=== PATIENT | female | born 1950 | race American Indian/Alaskan Native ===

== ENCOUNTER 2021-07-28 09:34 | Inpatient (IN) | payer MEDICARE, MEDICAID ==
[2021-07-28] MEDS ORDERED: ONDANSETRON 4 MG/2 ML INJ ONE (09:37)
[2021-07-28] MEDS ORDERED: NALOXONE 0.4 MG/1 ML INJ ONE (09:38)
[2021-07-28] MEDS ORDERED: SODIUM CHLORIDE 0.9% 1000 ML 1,000 ML IV ONE ×2 (09:58→11:18)
--- NOTE | 2021-07-28 10:02 | Emergency Department Report ---
ED General Adult HPI - General Chief complaint: Altered Mental Status Stated complaint: SEPTIC Time Seen by Provider: 07/28/21 09:57 Source: patient Mode of arrival: Stretcher Limitations: Altered Mental Status - History of Present Illness Initial comments: Patient is 71 years old female, halfway patient. Patient with history of dementia, congestive heart failure, COPD, asthma, diabetes and hypertension. Patient brought to the emergency room via EMS for evaluation of altered mental status. EMS stated that patient started having some shortness of breath this morning. Patient found to be hypotensive by EMS however they are unable to get an IV access. Upon arrival to the ER patient is obtunded, pupils pinpoint however medication list showed no evidence of narcotics. Patient is taking Seroquel. Right femoral central line obtained and patient started on IV fluids. - Related Data Home Medications Medication Instructions Recorded Confirmed Last Taken Acetaminophen 650 mg PO Q4H PRN 01/28/20 07/28/21 Unknown Aspirin [Aspirin BABY CHEW TAB] 81 mg PO QDAY 01/28/20 07/28/21 Unknown Atorvastatin Calcium [Lipitor] 40 mg PO QHS 01/28/20 07/28/21 Unknown Benazepril HCl [Lotensin] 20 mg PO DAILY 01/28/20 07/28/21 Unknown Donepezil HCl [Donepezil HCl Odt] 10 mg PO QHS 01/28/20 07/28/21 Unknown Furosemide [Lasix TAB] 20 mg PO QDAY 01/28/20 07/28/21 Unknown Insulin Glargine,Hum.rec.anlog 25 unit SQ BID 01/28/20 07/28/21 Unknown [Lantus Solostar] Linagliptin [Tradjenta] 5 mg PO QDAY 01/28/20 07/28/21 Unknown [place]-3/Dha/Epa/Fish Oil [Fish Oil 500 mg PO DAILY 01/28/20 07/28/21 Unknown 500 mg Softgel] Quetiapine Fumarate [SEROquel] 50 mg PO HS 01/28/20 07/28/21 Unknown allopurinoL [Zyloprim] 100 mg PO QHS 01/28/20 07/28/21 Unknown hydrALAZINE [Apresoline TAB] 50 mg PO BID 01/28/20 07/28/21 Unknown Fenofibrate 40 mg PO DAILY 07/28/21 07/28/21 Unknown amLODIPine [Norvasc] 10 mg PO DAILY 07/28/21 07/28/21 Unknown Previous Rx's Medication Instructions Recorded Last Taken Type ALBUTEROL NEB's [Proventil 0.083% 2.5 mg IH Q4HRT PRN nebu 02/14/20 Unknown Rx NEBS] Simple Syrup 15 ml FEEDTUBE PRN PRN oral.liqd 02/14/20 Unknown Rx Simple Syrup 30 ml FEEDTUBE PRN PRN oral.liqd 02/14/20 Unknown Rx Sodium Bicarbonate 325 mg FEEDTUBE PRN PRN tablet 02/14/20 Unknown Rx Allergies Allergy/AdvReac Type Severity Reaction Status Date / Time metformin Allergy Unknown Verified 07/29/21 09:42 lactose AdvReac Diarrhea Verified 07/29/21 09:42 ED Review of Systems ROS: Stated complaint: SEPTIC Other details as noted in HPI Comment: Unobtainable due to pts medical conditions ED Past Medical Hx - Past Medical History Previous Medical History?: Yes Hx Hypertension: Yes Hx Congestive Heart Failure: Yes Hx Diabetes: Yes Hx Deep Vein Thrombosis: (unknown) Hx Asthma: Yes Hx COPD: Yes Hx Dementia: Yes - Surgical History Hx Pacemaker: No - Social History Smoking Status: Unknown if ever smoked - Medications Home Medications: Home Medications Medication Instructions Recorded Confirmed Last Taken Type Acetaminophen 650 mg PO Q4H PRN 01/28/20 07/28/21 Unknown History Aspirin [Aspirin BABY CHEW TAB] 81 mg PO QDAY 01/28/20 07/28/21 Unknown History Atorvastatin Calcium [Lipitor] 40 mg PO QHS 01/28/20 07/28/21 Unknown History Benazepril HCl [Lotensin] 20 mg PO DAILY 01/28/20 07/28/21 Unknown History Donepezil HCl [Donepezil HCl Odt] 10 mg PO QHS 01/28/20 07/28/21 Unknown History Furosemide [Lasix TAB] 20 mg PO QDAY 01/28/20 07/28/21 Unknown History Insulin Glargine,Hum.rec.anlog 25 unit SQ BID 01/28/20 07/28/21 Unknown History [Lantus Solostar] Linagliptin [Tradjenta] 5 mg PO QDAY 01/28/20 07/28/21 Unknown History [place]-3/Dha/Epa/Fish Oil [Fish Oil 500 mg PO DAILY 01/28/20 07/28/21 Unknown History 500 mg Softgel] Quetiapine Fumarate [SEROquel] 50 mg PO HS 01/28/20 07/28/21 Unknown History allopurinoL [Zyloprim] 100 mg PO QHS 01/28/20 07/28/21 Unknown History hydrALAZINE [Apresoline TAB] 50 mg PO BID 01/28/20 07/28/21 Unknown History ALBUTEROL NEB's [Proventil 0.083% 2.5 mg IH Q4HRT PRN nebu 02/14/20 07/28/21 Unknown Rx NEBS] Simple Syrup 15 ml FEEDTUBE PRN PRN oral.liqd 02/14/20 07/28/21 Unknown Rx Simple Syrup 30 ml FEEDTUBE PRN PRN oral.liqd 02/14/20 07/28/21 Unknown Rx Sodium Bicarbonate 325 mg FEEDTUBE PRN PRN tablet 02/14/20 07/28/21 Unknown Rx Fenofibrate 40 mg PO DAILY 07/28/21 07/28/21 Unknown History amLODIPine [Norvasc] 10 mg PO DAILY 07/28/21 07/28/21 Unknown History ED Physical Exam - General Limitations: Altered Mental Status General appearance: obtunded - Head Head exam: Present: atraumatic, normocephalic, normal inspection - Eye Eye exam: Present: normal appearance, PERRL - ENT ENT exam: Present: mucous membranes dry - Neck Neck exam: Present: normal inspection, full ROM. Absent: tenderness, me ningismus - Respiratory Respiratory exam: Present: normal lung sounds bilaterally - Cardiovascular Cardiovascular Exam: Present: regular rate, normal rhythm, normal heart sounds - GI/Abdominal GI/Abdominal exam: Present: soft, normal bowel sounds. Absent: distended, tenderness, guarding, rebound, rigid, mass, bruit, pulsatile mass, hernia - Extremities Exam Extremities exam: Present: normal inspection, full ROM, normal capillary refill. Absent: tenderness - Back Exam Back exam: Present: normal inspection, full ROM. Absent: CVA tenderness (R), CVA tenderness (L) - Neurological Exam Neurological exam: Present: altered - Skin Skin exam: Present: warm, dry, normal color ED Course Vital Signs 07/28/21 07/28/2107/28/21 11:00 11:19 11:37 Temperature Pulse Rate 137 H 125 H Respiratory 20 Rate Blood Pressure Blood Pressure 86/37 [Left] O2 Sat by Pulse 96 95 95 Oximetry 07/28/21 07/28/21 07/28/21 12:03 13:14 13:54 Temperature 92.4 F L Pulse Rate 145 H Respiratory Rate Blood Pressure Blood Pressure 106/45 [Left] O2 Sat by Pulse 100 100 Oximetry 07/28/21 14:00 Temperature Pulse Rate Respiratory Rate Blood Pressure 91/37 Blood Pressure [Left] O2 Sat by Pulse 100 Oximetry - Reevaluation(s) Reevaluation #1: 07/28/21 11:20 Patient became unresponsive and no pulse. ACLS protocol immediately initiated. Patient received 1 round of CPR and 1 epi patient able to regain her pulse back. Patient intubated by me. - Central Line Placement Right Femoral Consent Obtained: emergent situation Time Out Performed: Yes Patient Placed on Monitor/Pulse Ox: Yes MD Prep: mask, gown, gloves Central Line Prep: Povidone-Iodine 1%, Chlorhexidine scrub, sterile drapes appl ied Local Anesthesia Used: Lidocaine 1% Central Line Lumen Inserted: triple Reason for Insertion: Volume Resuscitation Bloods Obtained for Lab: Yes Central Line Position: good blood return, all ports aspirated, flus, sutured in place with 2-0 Dressing Applied: Tegaderm, sterile gauze/tape Patient Tolerated Procedure: well, no complications - Intubation Time Out Performed: Yes Sedative: Etomidate Paralytic: Rocuronium Laryngoscope: Olivia Size: 4 ET Tube Size: 7.5 Tube Secured Location: teeth Tube Placement Confirmation: visualized tube passing t, equal breath sounds bilat, no breath sounds over epi, confirmation by capnometr Patient Tolerated Procedure: well, no complications Intubation Complications: none ED Medical Decision Making - Lab Data Result diagrams: 08/02/21 04:40 08/02/21 04:40 - EKG Data -: EKG Interpreted by Me EKG shows normal: sinus rhythm Rate: tachycardia - EKG Data Interpretation: no acute changes - Radiology Data Radiology results: report reviewed - Medical Decision Making Patient is 71 years old female, halfway patient. Patient with history of dementia, congestive heart failure, COPD, asthma, diabetes and hypertension. Patient brought to the emergency room via EMS for evaluation of altered mental status. EMS stated that patient started having some shortness of breath this morning. Patient found to be hypotensive by EMS however they are unable to get an IV access. Upon arrival to the ER patient is obtunded, pupils pinpoint however medication list showed no evidence of narcotics. Patient is taking Seroquel. Right femoral central line obtained and patient started on IV fluids. Chest x-ray showed bilateral basilar infiltrate consistent with pneumonia. Patient is actively coughing in the emergency room. While resuscitating her patient went into cardiac arrest. Patient received 1 round of CPR and 1 epinephrine and able to regain her pulse back. Patient intubated by me. Labs reviewed and showed a leukocytosis of 13,000. BUN is 78 and creatinine is 9.1. Patient BUN and creatinine from her last visit last year was in the normal range. Patient is in acute renal failure most likely secondary to sepsis. I discussed the patient with Dr. Oneill, he agreed to admit the patient to medical service for further management. Critical Care Time: Yes Critical care time in (mins) excluding proc time.: 45 Critical care attestation.: If time is entered above; I have spent that time in minutes in the direct care of this critically ill patient, excluding procedure time. ED Disposition Clinical Impression: Acute respiratory failure with hypoxia, Cardiopulmonary arrest, Bilateral pneumonia, Severe sepsis, Acute renal failure Disposition: 09 ADMITTED INPATIENT Is pt being admited?: Yes Condition: Stable
--- NOTE | 2021-07-28 10:37 | XRay Report ---
CHEST 1 VIEW INDICATION / CLINICAL INFORMATION: Altered Mental Status STUDY TIME: 102 COMPARISON: 02/03/2020 FINDINGS: SUPPORT DEVICES: None HEART / MEDIASTINUM: Stable. LUNGS / PLEURA: Liver is slightly congested appearance is now seen. Bibasilar areas of density may re present atelectasis though basilar pneumonitis is not excluded. There may be a small left pleural eff usion. No pneumothorax. ADDITIONAL FINDINGS: No significant additional findings. Signer Name: Alex Roth MD Signed: 07/28/2021 10:32 AM Workstation Name: [id number]
--- NOTE | 2021-07-28 10:44 | Cat Scan Report ---
. CT head/brain wo con INDICATION: Altered Mental Status. TECHNIQUE: All CT scans at this location are performed using CT dose reduction for ALARA by means of automated e xposure control. COMPARISON: None available. FINDINGS: Mildly limited exam due to motion artifact. There is no evidence of hemorrhage, hydrocephalus, brain edema, or mass effect/mass lesion. There is a chronic infarct in the left parieto-occipital convexity and in the left frontoparietal white matter , likely involving the left MCA [employer] watershed zone. There is also a chronic lacunar infarct in the le ft internal capsule region. IMPRESSION: 1. Limited exam due to motion artifact without appreciable acute abnormality. 2. 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 Signer Name: Jonah Sherwood MD Signed: 07/28/2021 10:40 AM Workstation Name: [id number]
[2021-07-28] MEDS ORDERED: NORepinephrine/NS 4 MG-250 ML 4 MG/250 ML BAG IV ONE (11:08)
[2021-07-28] MEDS ORDERED: dexAMETHasone 4 MG/ML VIAL IV ONE (11:18)
[2021-07-28] MEDS ORDERED: PIPERACILLIN/TAZOBACTAM 3.375 3.375 GM/50 ML BAG IV ONE (11:18)
[2021-07-28] MEDS ORDERED: MINERAL OIL/PETROLATUM, WHITE OPHTH OINT 3.5 GM OU PRN (11:19)
[2021-07-28] MEDS ORDERED: LIP THERAPY VASELINE TP PRN (11:19)
[2021-07-28 11:22] LABS: Basophils % (Auto) 0.3 % (0.0-1.8); Eosinophils # (Auto) 0.1 K/mm3 (0.0-0.4); Eosinophils % (Auto) 0.4 % (0.0-4.3); Hematocrit 36.8 % (30.3-42.9); Hemoglobin 11.4 gm/dl (10.1-14.3); Lymphocytes # (Auto) 1.6 K/mm3 (1.2-5.4); Mean Corpuscular HGB Conc 31 % (30-34); Mean Corpuscular Volume 85 fl (79-97); Monocytes # (Auto) 0.9 K/mm3 (0.0-0.8); Monocytes % (Auto) 6.9 % (0.0-7.3); Platelet Count 232 K/mm3 (140-440); Red Blood Count 4.33 M/mm3 (3.65-5.03); Red Cell Distribution Width 17.6 % (13.2-15.2)
[2021-07-28 11:38] LABS: INR 1.21 (0.87-1.13)
[2021-07-28 11:42] LABS: Calcium 7.7 mg/dL (8.4-10.2)
[2021-07-28 11:44] LABS: Alanine Aminotransferase 18 units/L (7-56); Albumin 3.9 g/dL (3.9-5)
[2021-07-28 11:51] LABS: Bilirubin,Direct < 0.2 mg/dL (0-0.2)
--- NOTE | 2021-07-28 12:04 | History and Physical Report ---
History of Present Illness Chief complaint: Unable to breathe History of present illness: 71 YO Female Care Home Facility Resident at [place] [place] [place] [facility] with COPD, HTN, CHF presents to ED for evaluation. The patient is intubated anovulatory supportive time my evaluation and is unable to provide history. Patient history taken from EMS staff, ED staff, as well as the patient's family who was made available by telephone for interview. [facility] facility staff report that the patient experienced increased confusion and shortness of breath today and was also found to have a systolic blood pressure in the 70s. EMS was notified and upon arrival the patient was found to be in distress and subsequently transported to [facility] for further evaluation and care. Patient seen and evaluated in the emergency department. Lab and imaging studies reviewed. Patient was found to be stuporous and not able to protect her airway. Patient intubated and placed on ventilatory support. Patient subsequently experienced cardiac arrest and was treated in accordance with ACLS protocol with return of perfusing cardiac rhythm. Patient also found to have acute kidney injury. Patient admitted to ICU due to increased risk of worsening symptoms or development of multiple organ system failure. Critical care team consulted in ED. Nephrology team consulted. No further history is obtainable. No reports of fever, chills, chest pain, palpitation, productive cough, skin rash, trauma, or known ill contacts. Advanced care planning conducted in ED. Past History Past Medical History: COPD, heart failure, hypertension Past Surgical History: No surgical history, Other (Reviewed) Social history: single. denies: smoking, alcohol abuse, prescription drug abuse Family history: no significant family history, other (Reviewed) Medications and Allergies Allergies Allergy/AdvReac Type Severity Reaction Status Date / Time metformin Allergy Unknown Verified 01/28/20 18:17 lactose AdvReac Diarrhea Verified 01/28/20 18:17 Home Medications Medication Instructions Recorded Confirmed Last Taken Type Acetaminophen 650 mg PO Q4H PRN 01/28/20 01/28/20 Unknown History Albuterol Sulfate 1.25 mg IH Q8H PRN 01/28/20 01/28/20 Unknown History Aspirin [Aspirin BABY CHEW TAB] 81 mg PO QDAY 01/28/20 01/28/20 Unknown History Atorvastatin Calcium [Lipitor] 80 mg PO QHS 01/28/20 01/28/20 Unknown History Benazepril HCl [Lotensin] 20 mg PO DAILY 01/28/20 01/28/20 Unknown History Cholecalciferol Vit D3 [Vitamin D3 2,000 unit PO QDAY 01/28/20 01/28/20 Unknown History 1,000 UNIT TAB] Donepezil HCl [Donepezil HCl Odt] 10 mg PO QHS 01/28/20 01/28/20 Unknown History Furosemide [Lasix TAB] 20 mg PO QDAY 01/28/20 01/28/20 Unknown History Insulin Glargine,Hum.rec.anlog 25 unit SQ BID 01/28/20 01/28/20 Unknown History [Lantus Solostar] Linagliptin [Tradjenta] 5 mg PO QDAY 01/28/20 01/28/20 Unknown History Loperamide HCl [Imodium A-D] 2 mg PO QDAY PRN 01/28/20 01/28/20 Unknown History Memantine HCl [Namenda Xr] 28 mg PO DAILY 01/28/20 01/28/20 Unknown History [place]-3/Dha/Epa/Fish Oil [Fish Oil 2 each PO DAILY 01/28/20 01/28/20 Unknown History 500 mg Softgel] Quetiapine Fumarate [SEROquel] 50 mg PO BID 01/28/20 01/28/20 Unknown History allopurinoL [Zyloprim] 300 mg PO QHS 01/28/20 01/28/20 Unknown History amLODIPine 2.5 mg PO DAILY 01/28/20 01/28/20 Unknown History glipiZIDE [Glucotrol] 5 mg PO QDAY 01/28/20 01/28/20 Unknown History hydrALAZINE [Apresoline TAB] 50 mg PO BID 01/28/20 01/28/20 Unknown History ALBUTEROL NEB's [Proventil 0.083% 2.5 mg IH Q4HRT PRN nebu 02/14/20 Unknown Rx NEBS] Ascorbic Acid [Vitamin C] 500 mg PO QDAY tablet 02/14/20 Unknown Rx Enoxaparin 50 mg SUB-Q Q12HR syringe 02/14/20 Unknown Rx Insulin Glargine [Lantus VIAL] 28 units SUB-Q BID units 02/14/20 Unknown Rx Ipratropium/Albuterol Sulfate 1 ampul IH TIDRT ampul.neb 02/14/20 Unknown Rx [DUONEB *Not for PRN Use*] Lipase/Protease/Amylase [Pancreaze 1 each FEEDTUBE PRN PRN capsule 02/14/20 Unknown Rx 10,500 Unit] Prednisone [predniSONE 10 mg 10 mg PO .TAPER #1 tab.ds.pk 02/14/20 Unknown Rx (6-Day Pack, 21 Tabs)] Simple Syrup 15 ml FEEDTUBE PRN PRN oral.liqd 02/14/20 Unknown Rx Simple Syrup 30 ml FEEDTUBE PRN PRN oral.liqd 02/14/20 Unknown Rx Sodium Bicarbonate 325 mg FEEDTUBE PRN PRN tablet 02/14/20 Unknown Rx Zinc Sulfate 220 mg PO QDAY capsule 02/14/20 Unknown Rx amLODIPine 5 mg PO QDAY tablet 02/14/20 Unknown Rx Active Meds: Active Medications Famotidine (Famotidine 20 Mg/2 Ml Inj) 20 mg IV BID WIL Hydrophilic Ointment (Lip Therapy Vaseline) 1 applic TP Q2HR PRN PRN Reason: Dry Lips Sodium Chloride (Nacl 0.9% 1000 Ml) 1,000 mls @ 999 mls/hr IV BOLUS ONE Stop: 07/28/21 12:18 Last Admin: 07/28/21 11:46 Dose: 999 mls/hr Documented by: Propofol (Diprivan 10 Mg/Ml) 1,000 mg in 100 mls @ 0 mls/hr IV TITR WIL; Protocol NORepinephrine/NS 8 MG-250 ML (Norepinephrine/Ns 8 Mg-250 Ml (Double Conc)) 8 mg in 250 mls @ 3.75 mls/hr IV TITRATE WIL; Protocol Multi-Ingred Cream/Lotion/Oil/Oint (Mineral Oil/Petrolatum, White Ophth Oint 3.5 Gm) 1 applic OU Q4HR PRN PRN Reason: Dry Eye(s) Senna/Docusate Sodium (Sennosides/Docusate Sodium 8.6/50 Mg Tab) 1 tab FEEDTUBE BID WIL Review of Systems ROS unobtainable: due to endotracheal tube, due to mental status Exam - Constitutional General appearance: Present: severe distress - EENT Eyes: Present: miosis ENT: hearing decreased - Neck Neck: Present: supple, normal ROM - Respiratory Respiratory effort: labored, accessory muscle use Respiratory: bilateral: diminished, rhonchi - Cardiovascular Rhythm: other (Tachycardia) Heart Sounds: Present: S1 & S2. Absent: rub, click - Extremities Extremities: pulses symmetrical, No edema Peripheral Pulses: abnormal (Capillary refill greater than 3.5 seconds) - Abdominal General gastrointestinal: Present: soft, non-tender, non-distended, normal bowel sounds Female genitourinary: Present: normal - Integumentary Integumentary: Present: clear, warm, dry - Musculoskeletal Musculoskeletal: generalized weakness - Psychiatric Psychiatric: no appropriate mood/affect, no intact judgment & insight, no memory intact - Neurologic Neurologic: CNII-XII intact, moves all extremities, no gait normal HEART Score - HEART Score Troponin: Troponin T 0.063 ng/mL (0.00-0.029) H 07/28/21 11:09 Results - Labs CBC & Chem 7: 07/28/21 11:09 07/28/21 11:09 Labs: Abnormal lab results 07/28/21 07/28/21 07/28/21 Range/Units 11: 11:09 11:09 WBC 13.5 H (4.5-11.0) K/mm3 MCH 26 L (28-32) pg RDW 17.6 H (13.2-15.2) % Lymph % (Auto) 12.0 L (13.4-35.0) % [place] # (Auto) 0.9 H (0.0-0.8) K/mm3 Seg Neutrophils % 80.4 H (40.0-70.0) % Seg Neutrophils # 10.8 H (1.8-7.7) K/mm3 PT 16.6 H (12.2-14.9) Sec. INR 1.21 H (0.87-1.13) Carbon Dioxide 16 L (22-30) mmol/L BUN 78 H (7-17) mg/dL Creatinine 9.1 H (0.6-1.2) mg/dL Glucose 224 H (65-100) mg/dL Lactic Acid (0.7-2.0) mmol/L Calcium 7.7 L (8.4-10.2) mg/dL Total Creatine Kinase (30-135) units/L Troponin T 0.063 H (0.00-0.029) ng/mL 07/28/21 07/28/21 Range/Units 11:09 11:09 WBC (4.5-11.0) K/mm3 MCH (28-32) pg RDW (13.2-15.2) % Lymph % (Auto) (13.4-35.0) % [place] # (Auto) (0.0-0.8) K/mm3 Seg Neutrophils % (40.0-70.0) % Seg Neutrophils # (1.8-7.7) K/mm3 PT (12.2-14.9) Sec. INR (0.87-1.13) Carbon Dioxide (22-30) mmol/L BUN (7-17) mg/dL Creatinine (0.6-1.2) mg/dL Glucose (65-100) mg/dL Lactic Acid 7.30 H* (0.7-2.0) mmol/L Calcium (8.4-10.2) mg/dL Total Creatine Kinase 840 H (30-135) units/L Troponin T (0.00-0.029) ng/mL Assessment and Plan - Patient Problems (1) Sepsis Current Visit: Yes Status: Acute Plan to address problem: Sepsis protocol: Chest x-ray, CBC, CMP, chest x-ray, urinalysis, IV antibiotic therapy, supplemental oxygen, pulse oximetry, maintain mean arterial pressure greater than or equal to 65, IV pressor support as clinically indicated, serial lactic acid level. The high probability of a clinically significant, sudden or life threatening deterioration of the [neuro, pulmonary, renal,] system(s) required my full and direct attention, intervention and personal management. The aggregate critical care time was [65] minutes. This time is in addition to time spent performing reported procedures but includes the following: [x] Data Review and interpretation [x] Patient assessment and monitoring of vital signs [x] Documentation [x] Medication orders and management (2) Cardiac arrest Current Visit: Yes Status: Acute Plan to address problem: Patient treated" with ACLS protocol with return of perfusing cardiac rhythm. (3) Acute kidney injury (VIJAY) with acute tubular necrosis (ATN) Current Visit: Yes Status: Acute Plan to address problem: IV fluid resuscitation therapy, BMP, repeat BMP in a.m. to monitor serum creatinine, nephrology team consulted. (4) Acute respiratory failure with hypoxia Current Visit: Yes Status: Acute Plan to address problem: Patient intubated and ambulatory support. Wean vent as tolerated, daily as spontaneous breathing trials, daily ABG, sedation holiday, supportive care. (5) DVT prophylaxis Current Visit: Yes Status: Acute Plan to address problem: SCD to bilateral lower extremities while in bed (6) Advance care planning Current Visit: Yes Status: Acute Plan to address problem: Disease education conducted, care plan discussed, prognosis discussed, patient has poor prognosis. Patient is full code for now, patient family acknowledge understanding and agreement with care plan. +30 minutes.
[2021-07-28] MEDS ORDERED: VANCOMYCIN 1,000 MG in SODIUM CHLORIDE 0.9% 500 ML 500 ML IV ONE (12:05)
[2021-07-28] MEDS ORDERED: DOPamine/D5W 800 MG/250 ML 800 MG/250 ML BAG IV ONE ×3 (12:25→17:11)
--- NOTE | 2021-07-28 12:28 | XRay Report ---
ABDOMEN 1 VIEW INDICATION / CLINICAL INFORMATION: Esophagogastric tube placement. COMPARISON: None available. FINDINGS: TUBES / LINES: An esophagogastric tube terminates laterally along the gastric body. BOWEL GAS PATTERN: No significant abnormality. FREE AIR / EXTRALUMINAL GAS: None seen. ADDITIONAL FINDINGS: No significant additional findings. IMPRESSION: Expected positioning of the esophagogastric tube. No acute findings. Signer Name: Horacio Berger MD Signed: 07/28/2021 12:23 PM Workstation Name: [id number]
--- NOTE | 2021-07-28 12:28 | XRay Report ---
CHEST 1 VIEW 07/28/2021 11:53 AM INDICATION / CLINICAL INFORMATION: ETT placement. COMPARISON: One view of the chest from earlier today. FINDINGS: SUPPORT DEVICES: An ET tube has been placed with the tip located 1.8 cm above the haris. An esophago gastric tube has been placed with the most distal visualized portion projecting over the gastric fund us. HEART / MEDIASTINUM: Stable. LUNGS / PLEURA: Right basilar pleural-parenchymal opacities have increased. There are similar left ba silar pleural-parenchymal opacities. The upper lungs are clear. No pneumothorax. ADDITIONAL FINDINGS: No significant additional findings. IMPRESSION: 1. Satisfactory positioning of ET and esophagogastric tubes. 2. Increased right basilar pleural-parenchymal opacities. 3. No other significant interval changes. Signer Name: Horacio Berger MD Signed: 07/28/2021 12:22 PM Workstation Name: [id number]
[2021-07-28 12:33] LABS: ABG Base Excess -16.5 mmol/L (-2.0-3.0); ABG HCO3 13.4 mmol/L (20.0-26.0); ABG Methemoglobin 0.7 % (0.0-1.5); ABG Oxygen Saturation 97.7 % (95.0-99.0); ABG PCO2 49.9 mm Hg; ABG PO2 135.4 mm Hg (80.0-90.0)
[2021-07-28] MEDS: NORepinephrine/NS 8 MG-250 ML 8 MG/250 ML INFUS..BTL IV SCH ×3 (12:41→20:23)
[2021-07-28 12:44] LABS: ABG PH 7.049 pH Units (7.350-7.450)
[2021-07-28] MEDS: FAMOTIDINE 20 MG/2 ML INJ IV SCH ×2 (12:47→21:01)
[2021-07-28] MEDS: SENNOSIDES/DOCUSATE SODIUM 8.6/50 MG TAB FEEDTUBE SCH (12:48)
[2021-07-28] MEDS ORDERED: LIPASE 10,500/PROTEASE 25,000/AMYLASE 43,750 (UNITS) DR CAP FEEDTUBE PRN ×2 (13:00→16:23)
[2021-07-28] MEDS ORDERED: CEFEPIME/NS 2 GM/100 ML 2 GM/100 ML BAG IV SCH (13:00)
[2021-07-28] MEDS ORDERED: VANCOMYCIN 2,000 MG in SODIUM CHLORIDE 0.9% 500 ML 500 ML IV ONE (13:00)
[2021-07-28] MEDS ORDERED: ACETAMINOPHEN 325 MG TAB PO PRN ×2 (13:00)
[2021-07-28] MEDS ORDERED: MORPHINE 2 MG/1 ML INJ IV PRN (13:00)
[2021-07-28] MEDS ORDERED: SIMPLE SYRUP 15 ML FEEDTUBE PRN ×3 (13:00→16:23)
[2021-07-28] MEDS ORDERED: SODIUM BICARBONATE 325 MG TAB FEEDTUBE PRN ×2 (13:00→16:23)
[2021-07-28] MEDS ORDERED: HYDROmorphone 1 MG/1 ML INJ IV PRN ×2 (13:00)
[2021-07-28] MEDS ORDERED: VANCOMYCIN PHARMACY TO DOSE IV SCH (13:00)
[2021-07-28 13:42] LABS: Chol/HDL Ratio 3.72 %
--- NOTE | 2021-07-28 13:51 | Consultation ---
History of Present Illness Consult date: 07/28/21 Requesting physician: MARLA TEE Reason for consult: other (Acute Hypoxemic Respioratory Failure; Severe Sepsis) History of present illness: PULMONARY/CCM CONSULT NOTE (Full dictation # [id number]) Please see dictated notes for full details Medications and Allergies Allergies Allergy/AdvReac Type Severity Reaction Status Date / Time metformin Allergy Unknown Verified 01/28/20 18:17 lactose AdvReac Diarrhea Verified 01/28/20 18:17 Home Medications Medication Instructions Recorded Confirmed Last Taken Type Acetaminophen 650 mg PO Q4H PRN 01/28/20 01/28/20 Unknown History Albuterol Sulfate 1.25 mg IH Q8H PRN 01/28/20 01/28/20 Unknown History Aspirin [Aspirin BABY CHEW TAB] 81 mg PO QDAY 01/28/20 01/28/20 Unknown History Atorvastatin Calcium [Lipitor] 80 mg PO QHS 01/28/20 01/28/20 Unknown History Benazepril HCl [Lotensin] 20 mg PO DAILY 01/28/20 01/28/20 Unknown History Cholecalciferol Vit D3 [Vitamin D3 2,000 unit PO QDAY 01/28/20 01/28/20 Unknown History 1,000 UNIT TAB] Donepezil HCl [Donepezil HCl Odt] 10 mg PO QHS 01/28/20 01/28/20 Unknown History Furosemide [Lasix TAB] 20 mg PO QDAY 01/28/20 01/28/20 Unknown History Insulin Glargine,Hum.rec.anlog 25 unit SQ BID 01/28/20 01/28/20 Unknown History [Lantus Solostar] Linagliptin [Tradjenta] 5 mg PO QDAY 01/28/20 01/28/20 Unknown History Loperamide HCl [Imodium A-D] 2 mg PO QDAY PRN 01/28/20 01/28/20 Unknown History Memantine HCl [Namenda Xr] 28 mg PO DAILY 01/28/20 01/28/20 Unknown History Ceres-3/Dha/Epa/Fish Oil [Fish Oil 2 each PO DAILY 01/28/20 01/28/20 Unknown History 500 mg Softgel] Quetiapine Fumarate [SEROquel] 50 mg PO BID 01/28/20 01/28/20 Unknown History allopurinoL [Zyloprim] 300 mg PO QHS 01/28/20 01/28/20 Unknown History amLODIPine 2.5 mg PO DAILY 01/28/20 01/28/20 Unknown History glipiZIDE [Glucotrol] 5 mg PO QDAY 01/28/20 01/28/20 Unknown History hydrALAZINE [Apresoline TAB] 50 mg PO BID 01/28/20 01/28/20 Unknown History ALBUTEROL NEB's [Proventil 0.083% 2.5 mg IH Q4HRT PRN nebu 02/14/20 Unknown Rx NEBS] Ascorbic Acid [Vitamin C] 500 mg PO QDAY tablet 02/14/20 Unknown Rx Enoxaparin 50 mg SUB-Q Q12HR syringe 02/14/20 Unknown Rx Insulin Glargine [Lantus VIAL] 28 units SUB-Q BID units 02/14/20 Unknown Rx Ipratropium/Albuterol Sulfate 1 ampul IH TIDRT ampul.neb 02/14/20 Unknown Rx [DUONEB *Not for PRN Use*] Lipase/Protease/Amylase [Pancreaze 1 each FEEDTUBE PRN PRN capsule 02/14/[address] 10,500 Unit] Prednisone [predniSONE 10 mg 10 mg PO .TAPER #1 tab.ds.pk 02/14/20 Unknown Rx (6-Day Pack, 21 Tabs)] Simple Syrup 15 ml FEEDTUBE PRN PRN oral.liqd 02/14/20 Unknown Rx Simple Syrup 30 ml FEEDTUBE PRN PRN oral.liqd 02/14/20 Unknown Rx Sodium Bicarbonate 325 mg FEEDTUBE PRN PRN tablet 02/14/20 Unknown Rx Zinc Sulfate 220 mg PO QDAY capsule 02/14/20 Unknown Rx amLODIPine 5 mg PO QDAY tablet 02/14/20 Unknown Rx Active Meds: Active Medications Acetaminophen (Acetaminophen 325 Mg Tab) 650 mg PO Q6H PRN PRN Reason: Pain MILD(1-3)/Fever >100.5/GARCIA Albuterol (Albuterol 2.5 Mg/3 Ml Nebu) 2.5 mg IH Q3HRT PRN PRN Reason: Shortness Of Breath Allopurinol (Allopurinol 300 Mg Tab) 300 mg PO QHS WIL Lipase/Protease/Amylase (Lipase 10,500/Protease 25,000/Amylase 43,750 (Units) Dr Carmona) 1 each FEEDTUBE PRN PRN PRN Reason: For Clogged Feeding Tube Ascorbic Acid (Ascorbic Acid 500 Mg Tab) 500 mg PO QDAY WIL Aspirin (Aspirin 81 Mg Tab Chew) 81 mg PO QDAY WIL Atorvastatin Calcium (Atorvastatin 40 Mg Tab) 80 mg PO QHS WIL Cholecalciferol (Cholecalciferol (Vit D3) 1000 Unit (25 Mcg) Tab) 2,000 unit PO QDAY WIL Donepezil HCl (Donepezil 10 Mg Tab) 10 mg PO QHS WIL Famotidine (Famotidine 20 Mg/2 Ml Inj) 20 mg IV BID [facility] Last Admin: 07/28/21 12:47 Dose: 20 mg Documented by: Furosemide (Furosemide 20 Mg Tab) 20 mg PO QDAY WIL Hydromorphone HCl (Hydromorphone 1 Mg/1 Ml Inj) 0.25 mg IV Q4H PRN PRN Reason: Pain, Moderate (4-6) Hydromorphone HCl (Hydromorphone 1 Mg/1 Ml Inj) 0.5 mg IV Q23H PRN PRN Reason: Pain , Severe (7-10) Hydrophilic Ointment (Lip Therapy Vaseline) 1 applic TP Q2HR PRN PRN Reason: Dry Lips Propofol (Diprivan 10 Mg/Ml) 1,000 mg in 100 mls @ 4.082 mls/hr IV TITR WIL; Protocol NORepinephrine/NS 8 MG-250 ML (Norepinephrine/Ns 8 Mg-250 Ml (Double Conc)) 8 mg in 250 mls @ 3.75 mls/hr IV TITRATE WIL; Protocol Last Titration: 07/28/21 13:32 Dose: 30 mcg/min, 56.25 mls/hr Documented by: Dopamine HCl/Dextrose (Intropin Drip 800 Mg/D5w 250 Ml) 800 mg in 250 mls @ 5.103 mls/hr IV TITR ONE; Protocol Stop: 07/30/21 13:26 Last Titration: 07/28/21 13:00 Dose: 20 mcg/kg/min, 51.029 mls/hr Documented by: Vancomycin HCl 2,000 mg/ (Sodium Chloride) 540 mls @ 250 mls/hr IV ONCE ONE Stop: 07/28/21 15:09 Cefepime HCl (Cefepime/Ns 2 Gm/100 Ml) 2 gm in 100 mls @ 200 mls/hr IV ONCE ONE Stop: 07/28/21 14:29 Memantine (Memantine 10 Mg Tab) 10 mg PO Q12HR WIL Morphine Sulfate (Morphine 2 Mg/1 Ml Inj) 2 mg IV Q8H PRN PRN Reason: Pain, Moderate (4-6) Multi-Ingred Cream/Lotion/Oil/Oint (Mineral Oil/Petrolatum, White Ophth Oint 3.5 Gm) 1 applic OU Q4HR PRN PRN Reason: Dry Eye(s) Quetiapine Fumarate (Quetiapine 25 Mg Tab) 50 mg PO BID WIL Senna/Docusate Sodium (Sennosides/Docusate Sodium 8.6/50 Mg Tab) 1 tab FEEDTUBE BID [facility] Last Admin: 07/28/21 12:48 Dose: 1 tab Documented by: Simple Syrup (Simple Syrup 15 Ml) 15 ml FEEDTUBE PRN PRN PRN Reason: Hypoglycemia Sodium Bicarbonate (Sodium Bicarbonate 325 Mg Tab) 325 mg FEEDTUBE PRN PRN PRN Reason: For Clogged Feeding Tube Sodium Chloride (Sodium Chloride 0.9% 10 Ml Flush Syringe) 10 ml IV BID WIL Sodium Chloride (Sodium Chloride 0.9% 10 Ml Flush Syringe) 10 ml IV PRN PRN PRN Reason: LINE FLUSH Zinc Sulfate (Zinc Sulfate 220 Mg Cap) 220 mg PO QDAY [facility] Physical Examination Vital signs: Vital Signs Pulse Ox 96 07/28/21 11:00 Results - Laboratory Findings CBC and BMP: 07/28/21 11:09 07/28/21 11:09 ABG ABG pH 7.049 pH Units (7.350-7.450) L* 07/28/21 12:24 ABG pCO2 49.9 mm Hg 07/28/21 12:24 ABG pO2 135.4 mm Hg (80.0-90.0) H 07/28/21 12:24 ABG O2 Saturation 97.7 % (95.0-99.0) 07/28/21 12:24 PT/INR, D-dimer PT 16.6 Sec. (12.2-14.9) H 07/28/21 11:09 INR 1.21 (0.87-1.13) H 07/28/21 11:09 Abnormal lab findings: Abnormal Labs 07/28/21 07/28/21 07/28/21 11:09 11:09 11:09 WBC 13.5 H MCH 26 L RDW 17.6 H Lymph % (Auto) 12.0 L Hamilton # (Auto) 0.9 H Seg Neutrophils % 80.4 H Seg Neutrophils # 10.8 H PT 16.6 H INR 1.21 H ABG pH ABG pO2 ABG HCO3 ABG Base Excess ABG Hemoglobin Carbon Dioxide 16 L BUN 78 H Creatinine 9.1 H Glucose 224 H Lactic Acid Calcium 7.7 L Total Creatine Kinase Troponin T 0.063 H Triglycerides 226 H 07/28/21 07/28/21 07/28/21 11:09 11:09 12:24 WBC MCH RDW Lymph % (Auto) Hamilton # (Auto) Seg Neutrophils % Seg Neutrophils # PT INR ABG pH 7.049 L* ABG pO2 135.4 H ABG HCO3 13.4 L ABG Base Excess -16.5 L ABG Hemoglobin 10.8 L Carbon Dioxide BUN Creatinine Glucose Lactic Acid 7.30 H* Calcium Total Creatine Kinase 840 H Troponin T Triglycerides
[2021-07-28] MEDS ORDERED: CEFEPIME/NS 2 GM/100 ML 2 GM/100 ML BAG IV ONE (14:00)
[2021-07-28] MEDS ORDERED: ALBUTEROL 2.5 MG/3 ML NEBU IH PRN (14:00)
[2021-07-28] MEDS ORDERED: fentaNYL 100 MCG/2 ML INJ IV PRN (15:13)
[2021-07-28 16:10] LABS: Creatinine,Urine 173.3 mg/dL (0.1-20.0)
[2021-07-28 16:15] LABS: Bacteria,Urine 1+ /HPF (Negative); Bilirubin,Urine NEG (Negative); Blood,Urine MOD (Negative); Color,Urine Amber (Yellow); Hyaline Casts,Urine 1 /LPF; Mucus,Urine 1+ /HPF; Urobilinogen,Urine < 2.0 mg/dL (<2.0)
[2021-07-28] MEDS: VASOPRESSIN 20 UNIT in SODIUM CHLORIDE 0.9% 100 ML IV SCH (17:21)
[2021-07-28] MEDS ORDERED: EPINEPHrine 1 MG/10 ML SYRINGE ONE ×2 (18:00→20:00)
[2021-07-28] MEDS ORDERED: DOPamine/D5W 800 MG/250 ML 800 MG/250 ML BAG IV SCH (18:00)
[2021-07-28] MEDS ORDERED: DEXTROSE 50% IN WATER (25GM) 50 ML SYRINGE IV PRN (18:05)
[2021-07-28] MEDS: fentaNYL DRIP Premix 2,000 MCG/100 ML BAG IV SCH (18:13)
[2021-07-28] MEDS: INSULIN LISPRO 100 UNIT/ML SUB-Q SCH (18:25)
[2021-07-28] MEDS: DONEPEZIL 10 MG TAB PO SCH (21:00)
[2021-07-28] MEDS ORDERED: NON-FORMULARY EACH (Atorvastatin Calcium [Lipitor] 80 MG Tablet) PO SCH (22:00)
[2021-07-28] MEDS ORDERED: NON-FORMULARY EACH (Quetiapine Fumarate [Seroquel] 50 MG Tablet) PO SCH (22:00)
[2021-07-28] MEDS ORDERED: NON-FORMULARY EACH (Donepezil Hcl [Donepezil Hcl Odt] 10 MG Tab.Rapdis) PO SCH (22:00)
[2021-07-28] MEDS ORDERED: allopurinoL 300 MG TAB PO SCH (22:00)
[2021-07-28] MEDS: QUEtiapine 25 MG TAB PO SCH (22:41)
[2021-07-29] MEDS: SENNOSIDES/DOCUSATE SODIUM 8.6/50 MG TAB FEEDTUBE SCH ×3 (00:01→21:51)
[2021-07-29] MEDS: INSULIN LISPRO 100 UNIT/ML SUB-Q SCH ×4 (00:08→23:11)
[2021-07-29] MEDS: NORepinephrine/NS 8 MG-250 ML 8 MG/250 ML INFUS..BTL IV SCH ×2 (01:02→23:49)
--- NOTE | 2021-07-29 03:23 | Consultation ---
DATE OF CONSULTATION: 07/28/2021 PULMONARY CRITICAL CARE CONSULT NOTE CONSULTING PHYSICIAN: Dr. Hernandez, Emergency Room physician gave me a history. Consult written by Dr. Oneill. REASON FOR CONSULTATION: Acute hypoxemic respiratory failure, sepsis with shock. CHIEF COMPLAINT AND HISTORY OF PRESENT ILLNESS: The patient is a 71-year-old obese female known to me actually from her prior admission, last year, during which she was positive for COVID-19 infection. She is a long-term resident. History of dementia, CHF and COPD in particular. Brought in by EMS to the Emergency Room for altered mental status. They mentioned she had been having shortness of breath on the morning of presentation. EMS found her hypotensive. They were unable to get IV access in the Emergency Room, she was obtunded and required rapid sequence intubation. A central line was placed and she was volume resuscitated. She is wheeled up to the Intensive Care Unit at which point in time, just getting a history. When I stopped by to see her, she was resting in bed. She was beginning to try to open her eyes, not following prompts. She was on the mechanical ventilator, assist control mode of ventilation, tidal volumes were set at 400, rate of 20 and a PEEP of 6 and initially 100% FiO2. I do not have any history of vomiting or overt aspiration. The patient is not a current tobacco abuser, remote history is unknown. The above is as much of the history of presentation as I have. PAST MEDICAL HISTORY: Congestive heart failure, COPD, history of hypertension, diabetes, history of dementia. She is obese and then she had the COVID-19 pneumonia last year. PAST SURGICAL HISTORY: Unknown. MEDICATIONS: She was on at the time I stopped by to see her according to the medication administration record included the following: Tylenol 650 mg p.o. q.6 hours p.r.n. mild pain or fevers, albuterol 2.5 mg nebulized q.3 hours p.r.n. shortness of breath, allopurinol 300 mg p.o. at bedtime, vitamin C 500 mg p.o. daily, baby aspirin 81 mg p.o. daily, Lipitor 80 mg p.o. at bedtime, vitamin D3 2000 units p.o. daily, Aricept 10 mg p.o. at bedtime. She was on Levophed drip, I believe at 30 mcg per minute, Pepcid 20 mg IV b.i.d., Lasix 20 mg p.o. daily, Dilaudid 0.25 mg IV q.4 hours p.r.n. moderate pain, memantine 10 mg p.o. q.12 hours, morphine sulfate 2 mg IV q.8 hours p.r.n. moderate pain, propofol 5 mcg per kilogram per minute, Seroquel 50 mg p.o. b.i.d., senna/docusate 1 tablet p.o. b.i.d. and vancomycin 2 grams IV once as well as zinc sulfate 220 mg p.o. daily. ALLERGIES: METFORMIN AND LACTOSE, NATURE OF THIS ALLERGY IS UNKNOWN. DIET: Obese lady. She seems to have lost some weight since I had last seen her. FAMILY AND SOCIAL HISTORY: Lives in the long-term. No current alcohol, tobacco or illicit drug use or abuse. Family history is otherwise unknown. Remote history is otherwise unknown. REVIEW OF SYSTEMS: Unobtainable secondary to patient's medical and mental condition since she has been here. No gross hematochezia or melena. No gross hematuria, no hematemesis, no bloody tracheal secretions. No witnessed seizures. Review of systems otherwise unobtainable or as in the body of history above. PHYSICAL EXAMINATION: VITAL SIGNS: On presentation, she was hypothermic, temperature 92.4 degrees Fahrenheit, pulse of 137, respiratory rate of 20, blood pressure 86/37, O2 sats were 96%, inspired oxygen concentration at that time was not recorded. GENERAL: She is an elderly looking obese female. HEENT: Normocephalic, atraumatic. On the mechanical ventilator without significant patient-ventilator dyssynchrony. Anicteric. No conjunctival erythema. Oropharynx was moist. ET tube was taped at the lips, around 23-24 cm. NECK: No gross jugular venous distention, no thyromegaly. She does have a large neck circumference. Grossly, there were no palpable lymph nodes in the supraclavicular or submandibular lymph node chains. LUNGS: Auscultation of both lung kramer revealed basilar rales. No active wheezing. Slightly diminished breath sounds. HEART: Sounds 1 and 2 are heard at the time of my evaluation, regular rate and rhythm without overt rubs or murmurs. ABDOMEN: Soft, full, protuberant. Bowel sounds are positive, nontender, no palpable hepatosplenomegaly. EXTREMITIES: Without overt digital clubbing or cyanosis, no pedal edema. Pedal pulses are 2+ bilaterally. NEUROLOGIC: Pupils are equal, round, about 4 mm, reactive to light. She was having some twitches to the right side of her face. No overt seizure type activity. She was beginning to open her eyes, but was not following commands. She did have some spontaneous movements to her extremities. SKIN: Poor turgor; however, without overt cellulitis or rash in the areas I examined. Please see the wound care nurses' notes for full description of her skin. PSYCHIATRIC: Mood and affect could not be assessed, she was on the mechanical ventilator and sedated. LABORATORY DATA: From my review are as follows: White count 13,500, hemoglobin 11.4, hematocrit 36.8, platelet count 232. INR 1.21. Venous blood gas in the ER showed a pH of 7.05, pCO2 of 50, pO2 of 135, that was on room air. Serum sodium was 143, potassium 4.6, chloride 100, bicarbonate 16, BUN 78, creatinine 9.1, glucose was 224. Lactic acid level was 7.3. Liver function tests otherwise essentially within normal limits. Troponin was up at 0.063. LDL within normal limits. Her most recent BUN, creatinine, prior to today's labs was on the of February last year at which time the creatinine was within normal limits. Two sets of blood cultures are no growth to date. Chest x-ray shows an endotracheal tube with the tip at the level of the aortic knob. Bibasilar opacifications possibly an element of pulmonary edema, soft tissue shadows. I cannot rule out small pleural effusions, no gross pneumothorax, no gross bony fracture. Really not much changed from the last x-ray in 01/2020. A KUB was done, which shows a feeding tube below the diaphragm. ASSESSMENT: 1. Acute possibly on chronic toxic metabolic encephalopathy. 2. Acute hypoxemic respiratory failure. 3. Bilateral pneumonia. 4. Person under investigation for COVID-19 infection. 5. Congestive heart failure with possible acute exacerbation. 6. Obesity. 7. Severe sepsis with shock. 8. Acute kidney injury. 9. Oropharyngeal dysphagia. 10. History of chronic obstructive pulmonary disease. 11. History of congestive heart failure. 12. Leukocytosis. 13. Metabolic acidosis. PLAN: We will keep her on full mechanical ventilator support. In the short time, I have increased the rate to 30 earlier on empirically until I get new arterial blood gases in case of hypertension has been driven by acidosis. Oxygen will be weaned to keep sats greater than or equal to about 92%. Ventilator-associated pneumonia bundle has been introduced. She will be kept empirically and contact and airborne isolation. COVID-19 test will be sent and addressed as necessary. Infectious disease consultation will be of benefit. I will be going ahead to consult the production operations inspector if he has not already been consulted. I will send urine electrolytes. This may be prerenal issue here. I doubt she needs acute dialysis, but she may be headed in that direction. Enteral nutrition will be the feeding modality of choice. She is appropriately on GI prophylaxis as well as DVT prophylaxis. I will be putting her on DVT prophylaxis with heparin. Acute coronary syndrome workup will be deferred to Cardiology. She has been placed on a Ahmet Hugger to get her temperatures up. Flu and pneumonia vaccination will be addressed per protocol. Vasopressors will be weaned to keep mean arterial pressures greater than or equal to about 65 mmHg and I will be doing aggressive isotonic volume resuscitation in the short term. Thank you very much for the consult. We will follow along and make further recommendations as picture progresses/becomes clearer. She is critically ill on life-sustaining interventions including mechanical ventilatory support and vasopressors, at very high risk of from cardiopulmonary system decompensation. At this time, I spent about 40 minutes of critical care time without overlap excluding any procedural time that may be necessary. TID: [id number] RECEIPT: [id number] DEZ/ERICA
[2021-07-29 05:16] LABS: Basophils % (Auto) 0.1 % (0.0-1.8); Eosinophils % (Auto) 0.1 % (0.0-4.3); Hematocrit 35.7 % (30.3-42.9); Hemoglobin 11.4 gm/dl (10.1-14.3); Lymphocytes # (Auto) 1.4 K/mm3 (1.2-5.4); Lymphocytes % (Auto) 10.1 % (13.4-35.0); Mean Corpuscular HGB Conc 32 % (30-34); Mean Corpuscular Volume 82 fl (79-97); Monocytes # (Auto) 1.1 K/mm3 (0.0-0.8); Monocytes % (Auto) 8.1 % (0.0-7.3); Platelet Count 243 K/mm3 (140-440); Red Blood Count 4.34 M/mm3 (3.65-5.03); Red Cell Distribution Width 17.1 % (13.2-15.2)
--- NOTE | 2021-07-29 05:21 | XRay Report ---
CHEST 1 VIEW 07/29/2021 3:42 AM INDICATION / CLINICAL INFORMATION: follow up respiratory failure. COMPARISON: 07/28/2021 FINDINGS: SUPPORT DEVICES: ET tube, NG tube and distal esophageal pH probe in expected position HEART / MEDIASTINUM: Stable cardiomegaly LUNGS / PLEURA: Bilateral lower lobe pleural-parenchymal disease has improved. No pneumothorax. ADDITIONAL FINDINGS: No significant additional findings. IMPRESSION: 1. Resolving bilateral lower lobe pleural-parenchymal disease Signer Name: August Abdi MD Signed: 07/29/2021 5:16 AM Workstation Name: [id number]
[2021-07-29 05:32] LABS: Calcium 7.6 mg/dL (8.4-10.2)
[2021-07-29] MEDS: fentaNYL DRIP Premix 2,000 MCG/100 ML BAG IV SCH ×2 (05:43→18:17)
[2021-07-29] MEDS: ZINC SULFATE 220 MG CAP PO SCH (09:23)
[2021-07-29] MEDS: FAMOTIDINE 20 MG/2 ML INJ IV SCH ×2 (09:23→21:51)
[2021-07-29] MEDS: ASCORBIC ACID 500 MG TAB PO SCH (09:23)
[2021-07-29] MEDS: QUEtiapine 25 MG TAB PO SCH ×2 (09:23→21:51)
[2021-07-29] MEDS: CHOLECALCIFEROL (VIT D3) 1000 UNIT (25 mcg) TAB PO SCH (09:23)
[2021-07-29] MEDS: ASPIRIN 81 MG TAB CHEW PO SCH (09:24)
[2021-07-29] MEDS: CEFEPIME/NS 2 GM/100 ML 2 GM/100 ML BAG IV SCH (09:24)
[2021-07-29] MEDS ORDERED: MEMANTINE HCL 28 MG PO SCH (10:00)
[2021-07-29] MEDS ORDERED: FUROSEMIDE 20 MG TAB PO SCH (10:00)
[2021-07-29] MEDS: MEMANTINE 5 MG TAB PO SCH ×2 (10:34→21:52)
[2021-07-29] MEDS: VASOPRESSIN 20 UNIT in SODIUM CHLORIDE 0.9% 100 ML IV SCH ×2 (12:22→23:47)
--- NOTE | 2021-07-29 13:14 | Progress Note ---
Assessment and Plan Acute hypoxemic respiratory failure. Acute encephalopathy, possibly toxic metabolic. Possible bilateral pulmonary edema. Possible acute congestive heart failure exacerbation. Possible COVID-19 infection with bilateral pneumonia. Hypertensive urgency. Acute kidney injury. Bilateral pneumonia. Leukocytosis. Elevated inflammatory markers including (d-dimer, ferritin, CRP, and then elevated serum transaminase) - continue airborne and contact precautions - follow COVID results - continue to wean supplemental oxygen for target O2 sat's > 90% acutely - continue bronchodilators with pulmonary hygiene per RT - continue accuchecks with glycemic control per SSI (While critically ill target blood glucose of 140-180 mg/dL; avoid hypoglycemia) - avoid benzodiazepine's, reduce the possibility of delirium - continue empiric AB's per ID rec's - prn analgesia per pain score - aspiration precautions - Maintenance of sleep-wake cycle, avoid delirium - G.I. & VTE prophylaxis - PT/OT/ROM exercises (once COVID negative) - continue mobility protocols for pressure ulcer prophylaxis - Monitor hemodynamics closely - avoid nephrotoxins, renally dose all medications - Flu & pneumovax per protocol - continue other care per attending / other consultants .... Re-evaluate in am & prn CONDITION: CRITICAL PROGNOSIS: GUARDED CODE STATUS: FULL CODE The high probability of a clinically significant, sudden or life-threatening deterioration of the [respiratory, cardiovascular, GI & neurologic] system(s) required my full and direct attention, intervention and personal management. The aggregate critical care time was [32] minutes without overlap. Time includes spent on; [x] Data Review and interpretation [x] Patient assessment and monitoring of vital signs [x] Documentation [x] Medication orders and management Subjective Date of service: 07/29/21 Principal diagnosis: Ac. hypoxemic resp failure; Pneumonia vs Pulmonary edema; PUI-COVID; VIJAY Interval history: Patient is seen today for: Acute hypoxemic respiratory failure; Acute encephalopathy; Pneumonia vs Pulmonary edema; CHF; Possible acute congestive heart failure exacerbation; PUI-COVID; VIJAY Seen and examined at bedside; 24hour events reviewed; nursing and respiratory care staff consulted; no adverse overnight events reported to me; resting peacefully in bed; Objective Vital Signs - 12hr 07/29/21 07/29/21 07/29/21 01:15 01:21 01:25 Temperature Pulse Rate 79 80 80 Pulse Rate [ From Monitor] Respiratory 30 H 30 H 30 H Rate Blood Pressure 140/82 140/82 140/82 O2 Sat by Pulse 99 100 100 Oximetry 07/29/21 07/29/21 07/29/21 01:30 01:35 01:41 Temperature Pulse Rate 79 81 80 Pulse Rate [ From Monitor] Respiratory 30 H 30 H 30 H Rate Blood Pressure 147/73 147/73 147/73 O2 Sat by Pulse 99 100 100 Oximetry 07/29/21 07/29/21 07/29/21 01:45 01:51 01:55 Temperature Pulse Rate 77 77 81 Pulse Rate [ From Monitor] Respiratory 30 H 30 H 30 H Rate Blood Pressure 145/73 145/73 145/73 O2 Sat by Pulse 98 100 100 Oximetry 07/29/21 07/29/21 07/29/21 02:00 02:05 02:11 Temperature Pulse Rate 79 78 79 Pulse Rate [ From Monitor] Respiratory 30 H 30 H 30 H Rate Blood Pressure 146/64 146/64 146/64 O2 Sat by Pulse 99 100 100 Oximetry 07/29/21 07/29/21 07/29/21 02:15 02:21 02:25 Temperature Pulse Rate 80 78 80 Pulse Rate [ From Monitor] Respiratory 30 H 30 H 30 H Rate Blood Pressure 144/74 144/74 144/74 O2 Sat by Pulse 98 100 100 Oximetry 07/29/21 07/29/21 07/29/21 02:30 02:35 02:41 Temperature Pulse Rate 80 79 76 Pulse Rate [ From Monitor] Respiratory 30 H 30 H 30 H Rate Blood Pressure 146/70 146/70 144/74 O2 Sat by Pulse 99 100 100 Oximetry 07/29/21 07/29/21 07/29/21 02:45 02:51 02:55 Temperature Pulse Rate 78 76 79 Pulse Rate [ From Monitor] Respiratory 30 H 30 H 30 H Rate Blood Pressure 137/80 137/80 137/80 O2 Sat by Pulse 98 100 100 Oximetry 07/29/21 07/29/21 07/29/21 03:00 03:05 03:11 Temperature Pulse Rate 77 76 71 Pulse Rate [ From Monitor] Respiratory 30 H 30 H 30 H Rate Blood Pressure 133/73 133/73 133/73 O2 Sat by Pulse 97 100 100 Oximetry 07/29/21 07/29/21 07/29/21 03:15 03:21 03:25 Temperature Pulse Rate 72 74 74 Pulse Rate [ From Monitor] Respiratory 30 H 30 H 30 H Rate Blood Pressure 123/71 123/71 123/71 O2 Sat by Pulse 97 100 100 Oximetry 07/29/21 07/29/21 07/29/21 03:30 03:35 03:41 Temperature Pulse Rate 75 72 75 Pulse Rate [ From Monitor] Respiratory 30 H 30 H 30 H Rate Blood Pressure 125/76 125/76 125/76 O2 Sat by Pulse 99 100 100 Oximetry 07/29/21 07/29/21 07/29/21 03:45 03:51 03:55 Temperature Pulse Rate 73 73 73 Pulse Rate [ From Monitor] Respiratory 30 H 30 H 30 H Rate Blood Pressure 131/71 131/71 131/71 O2 Sat by Pulse 98 100 100 Oximetry 07/29/21 07/29/21 07/29/21 04:00 04:05 04:11 Temperature 99.8 F H Pulse Rate 73 74 72 Pulse Rate [ 126 H From Monitor] Respiratory 30 H 30 H 30 H Rate Blood Pressure 131/72 131/72 131/71 O2 Sat by Pulse 98 100 100 Oximetry 07/29/21 07/29/21 07/29/21 04:15 04:20 04:21 Temperature Pulse Rate 76 74 73 Pulse Rate [ From Monitor] Respiratory 30 H 30 H Rate Blood Pressure 133/70 131/72 133/70 O2 Sat by Pulse 98 100 100 Oximetry 07/29/21 07/29/21 07/29/21 04:25 04:30 04:35 Temperature Pulse Rate 74 73 73 Pulse Rate [ From Monitor] Respiratory 30 H 30 H 30 H Rate Blood Pressure 133/70 140/72 140/72 O2 Sat by Pulse 100 99 100 Oximetry 07/29/21 07/29/21 07/29/21 04:41 04:45 04:51 Temperature Pulse Rate 73 73 75 Pulse Rate [ From Monitor] Respiratory 30 H 30 H 30 H Rate Blood Pressure 140/72 138/71 138/71 O2 Sat by Pulse 100 97 100 Oximetry 07/29/21 07/29/21 07/29/21 04:55 05:00 05:05 Temperature Pulse Rate 72 74 72 Pulse Rate [ From Monitor] Respiratory 30 H 30 H 30 H Rate Blood Pressure 138/71 136/69 136/69 O2 Sat by Pulse 100 99 100 Oximetry 07/29/21 07/29/21 07/29/21 05:11 05:15 05:21 Temperature Pulse Rate 94 H 76 76 Pulse Rate [ From Monitor] Respiratory 23 30 H Rate Blood Pressure 136/69 136/69 104/48 O2 Sat by Pulse 99 100 100 Oximetry 07/29/21 07/29/21 07/29/21 05:25 05:30 05:35 Temperature Pulse Rate 73 69 70 Pulse Rate [ From Monitor] Respiratory 30 H 30 H 30 H Rate Blood Pressure 104/48 127/59 127/59 O2 Sat by Pulse 100 97 100 Oximetry 07/29/21 07/29/21 07/29/21 05:41 05:45 05:51 Temperature Pulse Rate 72 70 72 Pulse Rate [ From Monitor] Respiratory 27 H 30 H 30 H Rate Blood Pressure 127/59 133/69 133/69 O2 Sat by Pulse 100 96 100 Oximetry 07/29/21 07/29/21 07/29/21 05:55 06:00 06:05 Temperature Pulse Rate 73 69 73 Pulse Rate [ From Monitor] Respiratory 30 H 30 H 30 H Rate Blood Pressure 133/69 139/64 139/64 O2 Sat by Pulse 100 97 100 Oximetry 07/29/21 07/29/21 07/29/21 06:11 06:15 06:21 Temperature Pulse Rate 67 65 68 Pulse Rate [ From Monitor] Respiratory 30 H 30 H 30 H Rate Blood Pressure 139/64 142/60 142/60 O2 Sat by Pulse 100 96 100 Oximetry 07/29/21 07/29/21 07/29/21 06:25 06:30 06:35 Temperature Pulse Rate 71 69 68 Pulse Rate [ From Monitor] Respiratory 30 H 30 H 30 H Rate Blood Pressure 142/60 143/70 143/70 O2 Sat by Pulse 100 93 100 Oximetry 07/29/21 07/29/21 07/29/21 06:41 06:45 06:51 Temperature Pulse Rate 69 60 68 Pulse Rate [ From Monitor] Respiratory 30 H 30 H 30 H Rate Blood Pressure 143/70 145/70 145/70 O2 Sat by Pulse 100 98 100 Oximetry 07/29/21 07/29/21 07/29/21 06:55 07:00 07:05 Temperature Pulse Rate 68 65 71 Pulse Rate [ From Monitor] Respiratory 30 H 30 H 30 H Rate Blood Pressure 145/70 154/69 154/69 O2 Sat by Pulse 100 95 100 Oximetry 1007/29/21 07/29/21 07:11 07:15 07:21 Temperature Pulse Rate 63 66 69 Pulse Rate [ From Monitor] Respiratory 30 H 30 H 30 H Rate Blood Pressure 154/69 151/79 145/70 O2 Sat by Pulse 100 94 100 Oximetry 07/29/21 07/29/21 07/29/21 07:25 07:30 07:35 Temperature Pulse Rate 69 67 70 Pulse Rate [ From Monitor] Respiratory 30 H 26 H 30 H Rate Blood Pressure 145/70 174/105 174/105 O2 Sat by Pulse 100 98 100 Oximetry 07/29/21 07/29/21 07/29/21 07:41 07:45 07:51 Temperature Pulse Rate 66 66 71 Pulse Rate [ From Monitor] Respiratory 30 H 30 H 30 H Rate Blood Pressure 140/57 148/52 148/52 O2 Sat by Pulse 100 93 100 Oximetry 07/29/21 07/29/21 07/29/21 07:55 08:00 08:05 Temperature 98.9 F Pulse Rate 85 67 67 Pulse Rate [ 71 From Monitor] Respiratory 30 H 30 H 30 H Rate Blood Pressure 148/52 144/84 144/84 O2 Sat by Pulse 100 100 100 Oximetry 07/29/21 07/29/21 07/29/21 08:11 08:15 08:21 Temperature Pulse Rate 75 71 70 Pulse Rate [ From Monitor] Respiratory 27 H 30 H 30 H Rate Blood Pressure 145/86 128/78 128/78 O2 Sat by Pulse 98 98 100 Oximetry 07/29/21 07/29/21 07/29/21 08:25 08:26 08:31 Temperature Pulse Rate 66 67 67 Pulse Rate [ From Monitor] Respiratory 30 H 30 H Rate Blood Pressure 128/78 128/78 113/69 O2 Sat by Pulse 100 100 93 Oximetry 07/29/21 07/29/21 07/29/21 08:35 08:41 08:45 Temperature Pulse Rate 74 61 61 Pulse Rate [ From Monitor] Respiratory 28 H 30 H 30 H Rate Blood Pressure 113/69 113/69 115/74 O2 Sat by Pulse 100 100 96 Oximetry 07/29/21 07/29/21 07/29/21 08:51 08:55 09:00 Temperature Pulse Rate 62 60 57 L Pulse Rate [ From Monitor] Respiratory 30 H 30 H 30 H Rate Blood Pressure 113/69 113/69 113/82 O2 Sat by Pulse 100 100 Oximetry 07/29/21 07/29/21 07/29/21 09:05 09:11 09:15 Temperature Pulse Rate 64 60 59 L Pulse Rate [ From Monitor] Respiratory 30 H 30 H 30 H Rate Blood Pressure 113/82 113/82 107/71 O2 Sat by Pulse 100 100 95 Oximetry 07/29/21 07/29/21 07/29/21 09:20 09:21 09:25 Temperature Pulse Rate 61 59 L 60 Pulse Rate [ From Monitor] Respiratory 25 H 25 H Rate Blood Pressure 107/71 115/74 115/74 O2 Sat by Pulse 100 100 100 Oximetry 07/29/21 07/29/21 07/29/21 09:30 09:35 09:41 Temperature Pulse Rate 59 L 57 L 64 Pulse Rate [ From Monitor] Respiratory 25 H 25 H 25 H Rate Blood Pressure 101/65 101/65 101/65 O2 Sat by Pulse 99 100 100 Oximetry 07/29/21 07/29/21 07/29/21 09:45 09:51 09:55 Temperature Pulse Rate 68 67 64 Pulse Rate [ From Monitor] Respiratory 25 H 25 H 25 H Rate Blood Pressure 109/71 109/71 109/71 O2 Sat by Pulse 100 100 100 Oximetry 07/29/21 07/29/21 07/29/21 10:00 10:05 10:11 Temperature Pulse Rate 61 62 61 Pulse Rate [ From Monitor] Respiratory 25 H 25 H 25 H Rate Blood Pressure 86/62 86/62 86/62 O2 Sat by Pulse 100 100 Oximetry 07/29/21 07/29/21 07/29/21 10:15 10:21 10:25 Temperature Pulse Rate 60 61 58 L Pulse Rate [ From Monitor] Respiratory 25 H 25 H 25 H Rate Blood Pressure 80/55 79/55 79/55 O2 Sat by Pulse 97 100 100 Oximetry 07/29/21 07/29/21 07/29/21 10:30 10:35 10:41 Temperature Pulse Rate 57 L 59 L 63 Pulse Rate [ From Monitor] Respiratory 25 H 25 H 25 H Rate Blood Pressure 83/56 90/58 90/58 O2 Sat by Pulse 97 100 100 Oximetry 07/29/21 07/29/21 07/29/21 10:45 10:51 10:55 Temperature Pulse Rate 62 59 L 60 Pulse Rate [ From Monitor] Respiratory 25 H 25 H 25 H Rate Blood Pressure 78/44 79/55 79/55 O2 Sat by Pulse 100 100 100 Oximetry 07/29/21 07/29/21 07/29/21 11:00 11:05 11:11 Temperature Pulse Rate 49 L 52 L 59 L Pulse Rate [ From Monitor] Respiratory 25 H 25 H 25 H Rate Blood Pressure 102/67 102/67 102/67 O2 Sat by Pulse 98 100 100 Oximetry 07/29/21 07/29/21 07/29/21 11:15 11:21 11:25 Temperature Pulse Rate 55 L 67 62 Pulse Rate [ From Monitor] Respiratory 25 H 25 H 25 H Rate Blood Pressure 102/67 110/77 90/58 O2 Sat by Pulse 100 100 100 Oximetry 07/29/21 07/29/21 07/29/21 11:30 11:35 12:00 Temperature Pulse Rate 66 67 64 Pulse Rate [ From Monitor] Respiratory 25 H 25 H Rate Blood Pressure 134/77 134/77 103/62 O2 Sat by Pulse 97 100 99 Oximetry Constitutional: no acute distress Eyes: non-icteric ENT: oropharynx moist Neck: supple, no lymphadenopathy, no JVD Effort: mildly labored Ascultation: Bilateral: rhonchi Percussion: Bilateral: not dull Cardiovascular: regular rate and rhythm Gastrointestinal: normoactive bowel sounds, soft, non-tender, non-distended Extremities: no cyanosis, pulses normal, no ischemia or petechiae Neurologic: pupils equal and round, CN II-XII normal, motor strength normal and Psychiatric: other CBC and BMP: 08/02/21 04:40 08/02/21 04:40 ABG, PT/INR, D-dimer: ABG ABG pH 7.432 (7.320-7.450) 07/29/21 08:38 POC ABG pCO2 21.7 mmHg (32.0-48.0) L 07/29/21 08:38 ABG pCO2 49.9 mm Hg 07/28/21 12:24 POC ABG pO2 199.3 mmHg (83-108) H 07/29/21 08:38 ABG pO2 135.4 mm Hg (80.0-90.0) H 07/28/21 12:24 POC ABG HCO3 14.1 07/29/21 08:38 ABG O2 Saturation 99.4 (0-100) 07/29/21 08:38 PT/INR, D-dimer PT 16.6 Sec. (12.2-14.9) H 07/28/21 11:09 INR 1.21 (0.87-1.13) H 07/28/21 11:09 Abnormal lab findings: Abnormal Labs 07/28/21 07/28/21 07/28/21 11:09 11:09 11:09 WBC 13.5 H MCH 26 L RDW 17.6 H Lymph % (Auto) 12.0 L Andrew % (Auto) Andrew # (Auto) 0.9 H Seg Neutrophils % 80.4 H Seg Neutrophils # 10.8 H PT 16.6 H INR 1.21 H ABG pH POC ABG pCO2 POC ABG pO2 ABG pO2 ABG HCO3 ABG Base Excess ABG Hemoglobin ABG Oxyhemoglobin ABG Potassium ABG Chloride ABG Glucose Carboxyhemoglobin Carbon Dioxide 16 L BUN 78 H Creatinine 9.1 H Glucose 224 H POC Glucose Lactic Acid Calcium 7.7 L Total Creatine Kinase Troponin T 0.063 H Triglycerides 226 H Arterial Blood Glucose Arterial Blood Ionized Calcium Urine WBC (Auto) Urine Creatinine 07/28/21 07/28/21 07/28/21 11:09 11:09 12:24 WBC MCH RDW Lymph % (Auto) Andrew % (Auto) Andrew # (Auto) Seg Neutrophils % Seg Neutrophils # PT INR ABG pH 7.049 L* POC ABG pCO2 POC ABG pO2 ABG pO2 135.4 H ABG HCO3 13.4 L ABG Base Excess -16.5 L ABG Hemoglobin 10.8 L ABG Oxyhemoglobin ABG Potassium ABG Chloride ABG Glucose Carboxyhemoglobin Carbon Dioxide BUN Creatinine Glucose POC Glucose Lactic Acid 7.30 H* Calcium Total Creatine Kinase 840 H Troponin T Triglycerides Arterial Blood Glucose Arterial Blood Ionized Calcium Urine WBC (Auto) Urine Creatinine 07/28/21 07/28/21 07/28/21 17:25 18:18 23:20 WBC MCH RDW Lymph % (Auto) Andrew % (Auto) Andrew # (Auto) Seg Neutrophils % Seg Neutrophils # PT INR ABG pH 7.118 L POC ABG pCO2 POC ABG pO2 124.3 H ABG pO2 ABG HCO3 ABG Base Excess ABG Hemoglobin ABG Oxyhemoglobin ABG Potassium 5.1 H ABG Chloride ABG Glucose 406 H Carboxyhemoglobin Carbon Dioxide BUN Creatinine Glucose POC Glucose 328 H 270 H Lactic Acid Calcium Total Creatine Kinase Troponin T Triglycerides Arterial Blood Glucose 406 H Arterial Blood Ionized Calcium 3.8 L Urine WBC (Auto) Urine Creatinine 07/28/21 07/28/21 07/29/21 Unknown Unknown 04:27 WBC 14.0 H MCH 26 L RDW 17.1 H Lymph % (Auto) 10.1 L Andrew % (Auto) 8.1 H Andrew # (Auto) 1.1 H Seg Neutrophils % 81.6 H Seg Neutrophils # 11.4 H PT INR ABG pH POC ABG pCO2 POC ABG pO2 ABG pO2 ABG HCO3 ABG Base Excess ABG Hemoglobin ABG Oxyhemoglobin ABG Potassium ABG Chloride ABG Glucose Carboxyhemoglobin Carbon Dioxide BUN Creatinine Glucose POC Glucose Lactic Acid Calcium Total Creatine Kinase Troponin T Triglycerides Arterial Blood Glucose Arterial Blood Ionized Calcium Urine WBC (Auto) 23.0 H Urine Creatinine 173.3 H 07/29/21 07/29/21 07/29/21 04:27 05:34 08:38 WBC MCH RDW Lymph % (Auto) Andrew % (Auto) Andrew # (Auto) Seg Neutrophils % Seg Neutrophils # PT INR ABG pH POC ABG pCO2 21.7 L POC ABG pO2 199.3 H ABG pO2 ABG HCO3 ABG Base Excess ABG Hemoglobin 11.8 L ABG Oxyhemoglobin 98.9 H ABG Potassium ABG Chloride 113.0 H ABG Glucose 181 H Carboxyhemoglobin 0.2 L Carbon Dioxide 14 L BUN 77 H Creatinine 7.6 H Glucose 211 H POC Glucose 187 H Lactic Acid Calcium 7.6 L Total Creatine Kinase Troponin T Triglycerides Arterial Blood Glucose 181 H Arterial Blood Ionized Calcium Urine WBC (Auto) Urine Creatinine 07/29/21 11:31 WBC MCH RDW Lymph % (Auto) Andrew % (Auto) Andrew # (Auto) Seg Neutrophils % Seg Neutrophils # PT INR ABG pH POC ABG pCO2 POC ABG pO2 ABG pO2 ABG HCO3 ABG Base Excess ABG Hemoglobin ABG Oxyhemoglobin ABG Potassium ABG Chloride ABG Glucose Carboxyhemoglobin Carbon Dioxide BUN Creatinine Glucose POC Glucose 140 H Lactic Acid Calcium Total Creatine Kinase Troponin T Triglycerides Arterial Blood Glucose Arterial Blood Ionized Calcium Urine WBC (Auto) Urine Creatinine Chest x-ray: report reviewed Allied health notes reviewed: nursing
--- NOTE | 2021-07-29 14:14 | Consultation ---
History of Present Illness Consult date: 07/29/21 Requesting physician: JOAN METZ Consult reason: cardiac arrest History of present illness: Pt is a 71-year-old female, seen by our group during a previous hospitalization, who presented from [facility] for evaluation of altered mental status. Pt was noted to be increasingly confused per SNF staff and was found to be hypotensive with SBP in the 70s this AM, with complaints of SOB reported. Pt was notably obtunded upon arrival and unable to protect her airway. She was subsequently intubated and placed on mechanical ventilation. Shortly after, pt went into PEA arrest. Per documentation, ACLS protocol was initiated at 1100, 1 round of epi given, ROSC achieved at 1106. No tele strips available for review. ECG reveals atrial fibrillation. In SR 60s with short 3-4 beat runs of NSVT noted on tele upon assessment this afternoon. Currently requiring vasopressor support. No previous cardiac workup available for review. Past History Past Medical History: COPD, diabetes, heart failure, hypertension, hyperlipidemia, stroke. denies: atrial fib, arrhythmia Past Surgical History: denies: valve replacement, CABG, PTCA Social history: denies: smoking, alcohol abuse Family history: diabetes, hypertension Medications and Allergies Allergies Allergy/AdvReac Type Severity Reaction Status Date / Time metformin Allergy Unknown Verified 07/29/21 09:42 lactose AdvReac Diarrhea Verified 07/29/21 09:42 Home Medications Medication Instructions Recorded Confirmed Last Taken Type Acetaminophen 650 mg PO Q4H PRN 01/28/20 07/28/21 Unknown History Aspirin [Aspirin BABY CHEW TAB] 81 mg PO QDAY 01/28/20 07/28/21 Unknown History Atorvastatin Calcium [Lipitor] 40 mg PO QHS 01/28/20 07/28/21 Unknown History Benazepril HCl [Lotensin] 20 mg PO DAILY 01/28/20 07/28/21 Unknown History Donepezil HCl [Donepezil HCl Odt] 10 mg PO QHS 01/28/20 07/28/21 Unknown History Furosemide [Lasix TAB] 20 mg PO QDAY 01/28/20 07/28/21 Unknown History Insulin Glargine,Hum.rec.anlog 25 unit SQ BID 01/28/20 07/28/21 Unknown History [Lantus Solostar] Linagliptin [Tradjenta] 5 mg PO QDAY 01/28/20 07/28/21 Unknown History Tiro-3/Dha/Epa/Fish Oil [Fish Oil 500 mg PO DAILY 01/28/20 07/28/21 Unknown History 500 mg Softgel] Quetiapine Fumarate [SEROquel] 50 mg PO HS 01/28/20 07/28/21 Unknown History allopurinoL [Zyloprim] 100 mg PO QHS 01/28/20 07/28/21 Unknown History hydrALAZINE [Apresoline TAB] 50 mg PO BID 01/28/20 07/28/21 Unknown History ALBUTEROL NEB's [Proventil 0.083% 2.5 mg IH Q4HRT PRN nebu 02/14/20 07/28/21 Unknown Rx NEBS] Simple Syrup 15 ml FEEDTUBE PRN PRN oral.liqd 02/14/20 07/28/21 Unknown Rx Simple Syrup 30 ml FEEDTUBE PRN PRN oral.liqd 02/14/20 07/28/21 Unknown Rx Sodium Bicarbonate 325 mg FEEDTUBE PRN PRN tablet 02/14/20 07/28/21 Unknown Rx Fenofibrate 40 mg PO DAILY 07/28/21 07/28/21 Unknown History amLODIPine [Norvasc] 10 mg PO DAILY 07/28/21 07/28/21 Unknown History Active Meds: Active Medications Acetaminophen (Acetaminophen 325 Mg Tab) 650 mg PO Q6H PRN PRN Reason: Pain MILD(1-3)/Fever >100.5/GARCIA Albuterol (Albuterol 2.5 Mg/3 Ml Nebu) 2.5 mg IH Q3HRT PRN PRN Reason: Shortness Of Breath Allopurinol (Allopurinol 100 Mg Tab) 100 mg PO QHS [facility] Lipase/Protease/Amylase (Lipase 10,500/Protease 25,000/Amylase 43,750 (Units) Dr Carmona) 1 each FEEDTUBE PRN PRN PRN Reason: For Clogged Feeding Tube Ascorbic Acid (Ascorbic Acid 500 Mg Tab) 500 mg PO QDAY [facility] Last Admin: 07/29/21 09:23 Dose: 500 mg Documented by: Aspirin (Aspirin 81 Mg Tab Chew) 81 mg PO QDAY [facility] Last Admin: 07/29/21 09:24 Dose: 81 mg Documented by: Atorvastatin Calcium (Atorvastatin 40 Mg Tab) 80 mg PO QHS [facility] Last Admin: 07/28/21 21:00 Dose: 80 mg Documented by: Cholecalciferol (Cholecalciferol (Vit D3) 1000 Unit (25 Mcg) Tab) 2,000 unit PO QDAY [facility] Last Admin: 07/29/21 09:23 Dose: 2,000 unit Documented by: Dextrose (Dextrose 50% In Water (25gm) 50 Ml Syringe) 50 ml IV Q30MIN PRN; Protocol PRN Reason: Hypoglycemia Donepezil HCl (Donepezil 10 Mg Tab) 10 mg PO QHS [facility] Last Admin: 07/28/21 21:00 Dose: 10 mg Documented by: Famotidine (Famotidine 20 Mg/2 Ml Inj) 10 mg IV BID [facility] Last Admin: 07/29/21 09:23 Dose: 10 mg Documented by: Fentanyl (Fentanyl 100 Mcg/2 Ml Inj) 50 mcg IV Q10MIN PRN PRN Reason: ANALGESIA Furosemide (Furosemide 20 Mg Tab) 20 mg PO QDAY [facility] Last Admin: 07/29/21 09:23 Dose: 20 mg Documented by: Hydromorphone HCl (Hydromorphone 1 Mg/1 Ml Inj) 0.25 mg IV Q4H PRN PRN Reason: Pain, Moderate (4-6) Hydromorphone HCl (Hydromorphone 1 Mg/1 Ml Inj) 0.5 mg IV Q23H PRN PRN Reason: Pain , Severe (7-10) Hydrophilic Ointment (Lip Therapy Vaseline) 1 applic TP Q2HR PRN PRN Reason: Dry Lips Propofol (Diprivan 10 Mg/Ml) 1,000 mg in 100 mls @ 4.082 mls/hr IV TITR [facility]; Protocol Last Titration: 07/29/21 10:17 Dose: 10 mcg/kg/min, 8.165 mls/hr Documented by: NORepinephrine/NS 8 MG-250 ML (Norepinephrine/Ns 8 Mg-250 Ml (Double Conc)) 8 mg in 250 mls @ 3.75 mls/hr IV TITRATE [facility]; Protocol Last Titration: 07/29/21 13:04 Dose: 0 mcg/min, 0 mls/hr Documented by: Fentanyl Citrate (Fentanyl Drip Premix) 2,000 mcg in 100 mls @ 6.804 mls/hr IV TITR [facility]; Protocol Last Admin: 07/29/21 05:43 Dose: 1 mcg/kg/hr, 6.804 mls/hr Documented by: Vasopressin 20 unit/ Sodium (Chloride) 101 mls @ 9.09 mls/hr IV TITR [facility]; Protocol Last Admin: 07/29/21 12:22 Dose: 0.03 units/min, 9.09 mls/hr Documented by: Cefepime HCl (Cefepime/Ns 2 Gm/100 Ml) 2 gm in 100 mls @ 200 mls/hr IV Q24H [facility]; Protocol Last Admin: 07/29/21 09:24 Dose: 200 mls/hr Documented by: Insulin Glargine (Insulin Glargine 100 Units/Ml) 10 units SUB-Q QHS [facility] Insulin Human Lispro (Insulin Lispro 100 Unit/Ml) 0 unit SUB-Q Q6HR [facility]; Protocol Last Admin: 07/29/21 05:51 Dose: 2 unit Documented by: Memantine (Memantine 5 Mg Tab) 5 mg PO BID [facility] Last Admin: 07/29/21 10:34 Dose: 5 mg Documented by: Multi-Ingred Cream/Lotion/Oil/Oint (Mineral Oil/Petrolatum, White Ophth Oint 3.5 Gm) 1 applic OU Q4HR PRN PRN Reason: Dry Eye(s) Quetiapine Fumarate (Quetiapine 25 Mg Tab) 50 mg PO BID [facility] Last Admin: 07/29/21 09:23 Dose: 50 mg Documented by: Senna/Docusate Sodium (Sennosides/Docusate Sodium 8.6/50 Mg Tab) 1 tab FEEDTUBE BID [facility] Last Admin: 07/29/21 09:23 Dose: 1 tab Documented by: Simple Syrup (Simple Syrup 15 Ml) 15 ml FEEDTUBE PRN PRN PRN Reason: Hypoglycemia Sodium Bicarbonate (Sodium Bicarbonate 325 Mg Tab) 325 mg FEEDTUBE PRN PRN PRN Reason: For Clogged Feeding Tube Sodium Chloride (Sodium Chloride 0.9% 10 Ml Flush Syringe) 10 ml IV BID [facility] Last Admin: 07/29/21 09:24 Dose: 10 ml Documented by: Sodium Chloride (Sodium Chloride 0.9% 10 Ml Flush Syringe) 10 ml IV PRN PRN PRN Reason: LINE FLUSH Zinc Sulfate (Zinc Sulfate 220 Mg Cap) 220 mg PO QDAY [facility] Last Admin: 07/29/21 09:23 Dose: 220 mg Documented by: Review of Systems ROS unobtainable: due to endotracheal tube Physical Examination Vital Signs Pulse Ox 96 07/28/21 11:00 General appearance: other (intubated) HEENT: Positive: Normocephaly Neck: Positive: neck supple, trachea midline Cardiac: Positive: Reg Rate and Rhythm, S1/S2 Lungs: Positive: Ventilated Respirations Neuro: Positive: Other (intubated) Abdomen: Positive: Soft Skin: Negative: Rash Musculoskeletal: No Fluid Collection Extremities: Present: lower extr. pulses. Absent: edema Results 07/29/21 04:27 07/29/21 04:27 CBC 07/29/21 Range/Units 04:27 WBC 14.0 H (4.5-11.0) K/mm3 RBC 4.34 (3.65-5.03) M/mm3 Hgb 11.4 (10.1-14.3) gm/dl Hct 35.7 (30.3-42.9) % Plt Count 243 (140-440) K/mm3 Lymph # (Auto) 1.4 (1.2-5.4) K/mm3 [place] # (Auto) 1.1 H (0.0-0.8) K/mm3 Eos # (Auto) 0.0 (0.0-0.4) K/mm3 Baso # (Auto) 0.0 (0.0-0.1) K/mm3 Comprehensive Metabolic Panel 07/29/21 Range/Units 04:27 Sodium 141 (137-145) mmol/L Potassium 3.9 (3.6-5.0) mmol/L Chloride 103.4 (98-107) mmol/L Carbon Dioxide 14 L (22-30) mmol/L BUN 77 H (7-17) mg/dL Creatinine 7.6 H (0.6-1.2) mg/dL Glucose 211 H (65-100) mg/dL Calcium 7.6 L (8.4-10.2) mg/dL - Imaging and Cardiology Echo: pending EKG: report reviewed, image reviewed - EKG Interpretation EKG: no acute changes EKG interpretations - Telemetry EKG Rhythm: Sinus Rhythm - EKG Supraventricular dysrhythmia: atrial fibrillation Assessment and Plan Obtain echo. Initial ECG post-arrest reveals atrial fibrillation. Now in sinus rhythm 60s on tele. Will obtain repeat 12-lead ECG. Per RN at bedside, pt has a hx of cerebral aneurysm. As such, would recommend Neuro input regarding anticoagulation for AF / CVA prophylaxis (though it appears pt was previously anticoagulated as an inpatient when admitted with COVID-19 PNA earlier this year). [id number] Score: 7 points HAS-BLED Score: 4 points Pt seen in conjunction with Dr. Shepard, who agrees with the assessment and plan of care. - Patient Problems (1) Acute encephalopathy Current Visit: Yes Status: Acute (2) Acute respiratory failure with hypoxia Current Visit: Yes Status: Acute (3) Sepsis Current Visit: Yes Status: Acute Qualifiers: Severe sepsis shock status: with septic shock (4) Pneumonia Current Visit: Yes Status: Acute Qualifiers: Laterality: bilateral Lung location: lower lobe of lung (5) Cardiac arrest Current Visit: Yes Status: Acute (6) Elevated troponin Current Visit: Yes Status: Acute (7) Paroxysmal atrial fibrillation Current Visit: Yes Status: Acute (8) VIJAY (acute kidney injury) Current Visit: Yes Status: Acute (9) Congestive heart failure Current Visit: Yes Status: Chronic Qualifiers: Heart failure type: unspecified Heart failure chronicity: chronic Qualified Code(s): I50.9 - Heart failure, unspecified (10) COPD (chronic obstructive pulmonary disease) Current Visit: Yes Status: Chronic (11) HTN (hypertension) Current Visit: No Status: Chronic Qualifiers: Hypertension type: primary hypertension Qualified Code(s): I10 - Essential (primary) hypertension (12) HLD (hyperlipidemia) Current Visit: Yes Status: Chronic Qualifiers: Hyperlipidemia type: mixed hyperlipidemia Qualified Code(s): E78.2 - Mixed hyperlipidemia (13) DM2 (diabetes mellitus, type 2) Current Visit: Yes Status: Chronic (14) History of COVID-19 Current Visit: Yes Status: Chronic (15) History of CVA (cerebrovascular accident) Current Visit: Yes Status: Chronic (16) Hx of aneurysm Current Visit: Yes Status: Suspected
--- NOTE | 2021-07-29 14:28 | Progress Note ---
Assessment and Plan Assessment and plan: This a 71 years-old female with PmHx of dementia, COPD, HTN, HLD, CHF, brain aneurysm, CVA, CKD, and DM2 who was brought in via EMS from a nursing due to confusion, SOB, and hypotension. Upon her arrival in the ED patient was found stuporous/obtunded and required intubation for airway protection. Subsequently after patient went into cardiac arrest, ROSC was achieved after 1 round of ACLS. Patient was then transferred to the ICU for further management. Hospital Course to Date: 07/29/21- Patient remains intubated and sedated on versed and fentynal, on pressors. Consult place for cardio s/p cardiac arrest, ID was consulted for sepsis, and Neuro consult for AC rec due to Afib/CVA. Basal insulin was added for blood glucose control. Will continue to monitor renal function and electrolytes, am labs ordered. Assessment and Plan #Acute Metabolic Encephalopathy #H/o CVA, dementia - Patient is intubated and sedated on versed and fentanyl RASS -1 to -2 - 07/28 CT head w/o showed chronic appearing left MCA [employer] watershed zone infarct - Titrate sedation for a RASS goal of 0 to -2 - Consult Neurology for input on anticoagulation for AFib/CVA prophylaxis - Restart home meds- Aricept and memantine - Daily SAT and SBT per CCM - PRN analgesia for CPOT greater than 3 - Reduce the possibility of delirium, continue seroquel - Maintenance of sleep-wake cycle #S/p Cardiac arrest #Atrial Fibrillation #Hypotension #H/o CHF - Post ROSC EKG showed Afib RVR, HR 120s - Currently NSR, HR in the 60-70s - Currently on Levo and Vaso - Maintain adequate perfusion - Titrated vasopressors as tolerated for a MAP goal above 65 - Cardiology consulted for further recommendation - SCDs for VTE proph #Acute Hypoxemic Respiratory Failure #Bilateral pneumonia #H/o COPD - ETT on 07/28 - 07/28 CXR- Bibasilar areas of density may represent atelectasis though basilar pneumonitis is not excluded - 07/28 CXR- Increased right basilar pleural parenchymal opacities - 07/29 CXR- Resolving bilateral lower lobe pleural- parenchymal disease - Vent setting: CMV- 75%, 8,30,450 - ABGs noted, vent changes made, check RT flowsheet for changes - COVID swab neg - Per daughter Pt. received COVID vaccine, PFizerX2 in early december - Continue SPO2 monitoring for SPO2 goal above 92% - SAT and SBT as tolerated per CCM - VAP bundle per protocol - Aspiration precaution, HOB above 30% - CCM on consult #GI: NAP - OGT in place - Enteral nutrition initiated - Nutrition on consult - Continue current BR- senokot - Continue PPI- Pepcid #Acute Kidney Injury (VIJAY) possible 2/2 sepsis shock #H/o CKD - Baseline cr. is 1, cr. on admit as high as 9.1 - Nephrology on consult, appreciated recommendation - Continue strict intake and output - Avoid nephrotoxic medications; Renally dose medications - Diaz in place, only 320cc UOP in last 24hrs - Plan for gentle hydration by Nephro - Hold on HD for now - Close monitor of renal function and electrolytes, am labs ordered #Sepsis Shock #Bilateral pneumonia #Lactic Acidosis- resolved - 07/28 CXR- Bibasilar areas of density may represent atelectasis though basilar pneumonitis is not excluded - 07/28 CXR- Increased right basilar pleural parenchymal opacities - 07/29 CXR- Resolving bilateral lower lobe pleural- parenchymal disease - Lactic down from 7.3---> 1.4 - Leukocytosis- WBCs 14 today - TMAx 100.1 - 1 out 2 B.cult positive for Gram + cocci in clusters - COVID swab neg - Continue empiric ABx- Cefepine and vancomycin - Follow-up blood culture finalization - Daily CBC monitor - ID consulted #Endo: Hyperglycemia #H/o DM2 - Continue SSI Q6hrs - Lantus added qHS - While critically ill target blood glucose of 140-180 - Avoid hypoglycemia The high probability of a clinically significant, sudden or life threatening deterioration of the [Neuro, CV, ID, ] system(s) required my full and direct attention, intervention and personal management. The aggregate critical care time was [60] minutes. This time is in addition to time spent performing reported procedures but includes the following: [x] Data Review and interpretation [x] Patient assessment and monitoring of vital signs [x] Documentation [x] Medication orders and management Disposition Plan: ICU Total Time Spent with Patient (Minutes): 60 History Interval history: Patient seen and examined at the bedside. Intubated and sedated on versed and fentanyl. Per RN patient follow simple commands intermittently. No sig. events overnight Hospitalist Physical - Constitutional Vitals: Temp Pulse Resp BP Pulse Ox 98.9 F 68 19 100/44 98 07/29/21 08:00 07/29/21 13:15 07/29/21 13:15 07/29/21 13:15 07/29/21 13:15 General appearance: Present: no acute distress, other (Intubated and sedated) - EENT Eyes: Present: PERRL - Respiratory Respiratory effort: normal Respiratory: bilateral: diminished - Cardiovascular Rhythm: regular Heart Sounds: Present: S1 & S2 - Extremities Extremities: no ischemia, pulses intact, pulses symmetrical Extremity abnormal: edema - Peripheral Assessment Generalized Edema Type: Non-pitting Edema Degree: 1+ Capillary Refill: < 3 seconds Skin Temperature: Warm Peripheral Pulses: within normal limits - Abdominal General gastrointestinal: soft, non-tender, normal bowel sounds - Integumentary Integumentary: Present: clear, warm, dry - Psychiatric Psychiatric: other (Sedated) - Neurologic Neurologic: other (Sedated) - Allied Health Allied health notes reviewed: nursing HEART Score - HEART Score Troponin: Troponin T 0.063 ng/mL (0.00-0.029) H 07/28/21 11:09 Results - Labs CBC & Chem 7: 07/29/21 04:27 07/29/21 04:27 Labs: Laboratory Last Values WBC 14.0 K/mm3 (4.5-11.0) H 07/29/21 04:27 RBC 4.34 M/mm3 (3.65-5.03) 07/29/21 04:27 Hgb 11.4 gm/dl (10.1-14.3) 07/29/21 04:27 Hct 35.7 % (30.3-42.9) 07/29/21 04:27 MCV 82 fl (79-97) 07/29/21 04:27 MCH 26 pg (28-32) L 07/29/21 04:27 MCHC 32 % (30-34) 07/29/21 04:27 RDW 17.1 % (13.2-15.2) H 07/29/21 04:27 Plt Count 243 K/mm3 (140-440) 07/29/21 04:27 Lymph % (Auto) 10.1 % (13.4-35.0) L 07/29/21 04:27 [place] % (Auto) 8.1 % (0.0-7.3) H 07/29/21 04:27 Eos % (Auto) 0.1 % (0.0-4.3) 07/29/21 04:27 Baso % (Auto) 0.1 % (0.0-1.8) 07/29/21 04:27 Lymph # (Auto) 1.4 K/mm3 (1.2-5.4) 07/29/21 04:27 [place] # (Auto) 1.1 K/mm3 (0.0-0.8) H 07/29/21 04:27 Eos # (Auto) 0.0 K/mm3 (0.0-0.4) 07/29/21 04:27 Baso # (Auto) 0.0 K/mm3 (0.0-0.1) 07/29/21 04:27 Seg Neutrophils % 81.6 % (40.0-70.0) H 07/29/21 04:27 Seg Neutrophils # 11.4 K/mm3 (1.8-7.7) H 07/29/21 04:27 PT 16.6 Sec. (12.2-14.9) H 07/28/21 11:09 INR 1.21 (0.87-1.13) H 07/28/21 11:09 APTT 25.0 Sec. (24.2-36.6) 07/28/21 11:09 ABG pH 7.432 (7.320-7.450) 07/29/21 08:38 POC ABG pCO2 21.7 mmHg (32.0-48.0) L 07/29/21 08:38 ABG pCO2 49.9 mm Hg 07/28/21 12:24 POC ABG pO2 199.3 mmHg (83-108) H 07/29/21 08:38 ABG pO2 135.4 mm Hg (80.0-90.0) H 07/28/21 12:24 POC ABG HCO3 14.1 07/29/21 08:38 ABG HCO3 13.4 mmol/L (20.0-26.0) L 07/28/21 12:24 ABG O2 Saturation 99.4 (0-100) 07/29/21 08:38 ABG O2 Content 14.8 (0.0-44) 07/28/21 12:24 POC ABG Base Excess -8.2 07/29/21 08:38 ABG Base Excess -16.5 mmol/L (-2.0-3.0) L 07/28/21 12:24 ABG Hemoglobin 11.8 (12.0-17.5) L 07/29/21 08:38 ABG Oxyhemoglobin 98.9 (94-98) H 07/29/21 08:38 ABG Carboxyhemoglobin 1.2 % (0.0-5.0) 07/28/21 12:24 ABG Methemoglobin 0.3 (0.0-1.5) 07/29/21 08:38 ABG Sodium 140.0 mmol/L (136.0-145.0) 07/29/21 08:38 ABG Potassium 3.7 mmol/L (3.40-4.50) 07/29/21 08:38 ABG Chloride 113.0 mmol/L (98-107) H 07/29/21 08:38 ABG Glucose 181 mg/dL (65-95) H 07/29/21 08:38 Oxyhemoglobin 95.8 % (95.0-99.0) 07/28/21 12:24 Carboxyhemoglobin 0.2 (0.5-1.5) L 07/29/21 08:38 FiO2 21 % 07/28/21 12:24 FiO2 % 80 07/29/21 08:38 Sodium 141 mmol/L (137-145) 07/29/21 04:27 Potassium 3.9 mmol/L (3.6-5.0) 07/29/21 04:27 Chloride 103.4 mmol/L (98-107) 07/29/21 04:27 Carbon Dioxide 14 mmol/L (22-30) L 07/29/21 04:27 Anion Gap 28 mmol/L 07/29/21 04:27 BUN 77 mg/dL (7-17) H 07/29/21 04:27 Creatinine 7.6 mg/dL (0.6-1.2) H 07/29/21 04:27 Estimated GFR 6 ml/min 07/29/21 04:27 BUN/Creatinine Ratio 10 % 07/29/21 04:27 Glucose 211 mg/dL (65-100) H 07/29/21 04:27 POC Glucose 140 mg/dL (70-105) H 07/29/21 11:31 Lactic Acid 1.40 mmol/L (0.7-2.0) 07/29/21 04:27 Calcium 7.6 mg/dL (8.4-10.2) L 07/29/21 04:27 Total Bilirubin 0.20 mg/dL (0.1-1.2) 07/28/21 11:09 Direct Bilirubin < 0.2 mg/dL (0-0.2) 07/28/21 11:09 Indirect Bilirubin 0.0 mg/dL 07/28/21 11:09 AST 18 units/L (5-40) 07/28/21 11:09 ALT 18 units/L (7-56) 07/28/21 11:09 Alkaline Phosphatase 81 units/L (35-129) 07/28/21 11:09 Ammonia 49.0 umol/L (25-60) 07/28/21 11:09 Total Creatine Kinase 840 units/L (30-135) H 07/28/21 11:09 Troponin T 0.063 ng/mL (0.00-0.029) H 07/28/21 11:09 NT-Pro-B Natriuret Pep 312.4 pg/mL (0-900) 07/28/21 11:09 Total Protein 7.7 g/dL (6.3-8.2) 07/28/21 11:09 Albumin 3.9 g/dL (3.9-5) 07/28/21 11:09 Albumin/Globulin Ratio 1.0 % 07/28/21 11:09 Triglycerides 226 mg/dL (2-149) H 07/28/21 11:09 Cholesterol 175 mg/dL (50-199) 07/28/21 11:09 LDL Cholesterol Direct 84 mg/dL (50-130) 07/28/21 11:09 HDL Cholesterol 47 mg/dL (40-59) 07/28/21 11:09 Cholesterol/HDL Ratio 3.72 % 07/28/21 11:09 Procalcitonin 28.96 ng/mL (<0.15) 07/28/21 15:40 Arterial Blood Glucose 181 mg/dL (65-95) H 07/29/21 08:38 Arterial Blood Ionized Calcium 3.8 mg/dL (4.6-5.3) L 07/28/21 18:18 Urine Color [place] (Yellow) 07/28/21 Unknown Urine Turbidity Cloudy (Clear) 07/28/21 Unknown Urine pH 5.0 (5.0-7.0) 07/28/21 Unknown Ur Specific [place] 1.017 (1.003-1.030) 07/28/21 Unknown Urine Protein 100 mg/dl mg/dL (Negative) 07/28/21 Unknown Urine Glucose (UA) 50 mg/dL (Negative) 07/28/21 Unknown Urine Ketones Neg mg/dL (Negative) 07/28/21 Unknown Urine Blood Mod (Negative) 07/28/21 Unknown Urine Nitrite Neg (Negative) 07/28/21 Unknown Urine Bilirubin Neg (Negative) 07/28/21 Unknown Urine Urobilinogen < 2.0 mg/dL (<2.0) 07/28/21 Unknown Ur Leukocyte Esterase Tr (Negative) 07/28/21 Unknown Urine WBC (Auto) 23.0 /HPF (0.0-6.0) H 07/28/21 Unknown Urine RBC (Auto) 15.0 /HPF (0.0-6.0) 07/28/21 Unknown U Epithel Cells (Auto) 2.0 /HPF (0-13.0) 07/28/21 Unknown Urine Bacteria (Auto) 1+ /HPF (Negative) 07/28/21 Unknown Hyaline Casts 1 /LPF 07/28/21 Unknown Urine Mucus 1+ /HPF 07/28/21 Unknown Urine Creatinine 173.3 mg/dL (0.1-20.0) H 07/28/21 Unknown Urine Sodium 57 mmol/L 07/28/21 Unknown Microbiology: Microbiology 07/28/21 11:13 Peripheral/Venous Blood Culture - Preliminary 07/28/21 11:13 Peripheral/Venous Blood Culture - Preliminary NO GROWTH AFTER 24 HOURS 07/28/21 Unknown Urine,Clean Catch Urine Culture - Preliminary NO GROWTH AFTER 24 HOURS Diaz/IV: Voiding Method Indwelling Catheter Active Medications - Current Medications Current Medications: Generic Name Dose Route Start Last Admin Trade Name Freq PRN Reason Stop Dose Admin Acetaminophen 650 mg 07/28/21 13:00 Acetaminophen 325 Mg Tab PO Q6H PRN Pain MILD(1-3)/Fever >100.5/GARCIA Albuterol 2.5 mg 07/28/21 14:00 Albuterol 2.5 Mg/3 Ml Nebu IH Q3HRT PRN Shortness Of Breath Allopurinol 100 mg 07/29/21 22:00 Allopurinol 100 Mg Tab PO QHS WIL Lipase/Protease/Amylase 1 each 07/28/21 16:23 Lipase 10,500/Protease 25,000/Amylase 43,750 (Units) Dr Carmona FEEDTUBE PRN PRN For Clogged Feeding Tube Ascorbic Acid 500 mg 07/29/21 10:00 07/29/21 09:23 Ascorbic Acid 500 Mg Tab PO 500 mg QDAY WIL Administration Aspirin 81 mg 07/29/21 10:00 07/29/21 09:24 Aspirin 81 Mg Tab Chew PO 81 mg QDAY WIL Administration Atorvastatin Calcium 80 mg 07/28/21 22:00 07/28/21 21:00 Atorvastatin 40 Mg Tab PO 80 mg QHS WIL Administration Cholecalciferol 2,000 unit 07/29/21 10:00 07/29/21 09:23 Cholecalciferol (Vit D3) 1000 Unit (25 Mcg) Tab PO 2,000 unit QDAY WIL Administration Dextrose 50 ml 07/28/21 18:05 Dextrose 50% In Water (25gm) 50 Ml Syringe IV Q30MIN PRN Hypoglycemia Protocol Donepezil HCl 10 mg 07/28/21 22:00 07/28/21 21:00 Donepezil 10 Mg Tab PO 10 mg QHS WIL Administration Famotidine 10 mg 07/29/21 10:00 07/29/21 09:23 Famotidine 20 Mg/2 Ml Inj IV 10 mg BID WIL Administration Fentanyl 50 mcg 07/28/21 15:13 Fentanyl 100 Mcg/2 Ml Inj IV Q10MIN PRN ANALGESIA Furosemide 20 mg 07/29/21 10:00 07/29/21 09:23 Furosemide 20 Mg Tab PO 20 mg QDAY WIL Administration Hydromorphone HCl 0.25 mg 07/28/21 13:00 Hydromorphone 1 Mg/1 Ml Inj IV Q4H PRN Pain, Moderate (4-6) Hydromorphone HCl 0.5 mg 07/28/21 13:00 Hydromorphone 1 Mg/1 Ml Inj IV Q23H PRN Pain , Severe (7-10) Hydrophilic Ointment 1 applic 07/28/21 11:19 Lip Therapy Vaseline TP Q2HR PRN Dry Lips Propofol 1,000 mg in 100 mls @ 4.082 mls/hr 07/28/21 12:00 07/29/21 10:17 Diprivan 10 Mg/Ml IV 10 mcg/kg/min TITR WIL 8.165 mls/hr Titration Protocol 5 MCG/KG/MIN NORepinephrine/NS 8 MG-250 ML 8 mg in 250 mls @ 3.75 mls/hr 07/28/21 12:00 07/29/21 13:04 Norepinephrine/Ns 8 Mg-250 Ml (Double Conc) IV 0 mcg/min TITRATE WIL 0 mls/hr Titration Protocol 2 MCG/MIN Fentanyl Citrate 2,000 mcg in 100 mls @ 6.804 mls/hr 07/28/21 16:00 07/29/21 05:43 Fentanyl Drip Premix IV 1 mcg/kg/hr TITR WIL 6.804 mls/hr Administration Protocol 1 MCG/KG/HR Vasopressin 20 unit/ Sodium 101 mls @ 9.09 mls/hr 07/28/21 17:00 07/29/21 12:22 Chloride IV 0.03 units/min TITR WIL 9.09 mls/hr Administration Protocol 0.03 UNITS/MIN Cefepime HCl 2 gm in 100 mls @ 200 mls/hr 07/29/21 10:00 07/29/21 09:24 Cefepime/Ns 2 Gm/100 Ml IV 200 mls/hr Q24H [facility] Administration Protocol Insulin Glargine 10 units 07/29/21 22:00 Insulin Glargine 100 Units/Ml SUB-Q QHS [facility] Insulin Human Lispro 0 unit 07/28/21 18:07 07/29/21 05:51 Insulin Lispro 100 Unit/Ml SUB-Q 2 unit Q6HR [facility] Administration Protocol Memantine 5 mg 07/29/21 10:00 07/29/21 10:34 Memantine 5 Mg Tab PO 5 mg BID [facility] Administration Multi-Ingred Cream/Lotion/Oil/Oint 1 applic 07/28/21 11:19 Mineral Oil/Petrolatum, White Ophth Oint 3.5 Gm OU Q4HR PRN Dry Eye(s) Quetiapine Fumarate 50 mg 07/28/21 22:00 07/29/21 09:23 Quetiapine 25 Mg Tab PO 50 mg BID WIL Administration Senna/Docusate Sodium 1 tab 07/28/21 12:00 07/29/21 09:23 Sennosides/Docusate Sodium 8.6/50 Mg Tab FEEDTUBE 1 tab BID WIL Administration Simple Syrup 15 ml 07/28/21 16:23 Simple Syrup 15 Ml FEEDTUBE PRN PRN Hypoglycemia Sodium Bicarbonate 325 mg 07/28/21 13:00 Sodium Bicarbonate 325 Mg Tab FEEDTUBE PRN PRN For Clogged Feeding Tube Sodium Chloride 10 ml 07/28/21 22:00 07/29/21 09:24 Sodium Chloride 0.9% 10 Ml Flush Syringe IV 10 ml BID WIL Administration Sodium Chloride 10 ml 07/28/21 13:00 Sodium Chloride 0.9% 10 Ml Flush Syringe IV PRN PRN LINE FLUSH Zinc Sulfate 220 mg 07/29/21 10:00 07/29/21 09:23 Zinc Sulfate 220 Mg Cap PO 220 mg QDAY WIL Administration Nutrition/Malnutrition Assess - Dietary Evaluation Nutrition/Malnutrition Findings: Nutrition Notes Start: 07/28/21 15:5 7 Freq: Status: Active Protocol: Document 07/28/21 15:57 GB (Rec: 07/28/21 16:23 GB [id number]) Nutrition Notes Need for Assessment generated from: MD Order Initial or Follow up Assessment Current Diagnosis COPD,Diabetes,Hypertension, Heart Failure Other Pertinent Diagnosis Dementia Current Diet NPO Labs/Tests 07/28: glucose 224, BUN 78, creatinine 9.1, Ca 7.7 Pertinent Medications Vit C, Vit D3, dopamine/D5 40. 823ml/hr (166kcal), fentanyl citrate, furosemide, norepinheprin/Ns8 Mg250, propofol 4.082ml/hr (107kcal), Zn Sulfate Height 5 ft 4 in Weight 136.078 kg [place] Body Weight (kg) 54.54 BMI 51.5 Weight change and time frame 07/28: admit weight Weight Status Morbidly Obese Subjective/Other Information 07/28: intubated today at 1130a Percent of energy/protein needs met: TF at goal rate will meet 75% or greater of estimated energy needs Burn Absent Trauma Absent GI Symptoms None Difficulty In Swallowing Food Allergy No Skin Integrity/Comment No skin breadown at this time Current % PO Other Minimum of two criteria No #1 Nutrition Diagnosis Swallowing difficulty Comments: Intubated Etiology SOB, COPD As Evidenced by Signs and Symptoms intubated today Is patient on ventilator? Yes Is Patient Ambulatory and/or Out of Bed No REE-([facility]-confined to bed) 2226.312 Kcal/Kg value to use for calculation 13 Approximate Energy Requirements Using 1769 kcal/Kg Calculation Used for Recommendations Kcal/kg Additional Notes Protein: up to 0.6-8g/kg @ 136k-109g Fluids: 1 ml/kcal or per MD Nutrition Intervention Change Diet Order: continue NPO Nutrition Support: Vital AF 1.2 @ 60ml/hr Flush 100ml/4hr Total fluids: Flush + TF at goal H20 = 1768ml Kcal 1,728 Protein (gm) 108 Fat (gm) 78 Fluid (mL) 1,168 Add Supplement/Snack (indicate name/kcal n/a /protein ) Goal #1 Tolerate TF Vital 1.2 @ goal 60ml/hr by f/u Goal #2 Extubation and diet advancement when medically feasible Follow-Up By: 07/30/21 Additional Comments TF tolerance, vent status
--- NOTE | 2021-07-29 14:58 | Consultation ---
History of Present Illness - Reason for Consult acute renal failure - History of Present Illness 71 y/o female, resident of [facility], presented for worsening altered mental status. Noted to be obtunded in the ED, had PEA arrest, s/p initiation of CPR, round of epinephrine prior to ROSC. She was intubated and initially placed on three pressors. She has now been weaned down to one pressor with low dose vasopressin. Nephrology consulted secondary to VIJAY. She has h/o CHF, last EF 35%. Pending ECHO this afternoon at bedside. Renal function showing slow improvement this am on labs. Remains oliguric, per nursing staff ~20-30 cc UOP/hr. Past History Past Medical History: COPD, diabetes, heart failure, hypertension, hyperlipidemia, stroke. denies: atrial fib, arrhythmia Past Surgical History: denies: valve replacement, CABG, PTCA Social history: denies: smoking, alcohol abuse Family history: diabetes, hypertension Medications and Allergies Allergies Allergy/AdvReac Type Severity Reaction Status Date / Time metformin Allergy Unknown Verified 07/29/21 09:42 lactose AdvReac Diarrhea Verified 07/29/21 09:42 Home Medications Medication Instructions Recorded Confirmed Last Taken Type Acetaminophen 650 mg PO Q4H PRN 01/28/20 07/28/21 Unknown History Aspirin [Aspirin BABY CHEW TAB] 81 mg PO QDAY 01/28/20 07/28/21 Unknown History Atorvastatin Calcium [Lipitor] 40 mg PO QHS 01/28/20 07/28/21 Unknown History Benazepril HCl [Lotensin] 20 mg PO DAILY 01/28/20 07/28/21 Unknown History Donepezil HCl [Donepezil HCl Odt] 10 mg PO QHS 01/28/20 07/28/21 Unknown History Furosemide [Lasix TAB] 20 mg PO QDAY 01/28/20 07/28/21 Unknown History Insulin Glargine,Hum.rec.anlog 25 unit SQ BID 01/28/20 07/28/21 Unknown History [Lantus Solostar] Linagliptin [Tradjenta] 5 mg PO QDAY 01/28/20 07/28/21 Unknown History [place]-3/Dha/Epa/Fish Oil [Fish Oil 500 mg PO DAILY 01/28/20 07/28/21 Unknown History 500 mg Softgel] Quetiapine Fumarate [SEROquel] 50 mg PO HS 01/28/20 07/28/21 Unknown History allopurinoL [Zyloprim] 100 mg PO QHS 01/28/20 07/28/21 Unknown History hydrALAZINE [Apresoline TAB] 50 mg PO BID 01/28/20 07/28/21 Unknown History ALBUTEROL NEB's [Proventil 0.083% 2.5 mg IH Q4HRT PRN nebu 02/14/20 07/28/21 Unknown Rx NEBS] Simple Syrup 15 ml FEEDTUBE PRN PRN oral.liqd 02/14/20 07/28/21 Unknown Rx Simple Syrup 30 ml FEEDTUBE PRN PRN oral.liqd 02/14/20 07/28/21 Unknown Rx Sodium Bicarbonate 325 mg FEEDTUBE PRN PRN tablet 02/14/20 07/28/21 Unknown Rx Fenofibrate 40 mg PO DAILY 07/28/21 07/28/21 Unknown History amLODIPine [Norvasc] 10 mg PO DAILY 07/28/21 07/28/21 Unknown History Active Meds: Active Medications Acetaminophen (Acetaminophen 325 Mg Tab) 650 mg PO Q6H PRN PRN Reason: Pain MILD(1-3)/Fever >100.5/GARCIA Albuterol (Albuterol 2.5 Mg/3 Ml Nebu) 2.5 mg IH Q3HRT PRN PRN Reason: Shortness Of Breath Allopurinol (Allopurinol 100 Mg Tab) 100 mg PO QHS [facility] Lipase/Protease/Amylase (Lipase 10,500/Protease 25,000/Amylase 43,750 (Units) Dr Carmona) 1 each FEEDTUBE PRN PRN PRN Reason: For Clogged Feeding Tube Ascorbic Acid (Ascorbic Acid 500 Mg Tab) 500 mg PO QDAY [facility] Last Admin: 07/29/21 09:23 Dose: 500 mg Documented by: Aspirin (Aspirin 81 Mg Tab Chew) 81 mg PO QDAY [facility] Last Admin: 07/29/21 09:24 Dose: 81 mg Documented by: Atorvastatin Calcium (Atorvastatin 40 Mg Tab) 80 mg PO QHS [facility] Last Admin: 07/28/21 21:00 Dose: 80 mg Documented by: Cholecalciferol (Cholecalciferol (Vit D3) 1000 Unit (25 Mcg) Tab) 2,000 unit PO QDAY [facility] Last Admin: 07/29/21 09:23 Dose: 2,000 unit Documented by: Dextrose (Dextrose 50% In Water (25gm) 50 Ml Syringe) 50 ml IV Q30MIN PRN; Protocol PRN Reason: Hypoglycemia Donepezil HCl (Donepezil 10 Mg Tab) 10 mg PO QHS [facility] Last Admin: 07/28/21 21:00 Dose: 10 mg Documented by: Famotidine (Famotidine 20 Mg/2 Ml Inj) 10 mg IV BID [facility] Last Admin: 07/29/21 09:23 Dose: 10 mg Documented by: Fentanyl (Fentanyl 100 Mcg/2 Ml Inj) 50 mcg IV Q10MIN PRN PRN Reason: ANALGESIA Furosemide (Furosemide 20 Mg Tab) 20 mg PO QDAY [facility] Last Admin: 07/29/21 09:23 Dose: 20 mg Documented by: Hydromorphone HCl (Hydromorphone 1 Mg/1 Ml Inj) 0.25 mg IV Q4H PRN PRN Reason: Pain, Moderate (4-6) Hydromorphone HCl (Hydromorphone 1 Mg/1 Ml Inj) 0.5 mg IV Q23H PRN PRN Reason: Pain , Severe (7-10) Hydrophilic Ointment (Lip Therapy Vaseline) 1 applic TP Q2HR PRN PRN Reason: Dry Lips Propofol (Diprivan 10 Mg/Ml) 1,000 mg in 100 mls @ 4.082 mls/hr IV TITR [facility]; Protocol Last Titration: 07/29/21 10:17 Dose: 10 mcg/kg/min, 8.165 mls/hr Documented by: NORepinephrine/NS 8 MG-250 ML (Norepinephrine/Ns 8 Mg-250 Ml (Double Conc)) 8 mg in 250 mls @ 3.75 mls/hr IV TITRATE [facility]; Protocol Last Titration: 07/29/21 13:04 Dose: 0 mcg/min, 0 mls/hr Documented by: Fentanyl Citrate (Fentanyl Drip Premix) 2,000 mcg in 100 mls @ 6.804 mls/hr IV TITR [facility]; Protocol Last Admin: 07/29/21 05:43 Dose: 1 mcg/kg/hr, 6.804 mls/hr Documented by: Vasopressin 20 unit/ Sodium (Chloride) 101 mls @ 9.09 mls/hr IV TITR [facility]; Protocol Last Admin: 07/29/21 12:22 Dose: 0.03 units/min, 9.09 mls/hr Documented by: Cefepime HCl (Cefepime/Ns 2 Gm/100 Ml) 2 gm in 100 mls @ 200 mls/hr IV Q24H [facility]; Protocol Last Admin: 07/29/21 09:24 Dose: 200 mls/hr Documented by: Insulin Glargine (Insulin Glargine 100 Units/Ml) 10 units SUB-Q QHS [facility] Insulin Human Lispro (Insulin Lispro 100 Unit/Ml) 0 unit SUB-Q Q6HR [facility]; Protocol Last Admin: 07/29/21 05:51 Dose: 2 unit Documented by: Memantine (Memantine 5 Mg Tab) 5 mg PO BID [facility] Last Admin: 07/29/21 10:34 Dose: 5 mg Documented by: Multi-Ingred Cream/Lotion/Oil/Oint (Mineral Oil/Petrolatum, White Ophth Oint 3.5 Gm) 1 applic OU Q4HR PRN PRN Reason: Dry Eye(s) Quetiapine Fumarate (Quetiapine 25 Mg Tab) 50 mg PO BID [facility] Last Admin: 07/29/21 09:23 Dose: 50 mg Documented by: Senna/Docusate Sodium (Sennosides/Docusate Sodium 8.6/50 Mg Tab) 1 tab FEEDTUBE BID [facility] Last Admin: 07/29/21 09:23 Dose: 1 tab Documented by: Simple Syrup (Simple Syrup 15 Ml) 15 ml FEEDTUBE PRN PRN PRN Reason: Hypoglycemia Sodium Bicarbonate (Sodium Bicarbonate 325 Mg Tab) 325 mg FEEDTUBE PRN PRN PRN Reason: For Clogged Feeding Tube Sodium Chloride (Sodium Chloride 0.9% 10 Ml Flush Syringe) 10 ml IV BID [facility] Last Admin: 07/29/21 09:24 Dose: 10 ml Documented by: Sodium Chloride (Sodium Chloride 0.9% 10 Ml Flush Syringe) 10 ml IV PRN PRN PRN Reason: LINE FLUSH Zinc Sulfate (Zinc Sulfate 220 Mg Cap) 220 mg PO QDAY [facility] Last Admin: 07/29/21 09:23 Dose: 220 mg Documented by: Review of Systems ROS unobtainable: due to endotracheal tube Exam - Vital Signs Vital signs: Vital Signs Pulse Ox 96 07/28/21 11:00 - Physical Exam Narrative exam: Patient not directly examined in order to preserve PPE. Under investigation for COVID-19 pneumonia. Results - Lab Results 07/29/21 04:27 07/29/21 04:27 Most recent lab results ABG pH 7.432 (7.320-7.450) 07/29/21 08:38 ABG pCO2 49.9 mm Hg 07/28/21 12:24 ABG pO2 135.4 mm Hg (80.0-90.0) H 07/28/21 12:24 ABG HCO3 13.4 mmol/L (20.0-26.0) L 07/28/21 12:24 ABG O2 Saturation 99.4 (0-100) 07/29/21 08:38 Calcium 7.6 mg/dL (8.4-10.2) L 07/29/21 04:27 Urine Creatinine 173.3 mg/dL (0.1-20.0) H 07/28/21 Unknown Urine Sodium 57 mmol/L 07/28/21 Unknown Assessment and Plan - Patient Problems (1) VIJAY (acute kidney injury) Current Visit: Yes Status: Acute Plan to address problem: Likely pre-renal vs ATN in the setting of cardiac arrest and sepsis, with initial blood cultures now showing gram (+) cocci in clusters. Chest Xray also concerning for possible pneumonia. Avoid nephrotoxins, maintain MAP >65mmHg. Await results of ECHO. Chest xray is showing improvement, and if ECHO does not show evidence of decompensated heart failure, would then start on gentle IVF hydration with careful monitoring of volume/respiratory status. Recommend renal US, urine electrolytes for further evaluation. Being that urine output has been minimal with current lasix 20 mg oral dose, would recommend switching to lasix 40 mg x1 dose and assess response. Monitor renal function daily. (2) Acute respiratory failure with hypoxia Current Visit: Yes Status: Acute (3) Cardiac arrest Current Visit: Yes Status: Acute Plan to address problem: With ROSC at this time, on low dose of vasopressin support. Pending ECHO this afternoon. Will follow up on results. Further recommendations per cardiology. (4) Bacteremia Current Visit: Yes Status: Acute Plan to address problem: Initial blood cultures are showing gram (+) cocci in clusters. Per staff patient has a femoral line in place, being used for pressor support. If bacteremia persists this line will likely have to be removed, which in that case she may require PICC line placement. From nephrology standpoint, if it is needed, then patient can obtain PICC line placement. Given her multiple chronic commorbidities, I don't believe she would be an ideal candidate for roasterman dialysis with permanent AV fistula/graft anyways. Please ensure that antibiotics are dosed appropriately for her decreased renal function. (5) Bilateral pneumonia Current Visit: Yes Status: Acute Plan to address problem: Chest xray is showing improvement since admission. Please ensure that antibiotics are dosed appropriately for decreased renal function. Pending COVID -19 testing. (6) Diabetes Current Visit: Yes Status: Acute Plan to address problem: DM management per primary attending.
--- NOTE | 2021-07-29 16:03 | Consultation ---
History of Present Illness - Reason for Consult Consult date: 07/29/21 - History of Present Illness 71 female past medical history COPD, hypertension, CHF who is a [facility] of a [facility] presented to the hospital due to confusion and shortness of breath. Hypotensive. She has been intubated since admission. Afebrile since admission with a white count. Severely decreased renal function. Covid negative. Blood cultures gram-positive cocci in one of 4 bottles so far. Mild pyuria on urinalysis. Currently on cefepime. Imaging personally reviewed: Chest x-ray: Right basilar opacities Past History Past Medical History: COPD, diabetes, heart failure, hypertension, hyperlipidemia, stroke. denies: atrial fib, arrhythmia Past Surgical History: denies: valve replacement, CABG, PTCA Social history: denies: smoking, alcohol abuse Family history: diabetes, hypertension Medications and Allergies Allergies Allergy/AdvReac Type Severity Reaction Status Date / Time metformin Allergy Unknown Verified 07/29/21 09:42 lactose AdvReac Diarrhea Verified 07/29/21 09:42 Home Medications Medication Instructions Recorded Confirmed Last Taken Type Acetaminophen 650 mg PO Q4H PRN 01/28/20 07/28/21 Unknown History Aspirin [Aspirin BABY CHEW TAB] 81 mg PO QDAY 01/28/20 07/28/21 Unknown History Atorvastatin Calcium [Lipitor] 40 mg PO QHS 01/28/20 07/28/21 Unknown History Benazepril HCl [Lotensin] 20 mg PO DAILY 01/28/20 07/28/21 Unknown History Donepezil HCl [Donepezil HCl Odt] 10 mg PO QHS 01/28/20 07/28/21 Unknown History Furosemide [Lasix TAB] 20 mg PO QDAY 01/28/20 07/28/21 Unknown History Insulin Glargine,Hum.rec.anlog 25 unit SQ BID 01/28/20 07/28/21 Unknown History [Lantus Solostar] Linagliptin [Tradjenta] 5 mg PO QDAY 01/28/20 07/28/21 Unknown History [place]-3/Dha/Epa/Fish Oil [Fish Oil 500 mg PO DAILY 01/28/20 07/28/21 Unknown History 500 mg Softgel] Quetiapine Fumarate [SEROquel] 50 mg PO HS 01/28/20 07/28/21 Unknown History allopurinoL [Zyloprim] 100 mg PO QHS 01/28/20 07/28/21 Unknown History hydrALAZINE [Apresoline TAB] 50 mg PO BID 01/28/20 07/28/21 Unknown History ALBUTEROL NEB's [Proventil 0.083% 2.5 mg IH Q4HRT PRN nebu 02/14/20 07/28/21 Unknown Rx NEBS] Simple Syrup 15 ml FEEDTUBE PRN PRN oral.liqd 02/14/20 07/28/21 Unknown Rx Simple Syrup 30 ml FEEDTUBE PRN PRN oral.liqd 02/14/20 07/28/21 Unknown Rx Sodium Bicarbonate 325 mg FEEDTUBE PRN PRN tablet 02/14/20 07/28/21 Unknown Rx Fenofibrate 40 mg PO DAILY 07/28/21 07/28/21 Unknown History amLODIPine [Norvasc] 10 mg PO DAILY 07/28/21 07/28/21 Unknown History Active Meds: Active Medications Acetaminophen (Acetaminophen 325 Mg Tab) 650 mg PO Q6H PRN PRN Reason: Pain MILD(1-3)/Fever >100.5/GARCIA Albuterol (Albuterol 2.5 Mg/3 Ml Nebu) 2.5 mg IH Q3HRT PRN PRN Reason: Shortness Of Breath Allopurinol (Allopurinol 100 Mg Tab) 100 mg PO QHS [facility] Lipase/Protease/Amylase (Lipase 10,500/Protease 25,000/Amylase 43,750 (Units) Dr Carmona) 1 each FEEDTUBE PRN PRN PRN Reason: For Clogged Feeding Tube Ascorbic Acid (Ascorbic Acid 500 Mg Tab) 500 mg PO QDAY [facility] Last Admin: 07/29/21 09:23 Dose: 500 mg Documented by: Aspirin (Aspirin 81 Mg Tab Chew) 81 mg PO QDAY [facility] Last Admin: 07/29/21 09:24 Dose: 81 mg Documented by: Atorvastatin Calcium (Atorvastatin 40 Mg Tab) 80 mg PO QHS [facility] Last Admin: 07/28/21 21:00 Dose: 80 mg Documented by: Cholecalciferol (Cholecalciferol (Vit D3) 1000 Unit (25 Mcg) Tab) 2,000 unit PO QDAY [facility] Last Admin: 07/29/21 09:23 Dose: 2,000 unit Documented by: Dextrose (Dextrose 50% In Water (25gm) 50 Ml Syringe) 50 ml IV Q30MIN PRN; Protocol PRN Reason: Hypoglycemia Donepezil HCl (Donepezil 10 Mg Tab) 10 mg PO QHS [facility] Last Admin: 07/28/21 21:00 Dose: 10 mg Documented by: Famotidine (Famotidine 20 Mg/2 Ml Inj) 10 mg IV BID [facility] Last Admin: 07/29/21 09:23 Dose: 10 mg Documented by: Fentanyl (Fentanyl 100 Mcg/2 Ml Inj) 50 mcg IV Q10MIN PRN PRN Reason: ANALGESIA Furosemide (Furosemide 40 Mg/4 Ml Inj) 40 mg IV ONCE ONE Stop: 07/29/21 16:11 Last Admin: 07/29/21 15:34 Dose: 40 mg Documented by: Hydromorphone HCl (Hydromorphone 1 Mg/1 Ml Inj) 0.25 mg IV Q4H PRN PRN Reason: Pain, Moderate (4-6) Hydromorphone HCl (Hydromorphone 1 Mg/1 Ml Inj) 0.5 mg IV Q23H PRN PRN Reason: Pain , Severe (7-10) Hydrophilic Ointment (Lip Therapy Vaseline) 1 applic TP Q2HR PRN PRN Reason: Dry Lips Propofol (Diprivan 10 Mg/Ml) 1,000 mg in 100 mls @ 4.082 mls/hr IV TITR [facility]; Protocol Last Titration: 07/29/21 10:17 Dose: 10 mcg/kg/min, 8.165 mls/hr Documented by: NORepinephrine/NS 8 MG-250 ML (Norepinephrine/Ns 8 Mg-250 Ml (Double Conc)) 8 mg in 250 mls @ 3.75 mls/hr IV TITRATE [facility]; Protocol Last Titration: 07/29/21 13:04 Dose: 0 mcg/min, 0 mls/hr Documented by: Fentanyl Citrate (Fentanyl Drip Premix) 2,000 mcg in 100 mls @ 6.804 mls/hr IV TITR [facility]; Protocol Last Admin: 07/29/21 05:43 Dose: 1 mcg/kg/hr, 6.804 mls/hr Documented by: Vasopressin 20 unit/ Sodium (Chloride) 101 mls @ 9.09 mls/hr IV TITR [facility]; Protocol Last Admin: 07/29/21 12:22 Dose: 0.03 units/min, 9.09 mls/hr Documented by: Cefepime HCl (Cefepime/Ns 2 Gm/100 Ml) 2 gm in 100 mls @ 200 mls/hr IV Q24H [facility]; Protocol Last Admin: 07/29/21 09:24 Dose: 200 mls/hr Documented by: Insulin Glargine (Insulin Glargine 100 Units/Ml) 10 units SUB-Q QHS [facility] Insulin Human Lispro (Insulin Lispro 100 Unit/Ml) 0 unit SUB-Q Q6HR [facility]; Protocol Last Admin: 07/29/21 14:56 Dose: Not Given Documented by: Memantine (Memantine 5 Mg Tab) 5 mg PO BID [facility] Last Admin: 07/29/21 10:34 Dose: 5 mg Documented by: Multi-Ingred Cream/Lotion/Oil/Oint (Mineral Oil/Petrolatum, White Ophth Oint 3.5 Gm) 1 applic OU Q4HR PRN PRN Reason: Dry Eye(s) Quetiapine Fumarate (Quetiapine 25 Mg Tab) 50 mg PO BID [facility] Last Admin: 07/29/21 09:23 Dose: 50 mg Documented by: Senna/Docusate Sodium (Sennosides/Docusate Sodium 8.6/50 Mg Tab) 1 tab FEEDTUBE BID [facility] Last Admin: 07/29/21 09:23 Dose: 1 tab Documented by: Simple Syrup (Simple Syrup 15 Ml) 15 ml FEEDTUBE PRN PRN PRN Reason: Hypoglycemia Sodium Bicarbonate (Sodium Bicarbonate 325 Mg Tab) 325 mg FEEDTUBE PRN PRN PRN Reason: For Clogged Feeding Tube Sodium Chloride (Sodium Chloride 0.9% 10 Ml Flush Syringe) 10 ml IV BID [facility] Last Admin: 07/29/21 09:24 Dose: 10 ml Documented by: Sodium Chloride (Sodium Chloride 0.9% 10 Ml Flush Syringe) 10 ml IV PRN PRN PRN Reason: LINE FLUSH Zinc Sulfate (Zinc Sulfate 220 Mg Cap) 220 mg PO QDAY [facility] Last Admin: 07/29/21 09:23 Dose: 220 mg Documented by: Physical Examination - Physical Exam Narrative exam: Physical Exam: Constitutional: Intubated, sedated Head, Ears, Nose: Normocephalic, atraumatic. External ears, nose normal Eyes: Conjunctivae/corneas clear. No icterus. No ptosis. Neck: ETT Oral: ETT Cardiovascular: S1, S2 normal. Respiratory: Good air entry, clear to auscultation bilaterally GI: Soft, non-tender; bowel sounds normal. No peritoneal signs. Musculoskeletal: No pedal edema, no cyanosis. Skin: No rash or abscess Hem/Lymphatic: No palpable cervical or supraclavicular nodes. No lymphangitis Psych: No agitation Neurological: No agitation - Constitutional Vitals: Vital Signs Temp Pulse Resp BP Pulse Ox 98.9 F 62 25 H 99/58 99 07/29/21 08:00 07/29/21 15:27 07/29/21 15:27 07/29/21 15:25 07/29/21 15:27 Temperature -Last 24 Hours Temperature 98.9 F Temperature 99.8 F Temperature 100.1 F Temperature 99.5 F Temperature 98.3 F Results - Labs CBC & Chem 7: 07/29/21 04:27 07/29/21 04:27 Labs: Abnormal lab results 07/28/21 07/28/21 07/28/21 Range/Units 17:25 18:18 23:20 WBC (4.5-11.0) K/mm3 MCH (28-32) pg RDW (13.2-15.2) % Lymph % (Auto) (13.4-35.0) % [place] % (Auto) (0.0-7.3) % [place] # (Auto) (0.0-0.8) K/mm3 Seg Neutrophils % (40.0-70.0) % Seg Neutrophils # (1.8-7.7) K/mm3 ABG pH 7.118 L (7.320-7.450) POC ABG pCO2 (32.0-48.0) mmHg POC ABG pO2 124.3 H (83-108) mmHg ABG Hemoglobin (12.0-17.5) ABG Oxyhemoglobin (94-98) ABG Potassium 5.1 H (3.40-4.50) mmol/L ABG Chloride (98-107) mmol/L ABG Glucose 406 H (65-95) mg/dL Carboxyhemoglobin (0.5-1.5) Carbon Dioxide (22-30) mmol/L BUN (7-17) mg/dL Creatinine (0.6-1.2) mg/dL Glucose (65-100) mg/dL POC Glucose 328 H 270 H (70-105) mg/dL Calcium (8.4-10.2) mg/dL Arterial Blood Glucose 406 H (65-95) mg/dL Arterial Blood Ionized Calcium 3.8 L (4.6-5.3) mg/dL Urine WBC (Auto) (0.0-6.0) /HPF Urine Creatinine (0.1-20.0) mg/dL 07/28/21 07/28/21 07/29/21 Range/Units Unknown Unknown 04:27 WBC 14.0 H (4.5-11.0) K/mm3 MCH 26 L (28-32) pg RDW 17.1 H (13.2-15.2) % Lymph % (Auto) 10.1 L (13.4-35.0) % [place] % (Auto) 8.1 H (0.0-7.3) % [place] # (Auto) 1.1 H (0.0-0.8) K/mm3 Seg Neutrophils % 81.6 H (40.0-70.0) % Seg Neutrophils # 11.4 H (1.8-7.7) K/mm3 ABG pH (7.320-7.450) POC ABG pCO2 (32.0-48.0) mmHg POC ABG pO2 (83-108) mmHg ABG Hemoglobin (12.0-17.5) ABG Oxyhemoglobin (94-98) ABG Potassium (3.40-4.50) mmol/L ABG Chloride (98-107) mmol/L ABG Glucose (65-95) mg/dL Carboxyhemoglobin (0.5-1.5) Carbon Dioxide (22-30) mmol/L BUN (7-17) mg/dL Creatinine (0.6-1.2) mg/dL Glucose (65-100) mg/dL POC Glucose (70-105) mg/dL Calcium (8.4-10.2) mg/dL Arterial Blood Glucose (65-95) mg/dL Arterial Blood Ionized Calcium (4.6-5.3) mg/dL Urine WBC (Auto) 23.0 H (0.0-6.0) /HPF Urine Creatinine 173.3 H (0.1-20.0) mg/dL 07/29/21 07/29/21 07/29/21 Range/Units 04:27 05:34 08:38 WBC (4.5-11.0) K/mm3 MCH (28-32) pg RDW (13.2-15.2) % Lymph % (Auto) (13.4-35.0) % [place] % (Auto) (0.0-7.3) % [place] # (Auto) (0.0-0.8) K/mm3 Seg Neutrophils % (40.0-70.0) % Seg Neutrophils # (1.8-7.7) K/mm3 ABG pH (7.320-7.450) POC ABG pCO2 21.7 L (32.0-48.0) mmHg POC ABG pO2 199.3 H (83-108) mmHg ABG Hemoglobin 11.8 L (12.0-17.5) ABG Oxyhemoglobin 98.9 H (94-98) ABG Potassium (3.40-4.50) mmol/L ABG Chloride 113.0 H (98-107) mmol/L ABG Glucose 181 H (65-95) mg/dL Carboxyhemoglobin 0.2 L (0.5-1.5) Carbon Dioxide 14 L (22-30) mmol/L BUN 77 H (7-17) mg/dL Creatinine 7.6 H (0.6-1.2) mg/dL Glucose 211 H (65-100) mg/dL POC Glucose 187 H (70-105) mg/dL Calcium 7.6 L (8.4-10.2) mg/dL Arterial Blood Glucose 181 H (65-95) mg/dL Arterial Blood Ionized Calcium (4.6-5.3) mg/dL Urine WBC (Auto) (0.0-6.0) /HPF Urine Creatinine (0.1-20.0) mg/dL 07/29/21 Range/Units 11:31 WBC (4.5-11.0) K/mm3 MCH (28-32) pg RDW (13.2-15.2) % Lymph % (Auto) (13.4-35.0) % [place] % (Auto) (0.0-7.3) % [place] # (Auto) (0.0-0.8) K/mm3 Seg Neutrophils % (40.0-70.0) % Seg Neutrophils # (1.8-7.7) K/mm3 ABG pH (7.320-7.450) POC ABG pCO2 (32.0-48.0) mmHg POC ABG pO2 (83-108) mmHg ABG Hemoglobin (12.0-17.5) ABG Oxyhemoglobin (94-98) ABG Potassium (3.40-4.50) mmol/L ABG Chloride (98-107) mmol/L ABG Glucose (65-95) mg/dL Carboxyhemoglobin (0.5-1.5) Carbon Dioxide (22-30) mmol/L BUN (7-17) mg/dL Creatinine (0.6-1.2) mg/dL Glucose (65-100) mg/dL POC Glucose 140 H (70-105) mg/dL Calcium (8.4-10.2) mg/dL Arterial Blood Glucose (65-95) mg/dL Arterial Blood Ionized Calcium (4.6-5.3) mg/dL Urine WBC (Auto) (0.0-6.0) /HPF Urine Creatinine (0.1-20.0) mg/dL Assessment and Plan Cultures: Blood culture gram-positive cocci one of 4 bottles Urine culture no growth so far A/P: 71-year-old female past medical history COPD, hypertension, morbid obesity presented to the hospital with confusion and shortness of breath. #Acute hypoxic respiratory failure: Currently on the vent. Secondary to pneumonia #VIJAY: Renally dose medications #Pneumonia bilateral: Covid PCR negative #GPC bacteremia: 1 out of 4 bottles so far, possible contaminant Recs: -Agree with empiric cefepime for pneumonia given she is a [facility] resident -Continue vancomycin empirically due to positive blood cultures -Follow-up blood culture finalization -Echo ordered previously Thank you for the consult, we will continue to follow. MD Roxy Zarago[facility] ([facility] O: [phone] F: [phone]
[2021-07-29] MEDS ORDERED: FUROSEMIDE 40 MG/4 ML INJ IV ONE (16:10)
[2021-07-29] MEDS: DONEPEZIL 10 MG TAB PO SCH (21:52)
[2021-07-29] MEDS: allopurinoL 100 MG TAB PO SCH (21:52)
[2021-07-29] MEDS: INSULIN GLARGINE 100 UNITS/ML SUB-Q SCH (21:52)
[2021-07-30] MEDS: INSULIN LISPRO 100 UNIT/ML SUB-Q SCH ×2 (00:05→06:07)
[2021-07-30 05:59] LABS: Hematocrit 31.6 % (30.3-42.9); Hemoglobin 10.3 gm/dl (10.1-14.3); Mean Corpuscular HGB Conc 33 % (30-34); Mean Corpuscular Volume 81 fl (79-97); Platelet Count 196 K/mm3 (140-440); Red Blood Count 3.92 M/mm3 (3.65-5.03); Red Cell Distribution Width 16.8 % (13.2-15.2)
[2021-07-30 06:22] LABS: Albumin 3.2 g/dL (3.9-5)
[2021-07-30] MEDS: fentaNYL DRIP Premix 2,000 MCG/100 ML BAG IV SCH ×2 (09:50→23:23)
[2021-07-30] MEDS: CEFEPIME/NS 2 GM/100 ML 2 GM/100 ML BAG IV SCH (09:51)
[2021-07-30] MEDS: CHOLECALCIFEROL (VIT D3) 1000 UNIT (25 mcg) TAB PO SCH (09:51)
[2021-07-30] MEDS: SENNOSIDES/DOCUSATE SODIUM 8.6/50 MG TAB FEEDTUBE SCH ×2 (09:51→22:29)
[2021-07-30] MEDS: FAMOTIDINE 20 MG/2 ML INJ IV SCH ×2 (09:52→22:29)
[2021-07-30] MEDS: ASCORBIC ACID 500 MG TAB PO SCH (09:52)
[2021-07-30] MEDS: MEMANTINE 5 MG TAB PO SCH ×2 (09:54→22:30)
[2021-07-30] MEDS: VASOPRESSIN 20 UNIT in SODIUM CHLORIDE 0.9% 100 ML IV SCH ×3 (09:54→22:28)
[2021-07-30] MEDS: ZINC SULFATE 220 MG CAP PO SCH (10:13)
[2021-07-30] MEDS: ASPIRIN 81 MG TAB CHEW PO SCH (10:13)
--- NOTE | 2021-07-30 12:18 | Progress Note ---
Assessment and Plan Acute hypoxemic respiratory failure on MVS Acute possibly on chronic toxic metabolic encephalopathy. Bilateral pneumonia. Congestive heart failure with possible acute exacerbation. Obesity. Severe sepsis with shock.B.cult positive for Gram + cocci in clusters 1/2 Acute kidney injury. Oropharyngeal dysphagia. History of chronic obstructive pulmonary disease. History of congestive heart failure. Leukocytosis. Metabolic acidosis -Wean vasopressors for MAP>65 -Daily SAT and SBT- hold off until MRI is done today. -VAP bundle addressed, aspiration precatuions HOB >40 -CXR, ABG as clinically indicated -VTE prophylaxis- await MRI and final Neurology recommendations re pharmacologic anticoagulation -Titrate sedation to RASS of 0 to -1 -Continue SCDs -Discontinue urinary catheter -Discontinue femoral CVL and place PICC line -reanl dosing of all medications and antibiotics -Stress ulcer prophylaxis- Famotidine - titrate supplemental oxygen to keep SpO2 89-92% - continue bronchodilators with pulmonary hygiene per RT - continue accuchecks with glycemic control per SSI (While critically ill target blood glucose of 140-180 mg/dL; avoid hypoglycemia) -Suboptimal glycemic control, basal insulin therapy dosing adjusted -Continue enteric nutritonal support with bowel regimen - avoid benzodiazepines, reduce the possibility of delirium -Lactic down from 7.3---> 1.4, Leukocytosis- improving -Continue empiric ABx- Cefepine and vancomycin. De-escalate based on culture data. repeat blood cultures -Titrate sedation for a RASS goal of 0 to -2 -Consult Neurology for input on anticoagulation for AFib/CVA prophylaxis -MRI brain pending -Continue home meds- Aricept and memantine - prn analgesia per pain score - Maintenance of sleep-wake cycle, avoid delirium - continue mobility protocol, off loading and frequent turning per facility protocols for pressure ulcer prevention - Monitor hemodynamics closely -Influenza and pneumonia vaccination per facility protocol -Supportive transfusions as clinically indicated to keep HgB >7g/dL - continue other care per attending / other consultants .... Re-evaluate in am & prn CONDITION: CRITICAL PROGNOSIS: GUARDED CODE STATUS: FULL CODE The high probability of a clinically significant, sudden or life-threatening deterioration of the [respiratory, cardiovascular, GI and neurologic] system(s) required my full and direct attention, intervention and personal management. The aggregate critical care time was [35] minutes without overlap. Time includes spent on; [x] Data Review and interpretation [x] Patient assessment and monitoring of vital signs [x] Documentation [x] Medication orders and management Subjective Date of service: 07/30/21 Principal diagnosis: Ac. hypoxemic resp failure; Pneumonia vs Pulmonary edema; PUI-COVID; VIJAY Interval history: Follow up for:Acute hypoxemic respiratory failure on MVS; Septic shock with PEA arresr, with ROSC; Acute encephalopathy, possibly toxic metabolic; Possible bilateral pulmonary edema;Hypertensive urgency;Acute kidney injury Additional history Pt. received COVID vaccine, [employer] in early december, per daughter Seen and examined. Vitals,labs, medications, chart and imaging reviewed. Remains orally intubated on MVS. Sedated, pending MRI of the brain today. No adverse overnight events reported. Currently on Vasopressin and low dose Norepinephrine, but norepinephrine is being titrated down. On Propofol and Fentanyl MVS PEEP +8/FIO2 50% Discussed with nursing staff, respiratory staff and clinical pharmacist in MDR Objective - Exam Narrative Exam: General appearance: Present: no acute distress, other (Intubated and sedated) - EENT Eyes: Present: PERRL - Respiratory Respiratory effort: normal Respiratory: bilateral: diminished - Cardiovascular Rhythm: regular Heart Sounds: Present: S1 & S2 - Extremities Extremities: no ischemia, pulses intact, pulses symmetrical Extremity abnormal: edema - Peripheral Assessment Generalized Edema Type: Non-pitting Edema Degree: 1+ Capillary Refill: < 3 seconds Skin Temperature: Warm Peripheral Pulses: within normal limits - Abdominal General gastrointestinal: soft, non-tender, normal bowel sounds - Integumentary Integumentary: Present: clear, warm, dry - Psychiatric Psychiatric: other (Sedated) - Neurologic Neurologic: other (Sedated) Vital Signs - 12hr 07/30/21 07/30/21 07/30/21 00:30 00:45 01:00 Temperature Pulse Rate 66 66 51 L Pulse Rate [ From Monitor] Respiratory 25 H 25 H 25 H Rate Blood Pressure 112/65 112/65 118/60 O2 Sat by Pulse 95 100 95 Oximetry 07/30/21 07/30/21 07/30/21 01:15 01:30 01:45 Temperature Pulse Rate 54 L 52 L 52 L Pulse Rate [ From Monitor] Respiratory 25 H 25 H 25 H Rate Blood Pressure 118/60 117/59 117/59 O2 Sat by Pulse 99 97 99 Oximetry 07/30/21 07/30/21 07/30/21 02:00 02:15 02:30 Temperature Pulse Rate 50 L 51 L 49 L Pulse Rate [ From Monitor] Respiratory 25 H 25 H 25 H Rate Blood Pressure 115/59 115/59 125/65 O2 Sat by Pulse 95 99 94 Oximetry 07/30/21 07/30/21 07/30/21 02:45 03:00 03:15 Temperature Pulse Rate 54 L 49 L 52 L Pulse Rate [ From Monitor] Respiratory 25 H 25 H 25 H Rate Blood Pressure 116/63 128/69 128/69 O2 Sat by Pulse 99 94 99 Oximetry 07/30/21 07/30/21 07/30/21 03:25 03:30 03:34 Temperature 99.3 F Pulse Rate 51 L 49 L Pulse Rate [ From Monitor] Respiratory 25 H Rate Blood Pressure 124/68 128/70 O2 Sat by Pulse 99 94 Oximetry 07/30/21 07/30/21 07/30/21 03:45 04:00 04:01 Temperature Pulse Rate 66 50 L 52 L Pulse Rate [ 52 L From Monitor] Respiratory 25 H 25 H 25 H Rate Blood Pressure 128/70 130/63 O2 Sat by Pulse 99 100 96 Oximetry 07/30/21 07/30/21 07/30/21 04:15 04:31 04:45 Temperature Pulse Rate 64 54 L 63 Pulse Rate [ From Monitor] Respiratory 25 H 25 H 25 H Rate Blood Pressure 130/63 130/66 130/66 O2 Sat by Pulse 99 94 100 Oximetry 07/30/21 07/30/21 07/30/21 05:01 05:15 05:30 Temperature Pulse Rate 49 L 49 L 48 L Pulse Rate [ From Monitor] Respiratory 25 H 25 H 25 H Rate Blood Pressure 124/59 124/59 132/66 O2 Sat by Pulse 95 99 94 Oximetry 07/30/21 07/30/21 07/30/21 05:45 06:01 06:15 Temperature Pulse Rate 67 47 L 66 Pulse Rate [ From Monitor] Respiratory 25 H 25 H 24 Rate Blood Pressure 132/66 121/64 141/59 O2 Sat by Pulse 100 100 100 Oximetry 07/30/21 07/30/21 07/30/21 06:31 06:45 07:01 Temperature Pulse Rate 46 L 47 L 47 L Pulse Rate [ From Monitor] Respiratory 25 H 25 H 25 H Rate Blood Pressure 144/66 144/66 136/62 O2 Sat by Pulse 97 100 94 Oximetry 07/30/21 07/30/21 07/30/21 07:15 07:26 07:31 Temperature 98.0 F Pulse Rate 50 L 46 L Pulse Rate [ From Monitor] Respiratory 25 H 25 H Rate Blood Pressure 130/60 141/62 O2 Sat by Pulse 99 95 Oximetry 07/30/21 07/30/21 07/30/21 07:45 08:00 08:01 Temperature Pulse Rate 48 L 48 L 70 Pulse Rate [ 48 L From Monitor] Respiratory 25 H 25 H 25 H Rate Blood Pressure 140/63 106/76 142/64 O2 Sat by Pulse 100 100 98 Oximetry 07/30/21 07/30/21 07/30/21 08:15 08:30 08:45 Temperature Pulse Rate 50 L 51 L 49 L Pulse Rate [ From Monitor] Respiratory 25 H 25 H 25 H Rate Blood Pressure 108/62 102/61 102/61 O2 Sat by Pulse 100 100 100 Oximetry 07/30/21 07/30/21 07/30/21 09:01 09:15 09:30 Temperature Pulse Rate 62 49 L 49 L Pulse Rate [ From Monitor] Respiratory 25 H 25 H 25 H Rate Blood Pressure 106/76 105/60 112/64 O2 Sat by Pulse 100 100 100 Oximetry 07/30/21 07/30/21 07/30/21 09:45 10:01 10:15 Temperature Pulse Rate 49 L 48 L 49 L Pulse Rate [ From Monitor] Respiratory 25 H 25 H 25 H Rate Blood Pressure 119/55 126/72 121/64 O2 Sat by Pulse 100 100 100 Oximetry CBC and BMP: 08/02/21 04:40 08/02/21 04:40 ABG, PT/INR, D-dimer: ABG ABG pH 7.432 (7.320-7.450) 07/29/21 08:38 POC ABG pCO2 21.7 mmHg (32.0-48.0) L 07/29/21 08:38 ABG pCO2 49.9 mm Hg 07/28/21 12:24 POC ABG pO2 199.3 mmHg (83-108) H 07/29/21 08:38 ABG pO2 135.4 mm Hg (80.0-90.0) H 07/28/21 12:24 POC ABG HCO3 14.1 07/29/21 08:38 ABG O2 Saturation 99.4 (0-100) 07/29/21 08:38 PT/INR, D-dimer PT 16.6 Sec. (12.2-14.9) H 07/28/21 11:09 INR 1.21 (0.87-1.13) H 07/28/21 11:09 Abnormal lab findings: Abnormal Labs 07/28/21 07/28/21 07/28/21 11:09 11:09 11:09 WBC 13.5 H MCH 26 L RDW 17.6 H Lymph % (Auto) 12.0 L [place] % (Auto) [place] # (Auto) 0.9 H Seg Neutrophils % 80.4 H Seg Neutrophils # 10.8 H PT 16.6 H INR 1.21 H ABG pH POC ABG pCO2 POC ABG pO2 ABG pO2 ABG HCO3 ABG Base Excess ABG Hemoglobin ABG Oxyhemoglobin ABG Potassium ABG Chloride ABG Glucose Carboxyhemoglobin Chloride Carbon Dioxide 16 L BUN 78 H Creatinine 9.1 H Glucose 224 H POC Glucose Lactic Acid Calcium 7.7 L ALT Total Creatine Kinase Troponin T 0.063 H Albumin Triglycerides 226 H Arterial Blood Glucose Arterial Blood Ionized Calcium Urine WBC (Auto) Urine Creatinine 07/28/21 07/28/21 07/28/21 11:09 11:09 12:24 WBC MCH RDW Lymph % (Auto) [place] % (Auto) [place] # (Auto) Seg Neutrophils % Seg Neutrophils # PT INR ABG pH 7.049 L* POC ABG pCO2 POC ABG pO2 ABG pO2 135.4 H ABG HCO3 13.4 L ABG Base Excess -16.5 L ABG Hemoglobin 10.8 L ABG Oxyhemoglobin ABG Potassium ABG Chloride ABG Glucose Carboxyhemoglobin Chloride Carbon Dioxide BUN Creatinine Glucose POC Glucose Lactic Acid 7.30 H* Calcium ALT Total Creatine Kinase 840 H Troponin T Albumin Triglycerides Arterial Blood Glucose Arterial Blood Ionized Calcium Urine WBC (Auto) Urine Creatinine 07/28/21 07/28/21 07/28/21 17:25 18:18 23:20 WBC MCH RDW Lymph % (Auto) [place] % (Auto) [place] # (Auto) Seg Neutrophils % Seg Neutrophils # PT INR ABG pH 7.118 L POC ABG pCO2 POC ABG pO2 124.3 H ABG pO2 ABG HCO3 ABG Base Excess ABG Hemoglobin ABG Oxyhemoglobin ABG Potassium 5.1 H ABG Chloride ABG Glucose 406 H Carboxyhemoglobin Chloride Carbon Dioxide BUN Creatinine Glucose POC Glucose 328 H 270 H Lactic Acid Calcium ALT Total Creatine Kinase Troponin T Albumin Triglycerides Arterial Blood Glucose 406 H Arterial Blood Ionized Calcium 3.8 L Urine WBC (Auto) Urine Creatinine 07/28/21 07/28/21 07/29/21 Unknown Unknown 04:27 WBC 14.0 H MCH 26 L RDW 17.1 H Lymph % (Auto) 10.1 L [place] % (Auto) 8.1 H [place] # (Auto) 1.1 H Seg Neutrophils % 81.6 H Seg Neutrophils # 11.4 H PT INR ABG pH POC ABG pCO2 POC ABG pO2 ABG pO2 ABG HCO3 ABG Base Excess ABG Hemoglobin ABG Oxyhemoglobin ABG Potassium ABG Chloride ABG Glucose Carboxyhemoglobin Chloride Carbon Dioxide BUN Creatinine Glucose POC Glucose Lactic Acid Calcium ALT Total Creatine Kinase Troponin T Albumin Triglycerides Arterial Blood Glucose Arterial Blood Ionized Calcium Urine WBC (Auto) 23.0 H Urine Creatinine 173.3 H 07/29/21 07/29/21 07/29/21 04:27 05:34 08:38 WBC MCH RDW Lymph % (Auto) [place] % (Auto) [place] # (Auto) Seg Neutrophils % Seg Neutrophils # PT INR ABG pH POC ABG pCO2 21.7 L POC ABG pO2 199.3 H ABG pO2 ABG HCO3 ABG Base Excess ABG Hemoglobin 11.8 L ABG Oxyhemoglobin 98.9 H ABG Potassium ABG Chloride 113.0 H ABG Glucose 181 H Carboxyhemoglobin 0.2 L Chloride Carbon Dioxide 14 L BUN 77 H Creatinine 7.6 H Glucose 211 H POC Glucose 187 H Lactic Acid Calcium 7.6 L ALT Total Creatine Kinase Troponin T Albumin Triglycerides Arterial Blood Glucose 181 H Arterial Blood Ionized Calcium Urine WBC (Auto) Urine Creatinine 07/29/21 07/29/21 07/29/21 11:31 17:51 22:35 WBC MCH RDW Lymph % (Auto) [place] % (Auto) [place] # (Auto) Seg Neutrophils % Seg Neutrophils # PT INR ABG pH POC ABG pCO2 POC ABG pO2 ABG pO2 ABG HCO3 ABG Base Excess ABG Hemoglobin ABG Oxyhemoglobin ABG Potassium ABG Chloride ABG Glucose Carboxyhemoglobin Chloride Carbon Dioxide BUN Creatinine Glucose POC Glucose 140 H 141 H 194 H Lactic Acid Calcium ALT Total Creatine Kinase Troponin T Albumin Triglycerides Arterial Blood Glucose Arterial Blood Ionized Calcium Urine WBC (Auto) Urine Creatinine 07/30/21 07/30/21 07/30/21 04:00 04:00 05:12 WBC 15.6 H MCH 26 L RDW 16.8 H Lymph % (Auto) [place] % (Auto) [place] # (Auto) Seg Neutrophils % Seg Neutrophils # PT INR ABG pH POC ABG pCO2 POC ABG pO2 ABG pO2 ABG HCO3 ABG Base Excess ABG Hemoglobin ABG Oxyhemoglobin ABG Potassium ABG Chloride ABG Glucose Carboxyhemoglobin Chloride 110.5 H Carbon Dioxide 16 L BUN 86 H Creatinine 5.9 H Glucose 183 H POC Glucose 162 H Lactic Acid Calcium 8.0 L ALT 57 H Total Creatine Kinase Troponin T Albumin 3.2 L Triglycerides Arterial Blood Glucose Arterial Blood Ionized Calcium Urine WBC (Auto) Urine Creatinine 07/30/21 12:04 WBC MCH RDW Lymph % (Auto) [place] % (Auto) [place] # (Auto) Seg Neutrophils % Seg Neutrophils # PT INR ABG pH POC ABG pCO2 POC ABG pO2 ABG pO2 ABG HCO3 ABG Base Excess ABG Hemoglobin ABG Oxyhemoglobin ABG Potassium ABG Chloride ABG Glucose Carboxyhemoglobin Chloride Carbon Dioxide BUN Creatinine Glucose POC Glucose 145 H Lactic Acid Calcium ALT Total Creatine Kinase Troponin T Albumin Triglycerides Arterial Blood Glucose Arterial Blood Ionized Calcium Urine WBC (Auto) Urine Creatinine Chest x-ray: image reviewed Additional Studies: 07/28 CXR- Bibasilar areas of density may represent atelectasis though basilar pneumonitis is not excluded 07/28 CXR- Increased right basilar pleural parenchymal opacities 07/29 CXR- Resolving bilateral lower lobe pleural- parenchymal disease 07/28 CT head w/o showed 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
--- NOTE | 2021-07-30 13:39 | Progress Note ---
Assessment and Plan Echo 07/29/2021 EF 50 to 55%, left ventricular systolic function is normal, right ventricular systolic function is normal, right ventricle is mildly dilated, trace mitral regurgitation, RSVP is 33 mmHg, mild to moderate tricuspid regurgitation Initial ECG post-arrest reveals atrial fibrillation. Now in sinus rhythm 60s on tele. Waiting Neuro recs regarding anticoagulation for AF / CVA prophylaxis due to hx of acerebral anuerysm (pt was previously anticoagulated as an inpatient when admitted with COVID-19 PNA earlier this year) [id number] Score: 7 points HAS-BLED Score: 4 points Pt seen in conjunction with Dr. Shepard, who agrees with the assessment and plan of care. - Patient Problems (1) VIJAY (acute kidney injury) Current Visit: Yes Status: Acute (2) Acute respiratory failure with hypoxia Current Visit: Yes Status: Acute (3) Bilateral pneumonia Current Visit: Yes Status: Acute (4) Elevated troponin Current Visit: Yes Status: Acute (5) Paroxysmal atrial fibrillation Current Visit: Yes Status: Acute (6) Severe sepsis Current Visit: Yes Status: Acute Subjective Date of service: 07/30/21 Principal diagnosis: Ac. hypoxemic resp failure; Pneumonia vs Pulmonary edema; PUI-COVID; VIJAY Interval history: sinus 60 but trneding sinus bradycardia on monitor 40s- 50s Objective Vital Signs Temp Pulse Pulse Resp BP Pulse Ox 07/30/21 10:15 49 L 25 H 121/64 100 07/30/21 10:01 48 L 25 H 126/72 100 07/30/21 09:45 49 L 25 H 119/55 100 07/30/21 09:30 49 L 25 H 112/64 100 07/30/21 09:15 49 L 25 H 105/60 100 07/30/21 09:01 62 25 H 106/76 100 07/30/21 08:45 49 L 25 H 102/61 100 07/30/21 08:30 51 L 25 H 102/61 100 07/30/21 08:15 50 L 25 H 108/62 100 07/30/21 08:01 70 25 H 142/64 98 07/30/21 08:00 48 L 48 L 25 H 106/76 100 07/30/21 07:45 48 L 25 H 140/63 100 07/30/21 07:31 46 L 25 H 141/62 95 07/30/21 07:26 98.0 F 07/30/21 07:15 50 L 25 H 130/60 99 07/30/21 07:01 47 L 25 H 136/62 94 07/30/21 06:45 47 L 25 H 144/66 100 07/30/21 06:31 46 L 25 H 144/66 97 07/30/21 06:15 66 24 141/59 100 07/30/21 06:01 47 L 25 H 121/64 100 07/30/21 05:45 67 25 H 132/66 100 07/30/21 05:30 48 L 25 H 132/66 94 07/30/21 05:15 49 L 25 H 124/59 99 07/30/21 05:01 49 L 25 H 124/59 95 07/30/21 04:45 63 25 H 130/66 100 07/30/21 04:31 54 L 25 H 130/66 94 07/30/21 04:15 64 25 H 130/63 99 07/30/21 04:01 52 L 25 H 130/63 96 07/30/21 04:00 50 L 52 L 25 H 100 07/30/21 03:45 66 25 H 128/70 99 07/30/21 03:34 99.3 F 07/30/21 03:30 49 L 25 H 128/70 94 07/30/21 03:25 51 L 124/68 99 07/30/21 03:15 52 L 25 H 128/69 99 07/30/21 03:00 49 L 25 H 128/69 94 07/30/21 02:45 54 L 25 H 116/63 99 07/30/21 02:30 49 L 25 H 125/65 94 07/30/21 02:15 51 L 25 H 115/59 99 07/30/21 02:00 50 L 25 H 115/59 95 07/30/21 01:45 52 L 25 H 117/59 99 07/30/21 01:30 52 L 25 H 117/59 97 07/30/21 01:15 54 L 25 H 118/60 99 07/30/21 01:00 51 L 25 H 118/60 95 07/30/21 00:45 66 25 H 112/65 100 07/30/21 00:30 66 25 H 112/65 95 07/30/21 00:15 60 25 H 110/55 100 07/30/21 00:00 52 L 50 L 25 H 110/55 97 07/29/21 23:45 62 25 H 110/60 100 07/29/21 23:33 64 25 H 110/60 100 07/29/21 23:30 54 L 25 H 110/60 95 07/29/21 23:15 55 L 25 H 108/48 100 07/29/21 23:00 70 25 H 108/48 93 07/29/21 22:56 98.9 F 07/29/21 22:45 70 25 H 129/70 100 07/29/21 22:30 68 25 H 129/70 94 07/29/21 22:15 71 25 H 147/84 99 07/29/21 22:01 47 L 25 H 117/62 98 07/29/21 21:45 69 25 H 123/60 100 07/29/21 21:30 60 25 H 123/60 99 07/29/21 21:15 65 25 H 128/86 100 07/29/21 21:00 58 L 25 H 128/86 99 07/29/21 20:45 77 26 H 131/71 100 07/29/21 20:30 67 25 H 131/71 94 07/29/21 20:15 58 L 25 H 129/78 07/29/21 20:00 66 58 L 25 H 123/60 100 07/29/21 19:45 67 25 H 115/69 100 07/29/21 19:36 98.8 F 07/29/21 19:30 53 L 25 H 115/69 96 07/29/21 19:15 62 25 H 105/63 100 07/29/21 19:00 66 25 H 89/54 97 07/29/21 18:45 65 25 H 122/68 99 07/29/21 18:41 69 25 H 122/68 99 07/29/21 18:35 71 25 H 122/68 99 07/29/21 18:30 70 25 H 122/68 96 07/29/21 18:25 69 25 H 114/73 100 07/29/21 18:21 67 25 H 127/70 100 07/29/21 18:15 70 24 118/72 100 07/29/21 18:11 69 25 H 118/72 100 07/29/21 18:05 69 25 H 118/72 100 07/29/21 18:00 62 25 H 118/72 96 07/29/21 17:55 66 25 H 106/66 100 07/29/21 17:51 59 L 25 H 106/66 100 07/29/21 17:45 68 25 H 106/66 100 07/29/21 17:41 67 25 H 106/66 100 07/29/21 17:35 67 25 H 106/66 100 07/29/21 17:31 64 25 H 106/66 98 07/29/21 17:25 67 26 H 90/56 100 07/29/21 17:20 65 25 H 90/56 100 07/29/21 17:15 62 25 H 90/56 100 07/29/21 17:10 65 25 H 83/54 100 07/29/21 17:05 64 25 H 100 07/29/21 17:00 63 25 H 88/54 100 07/29/21 16:56 62 25 H 88/54 100 07/29/21 16:54 64 25 H 88/54 100 07/29/21 16:45 64 25 H 88/54 98 07/29/21 16:41 68 25 H 85/53 100 07/29/21 16:35 61 25 H 85/53 100 07/29/21 16:30 63 25 H 85/53 99 07/29/21 16:25 63 25 H 87/53 100 07/29/21 16:21 62 25 H 87/53 100 07/29/21 16:15 61 25 H 87/53 99 07/29/21 16:12 66 91/55 100 07/29/21 16:11 63 25 H 91/55 100 07/29/21 16:05 66 25 H 91/55 99 07/29/21 16:00 65 25 H 91/55 99 07/29/21 15:59 65 07/29/21 15:55 62 25 H 95/65 99 07/29/21 15:51 67 25 H 95/65 100 07/29/21 15:45 72 24 98/61 100 07/29/21 15:41 65 25 H 98/61 100 07/29/21 15:35 64 25 H 98/61 99 07/29/21 15:30 64 25 H 98/61 95 07/29/21 15:27 62 25 H 99 07/29/21 15:25 66 25 H 99/58 99 07/29/21 15:21 63 25 H 99/58 100 07/29/21 15:15 65 25 H 99/58 95 07/29/21 15:11 65 25 H 94/64 100 07/29/21 15:05 64 22 94/64 99 07/29/21 15:00 67 15 94/64 07/29/21 14:55 66 25 H 96/60 99 07/29/21 14:51 66 25 H 96/60 99 07/29/21 14:45 66 25 H 96/60 97 07/29/21 14:41 65 25 H 96/52 99 07/29/21 14:35 64 25 H 96/52 99 07/29/21 14:30 65 25 H 96/52 96 07/29/21 14:25 66 25 H 94/51 98 07/29/21 14:21 65 25 H 94/51 98 07/29/21 14:15 65 25 H 94/51 95 07/29/21 14:11 67 25 H 95/51 98 07/29/21 14:05 58 L 25 H 95/51 99 07/29/21 14:01 71 16 58/35 98 07/29/21 13:55 68 25 H 81/42 97 07/29/21 13:51 67 25 H 81/42 97 07/29/21 13:45 68 25 H 92/47 97 07/29/21 13:41 67 25 H 92/47 98 - Physical Examination General: No Apparent Distress HEENT: Positive: Normocephaly Neck: Positive: neck supple, trachea midline Lungs: Positive: Ventilated Respirations Neuro: Positive: Other (intubated) Abdomen: Positive: Soft Skin: Negative: Rash Musculoskeletal: No Fluid Collection Extremities: Present: lower extr. pulses. Absent: edema - Labs and Meds Cardiac Enzymes 07/30/21 Range/Units 04:00 AST 19 (5-40) units/L CBC 07/30/21 Range/Units 04:00 WBC 15.6 H (4.5-11.0) K/mm3 RBC 3.92 (3.65-5.03) M/mm3 Hgb 10.3 (10.1-14.3) gm/dl Hct 31.6 (30.3-42.9) % Plt Count 196 (140-440) K/mm3 Comprehensive Metabolic Panel 07/30/21 Range/Units 04:00 Sodium 144 (137-145) mmol/L Potassium 4.0 (3.6-5.0) mmol/L Chloride 110.5 H (98-107) mmol/L Carbon Dioxide 16 L (22-30) mmol/L BUN 86 H (7-17) mg/dL Creatinine 5.9 H (0.6-1.2) mg/dL Glucose 183 H (65-100) mg/dL Calcium 8.0 L (8.4-10.2) mg/dL AST 19 (5-40) units/L ALT 57 H (7-56) units/L Alkaline Phosphatase 75 (35-129) units/L Total Protein 6.6 (6.3-8.2) g/dL Albumin 3.2 L (3.9-5) g/dL - Imaging and Cardiology EKG: report reviewed, image reviewed Echo: report reviewed - Telemetry EKG Rhythm: Sinus Bradycardia - EKG Sinus rhythms and dysrhythmias: sinus rhythm
[2021-07-30 13:45] LABS: ABG Base Excess -8.9 mmol/L (-2.0-3.0); ABG HCO3 15.4 mmol/L (20.0-26.0); ABG Methemoglobin 0.5 % (0.0-1.5); ABG Oxygen Saturation 98.1 % (95.0-99.0); ABG PCO2 28.3 mm Hg; ABG PH 7.354 pH Units (7.350-7.450); ABG PO2 116.9 mm Hg (80.0-90.0)
--- NOTE | 2021-07-30 14:44 | Magnetic Resonance Report ---
NONENHANCED MR SCAN OF THE BRAIN: INDICATION / CLINICAL INFORMATION: Hypoxic Anoxic Encephalopathy. TECHNIQUE: Multiplanar, multisequence MR images of the brain obtained. COMPARISON: CT scan of the head from 07/28/2021 FINDINGS: BRAIN / INTRACRANIAL CONTENTS: Chronic ischemic changes in the left internal and external parietal bernie rder zone extending towards left superior temporal gyrus; compensatory enlargement of atrium and occi pital horn and left lateral ventricle Subacute nonhemorrhagic infarction in the left temporal lobe lateral to the left temporal horn and le ft medial parietal lobe and limbic lobe; no hemorrhagic changes in the subacute ischemia; punctate ar ea of subacute ischemia in the left thalamus Chronic ischemic changes in the crystal and left basal ganglia chronic ischemic changes along the right caudate from an old hemorrhagic lesion Confluent periventricular and deep hemispheric white matter lesions spanning the subcortical white ma tter more on the left cerebral hemisphere due to chronic small vessel disease CRANIOCERVICAL JUNCTION: No significant abnormality. VASCULAR FLOW-VOIDS: Normal flow signal in the basilar artery and in the carotid arteries at the leve l of carotid siphon ORBITS: No significant abnormality of visualized orbits. SINUSES / MASTOIDS: No significant abnormality of visualized sinuses and mastoid air cells. ADDITIONAL FINDINGS: None. IMPRESSION: 1. In addition to encephalomalacia is seen in the left parietal border zone, subacute nonhemorrhagic infarction in the left temporal lobe lateral to left temporal horn and medial left parietal lobe Signer Name: Ramses Argueta MD Signed: 07/30/2021 2:39 PM Workstation Name: [id number]
--- NOTE | 2021-07-30 15:59 | Progress Note ---
Assessment and Plan Cultures: Blood culture gram-positive cocci one of 4 bottles Urine culture no growth so far A/P: 71-year-old female past medical history COPD, hypertension, morbid obesity presented to the hospital with confusion and shortness of breath. #Acute hypoxic respiratory failure: Currently on the vent. Secondary to pneumonia #VIJAY: Renally dose medications #Pneumonia bilateral: Covid PCR negative #GPC bacteremia: 1 out of 4 bottles so far, likely contaminant. Recs: -Agree with empiric cefepime for pneumonia given she is a group home resident -Stop vancomycin due to likely contamination of blood culture. -Follow-up blood culture finalization -Echo ordered previously Thank you for the consult, we will continue to follow. Macario Davis MD [facility] ([facility]) O: [phone] F: [phone] Subjective Date of service: 07/30/21 Principal diagnosis: Ac. hypoxemic resp failure; Pneumonia vs Pulmonary edema; PUI-COVID; VIJAY Interval history: Afebrile, white count 15.6. Cultures remain negative. Imaging personally reviewed: Brain MRI: Encephalomalacia, subacute nonhemorrhagic infarction Objective - Exam Narrative Exam: Physical Exam: Constitutional: Intubated, sedated Head, Ears, Nose: Normocephalic, atraumatic. External ears, nose normal Eyes: Conjunctivae/corneas clear. No icterus. No ptosis. Neck: ETT Oral: ETT Cardiovascular: S1, S2 normal. Respiratory: Good air entry, clear to auscultation bilaterally GI: Soft, non-tender; bowel sounds normal. No peritoneal signs. Musculoskeletal: No pedal edema, no cyanosis. Skin: No rash or abscess Hem/Lymphatic: No palpable cervical or supraclavicular nodes. No lymphangitis Psych: No agitation Neurological: No agitation - Constitutional Vitals: Vital Signs Temp Pulse Resp BP Pulse Ox 98.2 F 49 L 25 H 108/60 100 07/30/21 12:00 07/30/21 12:00 07/30/21 10:07/30/21 12:00 07/30/21 12:00 Temperature -Last 24 Hours Temperature 98.2 F Temperature 98.0 F Temperature 99.3 F Temperature 98.9 F Temperature 98.8 F - Labs CBC & Chem 7: 07/30/21 04:00 07/30/21 04:00 Labs: Abnormal lab results 07/29/21 07/29/21 07/30/21 Range/Units 17:51 22:35 04:00 WBC 15.6 H (4.5-11.0) K/mm3 MCH 26 L (28-32) pg RDW 16.8 H (13.2-15.2) % ABG pO2 (80.0-90.0) mm Hg ABG HCO3 (20.0-26.0) mmol/L ABG Base Excess (-2.0-3.0) mmol/L ABG Hemoglobin (12.0-16.0) gm/dl Chloride (98-107) mmol/L Carbon Dioxide (22-30) mmol/L BUN (7-17) mg/dL Creatinine (0.6-1.2) mg/dL Glucose (65-100) mg/dL POC Glucose 141 H 194 H (70-105) mg/dL Calcium (8.4-10.2) mg/dL ALT (7-56) units/L Albumin (3.9-5) g/dL 07/30/21 07/30/21 07/30/21 Range/Units 04:00 05:12 12:04 WBC (4.5-11.0) K/mm3 MCH (28-32) pg RDW (13.2-15.2) % ABG pO2 (80.0-90.0) mm Hg ABG HCO3 (20.0-26.0) mmol/L ABG Base Excess (-2.0-3.0) mmol/L ABG Hemoglobin (12.0-16.0) gm/dl Chloride 110.5 H (98-107) mmol/L Carbon Dioxide 16 L (22-30) mmol/L BUN 86 H (7-17) mg/dL Creatinine 5.9 H (0.6-1.2) mg/dL Glucose 183 H (65-100) mg/dL POC Glucose 162 H 145 H (70-105) mg/dL Calcium 8.0 L (8.4-10.2) mg/dL ALT 57 H (7-56) units/L Albumin 3.2 L (3.9-5) g/dL 07/30/21 Range/Units 13:00 WBC (4.5-11.0) K/mm3 MCH (28-32) pg RDW (13.2-15.2) % ABG pO2 116.9 H (80.0-90.0) mm Hg ABG HCO3 15.4 L (20.0-26.0) mmol/L ABG Base Excess -8.9 L (-2.0-3.0) mmol/L ABG Hemoglobin 10.2 L (12.0-16.0) gm/dl Chloride (98-107) mmol/L Carbon Dioxide (22-30) mmol/L BUN (7-17) mg/dL Creatinine (0.6-1.2) mg/dL Glucose (65-100) mg/dL POC Glucose (70-105) mg/dL Calcium (8.4-10.2) mg/dL ALT (7-56) units/L Albumin (3.9-5) g/dL
--- NOTE | 2021-07-30 16:47 | Progress Note ---
<JOAN METZ - Last Filed: 07/30/21 16:43> Assessment and Plan Assessment and plan: This a 71 years-old female with PmHx of dementia, COPD, HTN, HLD, CHF, brain aneurysm, CVA, CKD, and DM2 who was brought in via EMS from a nursing due to confusion, SOB, and hypotension. Upon her arrival in the ED patient was found stuporous/obtunded and required intubation for airway protection. Subsequently after patient went into cardiac arrest, ROSC was achieved after 1 round of ACLS. Patient was then transferred to the ICU for further management. Hospital Course to Date: 07/29/21- Patient remains intubated and sedated on versed and fentynal, on pressors. Consult place for cardio s/p cardiac arrest, ID was consulted for sepsis, and Neuro consult for AC rec due to Afib/CVA. Basal insulin was added for blood glucose control. Will continue to monitor renal function and electrolytes, am labs ordered. 07/30/21- Patient remains intubated and sedated, on propofol and fentanyl RASS 0 to -2. Remains on low dose pressors, SB noted this am. Pending MRI brain today. Assessment and Plan #Acute Metabolic Encephalopathy #H/o CVA, dementia - Patient is intubated and sedated on versed and fentanyl RASS -1 to -2 - 07/28 CT head w/o showed chronic appearing left MCA [employer] watershed zone infarct - Titrate sedation for a RASS goal of 0 to -2 - Consult Neurology for input on anticoagulation for AFib/CVA prophylaxis - MRI brain pending - Restart home meds- Aricept and memantine - Daily SAT and SBT per CCM - PRN analgesia for CPOT greater than 3 - Reduce the possibility of delirium, continue seroquel - Maintenance of sleep-wake cycle #S/p Cardiac arrest #Atrial Fibrillation #Hypotension #H/o CHF - Post ROSC EKG showed Afib RVR, HR 120s - 07/30 2D Echo- EF 50 to 55%, left ventricular systolic function is normal, right ventricular systolic function is normal, right ventricle is mildly dilated, trace mitral regurgitation, RSVP is 33 mmHg, mild to moderate tricuspid regurgitation - Patient is SB this am, HR dropped as low as 48 - Remain on Levo and Vaso - Maintain adequate perfusion - Titrated vasopressors as tolerated for a MAP goal above 65 - Cardiology on consult, appreciated recommendation - SCDs for VTE proph #Acute Hypoxemic Respiratory Failure #Bilateral pneumonia #H/o COPD - ETT on 07/28 - 07/28 CXR- Bibasilar areas of density may represent atelectasis though basilar pneumonitis is not excluded - 07/28 CXR- Increased right basilar pleural parenchymal opacities - 07/29 CXR- Resolving bilateral lower lobe pleural- parenchymal disease - Vent setting: CMV- 75%, 8,30,450 - ABGs noted, vent changes made, check RT flowsheet for changes - COVID swab neg - Per daughter Pt. received COVID vaccine, PFizerX2 in early december - Continue SPO2 monitoring for SPO2 goal above 92% - SAT and SBT as tolerated per CCM - VAP bundle per protocol - Aspiration precaution, HOB above 30% - CCM on consult #GI: NAP - OGT in place - Enteral nutrition initiated - Nutrition on consult - Continue current BR- senokot - Continue PPI- Pepcid #Acute Kidney Injury (VIJAY) possible 2/2 sepsis shock #H/o CKD - Baseline cr. is 1, cr. on admit as high as 9.1 - Cr. downtrending 5.9 this AM - Continue strict intake and output - Diuretic challenge yesterday, patient tolerated well - Diaz in place, net -385cc in last 24hr - Nephrology on consult, appreciated recommendation - Plan for gentle hydration by Nephro - No need for HD at this time - Avoid nephrotoxic medications; Renally dose medications - Close monitor of renal function and electrolytes, am labs ordered #Sepsis Shock #Bilateral pneumonia #Lactic Acidosis- resolved - 07/28 CXR- Bibasilar areas of density may represent atelectasis though basilar pneumonitis is not excluded - 07/28 CXR- Increased right basilar pleural parenchymal opacities - 07/29 CXR- Resolving bilateral lower lobe pleural- parenchymal disease - Lactic down from 7.3---> 1.4 - Leukocytosis- WBCs 14 today - TMAx 100.1 - 1 out 2 B.cult positive for Gram + cocci in clusters - COVID swab neg - Continue empiric ABx- Cefepine and vancomycin - Follow-up blood culture finalization - Daily CBC monitor - ID consulted #Endo: Hyperglycemia #H/o DM2 - Continue SSI Q6hrs - Lantus added qHS - While critically ill target blood glucose of 140-180 - Avoid hypoglycemia The high probability of a clinically significant, sudden or life threatening deterioration of the [Neuro, CV, ID, ] system(s) required my full and direct attention, intervention and personal management. The aggregate critical care time was [60] minutes. This time is in addition to time spent performing reported procedures but includes the following: [x] Data Review and interpretation [x] Patient assessment and monitoring of vital signs [x] Documentation [x] Medication orders and management Disposition Plan: ICU Total Time Spent with Patient (Minutes): 60 History Interval history: Patient seen and examined at the bedside. Intubated and sedated on versed and fentanyl. Patient open eyes spontaneously and moved RUE but does not follow any commands. No sig. events overnight Hospitalist Physical - Constitutional Vitals: Temp Pulse Resp BP Pulse Ox 98.2 F 49 L 25 H 108/60 100 07/30/21 12:00 07/30/21 12:00 07/30/21 10:15 07/30/21 12:00 07/30/21 12:00 General appearance: Present: no acute distress, other (Intubated and sedated) - EENT Eyes: Present: PERRL - Respiratory Respiratory effort: normal Respiratory: bilateral: diminished - Cardiovascular Rhythm: regular Heart Sounds: Present: S1 & S2 - Extremities Extremities: no ischemia, pulses intact, pulses symmetrical Extremity abnormal: edema - Peripheral Assessment Generalized Edema Type: Non-pitting Capillary Refill: < 3 seconds Skin Temperature: Warm Peripheral Pulses: within normal limits - Abdominal General gastrointestinal: soft, non-tender, normal bowel sounds - Integumentary Integumentary: Present: clear, warm, dry - Psychiatric Psychiatric: other (BYRON, intubated and sedated) - Neurologic Neurologic: other (BYRON, intubated and sedated) HEART Score - HEART Score Troponin: Troponin T 0.063 ng/mL (0.00-0.029) H 07/28/21 11:09 Results - Labs CBC & Chem 7: 07/30/21 04:00 07/30/21 04:00 Labs: Laboratory Last Values WBC 15.6 K/mm3 (4.5-11.0) H 07/30/21 04:00 RBC 3.92 M/mm3 (3.65-5.03) 07/30/21 04:00 Hgb 10.3 gm/dl (10.1-14.3) 07/30/21 04:00 Hct 31.6 % (30.3-42.9) 07/30/21 04:00 MCV 81 fl (79-97) 07/30/21 04:00 MCH 26 pg (28-32) L 07/30/21 04:00 MCHC 33 % (30-34) 07/30/21 04:00 RDW 16.8 % (13.2-15.2) H 07/30/21 04:00 Plt Count 196 K/mm3 (140-440) 07/30/21 04:00 Lymph % (Auto) 10.1 % (13.4-35.0) L 07/29/21 04:27 [place] % (Auto) 8.1 % (0.0-7.3) H 07/29/21 04:27 Eos % (Auto) 0.1 % (0.0-4.3) 07/29/21 04:27 Baso % (Auto) 0.1 % (0.0-1.8) 07/29/21 04:27 Lymph # (Auto) 1.4 K/mm3 (1.2-5.4) 07/29/21 04:27 [place] # (Auto) 1.1 K/mm3 (0.0-0.8) H 07/29/21 04:27 Eos # (Auto) 0.0 K/mm3 (0.0-0.4) 07/29/21 04:27 Baso # (Auto) 0.0 K/mm3 (0.0-0.1) 07/29/21 04:27 Seg Neutrophils % 81.6 % (40.0-70.0) H 07/29/21 04:27 Seg Neutrophils # 11.4 K/mm3 (1.8-7.7) H 07/29/21 04:27 PT 16.6 Sec. (12.2-14.9) H 07/28/21 11:09 INR 1.21 (0.87-1.13) H 07/28/21 11:09 APTT 25.0 Sec. (24.2-36.6) 07/28/21 11:09 ABG pH 7.354 pH Units (7.350-7.450) 07/30/21 13:00 POC ABG pCO2 21.7 mmHg (32.0-48.0) L 07/29/21 08:38 ABG pCO2 28.3 mm Hg 07/30/21 13:00 POC ABG pO2 199.3 mmHg (83-108) H 07/29/21 08:38 ABG pO2 116.9 mm Hg (80.0-90.0) H 07/30/21 13:00 POC ABG HCO3 14.1 07/29/21 08:38 ABG HCO3 15.4 mmol/L (20.0-26.0) L 07/30/21 13:00 ABG O2 Saturation 98.1 % (95.0-99.0) 07/30/21 13:00 ABG O2 Content 14.0 (0.0-44) 07/30/21 13:00 POC ABG Base Excess -8.2 07/29/21 08:38 ABG Base Excess -8.9 mmol/L (-2.0-3.0) L 07/30/21 13:00 ABG Hemoglobin 10.2 gm/dl (12.0-16.0) L 07/30/21 13:00 ABG Oxyhemoglobin 98.9 (94-98) H 07/29/21 08:38 ABG Carboxyhemoglobin 0.8 % (0.0-5.0) 07/30/21 13:00 ABG Methemoglobin 0.5 % (0.0-1.5) 07/30/21 13:00 ABG Sodium 140.0 mmol/L (136.0-145.0) 07/29/21 08:38 ABG Potassium 3.7 mmol/L (3.40-4.50) 07/29/21 08:38 ABG Chloride 113.0 mmol/L (98-107) H 07/29/21 08:38 ABG Glucose 181 mg/dL (65-95) H 07/29/21 08:38 Oxyhemoglobin 96.8 % (95.0-99.0) 07/30/21 13:00 Carboxyhemoglobin 0.2 (0.5-1.5) L 07/29/21 08:38 FiO2 50 % 07/30/21 13:00 FiO2 % 80 07/29/21 08:38 Sodium 144 mmol/L (137-145) 07/30/21 04:00 Potassium 4.0 mmol/L (3.6-5.0) 07/30/21 04:00 Chloride 110.5 mmol/L (98-107) H 07/30/21 04:00 Carbon Dioxide 16 mmol/L (22-30) L 07/30/21 04:00 Anion Gap 22 mmol/L 07/30/21 04:00 BUN 86 mg/dL (7-17) H 07/30/21 04:00 Creatinine 5.9 mg/dL (0.6-1.2) H 07/30/21 04:00 Estimated GFR 8 ml/min 07/30/21 04:00 BUN/Creatinine Ratio 15 % 07/30/21 04:00 Glucose 183 mg/dL (65-100) H 07/30/21 04:00 POC Glucose 145 mg/dL (70-105) H 07/30/21 12:04 Lactic Acid 1.40 mmol/L (0.7-2.0) 07/29/21 04:27 Calcium 8.0 mg/dL (8.4-10.2) L 07/30/21 04:00 Total Bilirubin 0.20 mg/dL (0.1-1.2) 07/30/21 04:00 Direct Bilirubin < 0.2 mg/dL (0-0.2) 07/28/21 11:09 Indirect Bilirubin 0.0 mg/dL 07/28/21 11:09 AST 19 units/L (5-40) 07/30/21 04:00 ALT 57 units/L (7-56) H 07/30/21 04:00 Alkaline Phosphatase 75 units/L (35-129) 07/30/21 04:00 Ammonia 49.0 umol/L (25-60) 07/28/21 11:09 Total Creatine Kinase 840 units/L (30-135) H 07/28/21 11:09 Troponin T 0.063 ng/mL (0.00-0.029) H 07/28/21 11:09 NT-Pro-B Natriuret Pep 312.4 pg/mL (0-900) 07/28/21 11:09 Total Protein 6.6 g/dL (6.3-8.2) 07/30/21 04:00 Albumin 3.2 g/dL (3.9-5) L 07/30/21 04:00 Albumin/Globulin Ratio 0.9 % 07/30/21 04:00 Triglycerides 226 mg/dL (2-149) H 07/28/21 11:09 Cholesterol 175 mg/dL (50-199) 07/28/21 11:09 LDL Cholesterol Direct 84 mg/dL (50-130) 07/28/21 11:09 HDL Cholesterol 47 mg/dL (40-59) 07/28/21 11:09 Cholesterol/HDL Ratio 3.72 % 07/28/21 11:09 Procalcitonin 28.96 ng/mL (<0.15) 07/28/21 15:40 Arterial Blood Glucose 181 mg/dL (65-95) H 07/29/21 08:38 Arterial Blood Ionized Calcium 3.8 mg/dL (4.6-5.3) L 07/28/21 18:18 Urine Color [place]ár[place] (Yellow) 07/28/21 Unknown Urine Turbidity Cloudy (Clear) 07/28/21 Unknown Urine pH 5.0 (5.0-7.0) 07/28/21 Unknown Ur Specific [place] 1.017 (1.003-1.030) 07/28/21 Unknown Urine Protein 100 mg/dl mg/dL (Negative) 07/28/21 Unknown Urine Glucose (UA) 50 mg/dL (Negative) 07/28/21 Unknown Urine Ketones Neg mg/dL (Negative) 07/28/21 Unknown Urine Blood Mod (Negative) 07/28/21 Unknown Urine Nitrite Neg (Negative) 07/28/21 Unknown Urine Bilirubin Neg (Negative) 07/28/21 Unknown Urine Urobilinogen < 2.0 mg/dL (<2.0) 07/28/21 Unknown Ur Leukocyte Esterase Tr (Negative) 07/28/21 Unknown Urine WBC (Auto) 23.0 /HPF (0.0-6.0) H 07/28/21 Unknown Urine RBC (Auto) 15.0 /HPF (0.0-6.0) 07/28/21 Unknown U Epithel Cells (Auto) 2.0 /HPF (0-13.0) 07/28/21 Unknown Urine Bacteria (Auto) 1+ /HPF (Negative) 07/28/21 Unknown Hyaline Casts 1 /LPF 07/28/21 Unknown Urine Mucus 1+ /HPF 07/28/21 Unknown Urine Creatinine 173.3 mg/dL (0.1-20.0) H 07/28/21 Unknown Urine Sodium 57 mmol/L 07/28/21 Unknown Random Vancomycin 15.4 ug/mL (0-40.0) 07/30/21 Unknown Coronavirus (PCR) Negative (Negative) 07/29/21 Unknown Microbiology: Microbiology 07/28/21 11:13 Peripheral/Venous Blood Culture - Preliminary Coag Negative Staphylococcus 07/28/21 11:13 Peripheral/Venous Blood Culture - Preliminary NO GROWTH AFTER 48 HOURS 07/28/21 Unknown Urine,Clean Catch Urine Culture - Final NO GROWTH AFTER 48 HOURS 07/28/21 17:30 Tracheal Aspirate Sputum Culture - Preliminary Diaz/IV: Voiding Method Indwelling Catheter Active Medications - Current Medications Current Medications: Generic Name Dose Route Start Last Admin Trade Name Freq PRN Reason Stop Dose Admin Acetaminophen 650 mg 07/28/21 13:00 Acetaminophen 325 Mg Tab PO Q6H PRN Pain MILD(1-3)/Fever >100.5/GARCIA Albuterol 2.5 mg 07/28/21 14:00 Albuterol 2.5 Mg/3 Ml Nebu IH Q3HRT PRN Shortness Of Breath Allopurinol 100 mg 07/29/21 22:00 07/29/21 21:52 Allopurinol 100 Mg Tab PO 100 mg QHS WIL Administration Lipase/Protease/Amylase 1 each 07/28/21 16:23 Lipase 10,500/Protease 25,000/Amylase 43,750 (Units) Dr Mathew BARAKAT PRN PRN For Clogged Feeding Tube Ascorbic Acid 500 mg 07/29/21 10:00 07/30/21 09:52 Ascorbic Acid 500 Mg Tab PO 500 mg QDAY WIL Administration Aspirin 81 mg 07/29/21 10:00 07/30/21 10:13 Aspirin 81 Mg Tab Chew PO 81 mg QDAY WIL Administration Atorvastatin Calcium 80 mg 07/28/21 22:00 07/29/21 21:52 Atorvastatin 40 Mg Tab PO 80 mg QHS WIL Administration Cholecalciferol 2,000 unit 07/29/21 10:00 07/30/21 09:51 Cholecalciferol (Vit D3) 1000 Unit (25 Mcg) Tab PO 2,000 unit QDAY WIL Administration Dextrose 50 ml 07/28/21 18:05 Dextrose 50% In Water (25gm) 50 Ml Syringe IV Q30MIN PRN Hypoglycemia Protocol Donepezil HCl 10 mg 07/28/21 22:00 07/29/21 21:52 Donepezil 10 Mg Tab PO 10 mg QHS WIL Administration Famotidine 10 mg 07/29/21 10:00 07/30/21 09:52 Famotidine 20 Mg/2 Ml Inj IV 10 mg BID WIL Administration Fentanyl 50 mcg 07/28/21 15:13 Fentanyl 100 Mcg/2 Ml Inj IV Q10MIN PRN ANALGESIA Hydromorphone HCl 0.25 mg 07/28/21 13:00 Hydromorphone 1 Mg/1 Ml Inj IV Q4H PRN Pain, Moderate (4-6) Hydromorphone HCl 0.5 mg 07/28/21 13:00 Hydromorphone 1 Mg/1 Ml Inj IV Q23H PRN Pain , Severe (7-10) Hydrophilic Ointment 1 applic 07/28/21 11:19 Lip Therapy Vaseline TP Q2HR PRN Dry Lips Propofol 1,000 mg in 100 mls @ 4.082 mls/hr 07/28/21 12:00 07/30/21 15:40 Diprivan 10 Mg/Ml IV 10 mcg/kg/min TITR WIL 8.165 mls/hr Titration Protocol 5 MCG/KG/MIN NORepinephrine/NS 8 MG-250 ML 8 mg in 250 mls @ 3.75 mls/hr 07/28/21 12:00 07/30/21 15:39 Norepinephrine/Ns 8 Mg-250 Ml (Double Conc) IV 0 mcg/min TITRATE WIL 0 mls/hr Titration Protocol 2 MCG/MIN Fentanyl Citrate 2,000 mcg in 100 mls @ 6.804 mls/hr 07/28/21 16:00 07/30/21 09:50 Fentanyl Drip Premix IV 1 mcg/kg/hr TITR WIL 6.804 mls/hr Administration Protocol 1 MCG/KG/HR Vasopressin 20 unit/ Sodium 101 mls @ 9.09 mls/hr 07/28/21 17:00 07/30/21 16 :03 Chloride IV 0 units/min TITR WIL 0 mls/hr Titration Protocol 0.03 UNITS/MIN Cefepime HCl 2 gm in 100 mls @ 200 mls/hr 07/29/21 10:00 07/30/21 09:51 Cefepime/Ns 2 Gm/100 Ml IV 200 mls/hr Q24H WIL Administration Protocol Insulin Glargine 10 units 07/29/21 22:00 07/29/21 21:52 Insulin Glargine 100 Units/Ml SUB-Q 10 units QHS WIL Administration Insulin Human Lispro 0 unit 07/28/21 18:07 07/30/21 06:07 Insulin Lispro 100 Unit/Ml SUB-Q 2 unit Q6HR WIL Administration Protocol Memantine 5 mg 07/29/21 10:00 07/30/21 09:54 Memantine 5 Mg Tab PO 5 mg BID WIL Administration Multi-Ingred Cream/Lotion/Oil/Oint 1 applic 07/28/21 11:19 Mineral Oil/Petrolatum, White Ophth Oint 3.5 Gm OU Q4HR PRN Dry Eye(s) Quetiapine Fumarate 50 mg 07/30/21 22:00 Quetiapine 25 Mg Tab PO QHS WIL Senna/Docusate Sodium 1 tab 07/28/21 12:00 07/30/21 09:51 Sennosides/Docusate Sodium 8.6/50 Mg Tab FEEDTUBE 1 tab BID WIL Administration Simple Syrup 15 ml 07/28/21 16:23 Simple Syrup 15 Ml FEEDTUBE PRN PRN Hypoglycemia Sodium Bicarbonate 325 mg 07/28/21 13:00 Sodium Bicarbonate 325 Mg Tab FEEDTUBE PRN PRN For Clogged Feeding Tube Sodium Chloride 10 ml 07/28/21 22:00 07/30/21 09:52 Sodium Chloride 0.9% 10 Ml Flush Syringe IV 10 ml BID WIL Administration Sodium Chloride 10 ml 07/28/21 13:00 Sodium Chloride 0.9% 10 Ml Flush Syringe IV PRN PRN LINE FLUSH Zinc Sulfate 220 mg 07/29/21 10:00 07/30/21 10:13 Zinc Sulfate 220 Mg Cap PO 220 mg QDAY WIL Administration Nutrition/Malnutrition Assess - Dietary Evaluation Nutrition/Malnutrition Findings: Nutrition Notes Start: 07/28/21 15:57 Freq: Status: Active Protocol: Document 07/30/21 11:42 GB (Rec: 07/30/21 11:48 GB [id number]) Nutrition Notes Initial or Follow up Assessment Current Diagnosis COPD,Diabetes,Hypertension, Heart Failure Other Pertinent Diagnosis Dementia Current Diet NPO/ TF Labs/Tests 07/29: glucose 211, BUN 77, creatinine 7.6, Ca 7.6 Pertinent Medications Vit C, Vit D3, fentanyl citrate, furosemide, norepinheprin/Ns8 Mg250, propofol 12.247ml/hr (323kcal) , vassopressin/NaCl, Zn Sulfate Height 5 ft 4 in Weight 136.078 kg [place] Body Weight (kg) 54.54 BMI 51.5 Weight change and time frame 07/28: admit weight Weight Status Morbidly Obese Subjective/Other Information 07/30: TF started. Per nurse at 50ml/hr at this time by 4pm will be at goal 60ml/hr. Pt did have residuals of 50cc's this AM, TF continues. MD note 07/29: bilateral lower lobe pleural-parenchymal disease has improved Percent of energy/protein needs met: TF at goal rate will meet 75% or greater of estimated energy needs Burn Absent Trauma Absent GI Symptoms None Difficulty In Swallowing Food Allergy No Skin Integrity/Comment No skin breadown at this time Current % PO Other Minimum of two criteria No #1 Nutrition Diagnosis Swallowing difficulty Comments: Intubated Etiology SOB, COPD As Evidenced by Signs and Symptoms intubated, sedated, TF started Diagnosis Progress(for reassessment Continues documentation) Is patient on ventilator? Yes Is Patient Ambulatory and/or Out of Bed No REE-([facility]-confined to bed) 2226.312 Kcal/Kg value to use for calculation 13 Approximate Energy Requirements Using 1769 kcal/Kg Calculation Used for Recommendations Kcal/kg Additional Notes Protein: up to 0.6-8g/kg @ 136k-109g Fluids: 1 ml/kcal or per Nutrition Intervention Change Diet Order: continue NPO Nutrition Support: Vital AF 1.2 @ 60ml/hr Flush 100ml/4hr Total fluids: Flush + TF at goal H20 = 1768ml Kcal 1,728 Protein (gm) 108 Fat (gm) 78 Fluid (mL) 1,168 Add Supplement/Snack (indicate name/kcal n/a /protein ) Goal #1 Tolerate TF Vital 1.2 @ goal 60ml/hr by f/u 07/30: TF at 50ml/hr tolerating, will advance to goal this afternoon per RN Goal #2 Extubation and diet advancement when medically feasible 07/30: intubated, sedated, TF: continues Follow-Up By: 08/03/21 Additional Comments TF tolerance, vent status <[email or web address] - Last Filed: 07/31/21 07:10> Assessment and Plan Assessment and plan: I saw and evaluated the patient. I agree with the findings and the plan of care as documented in the Nurse Practitioner's~note, with the following corrections and additions. Hospitalist Physical - Constitutional Vitals: Temp Pulse Resp BP Pulse Ox 97.7 F 47 L 20 81/50 98 07/31/21 03:40 07/31/21 06:00 07/31/21 06:00 07/31/21 06:00 07/31/21 06:00 HEART Score - HEART Score Troponin: Troponin T 0.063 ng/mL (0.00-0.029) H 07/28/21 11:09 Results - Labs CBC & Chem 7: 07/30/21 04:00 07/30/21 04:00 Labs: Laboratory Last Values WBC 15.6 K/mm3 (4.5-11.0) H 07/30/21 04:00 RBC 3.92 M/mm3 (3.65-5.03) 07/30/21 04:00 Hgb 10.3 gm/dl (10.1-14.3) 07/30/21 04:00 Hct 31.6 % (30.3-42.9) 07/30/21 04:00 MCV 81 fl (79-97) 07/30/21 04:00 MCH 26 pg (28-32) L 07/30/21 04:00 MCHC 33 % (30-34) 07/30/21 04:00 RDW 16.8 % (13.2-15.2) H 07/30/21 04:00 Plt Count 196 K/mm3 (140-440) 07/30/21 04:00 Lymph % (Auto) 10.1 % (13.4-35.0) L 07/29/21 04:27 [place] % (Auto) 8.1 % (0.0-7.3) H 07/29/21 04:27 Eos % (Auto) 0.1 % (0.0-4.3) 07/29/21 04:27 Baso % (Auto) 0.1 % (0.0-1.8) 07/29/21 04:27 Lymph # (Auto) 1.4 K/mm3 (1.2-5.4) 07/29/21 04:27 [place] # (Auto) 1.1 K/mm3 (0.0-0.8) H 07/29/21 04:27 Eos # (Auto) 0.0 K/mm3 (0.0-0.4) 07/29/21 04:27 Baso # (Auto) 0.0 K/mm3 (0.0-0.1) 07/29/21 04:27 Seg Neutrophils % 81.6 % (40.0-70.0) H 07/29/21 04:27 Seg Neutrophils # 11.4 K/mm3 (1.8-7.7) H 07/29/21 04:27 PT 16.6 Sec. (12.2-14.9) H 07/28/21 11:09 INR 1.21 (0.87-1.13) H 07/28/21 11:09 APTT 25.0 Sec. (24.2-36.6) 07/28/21 11:09 ABG pH 7.354 pH Units (7.350-7.450) 07/30/21 13:00 POC ABG pCO2 21.7 mmHg (32.0-48.0) L 07/29/21 08:38 ABG pCO2 28.3 mm Hg 07/30/21 13:00 POC ABG pO2 199.3 mmHg (83-108) H 07/29/21 08:38 ABG pO2 116.9 mm Hg (80.0-90.0) H 07/30/21 13:00 POC ABG HCO3 14.1 07/29/21 08:38 ABG HCO3 15.4 mmol/L (20.0-26.0) L 07/30/21 13:00 ABG O2 Saturation 98.1 % (95.0-99.0) 07/30/21 13:00 ABG O2 Content 14.0 (0.0-44) 07/30/21 13:00 POC ABG Base Excess -8.2 07/29/21 08:38 ABG Base Excess -8.9 mmol/L (-2.0-3.0) L 07/30/21 13:00 ABG Hemoglobin 10.2 gm/dl (12.0-16.0) L 07/30/21 13:00 ABG Oxyhemoglobin 98.9 (94-98) H 07/29/21 08:38 ABG Carboxyhemoglobin 0.8 % (0.0-5.0) 07/30/21 13:00 ABG Methemoglobin 0.5 % (0.0-1.5) 07/30/21 13:00 ABG Sodium 140.0 mmol/L (136.0-145.0) 07/29/21 08:38 ABG Potassium 3.7 mmol/L (3.40-4.50) 07/29/21 08:38 ABG Chloride 113.0 mmol/L (98-107) H 07/29/21 08:38 ABG Glucose 181 mg/dL (65-95) H 07/29/21 08:38 Oxyhemoglobin 96.8 % (95.0-99.0) 07/30/21 13:00 Carboxyhemoglobin 0.2 (0.5-1.5) L 07/29/21 08:38 FiO2 50 % 07/30/21 13:00 FiO2 % 80 07/29/21 08:38 Sodium 144 mmol/L (137-145) 07/30/21 04:00 Potassium 4.0 mmol/L (3.6-5.0) 07/30/21 04:00 Chloride 110.5 mmol/L (98-107) H 07/30/21 04:00 Carbon Dioxide 16 mmol/L (22-30) L 07/30/21 04:00 Anion Gap 22 mmol/L 07/30/21 04:00 BUN 86 mg/dL (7-17) H 07/30/21 04:00 Creatinine 5.9 mg/dL (0.6-1.2) H 07/30/21 04:00 Estimated GFR 8 ml/min 07/30/21 04:00 BUN/Creatinine Ratio 15 % 07/30/21 04:00 Glucose 183 mg/dL (65-100) H 07/30/21 04:00 POC Glucose 167 mg/dL (70-105) H 07/31/21 05:13 Lactic Acid 1.40 mmol/L (0.7-2.0) 07/29/21 04:27 Calcium 8.0 mg/dL (8.4-10.2) L 07/30/21 04:00 Total Bilirubin 0.20 mg/dL (0.1-1.2) 07/30/21 04:00 Direct Bilirubin < 0.2 mg/dL (0-0.2) 07/28/21 11:09 Indirect Bilirubin 0.0 mg/dL 07/28/21 11:09 AST 19 units/L (5-40) 07/30/21 04:00 ALT 57 units/L (7-56) H 07/30/21 04:00 Alkaline Phosphatase 75 units/L (35-129) 07/30/21 04:00 Ammonia 49.0 umol/L (25-60) 07/28/21 11:09 Total Creatine Kinase 840 units/L (30-135) H 07/28/21 11:09 Troponin T 0.063 ng/mL (0.00-0.029) H 07/28/21 11:09 NT-Pro-B Natriuret Pep 312.4 pg/mL (0-900) 07/28/21 11:09 Total Protein 6.6 g/dL (6.3-8.2) 07/30/21 04:00 Albumin 3.2 g/dL (3.9-5) L 07/30/21 04:00 Albumin/Globulin Ratio 0.9 % 07/30/21 04:00 Triglycerides 226 mg/dL (2-149) H 07/28/21 11:09 Cholesterol 175 mg/dL (50-199) 07/28/21 11:09 LDL Cholesterol Direct 84 mg/dL (50-130) 07/28/21 11:09 HDL Cholesterol 47 mg/dL (40-59) 07/28/21 11:09 Cholesterol/HDL Ratio 3.72 % 07/28/21 11:09 Procalcitonin 28.96 ng/mL (<0.15) 07/28/21 15:40 Arterial Blood Glucose 181 mg/dL (65-95) H 07/29/21 08:38 Arterial Blood Ionized Calcium 3.8 mg/dL (4.6-5.3) L 07/28/21 18:18 Urine Color [place] (Yellow) 07/28/21 Unknown Urine Turbidity Cloudy (Clear) 07/28/21 Unknown Urine pH 5.0 (5.0-7.0) 07/28/21 Unknown Ur Specific [place] 1.017 (1.003-1.030) 07/28/21 Unknown Urine Protein 100 mg/dl mg/dL (Negative) 07/28/21 Unknown Urine Glucose (UA) 50 mg/dL (Negative) 07/28/21 Unknown Urine Ketones Neg mg/dL (Negative) 07/28/21 Unknown Urine Blood Mod (Negative) 07/28/21 Unknown Urine Nitrite Neg (Negative) 07/28/21 Unknown Urine Bilirubin Neg (Negative) 07/28/21 Unknown Urine Urobilinogen < 2.0 mg/dL (<2.0) 07/28/21 Unknown Ur Leukocyte Esterase Tr (Negative) 07/28/21 Unknown Urine WBC (Auto) 23.0 /HPF (0.0-6.0) H 07/28/21 Unknown Urine RBC (Auto) 15.0 /HPF (0.0-6.0) 07/28/21 Unknown U Epithel Cells (Auto) 2.0 /HPF (0-13.0) 07/28/21 Unknown Urine Bacteria (Auto) 1+ /HPF (Negative) 07/28/21 Unknown Hyaline Casts 1 /LPF 07/28/21 Unknown Urine Mucus 1+ /HPF 07/28/21 Unknown Urine Creatinine 173.3 mg/dL (0.1-20.0) H 07/28/21 Unknown Urine Sodium 57 mmol/L 07/28/21 Unknown Random Vancomycin 15.4 ug/mL (0-40.0) 07/30/21 Unknown Coronavirus (PCR) Negative (Negative) 07/29/21 Unknown Microbiology: Microbiology 07/28/21 11:13 Peripheral/Venous Blood Culture - Preliminary Coag Negative Staphylococcus 07/28/21 11:13 Peripheral/Venous Blood Culture - Preliminary NO GROWTH AFTER 48 HOURS 07/28/21 Unknown Urine,Clean Catch Urine Culture - Final NO GROWTH AFTER 48 HOURS Diaz/IV: Voiding Method Indwelling Catheter Active Medications - Current Medications Current Medications: Generic Name Dose Route Start Last Admin Trade Name Freq PRN Reason Stop Dose Admin Acetaminophen 650 mg 07/28/21 13:00 Acetaminophen 325 Mg Tab PO Q6H PRN Pain MILD(1-3)/Fever >100.5/GARCIA Albuterol 2.5 mg 07/28/21 14:00 Albuterol 2.5 Mg/3 Ml Nebu IH Q3HRT PRN Shortness Of Breath Allopurinol 100 mg 07/29/21 22:00 07/30/21 22:31 Allopurinol 100 Mg Tab PO 100 mg QHS WIL Administration Lipase/Protease/Amylase 1 each 07/28/21 16:23 Lipase 10,500/Protease 25,000/Amylase 43,750 (Units) Dr Carmona FEEDTUBE PRN PRN For Clogged Feeding Tube Ascorbic Acid 500 mg 07/29/21 10:00 07/30/21 09:52 Ascorbic Acid 500 Mg Tab PO 500 mg QDAY IWL Administration Aspirin 81 mg 07/29/21 10:00 07/30/21 10:13 Aspirin 81 Mg Tab Chew PO 81 mg QDAY WIL Administration Atorvastatin Calcium 80 mg 07/28/21 22:00 07/30/21 22:30 Atorvastatin 40 Mg Tab PO 80 mg QHS WIL Administration Cholecalciferol 2,000 unit 07/29/21 10:00 07/30/21 09:51 Cholecalciferol (Vit D3) 1000 Unit (25 Mcg) Tab PO 2,000 unit QDAY WIL Administration Dextrose 50 ml 07/28/21 18:05 Dextrose 50% In Water (25gm) 50 Ml Syringe IV Q30MIN PRN Hypoglycemia Protocol Donepezil HCl 10 mg 07/28/21 22:00 07/30/21 22:30 Donepezil 10 Mg Tab PO 10 mg QHS WIL Administration Famotidine 10 mg 07/29/21 10:00 07/30/21 22:29 Famotidine 20 Mg/2 Ml Inj IV 10 mg BID WIL Administration Fentanyl 50 mcg 07/28/21 15:13 Fentanyl 100 Mcg/2 Ml Inj IV Q10MIN PRN ANALGESIA Hydromorphone HCl 0.25 mg 07/28/21 13:00 Hydromorphone 1 Mg/1 Ml Inj IV Q4H PRN Pain, Moderate (4-6) Hydromorphone HCl 0.5 mg 07/28/21 13:00 Hydromorphone 1 Mg/1 Ml Inj IV Q23H PRN Pain , Severe (7-10) Hydrophilic Ointment 1 applic 07/28/21 11:19 Lip Therapy Vaseline TP Q2HR PRN Dry Lips Propofol 1,000 mg in 100 mls @ 4.082 mls/hr 07/28/21 12:00 07/31/21 04:49 Diprivan 10 Mg/Ml IV 10 mcg/kg/min TITR WIL 8.165 mls/hr Administration Protocol 5 MCG/KG/MIN NORepinephrine/NS 8 MG-250 ML 8 mg in 250 mls @ 3.75 mls/hr 07/28/21 12:00 07/30/21 15:39 Norepinephrine/Ns 8 Mg-250 Ml (Double Conc) IV 0 mcg/min TITRATE WIL 0 mls/hr Titration Protocol 2 MCG/MIN Fentanyl Citrate 2,000 mcg in 100 mls @ 6.804 mls/hr 07/28/21 16:00 07/31/21 02:24 Fentanyl Drip Premix IV 1 mcg/kg/hr TITR WIL 6.804 mls/hr Administration Protocol 1 MCG/KG/HR Vasopressin 20 unit/ Sodium 101 mls @ 9.09 mls/hr 07/28/21 17:00 07/30/21 22:28 Chloride IV 0.03 units/min TITR WIL 9.09 mls/hr Administration Protocol 0.03 UNITS/MIN Cefepime HCl 2 gm in 100 mls @ 200 mls/hr 07/29/21 10:00 07/30/21 09:51 Cefepime/Ns 2 Gm/100 Ml IV 200 mls/hr Q24H [facility] Administration Protocol Insulin Glargine 10 units 07/29/21 22:00 07/31/21 02:26 Insulin Glargine 100 Units/Ml SUB-Q 10 units QHS [facility] Administration Insulin Human Lispro 0 unit 07/28/21 18:07 07/31/21 05:28 Insulin Lispro 100 Unit/Ml SUB-Q 2 unit Q6HR [facility] Administration Protocol Memantine 5 mg 07/29/21 10:00 07/30/21 22:30 Memantine 5 Mg Tab PO 5 mg BID [facility] Administration Multi-Ingred Cream/Lotion/Oil/Oint 1 applic 07/28/21 11:19 Mineral Oil/Petrolatum, White Ophth Oint 3.5 Gm OU Q4HR PRN Dry Eye(s) Quetiapine Fumarate 50 mg 07/30/21 22:00 07/30/21 22:30 Quetiapine 25 Mg Tab PO 50 mg QHS WIL Administration Senna/Docusate Sodium 1 tab 07/28/21 12:00 07/30/21 22:29 Sennosides/Docusate Sodium 8.6/50 Mg Tab FEEDTUBE 1 tab BID WIL Administration Simple Syrup 15 ml 07/28/21 16:23 Simple Syrup 15 Ml FEEDTUBE PRN PRN Hypoglycemia Sodium Bicarbonate 325 mg 07/28/21 13:00 Sodium Bicarbonate 325 Mg Tab FEEDTUBE PRN PRN For Clogged Feeding Tube Sodium Chloride 10 ml 07/28/21 22:00 07/30/21 22:29 Sodium Chloride 0.9% 10 Ml Flush Syringe IV 10 ml BID WIL Administration Sodium Chloride 10 ml 07/28/21 13:00 Sodium Chloride 0.9% 10 Ml Flush Syringe IV PRN PRN LINE FLUSH Zinc Sulfate 220 mg 07/29/21 10:00 07/30/21 10:13 Zinc Sulfate 220 Mg Cap PO 220 mg QDAY WIL Administration Nutrition/Malnutrition Assess - Dietary Evaluation Nutrition/Malnutrition Findings: Nutrition Notes Start: 07/28/21 15:57 Freq: Status: Active Protocol: Document 07/30/21 11:42 GB (Rec: 07/30/21 11:48 GB [id number]) Nutrition Notes Initial or Follow up Assessment Current Diagnosis COPD,Diabetes,Hypertension, Heart Failure Other Pertinent Diagnosis Dementia Current Diet NPO/ TF Labs/Tests 07/29: glucose 211, BUN 77, creatinine 7.6, Ca 7.6 Pertinent Medications Vit C, Vit D3, fentanyl citrate, furosemide, norepinheprin/Ns8 Mg250, propofol 12.247ml/hr (323kcal) , vassopressin/NaCl, Zn Sulfate Height 5 ft 4 in Weight 136.078 kg [place] Body Weight (kg) 54.54 BMI 51.5 Weight change and time frame 07/28: admit weight Weight Status Morbidly Obese Subjective/Other Information 07/30: TF started. Per nurse at 50ml/hr at this time by 4pm will be at goal 60ml/hr. Pt did have residuals of 50cc's this AM, TF continues. MD note 07/29: bilateral lower lobe pleural-parenchymal disease has improved Percent of energy/protein needs met: TF at goal rate will meet 75% or greater of estimated energy needs Burn Absent Trauma Absent GI Symptoms None Difficulty In Swallowing Food Allergy No Skin Integrity/Comment No skin breadown at this time Current % PO Other Minimum of two criteria No #1 Nutrition Diagnosis Swallowing difficulty Comments: Intubated Etiology SOB, COPD As Evidenced by Signs and Symptoms intubated, sedated, TF started Diagnosis Progress(for reassessment Continues documentation) Is patient on ventilator? Yes Is Patient Ambulatory and/or Out of Bed No REE-([facility]-confined to bed) 2226.312 Kcal/Kg value to use for calculation 13 Approximate Energy Requirements Using 1769 kcal/Kg Calculation Used for Recommendations Kcal/kg Additional Notes Protein: up to 0.6-8g/kg @ 136k-109g Fluids: 1 ml/kcal or per MD Nutrition Intervention Change Diet Order: continue NPO Nutrition Support: Vital AF 1.2 @ 60ml/hr Flush 100ml/4hr Total fluids: Flush + TF at goal H20 = 1768ml Kcal 1,728 Protein (gm) 108 Fat (gm) 78 Fluid (mL) 1,168 Add Supplement/Snack (indicate name/kcal n/a /protein ) Goal #1 Tolerate TF Vital 1.2 @ goal 60ml/hr by f/u 07/30: TF at 50ml/hr tolerating, will advance to goal this afternoon per RN Goal #2 Extubation and diet advancement when medically feasible 07/30: intubated, sedated, TF: continues Follow-Up By: 08/03/21 Additional Comments TF tolerance, vent status
--- NOTE | 2021-07-30 20:08 | XRay Report ---
CHEST 1 VIEW 07/30/2021 4:43 AM INDICATION / CLINICAL INFORMATION: follow up respiratory failure. COMPARISON: One view of the chest from 07/29/2021 FINDINGS: SUPPORT DEVICES: Unchanged. HEART / MEDIASTINUM: Stable. LUNGS / PLEURA: Similar small pleural effusions with increased right basilar opacities. Interstitial opacities noted elsewhere along the right lung are unchanged. No pneumothorax. ADDITIONAL FINDINGS: No significant additional findings. IMPRESSION: 1. Increased right basilar opacities, likely traversing atelectasis and/or increased pleural fluid. 2. No other significant interval changes. Signer Name: Horacio Berger MD Signed: 07/30/2021 8:04 PM Workstation Name: [id number]
--- NOTE | 2021-07-30 22:21 | Consultation ---
History of Present Illness Consult date: 07/30/21 Reason for Consult: Anticoagulation with Afib Chief complaint: Unresponsive History of present illness: 71 yo female with htn, dm, hld, chf, copd, who presented initially where she was found with respiratory distress and confusion in the setting of a SBP in the 70s when found by EMS and then emergently intubated in the ED upon arrival secondary to concern for airway protection. Post-intubation she underwent cardiac arrest with PEA and ROSC was achieved in less than 7 minutes. During the hospital course, she is noted with concern for bilatearl pneumonia with sepsis, acute kidney failure, and continued respiratory distress. Per Hospitalist note, she was also noted with atrial fibrillation during this hospital stay. Per RN at bedside, the patient is noted to move all her extremities but remains aphasic during sedation holiday. Past History Past Medical History: COPD, diabetes, heart failure, hypertension, hyperlipidemia, stroke. denies: atrial fib, arrhythmia Past Surgical History: denies: valve replacement, CABG, PTCA Social history: denies: smoking, alcohol abuse Family history: diabetes, hypertension Medications and Allergies Allergies Allergy/AdvReac Type Severity Reaction Status Date / Time metformin Allergy Unknown Verified 07/29/21 09:42 lactose AdvReac Diarrhea Verified 07/29/21 09:42 Home Medications Medication Instructions Recorded Confirmed Last Taken Type Acetaminophen 650 mg PO Q4H PRN 01/28/20 07/28/21 Unknown History Aspirin [Aspirin BABY CHEW TAB] 81 mg PO QDAY 01/28/20 07/28/21 Unknown History Atorvastatin Calcium [Lipitor] 40 mg PO QHS 01/28/20 07/28/21 Unknown History Benazepril HCl [Lotensin] 20 mg PO DAILY 01/28/20 07/28/21 Unknown History Donepezil HCl [Donepezil HCl Odt] 10 mg PO QHS 01/28/20 07/28/21 Unknown History Furosemide [Lasix TAB] 20 mg PO QDAY 01/28/20 07/28/21 Unknown History Insulin Glargine,Hum.rec.anlog 25 unit SQ BID 01/28/20 07/28/21 Unknown History [Lantus Solostar] Linagliptin [Tradjenta] 5 mg PO QDAY 01/28/20 07/28/21 Unknown History [place]-3/Dha/Epa/Fish Oil [Fish Oil 500 mg PO DAILY 01/28/20 07/28/21 Unknown Hi story 500 mg Softgel] Quetiapine Fumarate [SEROquel] 50 mg PO HS 01/28/20 07/28/21 Unknown History allopurinoL [Zyloprim] 100 mg PO QHS 01/28/20 07/28/21 Unknown History hydrALAZINE [Apresoline TAB] 50 mg PO BID 01/28/20 07/28/21 Unknown History ALBUTEROL NEB's [Proventil 0.083% 2.5 mg IH Q4HRT PRN nebu 02/14/20 07/28/21 Unknown Rx NEBS] Simple Syrup 15 ml FEEDTUBE PRN PRN oral.liqd 02/14/20 07/28/21 Unknown Rx Simple Syrup 30 ml FEEDTUBE PRN PRN oral.liqd 02/14/20 07/28/21 Unknown Rx Sodium Bicarbonate 325 mg FEEDTUBE PRN PRN tablet 02/14/20 07/28/21 Unknown Rx Fenofibrate 40 mg PO DAILY 07/28/21 07/28/21 Unknown History amLODIPine [Norvasc] 10 mg PO DAILY 07/28/21 07/28/21 Unknown History Active Meds: Active Medications Acetaminophen (Acetaminophen 325 Mg Tab) 650 mg PO Q6H PRN PRN Reason: Pain MILD(1-3)/Fever >100.5/GARCIA Albuterol (Albuterol 2.5 Mg/3 Ml Nebu) 2.5 mg IH Q3HRT PRN PRN Reason: Shortness Of Breath Allopurinol (Allopurinol 100 Mg Tab) 100 mg PO QHS [facility] Last Admin: 07/29/21 21:52 Dose: 100 mg Documented by: Lipase/Protease/Amylase (Lipase 10,500/Protease 25,000/Amylase 43,750 (Units) Dr Carmona) 1 each FEEDTUBE PRN PRN PRN Reason: For Clogged Feeding Tube Ascorbic Acid (Ascorbic Acid 500 Mg Tab) 500 mg PO QDAY [facility] Last Admin: 07/30/21 09:52 Dose: 500 mg Documented by: Aspirin (Aspirin 81 Mg Tab Chew) 81 mg PO QDAY [facility] Last Admin: 07/30/21 10:13 Dose: 81 mg Documented by: Atorvastatin Calcium (Atorvastatin 40 Mg Tab) 80 mg PO QHS [facility] Last Admin: 07/29/21 21:52 Dose: 80 mg Documented by: Cholecalciferol (Cholecalciferol (Vit D3) 1000 Unit (25 Mcg) Tab) 2,000 unit PO QDAY [facility] Last Admin: 07/30/21 09:51 Dose: 2,000 unit Documented by: Dextrose (Dextrose 50% In Water (25gm) 50 Ml Syringe) 50 ml IV Q30MIN PRN; Protocol PRN Reason: Hypoglycemia Donepezil HCl (Donepezil 10 Mg Tab) 10 mg PO QHS [facility] Last Admin: 07/29/21 21:52 Dose: 10 mg Documented by: Famotidine (Famotidine 20 Mg/2 Ml Inj) 10 mg IV BID [facility] Last Admin: 07/30/21 09:52 Dose: 10 mg Documented by: Fentanyl (Fentanyl 100 Mcg/2 Ml Inj) 50 mcg IV Q10MIN PRN PRN Reason: ANALGESIA Hydromorphone HCl (Hydromorphone 1 Mg/1 Ml Inj) 0.25 mg IV Q4H PRN PRN Reason: Pain, Moderate (4-6) Hydromorphone HCl (Hydromorphone 1 Mg/1 Ml Inj) 0.5 mg IV Q23H PRN PRN Reason: Pain , Severe (7-10) Hydrophilic Ointment (Lip Therapy Vaseline) 1 applic TP Q2HR PRN PRN Reason: Dry Lips Propofol (Diprivan 10 Mg/Ml) 1,000 mg in 100 mls @ 4.082 mls/hr IV TITR [facility]; Protocol Last Admin: 07/30/21 18:23 Dose: 10 mcg/kg/min, 8.165 mls/hr Documented by: NORepinephrine/NS 8 MG-250 ML (Norepinephrine/Ns 8 Mg-250 Ml (Double Conc)) 8 mg in 250 mls @ 3.75 mls/hr IV TITRATE WIL; Protocol Last Titration: 07/30/21 15:39 Dose: 0 mcg/min, 0 mls/hr Documented by: Fentanyl Citrate (Fentanyl Drip Premix) 2,000 mcg in 100 mls @ 6.804 mls/hr IV TITR WIL; Protocol Last Admin: 07/30/21 09:50 Dose: 1 mcg/kg/hr, 6.804 mls/hr Documented by: Vasopressin 20 unit/ Sodium (Chloride) 101 mls @ 9.09 mls/hr IV TITR [facility]; Protocol Last Admin: 07/30/21 17:53 Dose: 0.03 units/min, 9.09 mls/hr Documented by: Cefepime HCl (Cefepime/Ns 2 Gm/100 Ml) 2 gm in 100 mls @ 200 mls/hr IV Q24H [facility]; Protocol Last Admin: 07/30/21 09:51 Dose: 200 mls/hr Documented by: Insulin Glargine (Insulin Glargine 100 Units/Ml) 10 units SUB-Q QHS [facility] Last Admin: 07/29/21 21:52 Dose: 10 units Documented by: Insulin Human Lispro (Insulin Lispro 100 Unit/Ml) 0 unit SUB-Q Q6HR [facility]; Protocol Last Admin: 07/30/21 06:07 Dose: 2 unit Documented by: Memantine (Memantine 5 Mg Tab) 5 mg PO BID [facility] Last Admin: 07/30/21 09:54 Dose: 5 mg Documented by: Multi-Ingred Cream/Lotion/Oil/Oint (Mineral Oil/Petrolatum, White Ophth Oint 3.5 Gm) 1 applic OU Q4HR PRN PRN Reason: Dry Eye(s) Quetiapine Fumarate (Quetiapine 25 Mg Tab) 50 mg PO QHS [facility] Senna/Docusate Sodium (Sennosides/Docusate Sodium 8.6/50 Mg Tab) 1 tab FEEDTUBE BID [facility] Last Admin: 07/30/21 09:51 Dose: 1 tab Documented by: Simple Syrup (Simple Syrup 15 Ml) 15 ml FEEDTUBE PRN PRN PRN Reason: Hypoglycemia Sodium Bicarbonate (Sodium Bicarbonate 325 Mg Tab) 325 mg FEEDTUBE PRN PRN PRN Reason: For Clogged Feeding Tube Sodium Chloride (Sodium Chloride 0.9% 10 Ml Flush Syringe) 10 ml IV BID [facility] Last Admin: 07/30/21 09:52 Dose: 10 ml Documented by: Sodium Chloride (Sodium Chloride 0.9% 10 Ml Flush Syringe) 10 ml IV PRN PRN PRN Reason: LINE FLUSH Zinc Sulfate (Zinc Sulfate 220 Mg Cap) 220 mg PO QDAY [facility] Last Admin: 07/30/21 10:13 Dose: 220 mg Documented by: Review of Systems ROS unobtainable: due to mental status Physical Examination - Vital Signs Vital Signs: Vital Signs Pulse Ox 96 07/28/21 11:00 - Physical Exam Narrative exam: On propofol - Gen: nad, well-nourished, intubated; Head: normocephalic; Eyes: pt resists eye opening; ENT: +ETT; CVS: warm and well-perfused; Pulm: no respiratory distress; GI: appears non-distended; Ext: no cyanosis appreciated at distal extremities; Skin: no acute rash appreciated at distal extremities; Heme: no bruising appreciated at distal extremities; Neuro: stuporous, intubated, CN 2, 3, 4, 6 - pt resists eye opening, CN 5/7 - pt is able to resist eye opening, CN 9/10 - spontaneous swallow noted, CN 11/12 - pt cannot cooperate secondary to LOC; Motor/Sensory - at least 2-/5 at left exts and at least 1+/5 at right exts to tactile stimuli; Cerebellar/Gait - pt cannot cooperate secondary to LOC; NIHSS (on propofol) (1a.) Level of Consciousness:2 (1b.) LOC Questions:2 (1c.) LOC Commands:2 (2.) Best Gaze:x (3.) Visual:x (4.) Facial Palsy:0 (5a.) Motor Arm, Left:3 (5b.) Motor Arm, Right:3 (6a.) Motor Leg, Left:3 (6b.) Motor Leg, Right:3 (7.) Limb Ataxia:0 (8.) Sensory:0 (9.) Best Language:1 (10.) Dysarthria:2 (11.) Extinction and Inattention:2 NIHSS Total Score: 23 Results - Laboratory Findings CBC and BMP: 07/30/21 04:00 07/30/21 04:00 Abnormal Lab Findings: Abnormal Labs 07/28/21 07/28/21 07/28/21 11:09 11:09 11:09 WBC 13.5 H MCH 26 L RDW 17.6 H Lymph % (Auto) 12.0 L Franklin % (Auto) Franklin # (Auto) 0.9 H Seg Neutrophils % 80.4 H Seg Neutrophils # 10.8 H PT 16.6 H INR 1.21 H ABG pH POC ABG pCO2 POC ABG pO2 ABG pO2 ABG HCO3 ABG Base Excess ABG Hemoglobin ABG Oxyhemoglobin ABG Potassium ABG Chloride ABG Glucose Carboxyhemoglobin Chloride Carbon Dioxide 16 L BUN 78 H Creatinine 9.1 H Glucose 224 H POC Glucose Lactic Acid Calcium 7.7 L ALT Total Creatine Kinase Troponin T 0.063 H Albumin Triglycerides 226 H Arterial Blood Glucose Arterial Blood Ionized Calcium Urine WBC (Auto) Urine Creatinine 07/28/21 07/28/21 07/28/21 11:09 11:09 12:24 WBC MCH RDW Lymph % (Auto) Franklin % (Auto) [place] # (Auto) Seg Neutrophils % Seg Neutrophils # PT INR ABG pH 7.049 L* POC ABG pCO2 POC ABG pO2 ABG pO2 135.4 H ABG HCO3 13.4 L ABG Base Excess -16.5 L ABG Hemoglobin 10.8 L ABG Oxyhemoglobin ABG Potassium ABG Chloride ABG Glucose Carboxyhemoglobin Chloride Carbon Dioxide BUN Creatinine Glucose POC Glucose Lactic Acid 7.30 H* Calcium ALT Total Creatine Kinase 840 H Troponin T Albumin Triglycerides Arterial Blood Glucose Arterial Blood Ionized Calcium Urine WBC (Auto) Urine Creatinine 07/28/21 07/28/21 07/28/21 17:25 18:18 23:20 WBC MCH RDW Lymph % (Auto) [place] % (Auto) [place] # (Auto) Seg Neutrophils % Seg Neutrophils # PT INR ABG pH 7.118 L POC ABG pCO2 POC ABG pO2 124.3 H ABG pO2 ABG HCO3 ABG Base Excess ABG Hemoglobin ABG Oxyhemoglobin ABG Potassium 5.1 H ABG Chloride ABG Glucose 406 H Carboxyhemoglobin Chloride Carbon Dioxide BUN Creatinine Glucose POC Glucose 328 H 270 H Lactic Acid Calcium ALT Total Creatine Kinase Troponin T Albumin Triglycerides Arterial Blood Glucose 406 H Arterial Blood Ionized Calcium 3.8 L Urine WBC (Auto) Urine Creatinine 07/28/21 07/28/21 07/29/21 Unknown Unknown 04:27 WBC 14.0 H MCH 26 L RDW 17.1 H Lymph % (Auto) 10.1 L Franklin % (Auto) 8.1 H [place] # (Auto) 1.1 H Seg Neutrophils % 81.6 H Seg Neutrophils # 11.4 H PT INR ABG pH POC ABG pCO2 POC ABG pO2 ABG pO2 ABG HCO3 ABG Base Excess ABG Hemoglobin ABG Oxyhemoglobin ABG Potassium ABG Chloride ABG Glucose Carboxyhemoglobin Chloride Carbon Dioxide BUN Creatinine Glucose POC Glucose Lactic Acid Calcium ALT Total Creatine Kinase Troponin T Albumin Triglycerides Arterial Blood Glucose Arterial Blood Ionized Calcium Urine WBC (Auto) 23.0 H Urine Creatinine 173.3 H 07/29/21 07/29/21 07/29/21 04:27 05:34 08:38 WBC MCH RDW Lymph % (Auto) Franklin % (Auto) [place] # (Auto) Seg Neutrophils % Seg Neutrophils # PT INR ABG pH POC ABG pCO2 21.7 L POC ABG pO2 199.3 H ABG pO2 ABG HCO3 ABG Base Excess ABG Hemoglobin 11.8 L ABG Oxyhemoglobin 98.9 H ABG Potassium ABG Chloride 113.0 H ABG Glucose 181 H Carboxyhemoglobin 0.2 L Chloride Carbon Dioxide 14 L BUN 77 H Creatinine 7.6 H Glucose 211 H POC Glucose 187 H Lactic Acid Calcium 7.6 L ALT Total Creatine Kinase Troponin T Albumin Triglycerides Arterial Blood Glucose 181 H Arterial Blood Ionized Calcium Urine WBC (Auto) Urine Creatinine 07/29/21 07/29/21 07/29/21 11:31 17:51 22:35 WBC MCH RDW Lymph % (Auto) [place] % (Auto) [place] # (Auto) Seg Neutrophils % Seg Neutrophils # PT INR ABG pH POC ABG pCO2 POC ABG pO2 ABG pO2 ABG HCO3 ABG Base Excess ABG Hemoglobin ABG Oxyhemoglobin ABG Potassium ABG Chloride ABG Glucose Carboxyhemoglobin Chloride Carbon Dioxide BUN Creatinine Glucose POC Glucose 140 H 141 H 194 H Lactic Acid Calcium ALT Total Creatine Kinase Troponin T Albumin Triglycerides Arterial Blood Glucose Arterial Blood Ionized Calcium Urine WBC (Auto) Urine Creatinine 07/30/21 07/30/21 07/30/21 04:00 04:00 05:12 WBC 15.6 H MCH 26 L RDW 16.8 H Lymph % (Auto) [place] % (Auto) [place] # (Auto) Seg Neutrophils % Seg Neutrophils # PT INR ABG pH POC ABG pCO2 POC ABG pO2 ABG pO2 ABG HCO3 ABG Base Excess ABG Hemoglobin ABG Oxyhemoglobin ABG Potassium ABG Chloride ABG Glucose Carboxyhemoglobin Chloride 110.5 H Carbon Dioxide 16 L BUN 86 H Creatinine 5.9 H Glucose 183 H POC Glucose 162 H Lactic Acid Calcium 8.0 L ALT 57 H Total Creatine Kinase Troponin T Albumin 3.2 L Triglycerides Arterial Blood Glucose Arterial Blood Ionized Calcium Urine WBC (Auto) Urine Creatinine 10/07/30/21 07/30/21 12:04 13:00 17:20 WBC MCH RDW Lymph % (Auto) [place] % (Auto) [place] # (Auto) Seg Neutrophils % Seg Neutrophils # PT INR ABG pH POC ABG pCO2 POC ABG pO2 ABG pO2 116.9 H ABG HCO3 15.4 L ABG Base Excess -8.9 L ABG Hemoglobin 10.2 L ABG Oxyhemoglobin ABG Potassium ABG Chloride ABG Glucose Carboxyhemoglobin Chloride Carbon Dioxide BUN Creatinine Glucose POC Glucose 145 H 126 H Lactic Acid Calcium ALT Total Creatine Kinase Troponin T Albumin Triglycerides Arterial Blood Glucose Arterial Blood Ionized Calcium Urine WBC (Auto) Urine Creatinine Assessment and Plan 71 yo female with htn, dm, hld, chf, copd, who presented initially where she was found with respiratory distress and confusion in the setting of a SBP in the 70s when found by EMS and then emergently intubated in the ED upon arrival secondary to concern for airway protection. Post-intubation she underwent cardiac arrest with PEA and ROSC was achieved in less than 7 minutes. During the hospital course, she is noted with concern for bilatearl pneumonia with sepsis, acute kidney failure, and continued respiratory distress. Per Hospitalist note, she was also noted with atrial fibrillation during this hospital stay. MRI reveals a large left temporo-parietal infarction. 1. Acute Ischemic Stroke: ASA 325 mg PO qday, TTEcho (in the setting of sepsis, will need to r/o underlying subacute endocarditis, so KAITLYN is recommended); CUS, confirm LDL/HgbA1C/TSH/, NIHSS q1 hours; SBP goal 160-200 mmHg and DBP 80-100 mmHg for at least 48 more hours. Statin therapy for a goal LDL of 70, when patient passes swallow evaluation. PT/OT/ST/Swallow evaluation. Long-term risk-factor modification, including a strict diet/exercise regimen for secondary stroke prophylaxis. 2. Hypertension - goal SBP 160-200 mmHg and DBP 80-100 mmHg for at least 48 more hours and then slowly normalize to SBP <140 mmHg and DBP <80 mmHg. 3. Diabetes Mellitus - maintain euglycemia. 4. Hyperlipidemia - goal LDL of 70 w/ statin therapy if no contraindications. 5. Aphasia / Dysarthria / Dysphagia - st / swallow evaluation/monitoring. 6. Right > Left-sided weakness - pt/ot evaluation/monitoring. 7. Paroxysmal Afib - long-term anticoagulation; which agent will be determinted by valvular vs. non-valvular afib (Cardiology can help determine this subtype); if no endocarditis, anticoagulation may be initiated 8 days from now; if confirmed endocarditis, no anticoagulation until endocarditis is fully treated. Manuelito Graham MD Neurology [id number]
[2021-07-30] MEDS: DONEPEZIL 10 MG TAB PO SCH (22:30)
[2021-07-30] MEDS: QUEtiapine 25 MG TAB PO SCH (22:30)
[2021-07-30] MEDS: allopurinoL 100 MG TAB PO SCH (22:31)
[2021-07-31] MEDS: fentaNYL DRIP Premix 2,000 MCG/100 ML BAG IV SCH ×2 (02:24→16:15)
[2021-07-31] MEDS: INSULIN LISPRO 100 UNIT/ML SUB-Q SCH ×4 (02:25→18:41)
[2021-07-31] MEDS: INSULIN GLARGINE 100 UNITS/ML SUB-Q SCH (02:26)
--- NOTE | 2021-07-31 08:34 | Progress Note ---
Assessment and Plan - Patient Problems (1) VIJAY (acute kidney injury) Current Visit: Yes Status: Acute Plan to address problem: Likely pre-renal vs ATN in the setting of cardiac arrest and sepsis, with initial blood cultures now showing gram (+) cocci in clusters. Chest Xray also concerning for possible pneumonia. Avoid nephrotoxins, maintain MAP >65mmHg. ECHO does not indicate evidence of CHF/volume overload. Now non-oliguric for the past 48 hours, Pending labs this am. (2) Acute respiratory failure with hypoxia Current Visit: Yes Status: Acute Plan to address problem: Vent management per ICU/pulmonary team (3) Cardiac arrest Current Visit: Yes Status: Acute Plan to address problem: With ROSC at this time, on pressor support with vasopressin and levophed. ECHO results reviewed. Further recommendations per cardiology. (4) Bacteremia Current Visit: Yes Status: Acute Plan to address problem: Initial blood cultures are showing gram (+) cocci in clusters. It has speciated to coagulase negative staph, likely contaminant. ID recommendations reviewed. (5) Bilateral pneumonia Current Visit: Yes Status: Acute Plan to address problem: Chest xray is showing improvement since admission. Please ensure that antibiotics are dosed appropriately for decreased renal function. Pending COVID -19 testing. (6) Diabetes Current Visit: Yes Status: Acute Plan to address problem: DM management per primary attending. Subjective Date of service: 07/31/21 Principal diagnosis: Ac. hypoxemic resp failure; Pneumonia vs Pulmonary edema; PUI-COVID; VIJAY Interval history: Pending labs this am. She is now non-oliguric with excellent urine output noted after receiving one dose of lasix 40 mg IV on 07/29. Renal function had shown improvement over the last 48 hours. Her pressor requirements are however starting to increase, as she is now requiring levophed and vasopressin. Vent settings noted, with improvement as FiO2 decreased to 40. Chest xray reviewed this am. Objective - Vital Signs Vital signs: Vital Signs - 12hr 07/30/21 07/30/21 07/30/21 20:45 21:00 21:15 Temperature Pulse Rate 46 L 46 L 45 L Pulse Rate [ From Monitor] Respiratory 25 H 25 H 25 H Rate Blood Pressure 108/66 101/58 108/66 O2 Sat by Pulse 100 100 100 Oximetry 07/30/21 07/30/21 07/30/21 21:30 21:45 22:01 Temperature Pulse Rate 47 L 60 52 L Pulse Rate [ From Monitor] Respiratory 25 H 25 H 25 H Rate Blood Pressure 111/65 111/65 85/48 O2 Sat by Pulse 100 100 100 Oximetry 07/30/21 07/30/21 07/30/21 22:15 22:17 22:31 Temperature Pulse Rate 48 L 41 L 51 L Pulse Rate [ From Monitor] Respiratory 25 H 25 H 25 H Rate Blood Pressure 85/48 118/66 86/48 O2 Sat by Pulse 100 100 100 Oximetry 07/30/21 07/30/21 07/30/21 22:45 23:01 23:15 Temperature Pulse Rate 47 L 43 L 57 L Pulse Rate [ From Monitor] Respiratory 25 H 25 H 25 H Rate Blood Pressure 86/48 121/67 83/49 O2 Sat by Pulse 100 100 100 Oximetry 07/30/21 07/30/21 07/30/21 23:30 23:32 23:45 Temperature Pulse Rate 48 L 50 L 50 L Pulse Rate [ From Monitor] Respiratory 25 H 25 H Rate Blood Pressure 88/58 121/67 83/46 O2 Sat by Pulse 100 100 100 Oximetry 07/30/21 07/31/21 07/31/21 23:53 00:00 00:15 Temperature 98.4 F Pulse Rate 49 L 51 L Pulse Rate [ 49 L From Monitor] Respiratory 25 H 25 H Rate Blood Pressure 80/48 83/48 O2 Sat by Pulse 100 100 Oximetry 07/31/21 07/31/21 07/31/21 00:30 00:45 01:00 Temperature Pulse Rate 46 L 45 L 46 L Pulse Rate [ From Monitor] Respiratory 25 H 25 H 25 H Rate Blood Pressure 86/50 88/51 90/53 O2 Sat by Pulse 100 100 100 Oximetry 07/31/21 07/31/21 07/31/21 01:15 01:30 01:45 Temperature Pulse Rate 46 L 48 L 50 L Pulse Rate [ From Monitor] Respiratory 25 H 25 H 25 H Rate Blood Pressure 86/51 87/53 95/54 O2 Sat by Pulse 100 100 100 Oximetry 07/31/21 07/31/21 07/31/21 02:00 02:15 02:30 Temperature Pulse Rate 47 L 47 L 47 L Pulse Rate [ From Monitor] Respiratory 25 H 25 H 25 H Rate Blood Pressure 91/54 96/52 94/54 O2 Sat by Pulse 100 100 100 Oximetry 07/31/21 07/31/21 07/31/21 02:45 03:00 03:15 Temperature Pulse Rate 47 L 46 L 46 L Pulse Rate [ From Monitor] Respiratory 25 H 25 H 25 H Rate Blood Pressure 89/51 86/51 88/51 O2 Sat by Pulse 100 100 100 Oximetry 07/31/21 07/31/21 07/31/21 03:30 03:40 03:45 Temperature 97.7 F Pulse Rate 46 L 79 Pulse Rate [ From Monitor] Respiratory 25 H 19 Rate Blood Pressure 91/54 93/62 O2 Sat by Pulse 100 100 Oximetry 07/31/21 07/31/21 07/31/21 04:00 04:15 04:30 Temperature Pulse Rate 53 L 56 L 48 L Pulse Rate [ 49 L From Monitor] Respiratory 20 20 20 Rate Blood Pressure 89/55 95/55 90/48 O2 Sat by Pulse 100 99 99 Oximetry 07/31/21 07/31/21 07/31/21 04:46 05:00 05:15 Temperature Pulse Rate 79 66 55 L Pulse Rate [ From Monitor] Respiratory 15 20 20 Rate Blood Pressure 120/76 113/65 101/60 O2 Sat by Pulse 99 99 99 Oximetry 07/31/21 07/31/21 07/31/21 05:30 05:45 06:00 Temperature Pulse Rate 47 L 49 L 47 L Pulse Rate [ From Monitor] Respiratory 20 20 20 Rate Blood Pressure 95/57 86/51 81/50 O2 Sat by Pulse 99 98 98 Oximetry 07/31/21 07:00 Temperature 97.5 F L Pulse Rate Pulse Rate [ From Monitor] Respiratory Rate Blood Pressure O2 Sat by Pulse Oximetry - General Appearance General appearance: sedated on ventilator, intubated EENT: ATNC Neck: no JVD Respiratory: Present: Decreased Breath Sounds Cardiology: regular Gastrointestinal: normal Integumentary: warm and dry Musculoskeletal: deferred - Lab 07/30/21 04:00 07/30/21 04:00 Most recent lab results ABG pH 7.354 pH Units (7.350-7.450) 07/30/21 13:00 ABG pCO2 28.3 mm Hg 07/30/21 13:00 ABG pO2 116.9 mm Hg (80.0-90.0) H 07/30/21 13:00 ABG HCO3 15.4 mmol/L (20.0-26.0) L 07/30/21 13:00 ABG O2 Saturation 98.1 % (95.0-99.0) 07/30/21 13:00 Calcium 8.0 mg/dL (8.4-10.2) L 07/30/21 04:00 Urine Creatinine 173.3 mg/dL (0.1-20.0) H 07/28/21 Unknown Urine Sodium 57 mmol/L 07/28/21 Unknown - Imaging Chest x-ray: image reviewed - Allied health notes Allied health notes reviewed: nursing Medications & Allergies - Medications Allergies/Adverse Reactions: Allergies metformin Allergy (Verified 07/29/21 09:42) Unknown lactose Adverse Reaction (Verified 07/29/21 09:42) Diarrhea Home Medications: Home Medications Medication Instructions Recorded Confirmed Last Taken Type Acetaminophen 650 mg PO Q4H PRN 01/28/20 07/28/21 Unknown History Aspirin [Aspirin BABY CHEW TAB] 81 mg PO QDAY 01/28/20 07/28/21 Unknown History Atorvastatin Calcium [Lipitor] 40 mg PO QHS 01/28/20 07/28/21 Unknown History Benazepril HCl [Lotensin] 20 mg PO DAILY 01/28/20 07/28/21 Unknown History Donepezil HCl [Donepezil HCl Odt] 10 mg PO QHS 01/28/20 07/28/21 Unknown History Furosemide [Lasix TAB] 20 mg PO QDAY 01/28/20 07/28/21 Unknown History Insulin Glargine,Hum.rec.anlog 25 unit SQ BID 01/28/20 07/28/21 Unknown History [Lantus Solostar] Linagliptin [Tradjenta] 5 mg PO QDAY 01/28/20 07/28/21 Unknown History Eagar-3/Dha/Epa/Fish Oil [Fish Oil 500 mg PO DAILY 01/28/20 07/28/21 Unknown History 500 mg Softgel] Quetiapine Fumarate [SEROquel] 50 mg PO HS 01/28/20 07/28/21 Unknown History allopurinoL [Zyloprim] 100 mg PO QHS 01/28/20 07/28/21 Unknown History hydrALAZINE [Apresoline TAB] 50 mg PO BID 01/28/20 07/28/21 Unknown History ALBUTEROL NEB's [Proventil 0.083% 2.5 mg IH Q4HRT PRN nebu 02/14/20 07/28/21 Unknown Rx NEBS] Simple Syrup 15 ml FEEDTUBE PRN PRN oral.liqd 02/14/20 07/28/21 Unknown Rx Simple Syrup 30 ml FEEDTUBE PRN PRN oral.liqd 02/14/20 07/28/21 Unknown Rx Sodium Bicarbonate 325 mg FEEDTUBE PRN PRN tablet 02/14/20 07/28/21 Unknown Rx Fenofibrate 40 mg PO DAILY 07/28/21 07/28/21 Unknown History amLODIPine [Norvasc] 10 mg PO DAILY 07/28/21 07/28/21 Unknown History Active Medications: Generic Name Dose Route Start Last Admin Trade Name Freq PRN Reason Stop Dose Admin Acetaminophen 650 mg 07/28/21 13:00 Acetaminophen 325 Mg Tab PO Q6H PRN Pain MILD(1-3)/Fever >100.5/GARCIA Albuterol 2.5 mg 07/28/21 14:00 Albuterol 2.5 Mg/3 Ml Nebu IH Q3HRT PRN Shortness Of Breath Allopurinol 100 mg 07/29/21 22:00 07/30/21 22:31 Allopurinol 100 Mg Tab PO 100 mg QHS WIL Administration Lipase/Protease/Amylase 1 each 07/28/21 16:23 Lipase 10,500/Protease 25,000/Amylase 43,750 (Units) Dr Carmona FEEDTUBE PRN PRN For Clogged Feeding Tube Ascorbic Acid 500 mg 07/29/21 10:00 07/30/21 09:52 Ascorbic Acid 500 Mg Tab PO 500 mg QDAY WIL Administration Aspirin 81 mg 07/29/21 10:00 07/30/21 10:13 Aspirin 81 Mg Tab Chew PO 81 mg QDAY WIL Administration Atorvastatin Calcium 80 mg 07/28/21 22:00 07/30/21 22:30 Atorvastatin 40 Mg Tab PO 80 mg QHS WIL Administration Cholecalciferol 2,000 unit 07/29/21 10:00 07/30/21 09:51 Cholecalciferol (Vit D3) 1000 Unit (25 Mcg) Tab PO 2,000 unit QDAY WIL Administration Dextrose 50 ml 07/28/21 18:05 Dextrose 50% In Water (25gm) 50 Ml Syringe IV Q30MIN PRN Hypoglycemia Protocol Donepezil HCl 10 mg 07/28/21 22:00 07/30/21 22:30 Donepezil 10 Mg Tab PO 10 mg QHS WIL Administration Famotidine 10 mg 07/29/21 10:00 07/30/21 22:29 Famotidine 20 Mg/2 Ml Inj IV 10 mg BID WIL Administration Fentanyl 50 mcg 07/28/21 15:13 Fentanyl 100 Mcg/2 Ml Inj IV Q10MIN PRN ANALGESIA Hydromorphone HCl 0.25 mg 07/28/21 13:00 Hydromorphone 1 Mg/1 Ml Inj IV Q4H PRN Pain, Moderate (4-6) Hydromorphone HCl 0.5 mg 07/28/21 13:00 Hydromorphone 1 Mg/1 Ml Inj IV Q23H PRN Pain , Severe (7-10) Hydrophilic Ointment 1 applic 07/28/21 11:19 Lip Therapy Vaseline TP Q2HR PRN Dry Lips Propofol 1,000 mg in 100 mls @ 4.082 mls/hr 07/28/21 12:00 07/31/21 04:49 Diprivan 10 Mg/Ml IV 10 mcg/kg/min TITR WIL 8.165 mls/hr Administration Protocol 5 MCG/KG/MIN NORepinephrine/NS 8 MG-250 ML 8 mg in 250 mls @ 3.75 mls/hr 07/28/21 12:00 07/30/21 15:39 Norepinephrine/Ns 8 Mg-250 Ml (Double Conc) IV 0 mcg/min TITRATE WIL 0 mls/hr Titration Protocol 2 MCG/MIN Fentanyl Citrate 2,000 mcg in 100 mls @ 6.804 mls/hr 07/28/21 16:00 07/31/21 02:24 Fentanyl Drip Premix IV 1 mcg/kg/hr TITR WIL 6.804 mls/hr Administration Protocol 1 MCG/KG/HR Vasopressin 20 unit/ Sodium 101 mls @ 9.09 mls/hr 07/28/21 17:00 07/30/21 22:28 Chloride IV 0.03 units/min TITR WIL 9.09 mls/hr Administration Protocol 0.03 UNITS/MIN Cefepime HCl 2 gm in 100 mls @ 200 mls/hr 07/29/21 10:00 07/30/21 09:51 Cefepime/Ns 2 Gm/100 Ml IV 200 mls/hr Q24H WIL Administration Protocol Insulin Glargine 10 units 07/29/21 22:00 07/31/21 02:26 Insulin Glargine 100 Units/Ml SUB-Q 10 units QHS WIL Administration Insulin Human Lispro 0 unit 07/28/21 18:07 07/31/21 05:28 Insulin Lispro 100 Unit/Ml SUB-Q 2 unit Q6HR WIL Administration Protocol Memantine 5 mg 07/29/21 10:00 07/30/21 22:30 Memantine 5 Mg Tab PO 5 mg BID WIL Administration Multi-Ingred Cream/Lotion/Oil/Oint 1 applic 07/28/21 11:19 Mineral Oil/Petrolatum, White Ophth Oint 3.5 Gm OU Q4HR PRN Dry Eye(s) Quetiapine Fumarate 50 mg 07/30/21 22:00 07/30/21 22:30 Quetiapine 25 Mg Tab PO 50 mg QHS WIL Administration Senna/Docusate Sodium 1 tab 07/28/21 12:00 07/30/21 22:29 Sennosides/Docusate Sodium 8.6/50 Mg Tab FEEDTUBE 1 tab BID WIL Administration Simple Syrup 15 ml 07/28/21 16:23 Simple Syrup 15 Ml FEEDTUBE PRN PRN Hypoglycemia Sodium Bicarbonate 325 mg 07/28/21 13:00 Sodium Bicarbonate 325 Mg Tab FEEDTUBE PRN PRN For Clogged Feeding Tube Sodium Chloride 10 ml 07/28/21 22:00 07/30/21 22:29 Sodium Chloride 0.9% 10 Ml Flush Syringe IV 10 ml BID WIL Administration Sodium Chloride 10 ml 07/28/21 13:00 Sodium Chloride 0.9% 10 Ml Flush Syringe IV PRN PRN LINE FLUSH Zinc Sulfate 220 mg 07/29/21 10:00 07/30/21 10:13 Zinc Sulfate 220 Mg Cap PO 220 mg QDAY WIL Administration
--- NOTE | 2021-07-31 08:43 | XRay Report ---
CHEST 1 VIEW 07/31/2021 7:30 AM INDICATION / CLINICAL INFORMATION: follow up respiratory failure. COMPARISON: 07/30/2021 FINDINGS: SUPPORT DEVICES: Interval placement of right upper extremity PICC in good position. Additional suppor ting lines and tubes are in stable position with endotracheal tube appearing to terminate near the ca eitan. HEART / MEDIASTINUM: Stable. LUNGS / PLEURA: Stable mild bibasilar opacities. No pneumothorax. ADDITIONAL FINDINGS: No significant additional findings. IMPRESSION: 1. Endotracheal tube appears to terminate at level of haris and should be retracted a few centimeter s for ideal positioning. Recommend retraction and follow-up radiograph. 2. Stable mild bibasilar opacities. Signer Name: Abhilash Menezes MD Signed: 07/31/2021 8:38 AM Workstation Name: [id number]
[2021-07-31 09:04] LABS: Hematocrit 31.9 % (30.3-42.9); Hemoglobin 10.3 gm/dl (10.1-14.3); Mean Corpuscular HGB Conc 32 % (30-34); Mean Corpuscular Volume 82 fl (79-97); Platelet Count 181 K/mm3 (140-440); Red Blood Count 3.91 M/mm3 (3.65-5.03)
[2021-07-31 09:24] LABS: Albumin 3.3 g/dL (3.9-5); Calcium 8.3 mg/dL (8.4-10.2)
[2021-07-31] MEDS: VASOPRESSIN 20 UNIT in SODIUM CHLORIDE 0.9% 100 ML IV SCH (09:46)
[2021-07-31] MEDS: CEFEPIME/NS 2 GM/100 ML 2 GM/100 ML BAG IV SCH (09:46)
[2021-07-31] MEDS: ZINC SULFATE 220 MG CAP PO SCH (09:47)
[2021-07-31] MEDS: CHOLECALCIFEROL (VIT D3) 1000 UNIT (25 mcg) TAB PO SCH (09:47)
[2021-07-31] MEDS: FAMOTIDINE 20 MG/2 ML INJ IV SCH ×2 (09:47→22:39)
[2021-07-31] MEDS: SENNOSIDES/DOCUSATE SODIUM 8.6/50 MG TAB FEEDTUBE SCH ×2 (09:48→22:40)
[2021-07-31] MEDS: ASPIRIN 81 MG TAB CHEW PO SCH (09:48)
[2021-07-31] MEDS: ASCORBIC ACID 500 MG TAB PO SCH (09:48)
[2021-07-31] MEDS: MEMANTINE 5 MG TAB PO SCH ×2 (09:48→22:39)
[2021-07-31] MEDS ORDERED: SODIUM CHLORIDE 0.9% 1000 ML 1,000 ML IV SCH (12:30)
--- NOTE | 2021-07-31 13:18 | Progress Note ---
<JOAN METZ - Last Filed: 07/31/21 17:46> Assessment and Plan Assessment and plan: This a 71 years-old female with PmHx of dementia, COPD, HTN, HLD, CHF, brain aneurysm, CVA, CKD, and DM2 who was brought in via EMS from a nursing due to confusion, SOB, and hypotension. Upon her arrival in the ED patient was found stuporous/obtunded and required intubation for airway protection. Subsequently after patient went into cardiac arrest, ROSC was achieved after 1 round of ACLS. Patient was then transferred to the ICU for further management. Hospital Course to Date: 07/29/21- Patient remains intubated and sedated on versed and fentynal, on pressors. Consult place for cardio s/p cardiac arrest, ID was consulted for sepsis, and Neuro consult for AC rec due to Afib/CVA. Basal insulin was added for blood glucose control. Will continue to monitor renal function and electrolytes, am labs ordered. 07/30/21- Patient remains intubated and sedated, on propofol and fentanyl RASS 0 to -2. Remains on low dose pressors, SB noted this am. Pending MRI brain today. 07/31/21- Patient remains intubated and sedated. RASS 0 to -2. On low vent settings, plan for SAT and SBT today. Patient remains on low dose pressors, kidney function is improvement, high chloremia noted thoday and hemodynamics are labile, will start gentle hydration NS at 75ml/hr X1L. Will continue to monitor renal function and electrolytes. Assessment and Plan #Acute Metabolic Encephalopathy #H/o CVA, dementia - Patient is intubated and sedated on versed and fentanyl RASS -1 to -2 - 07/28 CT head w/o showed chronic appearing left MCA [employer] watershed zone infarct - Titrate sedation for a RASS goal of 0 to -2 - Consult Neurology for input on anticoagulation for AFib/CVA prophylaxis - MRI brain pending - Restart home meds- Aricept and memantine - Daily SAT and SBT per [facility] - PRN analgesia for CPOT greater than 3 - Reduce the possibility of delirium, continue seroquel - Maintenance of sleep-wake cycle #S/p Cardiac arrest #Atrial Fibrillation #Hypotension #H/o CHF - Post ROSC EKG showed Afib RVR, HR 120s - 07/30 2D Echo- EF 50 to 55%, left ventricular systolic function is normal, right ventricular systolic function is normal, right ventricle is mildly dilated, trace mitral regurgitation, RSVP is 33 mmHg, mild to moderate tricuspid regurgitation - Patient is SB this am, HR dropped as low as 48 - Remain on Levo and Vaso - Maintain adequate perfusion - Titrated vasopressors as tolerated for a MAP goal above 65 - Cardiology on consult, appreciated recommendation - SCDs for VTE proph #Acute Hypoxemic Respiratory Failure #Bilateral pneumonia #H/o COPD - ETT on 07/28 - 07/28 CXR- Bibasilar areas of density may represent atelectasis though basilar pneumonitis is not excluded - 07/28 CXR- Increased right basilar pleural parenchymal opacities - 07/29 CXR- Resolving bilateral lower lobe pleural- parenchymal disease - Vent setting: CMV- 75%, 8,30,450 - ABGs noted, vent changes made, check RT flowsheet for changes - COVID swab neg - Per daughter Pt. received COVID vaccine, SongwhaleX2 in early december - Continue SPO2 monitoring for SPO2 goal above 92% - SAT and SBT as tolerated per CCM - VAP bundle per protocol - Aspiration precaution, HOB above 30% - CCM on consult #GI: NAP - OGT in place - Enteral nutrition initiated - Nutrition on consult - Continue current BR- senokot - Continue PPI- Pepcid #Acute Kidney Injury (VIJAY) possible 2/2 sepsis shock #H/o CKD - Baseline cr. is 1, cr. on admit as high as 9.1 - Cr. downtrending 5.9 this AM - Continue strict intake and output - Diuretic challenge yesterday, patient tolerated well - Diaz in place, net -385cc in last 24hr - Nephrology on consult, appreciated recommendation - Plan for gentle hydration by Nephro - No need for HD at this time - Avoid nephrotoxic medications; Renally dose medications - Close monitor of renal function and electrolytes, am labs ordered #Sepsis Shock #Bilateral pneumonia #Lactic Acidosis- resolved - 07/28 CXR- Bibasilar areas of density may represent atelectasis though basilar pneumonitis is not excluded - 07/28 CXR- Increased right basilar pleural parenchymal opacities - 07/29 CXR- Resolving bilateral lower lobe pleural- parenchymal disease - Lactic down from 7.3---> 1.4 - Leukocytosis- WBCs 14 today - TMAx 100.1 - 1 out 2 B.cult positive for Gram + cocci in clusters - COVID swab neg - Continue empiric ABx- Cefepine and vancomycin - Follow-up blood culture finalization - Daily CBC monitor - ID consulted #Endo: Hyperglycemia #H/o DM2 - Continue SSI Q6hrs - Lantus added qHS - While critically ill target blood glucose of 140-180 - Avoid hypoglycemia The high probability of a clinically significant, sudden or life threatening deterioration of the [Neuro, CV, ID, ] system(s) required my full and direct attention, intervention and personal management. The aggregate critical care time was [60] minutes. This time is in addition to time spent performing reported procedures but includes the following: [x] Data Review and interpretation [x] Patient assessment and monitoring of vital signs [x] Documentation [x] Medication orders and management Disposition Plan: ICU Total Time Spent with Patient (Minutes): 60 History Interval history: Patient seen and examined at the bedside. Intubated and sedated on versed and fentanyl. Patient open eyes spontaneously and moved RUE but does not follow any commands. No sig. events overnight Hospitalist Physical - Constitutional Vitals: Temp Pulse Resp BP Pulse Ox 97.4 F L 46 L 20 134/67 99 07/31/21 12:06 07/31/21 10:30 07/31/21 10:30 07/31/21 10:30 07/31/21 10:30 General appearance: Present: no acute distress, other (Intubated and sedated) - EENT Eyes: Present: PERRL ENT: hearing intact - Respiratory Respiratory effort: normal Respiratory: bilateral: diminished - Cardiovascular Rhythm: regular Heart Sounds: Present: S1 & S2 - Extremities Extremities: no ischemia, pulses intact, pulses symmetrical Extremity abnormal: edema - Peripheral Assessment Generalized Edema Type: Non-pitting Edema Degree: 1+ Capillary Refill: < 3 seconds Skin Temperature: Warm Peripheral Pulses: within normal limits - Abdominal General gastrointestinal: soft, non-tender, normal bowel sounds - Integumentary Integumentary: Present: clear, warm, dry - Psychiatric Psychiatric: cooperative - Neurologic Neurologic: other (BYRON) - Allied Health Allied health notes reviewed: nursing HEART Score - HEART Score Troponin: Troponin T 0.063 ng/mL (0.00-0.029) H 07/28/21 11:09 Results - Labs CBC & Chem 7: 07/31/21 08:10 07/31/21 08:10 Labs: Laboratory Last Values WBC 13.3 K/mm3 (4.5-11.0) H 07/31/21 08:10 RBC 3.91 M/mm3 (3.65-5.03) 07/31/21 08:10 Hgb 10.3 gm/dl (10.1-14.3) 07/31/21 08:10 Hct 31.9 % (30.3-42.9) 07/31/21 08:10 MCV 82 fl (79-97) 07/31/21 08:10 MCH 26 pg (28-32) L 07/31/21 08:10 MCHC 32 % (30-34) 07/31/21 08:10 RDW 17.0 % (13.2-15.2) H 07/31/21 08:10 Plt Count 181 K/mm3 (140-440) 07/31/21 08:10 Lymph % (Auto) 10.1 % (13.4-35.0) L 07/29/21 04:27 [place] % (Auto) 8.1 % (0.0-7.3) H 07/29/21 04:27 Eos % (Auto) 0.1 % (0.0-4.3) 07/29/21 04:27 Baso % (Auto) 0.1 % (0.0-1.8) 07/29/21 04:27 Lymph # (Auto) 1.4 K/mm3 (1.2-5.4) 07/29/21 04:27 [place] # (Auto) 1.1 K/mm3 (0.0-0.8) H 07/29/21 04:27 Eos # (Auto) 0.0 K/mm3 (0.0-0.4) 07/29/21 04:27 Baso # (Auto) 0.0 K/mm3 (0.0-0.1) 07/29/21 04:27 Seg Neutrophils % 81.6 % (40.0-70.0) H 07/29/21 04:27 Seg Neutrophils # 11.4 K/mm3 (1.8-7.7) H 07/29/21 04:27 PT 16.6 Sec. (12.2-14.9) H 07/28/21 11:09 INR 1.21 (0.87-1.13) H 07/28/21 11:09 APTT 25.0 Sec. (24.2-36.6) 07/28/21 11:09 ABG pH 7.354 pH Units (7.350-7.450) 07/30/21 13:00 POC ABG pCO2 21.7 mmHg (32.0-48.0) L 07/29/21 08:38 ABG pCO2 28.3 mm Hg 07/30/21 13:00 POC ABG pO2 199.3 mmHg (83-108) H 07/29/21 08:38 ABG pO2 116.9 mm Hg (80.0-90.0) H 07/30/21 13:00 POC ABG HCO3 14.1 07/29/21 08:38 ABG HCO3 15.4 mmol/L (20.0-26.0) L 07/30/21 13:00 ABG O2 Saturation 98.1 % (95.0-99.0) 07/30/21 13:00 ABG O2 Content 14.0 (0.0-44) 07/30/21 13:00 POC ABG Base Excess -8.2 07/29/21 08:38 ABG Base Excess -8.9 mmol/L (-2.0-3.0) L 07/30/21 13:00 ABG Hemoglobin 10.2 gm/dl (12.0-16.0) L 07/30/21 13:00 ABG Oxyhemoglobin 98.9 (94-98) H 07/29/21 08:38 ABG Carboxyhemoglobin 0.8 % (0.0-5.0) 07/30/21 13:00 ABG Methemoglobin 0.5 % (0.0-1.5) 07/30/21 13:00 ABG Sodium 140.0 mmol/L (136.0-145.0) 07/29/21 08:38 ABG Potassium 3.7 mmol/L (3.40-4.50) 07/29/21 08:38 ABG Chloride 113.0 mmol/L (98-107) H 07/29/21 08:38 ABG Glucose 181 mg/dL (65-95) H 07/29/21 08:38 Oxyhemoglobin 96.8 % (95.0-99.0) 07/30/21 13:00 Carboxyhemoglobin 0.2 (0.5-1.5) L 07/29/21 08:38 FiO2 50 % 07/30/21 13:00 FiO2 % 80 07/29/21 08:38 Sodium 145 mmol/L (137-145) 07/31/21 08:10 Potassium 3.9 mmol/L (3.6-5.0) 07/31/21 08:10 Chloride 111.8 mmol/L (98-107) H 07/31/21 08:10 Carbon Dioxide 17 mmol/L (22-30) L 07/31/21 08:10 Anion Gap 20 mmol/L 07/31/21 08:10 BUN 86 mg/dL (7-17) H 07/31/21 08:10 Creatinine 3.8 mg/dL (0.6-1.2) H 07/31/21 08:10 Estimated GFR 14 ml/min 07/31/21 08:10 BUN/Creatinine Ratio 23 % 07/31/21 08:10 Glucose 154 mg/dL (65-100) H 07/31/21 08:10 POC Glucose 159 mg/dL (70-105) H 07/31/21 11:42 Lactic Acid 1.40 mmol/L (0.7-2.0) 07/29/21 04:27 Calcium 8.3 mg/dL (8.4-10.2) L 07/31/21 08:10 Phosphorus 4.20 mg/dL (2.5-4.5) 07/31/21 08:10 Magnesium 2.30 mg/dL (1.7-2.3) 07/31/21 08:10 Total Bilirubin 0.20 mg/dL (0.1-1.2) 07/31/21 08:10 Direct Bilirubin < 0.2 mg/dL (0-0.2) 07/28/21 11:09 Indirect Bilirubin 0.0 mg/dL 07/28/21 11:09 AST 15 units/L (5-40) 07/31/21 08:10 ALT 46 units/L (7-56) 07/31/21 08:10 Alkaline Phosphatase 80 units/L (35-129) 07/31/21 08:10 Ammonia 49.0 umol/L (25-60) 07/28/21 11:09 Total Creatine Kinase 840 units/L (30-135) H 07/28/21 11:09 Troponin T 0.063 ng/mL (0.00-0.029) H 07/28/21 11:09 NT-Pro-B Natriuret Pep 312.4 pg/mL (0-900) 07/28/21 11:09 Total Protein 6.7 g/dL (6.3-8.2) 07/31/21 08:10 Albumin 3.3 g/dL (3.9-5) L 07/31/21 08:10 Albumin/Globulin Ratio 1.0 % 07/31/21 08:10 Triglycerides 226 mg/dL (2-149) H 07/28/21 11:09 Cholesterol 175 mg/dL (50-199) 07/28/21 11:09 LDL Cholesterol Direct 84 mg/dL (50-130) 07/28/21 11:09 HDL Cholesterol 47 mg/dL (40-59) 07/28/21 11:09 Cholesterol/HDL Ratio 3.72 % 07/28/21 11:09 Procalcitonin 41.20 ng/mL (<0.15) 07/29/21 07:44 Arterial Blood Glucose 181 mg/dL (65-95) H 07/29/21 08:38 Arterial Blood Ionized Calcium 3.8 mg/dL (4.6-5.3) L 07/28/21 18:18 Urine Color [place]ár[place] (Yellow) 07/28/21 Unknown Urine Turbidity Cloudy (Clear) 07/28/21 Unknown Urine pH 5.0 (5.0-7.0) 07/28/21 Unknown Ur Specific [place] 1.017 (1.003-1.030) 07/28/21 Unknown Urine Protein 100 mg/dl mg/dL (Negative) 07/28/21 Unknown Urine Glucose (UA) 50 mg/dL (Negative) 07/28/21 Unknown Urine Ketones Neg mg/dL (Negative) 07/28/21 Unknown Urine Blood Mod (Negative) 07/28/21 Unknown Urine Nitrite Neg (Negative) 07/28/21 Unknown Urine Bilirubin Neg (Negative) 07/28/21 Unknown Urine Urobilinogen < 2.0 mg/dL (<2.0) 07/28/21 Unknown Ur Leukocyte Esterase Tr (Negative) 07/28/21 Unknown Urine WBC (Auto) 23.0 /HPF (0.0-6.0) H 07/28/21 Unknown Urine RBC (Auto) 15.0 /HPF (0.0-6.0) 07/28/21 Unknown U Epithel Cells (Auto) 2.0 /HPF (0-13.0) 07/28/21 Unknown Urine Bacteria (Auto) 1+ /HPF (Negative) 07/28/21 Unknown Hyaline Casts 1 /LPF 07/28/21 Unknown Urine Mucus 1+ /HPF 07/28/21 Unknown Urine Creatinine 173.3 mg/dL (0.1-20.0) H 07/28/21 Unknown Urine Sodium 57 mmol/L 07/28/21 Unknown Random Vancomycin 15.4 ug/mL (0-40.0) 07/30/21 Unknown Coronavirus (PCR) Negative (Negative) 07/29/21 Unknown Microbiology: Microbiology 07/28/21 11:13 Peripheral/Venous Blood Culture - Preliminary NO GROWTH AFTER 72 HOURS 07/28/21 11:13 Peripheral/Venous Blood Culture - Preliminary Coag Negative Staphylococcus 07/28/21 Unknown Urine,Clean Catch Urine Culture - Final NO GROWTH AFTER 48 HOURS Diaz/IV: Voiding Method Indwelling Catheter Active Medications - Current Medications Current Medications: Generic Name Dose Route Start Last Admin Trade Name Freq PRN Reason Stop Dose Admin Acetaminophen 650 mg 07/28/21 13:00 Acetaminophen 325 Mg Tab PO Q6H PRN Pain MILD(1-3)/Fever >100.5/GARCIA Albuterol 2.5 mg 07/28/21 14:00 Albuterol 2.5 Mg/3 Ml Nebu IH Q3HRT PRN Shortness Of Breath Allopurinol 100 mg 07/29/21 22:00 07/30/21 22:31 Allopurinol 100 Mg Tab PO 100 mg QHS WIL Administration Lipase/Protease/Amylase 1 each 07/28/21 16:23 Lipase 10,500/Protease 25,000/Amylase 43,750 (Units) Dr Carmona FEEDTUBE PRN PRN For Clogged Feeding Tube Ascorbic Acid 500 mg 07/29/21 10:00 07/31/21 09:48 Ascorbic Acid 500 Mg Tab PO 500 mg QDAY WIL Administration Aspirin 81 mg 07/29/21 10:00 07/31/21 09:48 Aspirin 81 Mg Tab Chew PO 81 mg QDAY WIL Administration Atorvastatin Calcium 80 mg 07/28/21 22:00 07/30/21 22:30 Atorvastatin 40 Mg Tab PO 80 mg QHS WIL Administration Cholecalciferol 2,000 unit 07/29/21 10:00 07/31/21 09:47 Cholecalciferol (Vit D3) 1000 Unit (25 Mcg) Tab PO 2,000 unit QDAY WIL Administration Dextrose 50 ml 07/28/21 18:05 Dextrose 50% In Water (25gm) 50 Ml Syringe IV Q30MIN PRN Hypoglycemia Protocol Donepezil HCl 10 mg 07/28/21 22:00 07/30/21 22:30 Donepezil 10 Mg Tab PO 10 mg QHS WIL Administration Famotidine 10 mg 07/29/21 10:00 07/31/21 09:47 Famotidine 20 Mg/2 Ml Inj IV 10 mg BID WIL Administration Fentanyl 50 mcg 07/28/21 15:13 Fentanyl 100 Mcg/2 Ml Inj IV Q10MIN PRN ANALGESIA Hydromorphone HCl 0.25 mg 07/28/21 13:00 Hydromorphone 1 Mg/1 Ml Inj IV Q4H PRN Pain, Moderate (4-6) Hydromorphone HCl 0.5 mg 07/28/21 13:00 Hydromorphone 1 Mg/1 Ml Inj IV Q23H PRN Pain , Severe (7-10) Hydrophilic Ointment 1 applic 07/28/21 11:19 Lip Therapy Vaseline TP Q2HR PRN Dry Lips Propofol 1,000 mg in 100 mls @ 4.082 mls/hr 07/28/21 12:00 07/31/21 11:52 Diprivan 10 Mg/Ml IV 15 mcg/kg/min TITR WIL 12.247 mls/hr Administration Protocol 5 MCG/KG/MIN NORepinephrine/NS 8 MG-250 ML 8 mg in 250 mls @ 3.75 mls/hr 07/28/21 12:00 07/31/21 11:56 Norepinephrine/Ns 8 Mg-250 Ml (Double Conc) IV 0 mcg/min TITRATE WIL 0 mls/hr Titration Protocol 2 MCG/MIN Fentanyl Citrate 2,000 mcg in 100 mls @ 6.804 mls/hr 07/28/21 16:00 07/31/21 02:24 Fentanyl Drip Premix IV 1 mcg/kg/hr TITR WIL 6.804 mls/hr Administration Protocol 1 MCG/KG/HR Vasopressin 20 unit/ Sodium 101 mls @ 9.09 mls/hr 07/28/21 17:00 07/31/21 09:46 Chloride IV 0.03 units/min TITR WIL 9.09 mls/hr Administration Protocol 0.03 UNITS/MIN Cefepime HCl 2 gm in 100 mls @ 200 mls/hr 07/29/21 10:00 07/31/21 09:46 Cefepime/Ns 2 Gm/100 Ml IV 200 mls/hr Q24H WIL Administration Protocol Sodium Chloride 1,000 mls @ 75 mls/hr 07/31/21 12:30 Nacl 0.9% 1000 Ml IV 08/01/21 01:49 DIRECT WIL Insulin Glargine 10 units 07/29/21 22:00 07/31/21 02:26 Insulin Glargine 100 Units/Ml SUB-Q 10 units QHS WIL Administration Insulin Human Lispro 0 unit 07/28/21 18:07 07/31/21 11:56 Insulin Lispro 100 Unit/Ml SUB-Q 2 unit Q6HR WIL Administration Protocol Memantine 5 mg 07/29/21 10:00 07/31/21 09:48 Memantine 5 Mg Tab PO 5 mg BID WIL Administration Multi-Ingred Cream/Lotion/Oil/Oint 1 applic 07/28/21 11:19 Mineral Oil/Petrolatum, White Ophth Oint 3.5 Gm OU Q4HR PRN Dry Eye(s) Quetiapine Fumarate 50 mg 07/30/21 22:00 07/30/21 22:30 Quetiapine 25 Mg Tab PO 50 mg QHS WIL Administration Senna/Docusate Sodium 1 tab 07/28/21 12:00 07/31/21 09:48 Sennosides/Docusate Sodium 8.6/50 Mg Tab FEEDTUBE 1 tab BID WIL Administration Simple Syrup 15 ml 07/28/21 16:23 Simple Syrup 15 Ml FEEDTUBE PRN PRN Hypoglycemia Sodium Bicarbonate 325 mg 07/28/21 13:00 Sodium Bicarbonate 325 Mg Tab FEEDTUBE PRN PRN For Clogged Feeding Tube Sodium Chloride 10 ml 07/28/21 22:00 07/30/21 22:29 Sodium Chloride 0.9% 10 Ml Flush Syringe IV 10 ml BID WIL Administration Sodium Chloride 10 ml 07/28/21 13:00 Sodium Chloride 0.9% 10 Ml Flush Syringe IV PRN PRN LINE FLUSH Zinc Sulfate 220 mg 07/29/21 10:00 07/31/21 09:47 Zinc Sulfate 220 Mg Cap PO 220 mg QDAY WIL Administration Nutrition/Malnutrition Assess - Dietary Evaluation Nutrition/Malnutrition Findings: Nutrition Notes Start: 07/28/21 15:57 Freq: Status: Active Protocol: Document 07/30/21 11:42 GB (Rec: 07/30/21 11:48 GB [email or web address]) Nutrition Notes Initial or Follow up Assessment Current Diagnosis COPD,Diabetes,Hypertension, Heart Failure Other Pertinent Diagnosis Dementia Current Diet NPO/ TF Labs/Tests 07/29: glucose 211, BUN 77, creatinine 7.6, Ca 7.6 Pertinent Medications Vit C, Vit D3, fentanyl citrate, furosemide, norepinheprin/Ns8 Mg250, propofol 12.247ml/hr (323kcal) , vassopressin/NaCl, Zn Sulfate Height 5 ft 4 in Weight 136.078 kg [place] Body Weight (kg) 54.54 BMI 51.5 Weight change and time frame 07/28: admit weight Weight Status Morbidly Obese Subjective/Other Information 07/30: TF started. Per nurse at 50ml/hr at this time by 4pm will be at goal 60ml/hr. Pt did have residuals of 50cc's this AM, TF continues. note 07/29: bilateral lower lobe pleural-parenchymal disease has improved Percent of energy/protein needs met: TF at goal rate will meet 75% or greater of estimated energy needs Burn Absent Trauma Absent GI Symptoms None Difficulty In Swallowing Food Allergy No Skin Integrity/Comment No skin breadown at this time Current % PO Other Minimum of two criteria No #1 Nutrition Diagnosis Swallowing difficulty Comments: Intubated Etiology SOB, COPD As Evidenced by Signs and Symptoms intubated, sedated, TF started Diagnosis Progress(for reassessment Continues documentation) Is patient on ventilator? Yes Is Patient Ambulatory and/or Out of Bed No REE-([facility]-confined to bed) 2226.312 Kcal/Kg value to use for calculation 13 Approximate Energy Requirements Using 1769 kcal/Kg Calculation Used for Recommendations Kcal/kg Additional Notes Protein: up to 0.6-8g/kg @ 136k-109g Fluids: 1 ml/kcal or per MD Nutrition Intervention Change Diet Order: continue NPO Nutrition Support: Vital AF 1.2 @ 60ml/hr Flush 100ml/4hr Total fluids: Flush + TF at goal H20 = 1768ml Kcal 1,728 Protein (gm) 108 Fat (gm) 78 Fluid (mL) 1,168 Add Supplement/Snack (indicate name/kcal n/a /protein ) Goal #1 Tolerate TF Vital 1.2 @ goal 60ml/hr by f/u 07/30: TF at 50ml/hr tolerating, will advance to goal this afternoon per RN Goal #2 Extubation and diet advancement when medically feasible 07/30: intubated, sedated, TF: continues Follow-Up By: 08/03/21 Additional Comments TF tolerance, vent status <YANNI DASH - Last Filed: 08/01/21 07:26> Assessment and Plan Assessment and plan: I saw and evaluated the patient. I agree with the findings and the plan of care as documented in the Nurse Practitioner's~note, with the following corrections and additions. Hospitalist Physical - Constitutional Vitals: Temp Pulse Resp BP Pulse Ox 97.8 F 70 20 134/66 93 07/31/21 20:00 08/01/21 07:00 08/01/21 07:00 08/01/21 07:00 08/01/21 06:45 HEART Score - HEART Score Troponin: Troponin T 0.063 ng/mL (0.00-0.029) H 07/28/21 11:09 Results - Labs CBC & Chem 7: 07/31/21 08:10 07/31/21 08:10 Labs: Laboratory Last Values WBC 13.3 K/mm3 (4.5-11.0) H 07/31/21 08:10 RBC 3.91 M/mm3 (3.65-5.03) 07/31/21 08:10 Hgb 10.3 gm/dl (10.1-14.3) 07/31/21 08:10 Hct 31.9 % (30.3-42.9) 07/31/21 08:10 MCV 82 fl (79-97) 07/31/21 08:10 MCH 26 pg (28-32) L 07/31/21 08:10 MCHC 32 % (30-34) 07/31/21 08:10 RDW 17.0 % (13.2-15.2) H 07/31/21 08:10 Plt Count 181 K/mm3 (140-440) 07/31/21 08:10 Lymph % (Auto) 10.1 % (13.4-35.0) L 07/29/21 04:27 [place] % (Auto) 8.1 % (0.0-7.3) H 07/29/21 04:27 Eos % (Auto) 0.1 % (0.0-4.3) 07/29/21 04:27 Baso % (Auto) 0.1 % (0.0-1.8) 07/29/21 04:27 Lymph # (Auto) 1.4 K/mm3 (1.2-5.4) 07/29/21 04:27 [place] # (Auto) 1.1 K/mm3 (0.0-0.8) H 07/29/21 04:27 Eos # (Auto) 0.0 K/mm3 (0.0-0.4) 07/29/21 04:27 Baso # (Auto) 0.0 K/mm3 (0.0-0.1) 07/29/21 04:27 Seg Neutrophils % 81.6 % (40.0-70.0) H 07/29/21 04:27 Seg Neutrophils # 11.4 K/mm3 (1.8-7.7) H 07/29/21 04:27 PT 16.6 Sec. (12.2-14.9) H 07/28/21 11:09 INR 1.21 (0.87-1.13) H 07/28/21 11:09 APTT 25.0 Sec. (24.2-36.6) 07/28/21 11:09 ABG pH 7.337 (7.320-7.450) 08/01/21 04:04 POC ABG pCO2 36.2 mmHg (32.0-48.0) 08/01/21 04:04 ABG pCO2 28.3 mm Hg 07/30/21 13:00 POC ABG pO2 79.3 mmHg (83-108) L 08/01/21 04:04 ABG pO2 116.9 mm Hg (80.0-90.0) H 07/30/21 13:00 POC ABG HCO3 19.0 08/01/21 04:04 ABG HCO3 15.4 mmol/L (20.0-26.0) L 07/30/21 13:00 ABG O2 Saturation 95.1 (0-100) 08/01/21 04:04 ABG O2 Content 14.0 (0.0-44) 07/30/21 13:00 POC ABG Base Excess -6.2 08/01/21 04:04 ABG Base Excess -8.9 mmol/L (-2.0-3.0) L 07/30/21 13:00 ABG Hemoglobin 10.2 (12.0-17.5) L 08/01/21 04:04 ABG Oxyhemoglobin 94.5 (94-98) 08/01/21 04:04 ABG Carboxyhemoglobin 0.8 % (0.0-5.0) 07/30/21 13:00 ABG Methemoglobin 0.3 (0.0-1.5) 08/01/21 04:04 ABG Sodium 146.8 mmol/L (136.0-145.0) H 08/01/21 04:04 ABG Potassium 3.8 mmol/L (3.40-4.50) 08/01/21 04:04 ABG Chloride 117.0 mmol/L (98-107) H 08/01/21 04:04 ABG Glucose 138 mg/dL (65-95) H 08/01/21 04:04 Oxyhemoglobin 96.8 % (95.0-99.0) 07/30/21 13:00 Carboxyhemoglobin 0.3 (0.5-1.5) L 08/01/21 04:04 FiO2 50 % 07/30/21 13:00 FiO2 % 35.0 08/01/21 04:04 Sodium 145 mmol/L (137-145) 07/31/21 08:10 Potassium 3.9 mmol/L (3.6-5.0) 07/31/21 08:10 Chloride 111.8 mmol/L (98-107) H 07/31/21 08:10 Carbon Dioxide 17 mmol/L (22-30) L 07/31/21 08:10 Anion Gap 20 mmol/L 07/31/21 08:10 BUN 86 mg/dL (7-17) H 07/31/21 08:10 Creatinine 3.8 mg/dL (0.6-1.2) H 07/31/21 08:10 Estimated GFR 14 ml/min 07/31/21 08:10 BUN/Creatinine Ratio 23 % 07/31/21 08:10 Glucose 154 mg/dL (65-100) H 07/31/21 08:10 POC Glucose 118 mg/dL (70-105) H 08/01/21 06:00 Lactic Acid 1.40 mmol/L (0.7-2.0) 07/29/21 04:27 Calcium 8.3 mg/dL (8.4-10.2) L 07/31/21 08:10 Phosphorus 4.20 mg/dL (2.5-4.5) 07/31/21 08:10 Magnesium 2.30 mg/dL (1.7-2.3) 07/31/21 08:10 Total Bilirubin 0.20 mg/dL (0.1-1.2) 07/31/21 08:10 Direct Bilirubin < 0.2 mg/dL (0-0.2) 07/28/21 11:09 Indirect Bilirubin 0.0 mg/dL 07/28/21 11:09 AST 15 units/L (5-40) 07/31/21 08:10 ALT 46 units/L (7-56) 07/31/21 08:10 Alkaline Phosphatase 80 units/L (35-129) 07/31/21 08:10 Ammonia 49.0 umol/L (25-60) 07/28/21 11:09 Total Creatine Kinase 840 units/L (30-135) H 07/28/21 11:09 Troponin T 0.063 ng/mL (0.00-0.029) H 07/28/21 11:09 NT-Pro-B Natriuret Pep 312.4 pg/mL (0-900) 07/28/21 11:09 Total Protein 6.7 g/dL (6.3-8.2) 07/31/21 08:10 Albumin 3.3 g/dL (3.9-5) L 07/31/21 08:10 Albumin/Globulin Ratio 1.0 % 07/31/21 08:10 Triglycerides 226 mg/dL (2-149) H 07/28/21 11:09 Cholesterol 175 mg/dL (50-199) 07/28/21 11:09 LDL Cholesterol Direct 84 mg/dL (50-130) 07/28/21 11:09 HDL Cholesterol 47 mg/dL (40-59) 07/28/21 11:09 Cholesterol/HDL Ratio 3.72 % 07/28/21 11:09 Procalcitonin 41.20 ng/mL (<0.15) 07/29/21 07:44 Arterial Blood Glucose 138 mg/dL (65-95) H 08/01/21 04:04 Arterial Blood Ionized Calcium 3.8 mg/dL (4.6-5.3) L 07/28/21 18:18 Urine Color [place] (Yellow) 07/28/21 Unknown Urine Turbidity Cloudy (Clear) 07/28/21 Unknown Urine pH 5.0 (5.0-7.0) 07/28/21 Unknown Ur Specific [place] 1.017 (1.003-1.030) 07/28/21 Unknown Urine Protein 100 mg/dl mg/dL (Negative) 07/28/21 Unknown Urine Glucose (UA) 50 mg/dL (Negative) 07/28/21 Unknown Urine Ketones Neg mg/dL (Negative) 07/28/21 Unknown Urine Blood Mod (Negative) 07/28/21 Unknown Urine Nitrite Neg (Negative) 07/28/21 Unknown Urine Bilirubin Neg (Negative) 07/28/21 Unknown Urine Urobilinogen < 2.0 mg/dL (<2.0) 07/28/21 Unknown Ur Leukocyte Esterase Tr (Negative) 07/28/21 Unknown Urine WBC (Auto) 23.0 /HPF (0.0-6.0) H 07/28/21 Unknown Urine RBC (Auto) 15.0 /HPF (0.0-6.0) 07/28/21 Unknown U Epithel Cells (Auto) 2.0 /HPF (0-13.0) 07/28/21 Unknown Urine Bacteria (Auto) 1+ /HPF (Negative) 07/28/21 Unknown Hyaline Casts 1 /LPF 07/28/21 Unknown Urine Mucus 1+ /HPF 07/28/21 Unknown Urine Creatinine 173.3 mg/dL (0.1-20.0) H 07/28/21 Unknown Urine Sodium 57 mmol/L 07/28/21 Unknown Random Vancomycin 15.4 ug/mL (0-40.0) 07/30/21 Unknown Coronavirus (PCR) Negative (Negative) 07/29/21 Unknown Microbiology: Microbiology 07/28/21 17:30 Tracheal Aspirate Sputum Culture - Final 07/28/21 11:13 Peripheral/Venous Blood Culture - Preliminary NO GROWTH AFTER 72 HOURS Diaz/IV: Voiding Method Indwelling Catheter Active Medications - Current Medications Current Medications: Generic Name Dose Route Start Last Admin Trade Name Freq PRN Reason Stop Dose Admin Acetaminophen 650 mg 07/28/21 13:00 Acetaminophen 325 Mg Tab PO Q6H PRN Pain MILD(1-3)/Fever >100.5/GARCIA Albuterol 2.5 mg 07/28/21 14:00 Albuterol 2.5 Mg/3 Ml Nebu IH Q3HRT PRN Shortness Of Breath Allopurinol 100 mg 07/29/21 22:00 07/31/21 22:39 Allopurinol 100 Mg Tab PO 100 mg QHS WIL Administration Lipase/Protease/Amylase 1 each 07/28/21 16:23 Lipase 10,500/Protease 25,000/Amylase 43,750 (Units) Dr Carmona FEEDTUBE PRN PRN For Clogged Feeding Tube Ascorbic Acid 500 mg 07/29/21 10:00 07/31/21 09:48 Ascorbic Acid 500 Mg Tab PO 500 mg QDAY WIL Administration Aspirin 81 mg 07/29/21 10:00 07/31/21 09:48 Aspirin 81 Mg Tab Chew PO 81 mg QDAY WIL Administration Atorvastatin Calcium 80 mg 07/28/21 22:00 07/31/21 22:38 Atorvastatin 40 Mg Tab PO 80 mg QHS WIL Administration Cholecalciferol 2,000 unit 07/29/21 10:00 07/31/21 09:47 Cholecalciferol (Vit D3) 1000 Unit (25 Mcg) Tab PO 2,000 unit QDAY WIL Administration Dextrose 50 ml 07/28/21 18:05 Dextrose 50% In Water (25gm) 50 Ml Syringe IV Q30MIN PRN Hypoglycemia Protocol Donepezil HCl 10 mg 07/28/21 22:00 07/31/21 22:38 Donepezil 10 Mg Tab PO 10 mg QHS WIL Administration Famotidine 10 mg 07/29/21 10:00 07/31/21 22:39 Famotidine 20 Mg/2 Ml Inj IV 10 mg BID WIL Administration Fentanyl 50 mcg 07/28/21 15:13 Fentanyl 100 Mcg/2 Ml Inj IV Q10MIN PRN ANALGESIA Hydromorphone HCl 0.25 mg 07/28/21 13:00 Hydromorphone 1 Mg/1 Ml Inj IV Q4H PRN Pain, Moderate (4-6) Hydromorphone HCl 0.5 mg 07/28/21 13:00 Hydromorphone 1 Mg/1 Ml Inj IV Q23H PRN Pain , Severe (7-10) Hydrophilic Ointment 1 applic 07/28/21 11:19 Lip Therapy Vaseline TP Q2HR PRN Dry Lips Propofol 1,000 mg in 100 mls @ 4.082 mls/hr 07/28/21 12:00 08/01/21 01:15 Diprivan 10 Mg/Ml IV 10 mcg/kg/min TITR WIL 8.165 mls/hr Administration Protocol 5 MCG/KG/MIN NORepinephrine/NS 8 MG-250 ML 8 mg in 250 mls @ 3.75 mls/hr 07/28/21 12:00 07/31/21 11:56 Norepinephrine/Ns 8 Mg-250 Ml (Double Conc) IV 0 mcg/min TITRATE WIL 0 mls/hr Titration Protocol 2 MCG/MIN Fentanyl Citrate 2,000 mcg in 100 mls @ 6.804 mls/hr 07/28/21 16:00 08/01/21 05:03 Fentanyl Drip Premix IV 1 mcg/kg/hr TITR WIL 6.804 mls/hr Administration Protocol 1 MCG/KG/HR Vasopressin 20 unit/ Sodium 101 mls @ 9.09 mls/hr 07/28/21 17:00 07/31/21 20:30 Chloride IV 0 units/min TITR WIL 0 mls/hr Titration Protocol 0.03 UNITS/MIN Cefepime HCl 2 gm in 100 mls @ 200 mls/hr 07/29/21 10:00 07/31/21 09:46 Cefepime/Ns 2 Gm/100 Ml IV 200 mls/hr Q24H WIL Administration Protocol Insulin Glargine 10 units 07/29/21 22:00 08/01/21 00:00 Insulin Glargine 100 Units/Ml SUB-Q 10 units QHS WIL Administration Insulin Human Lispro 0 unit 07/28/21 18:07 08/01/21 03:31 Insulin Lispro 100 Unit/Ml SUB-Q Not Given Q6HR [facility] Protocol Memantine 5 mg 07/29/21 10:00 07/31/21 22:39 Memantine 5 Mg Tab PO 5 mg BID WIL Administration Multi-Ingred Cream/Lotion/Oil/Oint 1 applic 07/28/21 11:19 Mineral Oil/Petrolatum, White Ophth Oint 3.5 Gm OU Q4HR PRN Dry Eye(s) Quetiapine Fumarate 50 mg 07/30/21 22:00 07/31/21 22:38 Quetiapine 25 Mg Tab PO 50 mg QHS WIL Administration Senna/Docusate Sodium 1 tab 07/28/21 12:00 07/31/21 22:40 Sennosides/Docusate Sodium 8.6/50 Mg Tab FEEDTUBE 1 tab BID WIL Administration Simple Syrup 15 ml 07/28/21 16:23 Simple Syrup 15 Ml FEEDTUBE PRN PRN Hypoglycemia Sodium Bicarbonate 325 mg 07/28/21 13:00 Sodium Bicarbonate 325 Mg Tab FEEDTUBE PRN PRN For Clogged Feeding Tube Sodium Chloride 10 ml 07/28/21 22:00 07/31/21 22:40 Sodium Chloride 0.9% 10 Ml Flush Syringe IV 10 ml BID WIL Administration Sodium Chloride 10 ml 07/28/21 13:00 Sodium Chloride 0.9% 10 Ml Flush Syringe IV PRN PRN LINE FLUSH Zinc Sulfate 220 mg 07/29/21 10:00 07/31/21 09:47 Zinc Sulfate 220 Mg Cap PO 220 mg QDAY WIL Administration Nutrition/Malnutrition Assess - Dietary Evaluation Nutrition/Malnutrition Findings: Nutrition Notes Start: 07/28/21 15:57 Freq: Status: Active Protocol: Document 07/30/21 11:42 GB (Rec: 07/30/21 11:48 GB [id number]) Nutrition Notes Initial or Follow up Assessment Current Diagnosis COPD,Diabetes,Hypertension, Heart Failure Other Pertinent Diagnosis Dementia Current Diet NPO/ TF Labs/Tests 07/29: glucose 211, BUN 77, creatinine 7.6, Ca 7.6 Pertinent Medications Vit C, Vit D3, fentanyl citrate, furosemide, norepinheprin/Ns8 Mg250, propofol 12.247ml/hr (323kcal) , vassopressin/NaCl, Zn Sulfate Height 5 ft 4 in Weight 136.078 kg [place] Body Weight (kg) 54.54 BMI 51.5 Weight change and time frame 07/28: admit weight Weight Status Morbidly Obese Subjective/Other Information 07/30: TF started. Per nurse at 50ml/hr at this time by 4pm will be at goal 60ml/hr. Pt did have residuals of 50cc's this AM, TF continues. MD note 07/29: bilateral lower lobe pleural-parenchymal disease has improved Percent of energy/protein needs met: TF at goal rate will meet 75% or greater of estimated energy needs Burn Absent Trauma Absent GI Symptoms None Difficulty In Swallowing Food Allergy No Skin Integrity/Comment No skin [place]own at this time Current % PO Other Minimum of two criteria No #1 Nutrition Diagnosis Swallowing difficulty Comments: Intubated Etiology SOB, COPD As Evidenced by Signs and Symptoms intubated, sedated, TF started Diagnosis Progress(for reassessment Continues documentation) Is patient on ventilator? Yes Is Patient Ambulatory and/or Out of Bed No REE-([facility]-confined to bed) 2226.312 Kcal/Kg value to use for calculation 13 Approximate Energy Requirements Using 1769 kcal/Kg Calculation Used for Recommendations Kcal/kg Additional Notes Protein: up to 0.6-8g/kg @ 136k-109g Fluids: 1 ml/kcal or per MD Nutrition Intervention Change Diet Order: continue NPO Nutrition Support: Vital AF 1.2 @ 60ml/hr Flush 100ml/4hr Total fluids: Flush + TF at goal H20 = 1768ml Kcal 1,728 Protein (gm) 108 Fat (gm) 78 Fluid (mL) 1,168 Add Supplement/Snack (indicate name/kcal n/a /protein ) Goal #1 Tolerate TF Vital 1.2 @ goal 60ml/hr by f/u 07/30: TF at 50ml/hr tolerating, will advance to goal this afternoon per RN Goal #2 Extubation and diet advancement when medically feasible 07/30: intubated, sedated, TF: continues Follow-Up By: 08/03/21 Additional Comments TF tolerance, vent status
--- NOTE | 2021-07-31 15:28 | Progress Note ---
Assessment and Plan Acute hypoxemic respiratory failure on MVS Acute possibly on chronic toxic metabolic encephalopathy. Bilateral pneumonia. Congestive heart failure with possible acute exacerbation. Obesity. Severe sepsis with shock.B.cult positive for Gram + cocci in clusters 1/2 Acute kidney injury. Oropharyngeal dysphagia. History of chronic obstructive pulmonary disease. History of congestive heart failure. Leukocytosis. Metabolic acidosis -Wean vasopressors for MAP>65 -Daily SAT and SBT, first trial today. Mental status will determine timing of liberation from MVS if she tolerates SBT -VAP bundle addressed, aspiration precatuions HOB >40 -CXR, ABG as clinically indicated -VTE prophylaxis- await MRI and final Neurology recommendations re pharmacologic anticoagulation -Titrate sedation to RASS of 0 to -1 -Continue SCDs -Renal dosing of all medications and antibiotics. She appears intravasculary depleted, gentle hydration -Stress ulcer prophylaxis- Famotidine - titrate supplemental oxygen to keep SpO2 89-92% - continue bronchodilators with pulmonary hygiene per RT - continue accuchecks with glycemic control per SSI (While critically ill target blood glucose of 140-180 mg/dL; avoid hypoglycemia) -Continue enteric nutritonal support with bowel regimen - continue to avoid benzodiazepines, reduce the possibility of delirium -Continue empiric ABx- Cefepine and vancomycin. De-escalate based on culture da ta. repeat blood cultures -Neurology input appreciated. Consult notes reviewed -Continue home meds- Aricept and memantine - prn analgesia per pain score - Maintenance of sleep-wake cycle, avoid delirium - continue mobility protocol, off loading and frequent turning per facility protocols for pressure ulcer prevention - Monitor hemodynamics closely -Influenza and pneumonia vaccination per facility protocol -Supportive transfusions as clinically indicated to keep HgB >7g/dL - continue other care per attending / other consultants CONDITION: CRITICAL PROGNOSIS: GUARDED CODE STATUS: FULL CODE The high probability of a clinically significant, sudden or life-threatening deterioration of the [respiratory, cardiovascular, GI and neurologic] system(s) required my full and direct attention, intervention and personal management. The aggregate critical care time was [35] minutes without overlap. Time includes spent on; [x] Data Review and interpretation [x] Patient assessment and monitoring of vital signs [x] Documentation [x] Medication orders and management Subjective Date of service: 07/31/21 Principal diagnosis: Ac. hypoxemic resp failure; Pneumonia vs Pulmonary edema; PUI-COVID; VIJAY Interval history: Follow up for:Acute hypoxemic respiratory failure on MVS; Septic shock with PEA arresr, with ROSC; Acute encephalopathy, possibly toxic metabolic; Possible bilateral pulmonary edema;Hypertensive urgency;Acute kidney injury Additional history Pt. received COVID vaccine, [id number] in early december, per daughter Seen and examined. Vitals,labs, medications, chart and imaging reviewed. Remains orally intubated on MVS. Sedated, No adverse overnight events reported. Discussed with nursing staff, respiratory staff Patient remains on low dose norepinephrine and fixed dose vasopressin. ABG this morning 7.429/26.8/132/17 on PEEP 6/50% Objective - Exam Narrative Exam: General appearance: Present: no acute distress, other (Intubated and sedated) - EENT Eyes: Present: PERRL ETT 7.5cm at 23cm MITALI - Respiratory Respiratory effort: normal Respiratory: bilateral: diminished - Cardiovascular Rhythm: regular Heart Sounds: Present: S1 & S2 - Extremities Extremities: no ischemia, pulses intact, pulses symmetrical Extremity abnormal: edema - Peripheral Assessment Generalized Edema Type: Non-pitting Edema Degree: 1+ Capillary Refill: < 3 seconds Skin Temperature: Warm Peripheral Pulses: within normal limits - Abdominal General gastrointestinal: soft, non-tender, normal bowel sounds - Integumentary Integumentary: Present: clear, warm, dry - Psychiatric Psychiatric: other (Sedated) - Neurologic Neurologic: other - moving all extremities off sedation, some agitation Vital Signs - 12hr 07/31/21 07/31/21 07/31/21 03:30 03:40 03:45 Temperature 97.7 F Pulse Rate 46 L 79 Pulse Rate [ From Monitor] Respiratory 25 H 19 Rate Blood Pressure 91/54 93/62 O2 Sat by Pulse 100 100 Oximetry 07/31/21 07/31/21 07/31/21 04:00 04:15 04:30 Temperature Pulse Rate 53 L 56 L 48 L Pulse Rate [ 49 L From Monitor] Respiratory 20 20 20 Rate Blood Pressure 89/55 95/55 90/48 O2 Sat by Pulse 100 99 99 Oximetry 07/31/21 07/31/21 07/31/21 04:46 05:00 05:15 Temperature Pulse Rate 79 66 55 L Pulse Rate [ From Monitor] Respiratory 15 20 20 Rate Blood Pressure 120/76 113/65 101/60 O2 Sat by Pulse 99 99 99 Oximetry 07/31/21 07/31/21 07/31/21 05:30 05:45 06:00 Temperature Pulse Rate 47 L 49 L 47 L Pulse Rate [ From Monitor] Respiratory 20 20 20 Rate Blood Pressure 95/57 86/51 81/50 O2 Sat by Pulse 99 98 98 Oximetry 07/31/21 07/31/21 07/31/21 06:15 06:30 06:45 Temperature Pulse Rate 47 L 51 L 53 L Pulse Rate [ From Monitor] Respiratory 20 20 20 Rate Blood Pressure 78/47 86/55 80/51 O2 Sat by Pulse 98 98 98 Oximetry 07/31/21 07/31/21 07/31/21 07:00 07:15 07:30 Temperature 97.5 F L Pulse Rate 46 L 44 L 57 L Pulse Rate [ From Monitor] Respiratory 20 20 20 Rate Blood Pressure 89/54 91/54 126/74 O2 Sat by Pulse 99 99 100 Oximetry 07/31/21 07/31/21 07/31/21 07:45 08:00 08:15 Temperature Pulse Rate 43 L 44 L Pulse Rate [ From Monitor] Respiratory 20 20 Rate Blood Pressure 138/75 129/66 O2 Sat by Pulse 100 98 98 Oximetry 07/31/21 07/31/21 07/31/21 08:16 08:30 08:45 Temperature Pulse Rate 57 L 45 L 61 Pulse Rate [ From Monitor] Respiratory 20 20 20 Rate Blood Pressure 107/57 127/67 137/73 O2 Sat by Pulse 98 99 99 Oximetry 07/31/21 07/31/21 07/31/21 09:00 09:16 09:30 Temperature Pulse Rate 52 L 66 71 Pulse Rate [ From Monitor] Respiratory 20 20 17 Rate Blood Pressure 109/56 102/60 105/63 O2 Sat by Pulse 98 100 99 Oximetry 07/31/21 07/31/21 07/31/21 09:45 10:00 10:16 Temperature Pulse Rate 54 L 49 L 46 L Pulse Rate [ From Monitor] Respiratory 20 20 20 Rate Blood Pressure 84/51 93/55 131/69 O2 Sat by Pulse 99 100 100 Oximetry 07/31/21 07/31/21 07/31/21 10:30 10:46 11:00 Temperature Pulse Rate 46 L 46 L 46 L Pulse Rate [ From Monitor] Respiratory 20 20 20 Rate Blood Pressure 134/67 134/67 136/68 O2 Sat by Pulse 99 99 98 Oximetry 07/31/21 07/31/21 07/31/21 11:15 11:30 11:45 Temperature Pulse Rate 43 L 49 L 57 L Pulse Rate [ From Monitor] Respiratory 20 20 20 Rate Blood Pressure 131/67 126/63 117/66 O2 Sat by Pulse 98 99 99 Oximetry 07/31/21 07/31/21 07/31/21 12:00 12:01 12:06 Temperature 97.4 F L Pulse Rate 47 L Pulse Rate [ From Monitor] Respiratory 12 20 Rate Blood Pressure 155/89 98/42 O2 Sat by Pulse 99 98 Oximetry 07/31/21 07/31/21 07/31/21 12:10 12:15 12:30 Temperature Pulse Rate 56 L 53 L Pulse Rate [ From Monitor] Respiratory 20 20 Rate Blood Pressure 82/46 95/54 O2 Sat by Pulse 100 99 99 Oximetry 07/31/21 07/31/21 07/31/21 12:45 13:00 13:15 Temperature Pulse Rate 46 L 66 92 H Pulse Rate [ From Monitor] Respiratory 20 17 10 L Rate Blood Pressure 155/75 167/93 155/89 O2 Sat by Pulse 99 100 Oximetry 07/31/21 07/31/21 13:30 13:45 Temperature Pulse Rate 89 91 H Pulse Rate [ From Monitor] Respiratory 12 12 Rate Blood Pressure 160/80 165/81 O2 Sat by Pulse 96 99 Oximetry CBC and BMP: 08/02/21 04:40 08/02/21 04:40 ABG, PT/INR, D-dimer: ABG ABG pH 7.429 (7.320-7.450) 07/31/21 03:46 POC ABG pCO2 26.8 mmHg (32.0-48.0) L 07/31/21 03:46 ABG pCO2 28.3 mm Hg 07/30/21 13:00 POC ABG pO2 132.2 mmHg (83-108) H 07/31/21 03:46 ABG pO2 116.9 mm Hg (80.0-90.0) H 07/30/21 13:00 POC ABG HCO3 17.3 07/31/21 03:46 ABG O2 Saturation 98.6 (0-100) 07/31/21 03:46 PT/INR, D-dimer PT 16.6 Sec. (12.2-14.9) H 07/28/21 11:09 INR 1.21 (0.87-1.13) H 07/28/21 11:09 Abnormal lab findings: Abnormal Labs 07/28/21 07/28/21 07/28/21 11:09 11:09 11:09 WBC 13.5 H MCH 26 L RDW 17.6 H Lymph % (Auto) 12.0 L Buchanan % (Auto) Buchanan # (Auto) 0.9 H Seg Neutrophils % 80.4 H Seg Neutrophils # 10.8 H PT 16.6 H INR 1.21 H ABG pH POC ABG pCO2 POC ABG pO2 ABG pO2 ABG HCO3 ABG Base Excess ABG Hemoglobin ABG Oxyhemoglobin ABG Potassium ABG Chloride ABG Glucose Carboxyhemoglobin Chloride Carbon Dioxide 16 L BUN 78 H Creatinine 9.1 H Glucose 224 H POC Glucose Lactic Acid Calcium 7.7 L ALT Total Creatine Kinase Troponin T 0.063 H Albumin Triglycerides 226 H Arterial Blood Glucose Arterial Blood Ionized Calcium Urine WBC (Auto) Urine Creatinine 07/28/21 07/28/21 07/28/21 11:09 11:09 12:24 WBC MCH RDW Lymph % (Auto) Buchanan % (Auto) Buchanan # (Auto) Seg Neutrophils % Seg Neutrophils # PT INR ABG pH 7.049 L* POC ABG pCO2 POC ABG pO2 ABG pO2 135.4 H ABG HCO3 13.4 L ABG Base Excess -16.5 L ABG Hemoglobin 10.8 L ABG Oxyhemoglobin ABG Potassium ABG Chloride ABG Glucose Carboxyhemoglobin Chloride Carbon Dioxide BUN Creatinine Glucose POC Glucose Lactic Acid 7.30 H* Calcium ALT Total Creatine Kinase 840 H Troponin T Albumin Triglycerides Arterial Blood Glucose Arterial Blood Ionized Calcium Urine WBC (Auto) Urine Creatinine 07/28/21 07/28/21 07/28/21 17:25 18:18 23:20 WBC MCH RDW Lymph % (Auto) Buchanan % (Auto) Buchanan # (Auto) Seg Neutrophils % Seg Neutrophils # PT INR ABG pH 7.118 L POC ABG pCO2 POC ABG pO2 124.3 H ABG pO2 ABG HCO3 ABG Base Excess ABG Hemoglobin ABG Oxyhemoglobin ABG Potassium 5.1 H ABG Chloride ABG Glucose 406 H Carboxyhemoglobin Chloride Carbon Dioxide BUN Creatinine Glucose POC Glucose 328 H 270 H Lactic Acid Calcium ALT Total Creatine Kinase Troponin T Albumin Triglycerides Arterial Blood Glucose 406 H Arterial Blood Ionized Calcium 3.8 L Urine WBC (Auto) Urine Creatinine 07/28/21 07/28/21 07/29/21 Unknown Unknown 04:27 WBC 14.0 H MCH 26 L RDW 17.1 H Lymph % (Auto) 10.1 L Buchanan % (Auto) 8.1 H [place]anan # (Auto) 1.1 H Seg Neutrophils % 81.6 H Seg Neutrophils # 11.4 H PT INR ABG pH POC ABG pCO2 POC ABG pO2 ABG pO2 ABG HCO3 ABG Base Excess ABG Hemoglobin ABG Oxyhemoglobin ABG Potassium ABG Chloride ABG Glucose Carboxyhemoglobin Chloride Carbon Dioxide BUN Creatinine Glucose POC Glucose Lactic Acid Calcium ALT Total Creatine Kinase Troponin T Albumin Triglycerides Arterial Blood Glucose Arterial Blood Ionized Calcium Urine WBC (Auto) 23.0 H Urine Creatinine 173.3 H 07/29/21 07/29/21 07/29/21 04:27 05:34 08:38 WBC MCH RDW Lymph % (Auto) [place]anan % (Auto) [place]anan # (Auto) Seg Neutrophils % Seg Neutrophils # PT INR ABG pH POC ABG pCO2 21.7 L POC ABG pO2 199.3 H ABG pO2 ABG HCO3 ABG Base Excess ABG Hemoglobin 11.8 L ABG Oxyhemoglobin 98.9 H ABG Potassium ABG Chloride 113.0 H ABG Glucose 181 H Carboxyhemoglobin 0.2 L Chloride Carbon Dioxide 14 L BUN 77 H Creatinine 7.6 H Glucose 211 H POC Glucose 187 H Lactic Acid Calcium 7.6 L ALT Total Creatine Kinase Troponin T Albumin Triglycerides Arterial Blood Glucose 181 H Arterial Blood Ionized Calcium Urine WBC (Auto) Urine Creatinine 07/29/21 07/29/21 07/29/21 11:31 17:51 22:35 WBC MCH RDW Lymph % (Auto) Buchanan % (Auto) [place]anan # (Auto) Seg Neutrophils % Seg Neutrophils # PT INR ABG pH POC ABG pCO2 POC ABG pO2 ABG pO2 ABG HCO3 ABG Base Excess ABG Hemoglobin ABG Oxyhemoglobin ABG Potassium ABG Chloride ABG Glucose Carboxyhemoglobin Chloride Carbon Dioxide BUN Creatinine Glucose POC Glucose 140 H 141 H 194 H Lactic Acid Calcium ALT Total Creatine Kinase Troponin T Albumin Triglycerides Arterial Blood Glucose Arterial Blood Ionized Calcium Urine WBC (Auto) Urine Creatinine 07/30/21 07/30/21 07/30/21 04:00 04:00 05:12 WBC 15.6 H MCH 26 L RDW 16.8 H Lymph % (Auto) [place]anan % (Auto) [place]anan # (Auto) Seg Neutrophils % Seg Neutrophils # PT INR ABG pH POC ABG pCO2 POC ABG pO2 ABG pO2 ABG HCO3 ABG Base Excess ABG Hemoglobin ABG Oxyhemoglobin ABG Potassium ABG Chloride ABG Glucose Carboxyhemoglobin Chloride 110.5 H Carbon Dioxide 16 L BUN 86 H Creatinine 5.9 H Glucose 183 H POC Glucose 162 H Lactic Acid Calcium 8.0 L ALT 57 H Total Creatine Kinase Troponin T Albumin 3.2 L Triglycerides Arterial Blood Glucose Arterial Blood Ionized Calcium Urine WBC (Auto) Urine Creatinine 07/30/21 07/30/21 07/30/21 12:04 13:00 17:20 WBC MCH RDW Lymph % (Auto) [place]anan % (Auto) [place]anan # (Auto) Seg Neutrophils % Seg Neutrophils # PT INR ABG pH POC ABG pCO2 POC ABG pO2 ABG pO2 116.9 H ABG HCO3 15.4 L ABG Base Excess -8.9 L ABG Hemoglobin 10.2 L ABG Oxyhemoglobin ABG Potassium ABG Chloride ABG Glucose Carboxyhemoglobin Chloride Carbon Dioxide BUN Creatinine Glucose POC Glucose 145 H 126 H Lactic Acid Calcium ALT Total Creatine Kinase Troponin T Albumin Triglycerides Arterial Blood Glucose Arterial Blood Ionized Calcium Urine WBC (Auto) Urine Creatinine 07/30/21 07/31/21 07/31/21 23:23 03:46 05:13 WBC MCH RDW Lymph % (Auto) Buchanan % (Auto) [place]anan # (Auto) Seg Neutrophils % Seg Neutrophils # PT INR ABG pH POC ABG pCO2 26.8 L POC ABG pO2 132.2 H ABG pO2 ABG HCO3 ABG Base Excess ABG Hemoglobin 10.2 L ABG Oxyhemoglobin ABG Potassium ABG Chloride 115.0 H ABG Glucose 171 H Carboxyhemoglobin 0.3 L Chloride Carbon Dioxide BUN Creatinine Glucose POC Glucose 193 H 167 H Lactic Acid Calcium ALT Total Creatine Kinase Troponin T Albumin Triglycerides Arterial Blood Glucose 171 H Arterial Blood Ionized Calcium Urine WBC (Auto) Urine Creatinine 07/31/21 07/31/21 07/31/21 08:10 08:10 11:42 WBC 13.3 H MCH 26 L RDW 17.0 H Lymph % (Auto) Buchanan % (Auto) [place]anan # (Auto) Seg Neutrophils % Seg Neutrophils # PT INR ABG pH POC ABG pCO2 POC ABG pO2 ABG pO2 ABG HCO3 ABG Base Excess ABG Hemoglobin ABG Oxyhemoglobin ABG Potassium ABG Chloride ABG Glucose Carboxyhemoglobin Chloride 111.8 H Carbon Dioxide 17 L BUN 86 H Creatinine 3.8 H Glucose 154 H POC Glucose 159 H Lactic Acid Calcium 8.3 L ALT Total Creatine Kinase Troponin T Albumin 3.3 L Triglycerides Arterial Blood Glucose Arterial Blood Ionized Calcium Urine WBC (Auto) Urine Creatinine Chest x-ray: image reviewed Allied health notes reviewed: RT
--- NOTE | 2021-07-31 17:12 | Progress Note ---
Assessment and Plan Echo reviewed - EF 50-55%, normal RVSF, RV mildly dilated, trace MR, mild-mod TR, RVSP 33mmHg. Neuro recs noted. Per ID, likely contaminated blood cx. Suspect sepsis secondary to bilateral PNA. No evidence of valvular vegetations on TTE. Low suspicion for IE according to Smith Criteria. Would not recommend KAITLYN at this time; however, may be considered later if indicated. Pt is a candidate for NOACs in reference to underlying non-valvular AF. [id number] Score: 7 points HAS-BLED Score: 4 points Pt seen in conjunction with Dr. Kerr, who agrees with the assessment and plan of care. - Patient Problems (1) Acute CVA (cerebrovascular accident) Current Visit: Yes Status: Acute (2) Acute encephalopathy Current Visit: Yes Status: Acute (3) Acute respiratory failure with hypoxia Current Visit: Yes Status: Acute (4) Sepsis Current Visit: Yes Status: Acute Qualifiers: Severe sepsis shock status: with septic shock (5) Pneumonia Current Visit: Yes Status: Acute Qualifiers: Laterality: bilateral Lung location: lower lobe of lung (6) Cardiac arrest Current Visit: Yes Status: Acute (7) Elevated troponin Current Visit: Yes Status: Acute (8) Paroxysmal atrial fibrillation Current Visit: Yes Status: Acute (9) VIJAY (acute kidney injury) Current Visit: Yes Status: Acute (10) Congestive heart failure Current Visit: Yes Status: Chronic Qualifiers: Heart failure type: unspecified Heart failure chronicity: chronic Qualified Code(s): I50.9 - Heart failure, unspecified (11) COPD (chronic obstructive pulmonary disease) Current Visit: Yes Status: Chronic (12) HTN (hypertension) Current Visit: No Status: Chronic Qualifiers: Hypertension type: primary hypertension Qualified Code(s): I10 - Essential (primary) hypertension (13) HLD (hyperlipidemia) Current Visit: Yes Status: Chronic Qualifiers: Hyperlipidemia type: mixed hyperlipidemia Qualified Code(s): E78.2 - Mixed hyperlipidemia (14) DM2 (diabetes mellitus, type 2) Current Visit: Yes Status: Chronic (15) History of COVID-19 Current Visit: Yes Status: Chronic (16) History of CVA (cerebrovascular accident) Current Visit: Yes Status: Chronic (17) Hx of aneurysm Current Visit: Yes Status: Suspected Subjective Date of service: 07/31/21 Principal diagnosis: Cardiopulmonary Arrest Interval history: Noted to have acute ischemic CVA on brain MRI. Remains intubated and sedated. Off pressors. SR 40-60s on tele. Objective Last Vital Signs Temp 97.6 F 07/31/21 15:54 Pulse 65 07/31/21 16:45 Resp 20 07/31/21 16:45 BP 98/48 07/31/21 16:45 Pulse Ox 95 07/31/21 16:45 - Physical Examination General: Other (intubated/sedated) Neck: Negative: JVD/HJR Cardiac: Positive: Regular Rhythm, S1/S2, Bradycardia Lungs: Positive: Ventilated Respirations Neuro: Positive: Other (intubated/sedated) Abdomen: Positive: Soft Skin: Negative: Rash, Suspicious Lesions Musculoskeletal: No Fluid Collection Extremities: Present: lower extr. pulses. Absent: edema - Labs and Meds Cardiac Enzymes 07/31/21 Range/Units 08:10 AST 15 (5-40) units/L CBC 07/31/21 Range/Units 08:10 WBC 13.3 H (4.5-11.0) K/mm3 RBC 3.91 (3.65-5.03) M/mm3 Hgb 10.3 (10.1-14.3) gm/dl Hct 31.9 (30.3-42.9) % Plt Count 181 (140-440) K/mm3 Comprehensive Metabolic Panel 07/31/21 Range/Units 08:10 Sodium 145 (137-145) mmol/L Potassium 3.9 (3.6-5.0) mmol/L Chloride 111.8 H (98-107) mmol/L Carbon Dioxide 17 L (22-30) mmol/L BUN 86 H (7-17) mg/dL Creatinine 3.8 H (0.6-1.2) mg/dL Glucose 154 H (65-100) mg/dL Calcium 8.3 L (8.4-10.2) mg/dL AST 15 (5-40) units/L ALT 46 (7-56) units/L Alkaline Phosphatase 80 (35-129) units/L Total Protein 6.7 (6.3-8.2) g/dL Albumin 3.3 L (3.9-5) g/dL - Imaging and Cardiology EKG: report reviewed, image reviewed Echo: report reviewed - Telemetry EKG Rhythm: Sinus Bradycardia - EKG Supraventricular dysrhythmia: atrial fibrillation - Allied health notes Allied health notes reviewed: nursing
[2021-07-31] MEDS: QUEtiapine 25 MG TAB PO SCH (22:38)
[2021-07-31] MEDS: DONEPEZIL 10 MG TAB PO SCH (22:38)
[2021-07-31] MEDS: allopurinoL 100 MG TAB PO SCH (22:39)
[2021-08-01] MEDS: INSULIN LISPRO 100 UNIT/ML SUB-Q SCH ×4 (03:31→19:54)
[2021-08-01] MEDS: fentaNYL DRIP Premix 2,000 MCG/100 ML BAG IV SCH (05:03)
[2021-08-01 09:11] LABS: Hematocrit 31.2 % (30.3-42.9); Hemoglobin 10.2 gm/dl (10.1-14.3); Mean Corpuscular HGB Conc 33 % (30-34); Mean Corpuscular Volume 83 fl (79-97); Platelet Count 176 K/mm3 (140-440); Red Blood Count 3.79 M/mm3 (3.65-5.03)
[2021-08-01] MEDS: CEFEPIME/NS 2 GM/100 ML 2 GM/100 ML BAG IV SCH (09:13)
[2021-08-01] MEDS: FAMOTIDINE 20 MG/2 ML INJ IV SCH ×2 (09:14→22:43)
[2021-08-01] MEDS: ASPIRIN 81 MG TAB CHEW PO SCH (09:14)
[2021-08-01] MEDS: CHOLECALCIFEROL (VIT D3) 1000 UNIT (25 mcg) TAB PO SCH (09:14)
[2021-08-01] MEDS: MEMANTINE 5 MG TAB PO SCH ×2 (09:15→22:45)
[2021-08-01] MEDS: ASCORBIC ACID 500 MG TAB PO SCH (09:15)
[2021-08-01] MEDS: ZINC SULFATE 220 MG CAP PO SCH (09:15)
[2021-08-01 09:31] LABS: Calcium 8.3 mg/dL (8.4-10.2)
--- NOTE | 2021-08-01 10:21 | Progress Note ---
Assessment and Plan - Patient Problems (1) VIJAY (acute kidney injury) Current Visit: Yes Status: Acute Plan to address problem: Likely pre-renal vs ATN in the setting of cardiac arrest and sepsis, with initial blood cultures now showing gram (+) cocci in clusters. Chest Xray also concerning for possible pneumonia. Avoid nephrotoxins, maintain MAP >65mmHg. ECHO does not indicate evidence of CHF/volume overload. Remains non-oliguric at this time. Labs this am continues to indicate improved renal function. (2) Acute respiratory failure with hypoxia Current Visit: Yes Status: Acute Plan to address problem: Vent management per ICU/pulmonary team (3) Cardiac arrest Current Visit: Yes Status: Acute Plan to address problem: With ROSC at this time, on pressor support with vasopressin and levophed. ECHO results reviewed. Further recommendations per cardiology. (4) Bacteremia Current Visit: Yes Status: Acute Plan to address problem: Initial blood cultures are showing gram (+) cocci in clusters. It has speciated to coagulase negative staph, likely contaminant. ID recommendations reviewed. (5) Bilateral pneumonia Current Visit: Yes Status: Acute Plan to address problem: Chest xray is showing improvement since admission. Please ensure that antibiotics are dosed appropriately for decreased renal function. Pending COVID -19 testing. (6) Diabetes Current Visit: Yes Status: Acute Plan to address problem: DM management per primary attending. Subjective Date of service: 08/01/21 Principal diagnosis: Cardiopulmonary Arrest Interval history: No acute issues, now weaned off all pressors. Remains intubated. Renal function shows improvement this am. Objective - Vital Signs Vital signs: Vital Signs - 12hr 07/31/21 07/31/21 07/31/21 22:30 22:45 23:00 Pulse Rate 67 66 65 Pulse Rate [ Left Radial] Respiratory 20 20 20 Rate Blood Pressure 123/63 132/60 118/62 O2 Sat by Pulse 95 97 96 Oximetry 07/31/21 07/31/21 07/31/21 23:15 23:30 23:45 Pulse Rate 69 66 70 Pulse Rate [ Left Radial] Respiratory 19 20 18 Rate Blood Pressure 114/60 110/56 125/65 O2 Sat by Pulse 96 96 97 Oximetry 08/01/21 08/01/21 08/01/21 00:00 00:15 00:30 Pulse Rate 68 61 60 Pulse Rate [ Left Radial] Respiratory 20 20 20 Rate Blood Pressure 114/63 107/55 115/58 O2 Sat by Pulse 97 98 99 Oximetry 08/01/21 08/01/21 08/01/21 00:45 01:00 01:15 Pulse Rate 60 63 76 Pulse Rate [ Left Radial] Respiratory 20 20 20 Rate Blood Pressure 105/55 120/61 132/73 O2 Sat by Pulse 98 98 99 Oximetry 08/01/21 08/01/21 08/01/21 01:30 01:45 02:01 Pulse Rate 70 61 61 Pulse Rate [ Left Radial] Respiratory 20 20 20 Rate Blood Pressure 135/69 118/61 112/55 O2 Sat by Pulse 98 98 98 Oximetry 08/01/21 08/01/21 08/01/21 02:15 02:30 02:45 Pulse Rate 63 61 61 Pulse Rate [ Left Radial] Respiratory 20 20 20 Rate Blood Pressure 108/54 117/57 115/57 O2 Sat by Pulse 97 98 97 Oximetry 08/01/21 08/01/21 08/01/21 03:00 03:15 03:30 Pulse Rate 59 L 59 L 64 Pulse Rate [ Left Radial] Respiratory 20 20 20 Rate Blood Pressure 105/53 106/53 123/64 O2 Sat by Pulse 97 97 98 Oximetry 08/01/21 08/01/21 08/01/21 03:45 04:00 04:15 Pulse Rate 61 63 61 Pulse Rate [ 70 Left Radial] Respiratory 20 20 20 Rate Blood Pressure 106/56 121/60 107/57 O2 Sat by Pulse 97 98 97 Oximetry 08/01/21 08/01/21 08/01/21 04:30 04:45 05:01 Pulse Rate 64 67 74 Pulse Rate [ Left Radial] Respiratory 20 19 21 Rate Blood Pressure 114/58 132/65 136/67 O2 Sat by Pulse 96 98 98 Oximetry 08/01/21 08/01/21 08/01/21 05:15 05:19 05:30 Pulse Rate 71 75 64 Pulse Rate [ Left Radial] Respiratory 20 20 Rate Blood Pressure 131/67 132/65 118/63 O2 Sat by Pulse 97 97 98 Oximetry 08/01/21 08/01/21 08/01/21 05:45 06:00 06:15 Pulse Rate 66 76 73 Pulse Rate [ Left Radial] Respiratory 20 20 20 Rate Blood Pressure 122/62 129/69 137/66 O2 Sat by Pulse 98 98 97 Oximetry 08/01/21 08/01/21 08/01/21 06:30 06:45 07:00 Pulse Rate 80 73 70 Pulse Rate [ Left Radial] Respiratory 16 20 20 Rate Blood Pressure 158/74 137/67 134/66 O2 Sat by Pulse 93 Oximetry 08/01/21 08/01/21 08/01/21 07:15 07:30 07:45 Pulse Rate 71 68 63 Pulse Rate [ Left Radial] Respiratory 17 20 20 Rate Blood Pressure 134/64 119/60 121/63 O2 Sat by Pulse 96 97 Oximetry 08/01/21 08/01/21 08/01/21 08:00 08:10 08:15 Pulse Rate 62 71 Pulse Rate [ Left Radial] Respiratory 20 20 Rate Blood Pressure 112/56 120/57 O2 Sat by Pulse 96 97 96 Oximetry 08/01/21 08/01/21 08/01/21 08:30 08:45 09:00 Pulse Rate 72 64 75 Pulse Rate [ Left Radial] Respiratory 20 20 20 Rate Blood Pressure 132/67 140/66 111/58 O2 Sat by Pulse 96 96 94 Oximetry 08/01/21 08/01/21 08/01/21 09:15 09:30 09:45 Pulse Rate 59 L 87 68 Pulse Rate [ Left Radial] Respiratory 20 20 20 Rate Blood Pressure 105/55 116/59 121/57 O2 Sat by Pulse 96 93 96 Oximetry 08/01/21 10:00 Pulse Rate 89 Pulse Rate [ Left Radial] Respiratory 11 L Rate Blood Pressure 160/73 O2 Sat by Pulse 94 Oximetry - General Appearance General appearance: chronically ill, sedated on ventilator, intubated EENT: ATNC Neck: no JVD, no thyromegaly Respiratory: Present: Decreased Breath Sounds Cardiology: regular Gastrointestinal: normal Integumentary: warm and dry Musculoskeletal: deferred - Lab 08/01/21 08:55 08/01/21 08:55 Most recent lab results ABG pH 7.337 (7.320-7.450) 08/01/21 04:04 ABG pCO2 28.3 mm Hg 07/30/21 13:00 ABG pO2 116.9 mm Hg (80.0-90.0) H 07/30/21 13:00 ABG HCO3 15.4 mmol/L (20.0-26.0) L 07/30/21 13:00 ABG O2 Saturation 95.1 (0-100) 08/01/21 04:04 Calcium 8.3 mg/dL (8.4-10.2) L 08/01/21 08:55 Phosphorus 4.20 mg/dL (2.5-4.5) 07/31/21 08:10 Magnesium 2.30 mg/dL (1.7-2.3) 07/31/21 08:10 Urine Creatinine 173.3 mg/dL (0.1-20.0) H 07/28/21 Unknown Urine Sodium 57 mmol/L 07/28/21 Unknown - Allied health notes Allied health notes reviewed: nursing Medications & Allergies - Medications Allergies/Adverse Reactions: Allergies metformin Allergy (Verified 07/29/21 09:42) Unknown lactose Adverse Reaction (Verified 07/29/21 09:42) Diarrhea Home Medications: Home Medications Medication Instructions Recorded Confirmed Last Taken Type Acetaminophen 650 mg PO Q4H PRN 01/28/20 07/28/21 Unknown History Aspirin [Aspirin BABY CHEW TAB] 81 mg PO QDAY 01/28/20 07/28/21 Unknown History Atorvastatin Calcium [Lipitor] 40 mg PO QHS 01/28/20 07/28/21 Unknown History Benazepril HCl [Lotensin] 20 mg PO DAILY 01/28/20 07/28/21 Unknown History Donepezil HCl [Donepezil HCl Odt] 10 mg PO QHS 01/28/20 07/28/21 Unknown History Furosemide [Lasix TAB] 20 mg PO QDAY 01/28/20 07/28/21 Unknown History Insulin Glargine,Hum.rec.anlog 25 unit SQ BID 01/28/20 07/28/21 Unknown History [Lantus Solostar] Linagliptin [Tradjenta] 5 mg PO QDAY 01/28/20 07/28/21 Unknown History Elton-3/Dha/Epa/Fish Oil [Fish Oil 500 mg PO DAILY 01/28/20 07/28/21 Unknown History 500 mg Softgel] Quetiapine Fumarate [SEROquel] 50 mg PO HS 01/28/20 07/28/21 Unknown History allopurinoL [Zyloprim] 100 mg PO QHS 01/28/20 07/28/21 Unknown History hydrALAZINE [Apresoline TAB] 50 mg PO BID 01/28/20 07/28/21 Unknown History ALBUTEROL NEB's [Proventil 0.083% 2.5 mg IH Q4HRT PRN nebu 02/14/20 07/28/21 Unknown Rx NEBS] Simple Syrup 15 ml FEEDTUBE PRN PRN oral.liqd 02/14/20 07/28/21 Unknown Rx Simple Syrup 30 ml FEEDTUBE PRN PRN oral.liqd 02/14/20 07/28/21 Unknown Rx Sodium Bicarbonate 325 mg FEEDTUBE PRN PRN tablet 02/14/20 07/28/21 Unknown Rx Fenofibrate 40 mg PO DAILY 07/28/21 07/28/21 Unknown History amLODIPine [Norvasc] 10 mg PO DAILY 07/28/21 07/28/21 Unknown History Active Medications: Generic Name Dose Route Start Last Admin Trade Name Freq PRN Reason Stop Dose Admin Acetaminophen 650 mg 07/28/21 13:00 Acetaminophen 325 Mg Tab PO Q6H PRN Pain MILD(1-3)/Fever >100.5/GARCIA Albuterol 2.5 mg 07/28/21 14:00 Albuterol 2.5 Mg/3 Ml Nebu IH Q3HRT PRN Shortness Of Breath Allopurinol 100 mg 07/29/21 22:00 07/31/21 22:39 Allopurinol 100 Mg Tab PO 100 mg QHS WIL Administration Lipase/Protease/Amylase 1 each 07/28/21 16:23 Lipase 10,500/Protease 25,000/Amylase 43,750 (Units) Dr Carmona FEEDTUBE PRN PRN For Clogged Feeding Tube Ascorbic Acid 500 mg 07/29/21 10:00 08/01/21 09:15 Ascorbic Acid 500 Mg Tab PO 500 mg QDAY WIL Administration Aspirin 81 mg 07/29/21 10:00 08/01/21 09:14 Aspirin 81 Mg Tab Chew PO 81 mg QDAY WIL Administration Atorvastatin Calcium 80 mg 07/28/21 22:00 07/31/21 22:38 Atorvastatin 40 Mg Tab PO 80 mg QHS WIL Administration Cholecalciferol 2,000 unit 07/29/21 10:00 08/01/21 09:14 Cholecalciferol (Vit D3) 1000 Unit (25 Mcg) Tab PO 2,000 unit QDAY WIL Administration Dextrose 50 ml 07/28/21 18:05 Dextrose 50% In Water (25gm) 50 Ml Syringe IV Q30MIN PRN Hypoglycemia Protocol Donepezil HCl 10 mg 07/28/21 22:00 07/31/21 22:38 Donepezil 10 Mg Tab PO 10 mg QHS WIL Administration Famotidine 10 mg 07/29/21 10:00 08/01/21 09:14 Famotidine 20 Mg/2 Ml Inj IV 10 mg BID WIL Administration Fentanyl 50 mcg 07/28/21 15:13 Fentanyl 100 Mcg/2 Ml Inj IV Q10MIN PRN ANALGESIA Hydromorphone HCl 0.25 mg 07/28/21 13:00 Hydromorphone 1 Mg/1 Ml Inj IV Q4H PRN Pain, Moderate (4-6) Hydromorphone HCl 0.5 mg 07/28/21 13:00 Hydromorphone 1 Mg/1 Ml Inj IV Q23H PRN Pain , Severe (7-10) Hydrophilic Ointment 1 applic 07/28/21 11:19 Lip Therapy Vaseline TP Q2HR PRN Dry Lips Propofol 1,000 mg in 100 mls @ 4.082 mls/hr 07/28/21 12:00 08/01/21 09:55 Diprivan 10 Mg/Ml IV 0 mcg/kg/min TITR WIL 0 mls/hr Titration Protocol 5 MCG/KG/MIN NORepinephrine/NS 8 MG-250 ML 8 mg in 250 mls @ 3.75 mls/hr 07/28/21 12:00 07/31/21 11:56 Norepinephrine/Ns 8 Mg-250 Ml (Double Conc) IV 0 mcg/min TITRATE WIL 0 mls/hr Titration Protocol 2 MCG/MIN Fentanyl Citrate 2,000 mcg in 100 mls @ 6.804 mls/hr 07/28/21 16:00 08/01/21 05:03 Fentanyl Drip Premix IV 1 mcg/kg/hr TITR WIL 6.804 mls/hr Administration Protocol 1 MCG/KG/HR Vasopressin 20 unit/ Sodium 101 mls @ 9.09 mls/hr 07/28/21 17:00 07/31/21 20:30 Chloride IV 0 units/min TITR WIL 0 mls/hr Titration Protocol 0.03 UNITS/MIN Cefepime HCl 2 gm in 100 mls @ 200 mls/hr 07/29/21 10:00 08/01/21 09:13 Cefepime/Ns 2 Gm/100 Ml IV 200 mls/hr Q24H WIL Administration Protocol Insulin Glargine 10 units 07/29/21 22:00 08/01/21 00:00 Insulin Glargine 100 Units/Ml SUB-Q 10 units QHS WIL Administration Insulin Human Lispro 0 unit 07/28/21 18:07 08/01/21 03:31 Insulin Lispro 100 Unit/Ml SUB-Q Not Given Q6HR [facility] Protocol Memantine 5 mg 07/29/21 10:00 08/01/21 09:15 Memantine 5 Mg Tab PO 5 mg BID WIL Administration Multi-Ingred Cream/Lotion/Oil/Oint 1 applic 07/28/21 11:19 Mineral Oil/Petrolatum, White Ophth Oint 3.5 Gm OU Q4HR PRN Dry Eye(s) Quetiapine Fumarate 50 mg 07/30/21 22:00 07/31/21 22:38 Quetiapine 25 Mg Tab PO 50 mg QHS WIL Administration Senna/Docusate Sodium 1 tab 07/28/21 12:00 07/31/21 22:40 Sennosides/Docusate Sodium 8.6/50 Mg Tab FEEDTUBE 1 tab BID WIL Administration Simple Syrup 15 ml 07/28/21 16:23 Simple Syrup 15 Ml FEEDTUBE PRN PRN Hypoglycemia Sodium Bicarbonate 325 mg 07/28/21 13:00 Sodium Bicarbonate 325 Mg Tab FEEDTUBE PRN PRN For Clogged Feeding Tube Sodium Chloride 10 ml 07/28/21 22:00 08/01/21 09:15 Sodium Chloride 0.9% 10 Ml Flush Syringe IV 10 ml BID WIL Administration Sodium Chloride 10 ml 07/28/21 13:00 Sodium Chloride 0.9% 10 Ml Flush Syringe IV PRN PRN LINE FLUSH Zinc Sulfate 220 mg 07/29/21 10:00 08/01/21 09:15 Zinc Sulfate 220 Mg Cap PO 220 mg QDAY WIL Administration
[2021-08-01] MEDS: SENNOSIDES/DOCUSATE SODIUM 8.6/50 MG TAB FEEDTUBE SCH ×2 (12:17→22:44)
[2021-08-01] MEDS ORDERED: HEPARIN 5,000 UNIT/1 ML VIAL SUB-Q SCH (14:00)
--- NOTE | 2021-08-01 14:56 | Progress Note ---
Assessment and Plan Acute hypoxemic respiratory failure on MVS Acute possibly on chronic toxic metabolic encephalopathy. Bilateral pneumonia. Congestive heart failure with possible acute exacerbation. Obesity. Severe sepsis with shock.B.cult positive for Gram + cocci in clusters 1/2 Acute kidney injury. Oropharyngeal dysphagia. History of chronic obstructive pulmonary disease. History of congestive heart failure. Leukocytosis. Metabolic acidosis Hypernatremia -Daily SAT and SBT, PSV 8/6 today. If she toelrates it and obeys commands, get weaning parameters with goal to liberate from MVS. With her facies- she probably has sleep apnea, may need NIPPV support at night. -Increased free water flushes for hypernatremia -VAP bundle addressed, aspiration precautions HOB >40 -CXR, ABG as clinically indicated -VTE prophylaxis- SCDs -Titrate sedation to RASS of 0 to -1 -Renal dosing of all medications and antibiotics. -Stress ulcer prophylaxis- Famotidine - titrate supplemental oxygen to keep SpO2 89-92% - continue bronchodilators with pulmonary hygiene per RT - continue accuchecks with glycemic control per SSI (While critically ill target blood glucose of 140-180 mg/dL; avoid hypoglycemia) -Continue enteric nutritonal support with bowel regimen - continue to avoid benzodiazepines, reduce the possibility of delirium -Continue empiric AB to complete course- Cefepine and vancomycin. De-escalate based on culture data. repeat blood cultures -Neurology input appreciated. Consult notes reviewed, Cardiology input tomás reciated- consult notes reviewed -Continue home meds- Aricept and memantine - prn analgesia per pain score - Maintenance of sleep-wake cycle, avoid delirium - continue mobility protocol, off loading and frequent turning per facility protocols for pressure ulcer prevention - Monitor hemodynamics closely -Influenza and pneumonia vaccination per facility protocol -Supportive transfusions as clinically indicated to keep HgB >7g/dL - continue other care per attending / other consultants CONDITION: CRITICAL PROGNOSIS: GUARDED CODE STATUS: FULL CODE The high probability of a clinically significant, sudden or life-threatening deterioration of the [respiratory, cardiovascular, GI and neurologic] system(s) required my full and direct attention, intervention and personal management. The aggregate critical care time was [35] minutes without overlap. Time includes spent on; [x] Data Review and interpretation [x] Patient assessment and monitoring of vital signs [x] Documentation [x] Medication orders and management Subjective Date of service: 08/01/21 Principal diagnosis: Cardiopulmonary Arrest Interval history: Follow up for:Acute hypoxemic respiratory failure on MVS; Septic shock with PEA arresr, with ROSC; Acute encephalopathy, possibly toxic metabolic; Possible bilateral pulmonary edema;Hypertensive urgency;Acute kidney injury Seen and examined. Vitals,labs, medications, chart and imaging reviewed. Remains orally intubated on MVS. No adverse overnight events reported. Discussed with nursing staff, respiratory staff Patient off vasopressor support, more awake and alert, tracking voice No fevers, no diarrhea, no nausea or vomiting. Objective - Exam Narrative Exam: General appearance: Present: no acute distress, other (Intubated) - EENT Eyes: Present: PERRL ETT 7.5cm at 23cm MITALI - Respiratory Respiratory effort: normal Respiratory: bilateral: diminished - Cardiovascular Rhythm: regular Heart Sounds: Present: S1 & S2 - Extremities Extremities: no ischemia, pulses intact, pulses symmetrical Extremity abnormal: edema - Peripheral Assessment Generalized Edema Type: Non-pitting Edema Degree: 1+ Capillary Refill: < 3 seconds Skin Temperature: Warm Peripheral Pulses: within normal limits - Abdominal General gastrointestinal: soft, non-tender, normal bowel sounds - Integumentary Integumentary: Present: clear, warm, dry - Psychiatric Psychiatric: other (Sedated) - Neurologic Neurologic: other - moving all extremities off sedation, some agitation Tracks voice and responds to verbal and tactile stimuli off sedation Vital Signs - 12hr 08/01/21 08/01/21 08/01/21 03:00 03:15 03:30 Pulse Rate 59 L 59 L 64 Pulse Rate [ Left Radial] Respiratory 20 20 20 Rate Blood Pressure 105/53 106/53 123/64 O2 Sat by Pulse 97 97 98 Oximetry 08/01/21 08/01/21 08/01/21 03:45 04:00 04:15 Pulse Rate 61 63 61 Pulse Rate [ 70 Left Radial] Respiratory 20 20 20 Rate Blood Pressure 106/56 121/60 107/57 O2 Sat by Pulse 97 98 97 Oximetry 08/01/21 08/01/21 08/01/21 04:30 04:45 05:01 Pulse Rate 64 67 74 Pulse Rate [ Left Radial] Respiratory 20 19 21 Rate Blood Pressure 114/58 132/65 136/67 O2 Sat by Pulse 96 98 98 Oximetry 08/01/21 08/01/21 08/01/21 05:15 05:19 05:30 Pulse Rate 71 75 64 Pulse Rate [ Left Radial] Respiratory 20 20 Rate Blood Pressure 131/67 132/65 118/63 O2 Sat by Pulse 97 97 98 Oximetry 08/01/21 08/01/21 08/01/21 05:45 06:00 06:15 Pulse Rate 66 76 73 Pulse Rate [ Left Radial] Respiratory 20 20 20 Rate Blood Pressure 122/62 129/69 137/66 O2 Sat by Pulse 98 98 97 Oximetry 08/01/21 08/01/21 08/01/21 06:30 06:45 07:00 Pulse Rate 80 73 70 Pulse Rate [ Left Radial] Respiratory 16 20 20 Rate Blood Pressure 158/74 137/67 134/66 O2 Sat by Pulse 93 Oximetry 08/01/21 08/01/21 08/01/21 07:15 07:30 07:45 Pulse Rate 71 68 63 Pulse Rate [ Left Radial] Respiratory 17 20 20 Rate Blood Pressure 134/64 119/60 121/63 O2 Sat by Pulse 96 97 Oximetry 08/01/21 08/01/21 08/01/21 08:00 08:10 08:15 Pulse Rate 87 71 Pulse Rate [ Left Radial] Respiratory 20 20 Rate Blood Pressure 112/56 120/57 O2 Sat by Pulse 96 97 96 Oximetry 08/01/21 08/01/21 08/01/21 08:30 08:45 09:00 Pulse Rate 72 64 75 Pulse Rate [ Left Radial] Respiratory 20 20 20 Rate Blood Pressure 132/67 140/66 111/58 O2 Sat by Pulse 96 96 94 Oximetry 08/01/21 08/01/21 08/01/21 09:15 09:30 09:45 Pulse Rate 77 87 68 Pulse Rate [ Left Radial] Respiratory 12 20 20 Rate Blood Pressure 133/66 116/59 121/57 O2 Sat by Pulse 97 93 96 Oximetry 08/01/21 08/01/21 08/01/21 10:00 10:15 10:30 Pulse Rate 89 88 83 Pulse Rate [ Left Radial] Respiratory 11 L 10 L 9 L Rate Blood Pressure 160/73 160/76 144/67 O2 Sat by Pulse 94 96 96 Oximetry 08/01/21 08/01/21 08/01/21 10:45 11:00 11:15 Pulse Rate 79 86 88 Pulse Rate [ Left Radial] Respiratory 10 L 10 L 12 Rate Blood Pressure 157/71 153/77 143/69 O2 Sat by Pulse 96 96 96 Oximetry 08/01/21 08/01/21 08/01/21 11:30 11:45 12:00 Pulse Rate 84 83 86 Pulse Rate [ Left Radial] Respiratory 10 L 9 L 10 L Rate Blood Pressure 152/74 148/65 150/72 O2 Sat by Pulse 94 94 92 Oximetry 08/01/21 12:15 Pulse Rate 89 Pulse Rate [ Left Radial] Respiratory 9 L Rate Blood Pressure 152/68 O2 Sat by Pulse 92 Oximetry CBC and BMP: 08/02/21 04:40 08/02/21 04:40 ABG, PT/INR, D-dimer: ABG ABG pH 7.337 (7.320-7.450) 08/01/21 04:04 POC ABG pCO2 36.2 mmHg (32.0-48.0) 08/01/21 04:04 ABG pCO2 28.3 mm Hg 07/30/21 13:00 POC ABG pO2 79.3 mmHg (83-108) L 08/01/21 04:04 ABG pO2 116.9 mm Hg (80.0-90.0) H 07/30/21 13:00 POC ABG HCO3 19.0 08/01/21 04:04 ABG O2 Saturation 95.1 (0-100) 08/01/21 04:04 PT/INR, D-dimer PT 16.6 Sec. (12.2-14.9) H 07/28/21 11:09 INR 1.21 (0.87-1.13) H 07/28/21 11:09 Abnormal lab findings: Abnormal Labs 07/28/21 07/28/21 07/28/21 11:09 11:09 11:09 WBC 13.5 H MCH 26 L RDW 17.6 H Lymph % (Auto) 12.0 L Coal % (Auto) Coal # (Auto) 0.9 H Seg Neutrophils % 80.4 H Seg Neutrophils # 10.8 H PT 16.6 H INR 1.21 H ABG pH POC ABG pCO2 POC ABG pO2 ABG pO2 ABG HCO3 ABG Base Excess ABG Hemoglobin ABG Oxyhemoglobin ABG Sodium ABG Potassium ABG Chloride ABG Glucose Carboxyhemoglobin Sodium Chloride Carbon Dioxide 16 L BUN 78 H Creatinine 9.1 H Glucose 224 H POC Glucose Lactic Acid Calcium 7.7 L ALT Total Creatine Kinase Troponin T 0.063 H Albumin Triglycerides 226 H Arterial Blood Glucose Arterial Blood Ionized Calcium Urine WBC (Auto) Urine Creatinine 07/28/21 07/28/21 07/28/21 11:09 11:09 12:24 WBC MCH RDW Lymph % (Auto) Coal % (Auto) Coal # (Auto) Seg Neutrophils % Seg Neutrophils # PT INR ABG pH 7.049 L* POC ABG pCO2 POC ABG pO2 ABG pO2 135.4 H ABG HCO3 13.4 L ABG Base Excess -16.5 L ABG Hemoglobin 10.8 L ABG Oxyhemoglobin ABG Sodium ABG Potassium ABG Chloride ABG Glucose Carboxyhemoglobin Sodium Chloride Carbon Dioxide BUN Creatinine Glucose POC Glucose Lactic Acid 7.30 H* Calcium ALT Total Creatine Kinase 840 H Troponin T Albumin Triglycerides Arterial Blood Glucose Arterial Blood Ionized Calcium Urine WBC (Auto) Urine Creatinine 07/28/21 07/28/21 07/28/21 17:25 18:18 23:20 WBC MCH RDW Lymph % (Auto) Coal % (Auto) Coal # (Auto) Seg Neutrophils % Seg Neutrophils # PT INR ABG pH 7.118 L POC ABG pCO2 POC ABG pO2 124.3 H ABG pO2 ABG HCO3 ABG Base Excess ABG Hemoglobin ABG Oxyhemoglobin ABG Sodium ABG Potassium 5.1 H ABG Chloride ABG Glucose 406 H Carboxyhemoglobin Sodium Chloride Carbon Dioxide BUN Creatinine Glucose POC Glucose 328 H 270 H Lactic Acid Calcium ALT Total Creatine Kinase Troponin T Albumin Triglycerides Arterial Blood Glucose 406 H Arterial Blood Ionized Calcium 3.8 L Urine WBC (Auto) Urine Creatinine 07/28/21 07/28/21 07/29/21 Unknown Unknown 04:27 WBC 14.0 H MCH 26 L RDW 17.1 H Lymph % (Auto) 10.1 L Coal % (Auto) 8.1 H Coal # (Auto) 1.1 H Seg Neutrophils % 81.6 H Seg Neutrophils # 11.4 H PT INR ABG pH POC ABG pCO2 POC ABG pO2 ABG pO2 ABG HCO3 ABG Base Excess ABG Hemoglobin ABG Oxyhemoglobin ABG Sodium ABG Potassium ABG Chloride ABG Glucose Carboxyhemoglobin Sodium Chloride Carbon Dioxide BUN Creatinine Glucose POC Glucose Lactic Acid Calcium ALT Total Creatine Kinase Troponin T Albumin Triglycerides Arterial Blood Glucose Arterial Blood Ionized Calcium Urine WBC (Auto) 23.0 H Urine Creatinine 173.3 H 07/29/21 07/29/21 07/29/21 04:27 05:34 08:38 WBC MCH RDW Lymph % (Auto) Coal % (Auto) Coal # (Auto) Seg Neutrophils % Seg Neutrophils # PT INR ABG pH POC ABG pCO2 21.7 L POC ABG pO2 199.3 H ABG pO2 ABG HCO3 ABG Base Excess ABG Hemoglobin 11.8 L ABG Oxyhemoglobin 98.9 H ABG Sodium ABG Potassium ABG Chloride 113.0 H ABG Glucose 181 H Carboxyhemoglobin 0.2 L Sodium Chloride Carbon Dioxide 14 L BUN 77 H Creatinine 7.6 H Glucose 211 H POC Glucose 187 H Lactic Acid Calcium 7.6 L ALT Total Creatine Kinase Troponin T Albumin Triglycerides Arterial Blood Glucose 181 H Arterial Blood Ionized Calcium Urine WBC (Auto) Urine Creatinine 07/29/21 07/29/21 07/29/21 11:31 17:51 22:35 WBC MCH RDW Lymph % (Auto) Coal % (Auto) Coal # (Auto) Seg Neutrophils % Seg Neutrophils # PT INR ABG pH POC ABG pCO2 POC ABG pO2 ABG pO2 ABG HCO3 ABG Base Excess ABG Hemoglobin ABG Oxyhemoglobin ABG Sodium ABG Potassium ABG Chloride ABG Glucose Carboxyhemoglobin Sodium Chloride Carbon Dioxide BUN Creatinine Glucose POC Glucose 140 H 141 H 194 H Lactic Acid Calcium ALT Total Creatine Kinase Troponin T Albumin Triglycerides Arterial Blood Glucose Arterial Blood Ionized Calcium Urine WBC (Auto) Urine Creatinine 07/30/21 07/30/21 07/30/21 04:00 04:00 05:12 WBC 15.6 H MCH 26 L RDW 16.8 H Lymph % (Auto) Coal % (Auto) Coal # (Auto) Seg Neutrophils % Seg Neutrophils # PT INR ABG pH POC ABG pCO2 POC ABG pO2 ABG pO2 ABG HCO3 ABG Base Excess ABG Hemoglobin ABG Oxyhemoglobin ABG Sodium ABG Potassium ABG Chloride ABG Glucose Carboxyhemoglobin Sodium Chloride 110.5 H Carbon Dioxide 16 L BUN 86 H Creatinine 5.9 H Glucose 183 H POC Glucose 162 H Lactic Acid Calcium 8.0 L ALT 57 H Total Creatine Kinase Troponin T Albumin 3.2 L Triglycerides Arterial Blood Glucose Arterial Blood Ionized Calcium Urine WBC (Auto) Urine Creatinine 07/30/21 07/30/21 07/30/21 12:04 13:00 17:20 WBC MCH RDW Lymph % (Auto) Coal % (Auto) Coal # (Auto) Seg Neutrophils % Seg Neutrophils # PT INR ABG pH POC ABG pCO2 POC ABG pO2 ABG pO2 116.9 H ABG HCO3 15.4 L ABG Base Excess -8.9 L ABG Hemoglobin 10.2 L ABG Oxyhemoglobin ABG Sodium ABG Potassium ABG Chloride ABG Glucose Carboxyhemoglobin Sodium Chloride Carbon Dioxide BUN Creatinine Glucose POC Glucose 145 H 126 H Lactic Acid Calcium ALT Total Creatine Kinase Troponin T Albumin Triglycerides Arterial Blood Glucose Arterial Blood Ionized Calcium Urine WBC (Auto) Urine Creatinine 07/30/21 07/31/21 07/31/21 23:23 03:46 05:13 WBC MCH RDW Lymph % (Auto) Coal % (Auto) Coal # (Auto) Seg Neutrophils % Seg Neutrophils # PT INR ABG pH POC ABG pCO2 26.8 L POC ABG pO2 132.2 H ABG pO2 ABG HCO3 ABG Base Excess ABG Hemoglobin 10.2 L ABG Oxyhemoglobin ABG Sodium ABG Potassium ABG Chloride 115.0 H ABG Glucose 171 H Carboxyhemoglobin 0.3 L Sodium Chloride Carbon Dioxide BUN Creatinine Glucose POC Glucose 193 H 167 H Lactic Acid Calcium ALT Total Creatine Kinase Troponin T Albumin Triglycerides Arterial Blood Glucose 171 H Arterial Blood Ionized Calcium Urine WBC (Auto) Urine Creatinine 07/31/21 07/31/21 07/31/21 08:10 08:10 11:42 WBC 13.3 H MCH 26 L RDW 17.0 H Lymph % (Auto) Coal % (Auto) Coal # (Auto) Seg Neutrophils % Seg Neutrophils # PT INR ABG pH POC ABG pCO2 POC ABG pO2 ABG pO2 ABG HCO3 ABG Base Excess ABG Hemoglobin ABG Oxyhemoglobin ABG Sodium ABG Potassium ABG Chloride ABG Glucose Carboxyhemoglobin Sodium Chloride 111.8 H Carbon Dioxide 17 L BUN 86 H Creatinine 3.8 H Glucose 154 H POC Glucose 159 H Lactic Acid Calcium 8.3 L ALT Total Creatine Kinase Troponin T Albumin 3.3 L Triglycerides Arterial Blood Glucose Arterial Blood Ionized Calcium Urine WBC (Auto) Urine Creatinine 07/31/21 08/01/21 08/01/21 17:22 00:01 04:04 WBC MCH RDW Lymph % (Auto) Coal % (Auto) Coal # (Auto) Seg Neutrophils % Seg Neutrophils # PT INR ABG pH POC ABG pCO2 POC ABG pO2 79.3 L ABG pO2 ABG HCO3 ABG Base Excess ABG Hemoglobin 10.2 L ABG Oxyhemoglobin ABG Sodium 146.8 H ABG Potassium ABG Chloride 117.0 H ABG Glucose 138 H Carboxyhemoglobin 0.3 L Sodium Chloride Carbon Dioxide BUN Creatinine Glucose POC Glucose 115 H 123 H Lactic Acid Calcium ALT Total Creatine Kinase Troponin T Albumin Triglycerides Arterial Blood Glucose 138 H Arterial Blood Ionized Calcium Urine WBC (Auto) Urine Creatinine 08/01/21 08/01/21 08/01/21 06:00 08:55 08:55 WBC 12.2 H MCH 27 L RDW 17.0 H Lymph % (Auto) Coal % (Auto) Coal # (Auto) Seg Neutrophils % Seg Neutrophils # PT INR ABG pH POC ABG pCO2 POC ABG pO2 ABG pO2 ABG HCO3 ABG Base Excess ABG Hemoglobin ABG Oxyhemoglobin ABG Sodium ABG Potassium ABG Chloride ABG Glucose Carboxyhemoglobin Sodium 150 H Chloride 117.9 H Carbon Dioxide 21 L BUN 71 H Creatinine 2.7 H Glucose 174 H POC Glucose 118 H Lactic Acid Calcium 8.3 L ALT Total Creatine Kinase Troponin T Albumin Triglycerides Arterial Blood Glucose Arterial Blood Ionized Calcium Urine WBC (Auto) Urine Creatinine 08/01/21 11:56 WBC MCH RDW Lymph % (Auto) Coal % (Auto) Coal # (Auto) Seg Neutrophils % Seg Neutrophils # PT INR ABG pH POC ABG pCO2 POC ABG pO2 ABG pO2 ABG HCO3 ABG Base Excess ABG Hemoglobin ABG Oxyhemoglobin ABG Sodium ABG Potassium ABG Chloride ABG Glucose Carboxyhemoglobin Sodium Chloride Carbon Dioxide BUN Creatinine Glucose POC Glucose 130 H Lactic Acid Calcium ALT Total Creatine Kinase Troponin T Albumin Triglycerides Arterial Blood Glucose Arterial Blood Ionized Calcium Urine WBC (Auto) Urine Creatinine Allied health notes reviewed: nursing
[2021-08-01] MEDS ORDERED: ONDANSETRON 4 MG/2 ML INJ IV PRN (17:53)
[2021-08-01] MEDS: FREE WATER PO SCH (18:03)
--- NOTE | 2021-08-01 18:04 | Progress Note ---
<JOAN METZ - Last Filed: 08/01/21 18:09> Assessment and Plan Assessment and plan: This a 71 years-old female with PmHx of dementia, COPD, HTN, HLD, CHF, brain aneurysm, CVA, CKD, and DM2 who was brought in via EMS from a nursing due to confusion, SOB, and hypotension. Upon her arrival in the ED patient was found stuporous/obtunded and required intubation for airway protection. Subsequently after patient went into cardiac arrest, ROSC was achieved after 1 round of ACLS. Patient was then transferred to the ICU for further management. Hospital Course to Date: 07/29/21- Patient remains intubated and sedated on versed and fentynal, on pressors. Consult place for cardio s/p cardiac arrest, ID was consulted for sepsis, and Neuro consult for AC rec due to Afib/CVA. Basal insulin was added for blood glucose control. Will continue to monitor renal function and electrolytes, am labs ordered. 07/30/21- Patient remains intubated and sedated, on propofol and fentanyl RASS 0 to -2. Remains on low dose pressors, SB noted this am. Pending MRI brain today. 07/31/21- Patient remains intubated and sedated. RASS 0 to -2. On low vent settings, plan for SAT and SBT today. Patient remains on low dose pressors, kidney function is improvement, high chloremia noted thoday and hemodynamics are labile, will start gentle hydration NS at 75ml/hr X1L. Will continue to monitor renal function and electrolytes. 08/01/21- Patient remains intubated and sedated on low dose sedation RASS 0 to - 1. SAT and SBT today, will extubated if tolerated. Hypernatremia noted from this am lab will start FWF at 250 Q4hrs, will reassess in the am. Per cardio no indication for Kenroy at this time. Renal function is improving responding to current treatment. Will continue to monitor renal function and electrolytes. Assessment and Plan #Acute Metabolic Encephalopathy #H/o CVA, dementia - Patient is intubated and sedated on versed and fentanyl RASS -1 to -2 - 07/28 CT head w/o showed chronic appearing left MCA RAND TACKER watershed zone infarct - Titrate sedation for a RASS goal of 0 to -2 - Consult Neurology for input on anticoagulation for AFib/CVA prophylaxis - MRI brain pending - Restart home meds- Aricept and memantine - Daily SAT and SBT per CCM - PRN analgesia for CPOT greater than 3 - Reduce the possibility of delirium, continue seroquel - Maintenance of sleep-wake cycle #S/p Cardiac arrest #Atrial Fibrillation #Hypotension #H/o CHF - Post ROSC EKG showed Afib RVR, HR 120s - 07/30 2D Echo- EF 50 to 55%, left ventricular systolic function is normal, right ventricular systolic function is normal, right ventricle is mildly di lated, trace mitral regurgitation, RSVP is 33 mmHg, mild to moderate tricuspid regurgitation - Patient is SB this am, HR dropped as low as 48 - Remain on Levo and Vaso - Maintain adequate perfusion - Titrated vasopressors as tolerated for a MAP goal above 65 - Cardiology on consult, appreciated recommendation - Per cardio no indication for KENROY to r/o endocaditis at this time - SCDs for VTE proph #Acute Hypoxemic Respiratory Failure #Bilateral pneumonia #H/o COPD - ETT on 07/28 - 07/28 CXR- Bibasilar areas of density may represent atelectasis though basilar pneumonitis is not excluded - 07/28 CXR- Increased right basilar pleural parenchymal opacities - 07/29 CXR- Resolving bilateral lower lobe pleural- parenchymal disease - Vent setting: CMV- 35%,6,20,450 - ABGs noted, vent changes made, check RT flowsheet for changes - COVID swab neg - Per daughter Pt. received COVID vaccine, PFizerX2 in early december - Continue SPO2 monitoring for SPO2 goal above 92% - SAT and SBT today - Plan for extubation if toletated - VAP bundle per protocol - Aspiration precaution, HOB above 30% - CCM on consult #GI: NAP - OGT in place - Enteral nutrition initiated - Nutrition on consult - Continue current BR- senokot - Continue PPI- Pepcid #Acute Kidney Injury (VIJAY) possible 2/2 sepsis shock #H/o CKD - Baseline cr. is 1, cr. on admit as high as 9.1 - Cr. downtrending 5.9 this AM - Continue strict intake and output - Diuretic challenge yesterday, patient tolerated well - Diaz in place, net -385cc in last 24hr - Nephrology on consult, appreciated recommendation - Plan for gentle hydration by Nephro - No need for HD at this time - Avoid nephrotoxic medications; Renally dose medications - Close monitor of renal function and electrolytes, am labs ordered #Sepsis Shock #Bilateral pneumonia #Lactic Acidosis- resolved - 07/28 CXR- Bibasilar areas of density may represent atelectasis though basilar pneumonitis is not excluded - 07/28 CXR- Increased right basilar pleural parenchymal opacities - 07/29 CXR- Resolving bilateral lower lobe pleural- parenchymal disease - Lactic down from 7.3---> 1.4 - Leukocytosis- WBCs 14 today - TMAx 100.1 - 1 out 2 B.cult positive for Gram + cocci in clusters - COVID swab neg - Continue empiric ABx- Cefepine and vancomycin - Follow-up blood culture finalization - Daily CBC monitor - ID consulted #Endo: Hyperglycemia #H/o DM2 - Continue SSI Q6hrs - Lantus added qHS - While critically ill target blood glucose of 140-180 - Avoid hypoglycemia The high probability of a clinically significant, sudden or life threatening deterioration of the [Neuro, CV, ID, ] system(s) required my full and direct attention, intervention and personal management. The aggregate critical care time was [60] minutes. This time is in addition to time spent performing reported procedures but includes the following: [x] Data Review and interpretation [x] Patient assessment and monitoring of vital signs [x] Documentation [x] Medication orders and management Disposition Plan: ICU Total Time Spent with Patient (Minutes): 60 History Interval history: Patient seen and examined at the bedside. Intubated and sedated on versed and fentanyl. Patient open eyes spontaneously and moved RUE but does not follow any commands. No sig. events overnight Hospitalist Physical - Constitutional Vitals: Temp Pulse Resp BP Pulse Ox 97.8 F 87 14 171/85 94 07/31/21 20:00 08/01/21 16:30 08/01/21 16:30 08/01/21 16:30 08/01/21 17:16 General appearance: Present: no acute distress, other (Intubated and sedated) - EENT Eyes: Present: PERRL - Respiratory Respiratory effort: normal Respiratory: bilateral: diminished - Cardiovascular Rhythm: regular Heart Sounds: Present: S1 & S2 - Extremities Extremities: no ischemia, pulses intact, pulses symmetrical Extremity abnormal: edema - Peripheral Assessment Generalized Edema Type: Non-pitting Edema Degree: 1+ Capillary Refill: < 3 seconds Skin Temperature: Warm Peripheral Pulses: within normal limits - Abdominal General gastrointestinal: soft, non-tender, hypoactive bowel sounds - Integumentary Integumentary: Present: clear, warm, dry - Psychiatric Psychiatric: cooperative - Neurologic Neurologic: moves all extremities - Allied Health Allied health notes reviewed: nursing HEART Score - HEART Score Troponin: Troponin T 0.063 ng/mL (0.00-0.029) H 07/28/21 11:09 Results - Labs CBC & Chem 7: 08/01/21 08:55 08/01/21 08:55 Labs: Laboratory Last Values WBC 12.2 K/mm3 (4.5-11.0) H 08/01/21 08:55 RBC 3.79 M/mm3 (3.65-5.03) 08/01/21 08:55 Hgb 10.2 gm/dl (10.1-14.3) 08/01/21 08:55 Hct 31.2 % (30.3-42.9) 08/01/21 08:55 MCV 83 fl (79-97) 08/01/21 08:55 MCH 27 pg (28-32) L 08/01/21 08:55 MCHC 33 % (30-34) 08/01/21 08:55 RDW 17.0 % (13.2-15.2) H 08/01/21 08:55 Plt Count 176 K/mm3 (140-440) 08/01/21 08:55 Lymph % (Auto) 10.1 % (13.4-35.0) L 07/29/21 04:27 Graham % (Auto) 8.1 % (0.0-7.3) H 07/29/21 04:27 Eos % (Auto) 0.1 % (0.0-4.3) 07/29/21 04:27 Baso % (Auto) 0.1 % (0.0-1.8) 07/29/21 04:27 Lymph # (Auto) 1.4 K/mm3 (1.2-5.4) 07/29/21 04:27 Graham # (Auto) 1.1 K/mm3 (0.0-0.8) H 07/29/21 04:27 Eos # (Auto) 0.0 K/mm3 (0.0-0.4) 07/29/21 04:27 Baso # (Auto) 0.0 K/mm3 (0.0-0.1) 07/29/21 04:27 Seg Neutrophils % 81.6 % (40.0-70.0) H 07/29/21 04:27 Seg Neutrophils # 11.4 K/mm3 (1.8-7.7) H 07/29/21 04:27 PT 16.6 Sec. (12.2-14.9) H 07/28/21 11:09 INR 1.21 (0.87-1.13) H 07/28/21 11:09 APTT 25.0 Sec. (24.2-36.6) 07/28/21 11:09 ABG pH 7.337 (7.320-7.450) 08/01/21 04:04 POC ABG pCO2 36.2 mmHg (32.0-48.0) 08/01/21 04:04 ABG pCO2 28.3 mm Hg 07/30/21 13:00 POC ABG pO2 79.3 mmHg (83-108) L 08/01/21 04:04 ABG pO2 116.9 mm Hg (80.0-90.0) H 07/30/21 13:00 POC ABG HCO3 19.0 08/01/21 04:04 ABG HCO3 15.4 mmol/L (20.0-26.0) L 07/30/21 13:00 ABG O2 Saturation 95.1 (0-100) 08/01/21 04:04 ABG O2 Content 14.0 (0.0-44) 07/30/21 13:00 POC ABG Base Excess -6.2 08/01/21 04:04 ABG Base Excess -8.9 mmol/L (-2.0-3.0) L 07/30/21 13:00 ABG Hemoglobin 10.2 (12.0-17.5) L 08/01/21 04:04 ABG Oxyhemoglobin 94.5 (94-98) 08/01/21 04:04 ABG Carboxyhemoglobin 0.8 % (0.0-5.0) 07/30/21 13:00 ABG Methemoglobin 0.3 (0.0-1.5) 08/01/21 04:04 ABG Sodium 146.8 mmol/L (136.0-145.0) H 08/01/21 04:04 ABG Potassium 3.8 mmol/L (3.40-4.50) 08/01/21 04:04 ABG Chloride 117.0 mmol/L (98-107) H 08/01/21 04:04 ABG Glucose 138 mg/dL (65-95) H 08/01/21 04:04 Oxyhemoglobin 96.8 % (95.0-99.0) 07/30/21 13:00 Carboxyhemoglobin 0.3 (0.5-1.5) L 08/01/21 04:04 FiO2 50 % 07/30/21 13:00 FiO2 % 35.0 08/01/21 04:04 Sodium 150 mmol/L (137-145) H 08/01/21 08:55 Potassium 4.0 mmol/L (3.6-5.0) 08/01/21 08:55 Chloride 117.9 mmol/L (98-107) H 08/01/21 08:55 Carbon Dioxide 21 mmol/L (22-30) L 08/01/21 08:55 Anion Gap 15 mmol/L 08/01/21 08:55 BUN 71 mg/dL (7-17) H 08/01/21 08:55 Creatinine 2.7 mg/dL (0.6-1.2) H 08/01/21 08:55 Estimated GFR 21 ml/min 08/01/21 08:55 BUN/Creatinine Ratio 26 % 08/01/21 08:55 Glucose 174 mg/dL (65-100) H 08/01/21 08:55 POC Glucose 130 mg/dL (70-105) H 08/01/21 11:56 Lactic Acid 1.40 mmol/L (0.7-2.0) 07/29/21 04:27 Calcium 8.3 mg/dL (8.4-10.2) L 08/01/21 08:55 Phosphorus 4.20 mg/dL (2.5-4.5) 07/31/21 08:10 Magnesium 2.30 mg/dL (1.7-2.3) 07/31/21 08:10 Total Bilirubin 0.20 mg/dL (0.1-1.2) 07/31/21 08:10 Direct Bilirubin < 0.2 mg/dL (0-0.2) 07/28/21 11:09 Indirect Bilirubin 0.0 mg/dL 07/28/21 11:09 AST 15 units/L (5-40) 07/31/21 08:10 ALT 46 units/L (7-56) 07/31/21 08:10 Alkaline Phosphatase 80 units/L (35-129) 07/31/21 08:10 Ammonia 49.0 umol/L (25-60) 07/28/21 11:09 Total Creatine Kinase 840 units/L (30-135) H 07/28/21 11:09 Troponin T 0.063 ng/mL (0.00-0.029) H 07/28/21 11:09 NT-Pro-B Natriuret Pep 312.4 pg/mL (0-900) 07/28/21 11:09 Total Protein 6.7 g/dL (6.3-8.2) 07/31/21 08:10 Albumin 3.3 g/dL (3.9-5) L 07/31/21 08:10 Albumin/Globulin Ratio 1.0 % 07/31/21 08:10 Triglycerides 226 mg/dL (2-149) H 07/28/21 11:09 Cholesterol 175 mg/dL (50-199) 07/28/21 11:09 LDL Cholesterol Direct 84 mg/dL (50-130) 07/28/21 11:09 HDL Cholesterol 47 mg/dL (40-59) 07/28/21 11:09 Cholesterol/HDL Ratio 3.72 % 07/28/21 11:09 Procalcitonin 41.20 ng/mL (<0.15) 07/29/21 07:44 Arterial Blood Glucose 138 mg/dL (65-95) H 08/01/21 04:04 Arterial Blood Ionized Calcium 3.8 mg/dL (4.6-5.3) L 07/28/21 18:18 Urine Color Bárbara (Yellow) 07/28/21 Unknown Urine Turbidity Cloudy (Clear) 07/28/21 Unknown Urine pH 5.0 (5.0-7.0) 07/28/21 Unknown Ur Specific [place] 1.017 (1.003-1.030) 07/28/21 Unknown Urine Protein 100 mg/dl mg/dL (Negative) 07/28/21 Unknown Urine Glucose (UA) 50 mg/dL (Negative) 07/28/21 Unknown Urine Ketones Neg mg/dL (Negative) 07/28/21 Unknown Urine Blood Mod (Negative) 07/28/21 Unknown Urine Nitrite Neg (Negative) 07/28/21 Unknown Urine Bilirubin Neg (Negative) 07/28/21 Unknown Urine Urobilinogen < 2.0 mg/dL (<2.0) 07/28/21 Unknown Ur Leukocyte Esterase Tr (Negative) 07/28/21 Unknown Urine WBC (Auto) 23.0 /HPF (0.0-6.0) H 07/28/21 Unknown Urine RBC (Auto) 15.0 /HPF (0.0-6.0) 07/28/21 Unknown U Epithel Cells (Auto) 2.0 /HPF (0-13.0) 07/28/21 Unknown Urine Bacteria (Auto) 1+ /HPF (Negative) 07/28/21 Unknown Hyaline Casts 1 /LPF 07/28/21 Unknown Urine Mucus 1+ /HPF 07/28/21 Unknown Urine Creatinine 173.3 mg/dL (0.1-20.0) H 07/28/21 Unknown Urine Sodium 57 mmol/L 07/28/21 Unknown Random Vancomycin 15.4 ug/mL (0-40.0) 07/30/21 Unknown Coronavirus (PCR) Negative (Negative) 07/29/21 Unknown Microbiology: Microbiology 07/28/21 11:13 Peripheral/Venous Blood Culture - Preliminary NO GROWTH AFTER 4 DAYS 07/28/21 17:30 Tracheal Aspirate Sputum Culture - Final Diaz/IV: Voiding Method Indwelling Catheter Active Medications - Current Medications Current Medications: Generic Name Dose Route Start Last Admin Trade Name Freq PRN Reason Stop Dose Admin Acetaminophen 650 mg 07/28/21 13:00 Acetaminophen 325 Mg Tab PO Q6H PRN Pain MILD(1-3)/Fever >100.5/GARCIA Albuterol 2.5 mg 07/28/21 14:00 Albuterol 2.5 Mg/3 Ml Nebu IH Q3HRT PRN Shortness Of Breath Allopurinol 100 mg 07/29/21 22:00 07/31/21 22:39 Allopurinol 100 Mg Tab PO 100 mg QHS WIL Administration Lipase/Protease/Amylase 1 each 07/28/21 16:23 Lipase 10,500/Protease 25,000/Amylase 43,750 (Units) Dr Mathew PEARSONTUBE PRN PRN For Clogged Feeding Tube Ascorbic Acid 500 mg 07/29/21 10:00 08/01/21 09:15 Ascorbic Acid 500 Mg Tab PO 500 mg QDAY WIL Administration Aspirin 81 mg 07/29/21 10:00 08/01/21 09:14 Aspirin 81 Mg Tab Chew PO 81 mg QDAY WIL Administration Atorvastatin Calcium 80 mg 07/28/21 22:00 07/31/21 22:38 Atorvastatin 40 Mg Tab PO 80 mg QHS WIL Administration Cholecalciferol 2,000 unit 07/29/21 10:00 08/01/21 09:14 Cholecalciferol (Vit D3) 1000 Unit (25 Mcg) Tab PO 2,000 unit QDAY WIL Administration Dextrose 50 ml 07/28/21 18:05 Dextrose 50% In Water (25gm) 50 Ml Syringe IV Q30MIN PRN Hypoglycemia Protocol Donepezil HCl 10 mg 07/28/21 22:00 07/31/21 22:38 Donepezil 10 Mg Tab PO 10 mg QHS WIL Administration Famotidine 10 mg 07/29/21 10:00 08/01/21 09:14 Famotidine 20 Mg/2 Ml Inj IV 10 mg BID WIL Administration Fentanyl 50 mcg 07/28/21 15:13 Fentanyl 100 Mcg/2 Ml Inj IV Q10MIN PRN ANALGESIA Heparin Sodium (Porcine) 5,000 unit 08/01/21 14:00 Heparin 5,000 Unit/1 Ml Vial SUB-Q Q12HR [facility] Hydromorphone HCl 0.25 mg 07/28/21 13:00 Hydromorphone 1 Mg/1 Ml Inj IV Q4H PRN Pain, Moderate (4-6) Hydromorphone HCl 0.5 mg 07/28/21 13:00 Hydromorphone 1 Mg/1 Ml Inj IV Q23H PRN Pain , Severe (7-10) Hydrophilic Ointment 1 applic 07/28/21 11:19 Lip Therapy Vaseline TP Q2HR PRN Dry Lips Propofol 1,000 mg in 100 mls @ 4.082 mls/hr 07/28/21 12:00 08/01/21 09:55 Diprivan 10 Mg/Ml IV 0 mcg/kg/min TITR WIL 0 mls/hr Titration Protocol 5 MCG/KG/MIN NORepinephrine/NS 8 MG-250 ML 8 mg in 250 mls @ 3.75 mls/hr 07/28/21 12:00 07/31/21 11:56 Norepinephrine/Ns 8 Mg-250 Ml (Double Conc) IV 0 mcg/min TITRATE WIL 0 mls/hr Titration Protocol 2 MCG/MIN Fentanyl Citrate 2,000 mcg in 100 mls @ 6.804 mls/hr 07/28/21 16:00 08/01/21 05:03 Fentanyl Drip Premix IV 1 mcg/kg/hr TITR WIL 6.804 mls/hr Administration Protocol 1 MCG/KG/HR Vasopressin 20 unit/ Sodium 101 mls @ 9.09 mls/hr 07/28/21 17:00 07/31/21 20:30 Chloride IV 0 units/min TITR WIL 0 mls/hr Titration Protocol 0.03 UNITS/MIN Cefepime HCl 2 gm in 100 mls @ 200 mls/hr 07/29/21 10:00 08/01/21 09:43 Cefepime/Ns 2 Gm/100 Ml IV Infused Q24H [facility] Infusion Protocol Insulin Glargine 10 units 07/29/21 22:00 08/01/21 00:00 Insulin Glargine 100 Units/Ml SUB-Q 10 units QHS [facility] Administration Insulin Human Lispro 0 unit 07/28/21 18:07 08/01/21 12:20 Insulin Lispro 100 Unit/Ml SUB-Q Not Given Q6HR [facility] Protocol Memantine 5 mg 07/29/21 10:00 08/01/21 09:15 Memantine 5 Mg Tab PO 5 mg BID WIL Administration Multi-Ingred Cream/Lotion/Oil/Oint 1 applic 07/28/21 11:19 Mineral Oil/Petrolatum, White Ophth Oint 3.5 Gm OU Q4HR PRN Dry Eye(s) Ondansetron HCl 4 mg 08/01/21 17:53 Ondansetron 4 Mg/2 Ml Inj IV Q6H PRN Nausea And Vomiting Quetiapine Fumarate 50 mg 07/30/21 22:00 07/31/21 22:38 Quetiapine 25 Mg Tab PO 50 mg QHS [facility] Administration Senna/Docusate Sodium 1 tab 07/28/21 12:00 08/01/21 12:17 Sennosides/Docusate Sodium 8.6/50 Mg Tab FEEDTUBE Not Given BID WIL Simple Syrup 15 ml 07/28/21 16:23 Simple Syrup 15 Ml FEEDTUBE PRN PRN Hypoglycemia Sodium Bicarbonate 325 mg 07/28/21 13:00 Sodium Bicarbonate 325 Mg Tab FEEDTUBE PRN PRN For Clogged Feeding Tube Sodium Chloride 10 ml 07/28/21 22:00 08/01/21 09:15 Sodium Chloride 0.9% 10 Ml Flush Syringe IV 10 ml BID WIL Administration Sodium Chloride 10 ml 07/28/21 13:00 Sodium Chloride 0.9% 10 Ml Flush Syringe IV PRN PRN LINE FLUSH Zinc Sulfate 220 mg 07/29/21 10:00 08/01/21 09:15 Zinc Sulfate 220 Mg Cap PO 220 mg QDAY WIL Administration Nutrition/Malnutrition Assess - Dietary Evaluation Nutrition/Malnutrition Findings: Nutrition Notes Start: 07/28/21 15:57 Freq: Status: Active Protocol: Document 07/30/21 11:42 GB (Rec: 07/30/21 11:48 GB [id number]) Nutrition Notes Initial or Follow up Assessment Current Diagnosis COPD,Diabetes,Hypertension, Heart Failure Other Pertinent Diagnosis Dementia Current Diet NPO/ TF Labs/Tests 07/29: glucose 211, BUN 77, creatinine 7.6, Ca 7.6 Pertinent Medications Vit C, Vit D3, fentanyl citrate, furosemide, norepinheprin/Ns8 Mg250, propofol 12.247ml/hr (323kcal) , vassopressin/NaCl, Zn Sulfate Height 5 ft 4 in Weight 136.078 kg [place] Body Weight (kg) 54.54 BMI 51.5 Weight change and time frame 07/28: admit weight Weight Status Morbidly Obese Subjective/Other Information 07/30: TF started. Per nurse at 50ml/hr at this time by 4pm will be at goal 60ml/hr. Pt did have residuals of 50cc's this AM, TF continues. MD note 07/29: bilateral lower lobe pleural-parenchymal disease has improved Percent of energy/protein needs met: TF at goal rate will meet 75% or greater of estimated energy needs Burn Absent Trauma Absent GI Symptoms None Difficulty In Swallowing Food Allergy No Skin Integrity/Comment No skin breadown at this time Current % PO Other Minimum of two criteria No #1 Nutrition Diagnosis Swallowing difficulty Comments: Intubated Etiology SOB, COPD As Evidenced by Signs and Symptoms intubated, sedated, TF started Diagnosis Progress(for reassessment Continues documentation) Is patient on ventilator? Yes Is Patient Ambulatory and/or Out of Bed No REE-([place]-confined to bed) 2226.312 Kcal/Kg value to use for calculation 13 Approximate Energy Requirements Using 1769 kcal/Kg Calculation Used for Recommendations Kcal/kg Additional Notes Protein: up to 0.6-8g/kg @ 136k-109g Fluids: 1 ml/kcal or per MD Nutrition Intervention Change Diet Order: continue NPO Nutrition Support: Vital AF 1.2 @ 60ml/hr Flush 100ml/4hr Total fluids: Flush + TF at goal H20 = 1768ml Kcal 1,728 Protein (gm) 108 Fat (gm) 78 Fluid (mL) 1,168 Add Supplement/Snack (indicate name/kcal n/a /protein ) Goal #1 Tolerate TF Vital 1.2 @ goal 60ml/hr by f/u 07/30: TF at 50ml/hr tolerating, will advance to goal this afternoon per RN Goal #2 Extubation and diet advancement when medically feasible 07/30: intubated, sedated, TF: continues Follow-Up By: 08/03/21 Additional Comments TF tolerance, vent status <YANNI DASH - Last Filed: 08/02/21 07:44> Assessment and Plan Assessment and plan: I saw and evaluated the patient. I agree with the findings and the plan of care as documented in the Nurse Practitioner's~note, with the following corrections and additions. Hospitalist Physical - Constitutional Vitals: Temp Pulse Resp BP Pulse Ox 98.8 F 83 15 140/64 96 08/02/21 03:41 08/02/21 06:15 08/02/21 06:15 08/02/21 06:15 08/02/21 04:01 HEART Score - HEART Score Troponin: Troponin T 0.063 ng/mL (0.00-0.029) H 07/28/21 11:09 Results - Labs CBC & Chem 7: 08/02/21 04:40 08/02/21 04:40 Labs: Laboratory Last Values WBC 13.3 K/mm3 (4.5-11.0) H 08/02/21 04:40 RBC 4.03 M/mm3 (3.65-5.03) 08/02/21 04:40 Hgb 10.9 gm/dl (10.1-14.3) 08/02/21 04:40 Hct 32.9 % (30.3-42.9) 08/02/21 04:40 MCV 82 fl (79-97) 08/02/21 04:40 MCH 27 pg (28-32) L 08/02/21 04:40 MCHC 33 % (30-34) 08/02/21 04:40 RDW 16.9 % (13.2-15.2) H 08/02/21 04:40 Plt Count 185 K/mm3 (140-440) 08/02/21 04:40 Lymph % (Auto) 10.1 % (13.4-35.0) L 07/29/21 04:27 Graham % (Auto) 8.1 % (0.0-7.3) H 07/29/21 04:27 Eos % (Auto) 0.1 % (0.0-4.3) 07/29/21 04:27 Baso % (Auto) 0.1 % (0.0-1.8) 07/29/21 04:27 Lymph # (Auto) 1.4 K/mm3 (1.2-5.4) 07/29/21 04:27 Graham # (Auto) 1.1 K/mm3 (0.0-0.8) H 07/29/21 04:27 Eos # (Auto) 0.0 K/mm3 (0.0-0.4) 07/29/21 04:27 Baso # (Auto) 0.0 K/mm3 (0.0-0.1) 07/29/21 04:27 Seg Neutrophils % 81.6 % (40.0-70.0) H 07/29/21 04:27 Seg Neutrophils # 11.4 K/mm3 (1.8-7.7) H 07/29/21 04:27 PT 16.6 Sec. (12.2-14.9) H 07/28/21 11:09 INR 1.21 (0.87-1.13) H 07/28/21 11:09 APTT 25.0 Sec. (24.2-36.6) 07/28/21 11:09 ABG pH 7.337 (7.320-7.450) 08/01/21 04:04 POC ABG pCO2 36.2 mmHg (32.0-48.0) 08/01/21 04:04 ABG pCO2 28.3 mm Hg 07/30/21 13:00 POC ABG pO2 79.3 mmHg (83-108) L 08/01/21 04:04 ABG pO2 116.9 mm Hg (80.0-90.0) H 07/30/21 13:00 POC ABG HCO3 19.0 08/01/21 04:04 ABG HCO3 15.4 mmol/L (20.0-26.0) L 07/30/21 13:00 ABG O2 Saturation 95.1 (0-100) 08/01/21 04:04 ABG O2 Content 14.0 (0.0-44) 07/30/21 13:00 POC ABG Base Excess -6.2 08/01/21 04:04 ABG Base Excess -8.9 mmol/L (-2.0-3.0) L 07/30/21 13:00 ABG Hemoglobin 10.2 (12.0-17.5) L 08/01/21 04:04 ABG Oxyhemoglobin 94.5 (94-98) 08/01/21 04:04 ABG Carboxyhemoglobin 0.8 % (0.0-5.0) 07/30/21 13:00 ABG Methemoglobin 0.3 (0.0-1.5) 08/01/21 04:04 ABG Sodium 146.8 mmol/L (136.0-145.0) H 08/01/21 04:04 ABG Potassium 3.8 mmol/L (3.40-4.50) 08/01/21 04:04 ABG Chloride 117.0 mmol/L (98-107) H 08/01/21 04:04 ABG Glucose 138 mg/dL (65-95) H 08/01/21 04:04 Oxyhemoglobin 96.8 % (95.0-99.0) 07/30/21 13:00 Carboxyhemoglobin 0.3 (0.5-1.5) L 08/01/21 04:04 FiO2 50 % 07/30/21 13:00 FiO2 % 35.0 08/01/21 04:04 Sodium 154 mmol/L (137-145) H 08/02/21 04:40 Potassium 4.0 mmol/L (3.6-5.0) 08/02/21 04:40 Chloride 119.2 mmol/L (98-107) H 08/02/21 04:40 Carbon Dioxide 22 mmol/L (22-30) 08/02/21 04:40 Anion Gap 17 mmol/L 08/02/21 04:40 BUN 52 mg/dL (7-17) H 08/02/21 04:40 Creatinine 1.8 mg/dL (0.6-1.2) H 08/02/21 04:40 Estimated GFR 33 ml/min 08/02/21 04:40 BUN/Creatinine Ratio 29 % 08/02/21 04:40 Glucose 132 mg/dL (65-100) H 08/02/21 04:40 POC Glucose 120 mg/dL (70-105) H 08/02/21 05:34 Lactic Acid 1.40 mmol/L (0.7-2.0) 07/29/21 04:27 Calcium 9.4 mg/dL (8.4-10.2) 08/02/21 04:40 Phosphorus 4.20 mg/dL (2.5-4.5) 07/31/21 08:10 Magnesium 2.30 mg/dL (1.7-2.3) 07/31/21 08:10 Total Bilirubin 0.30 mg/dL (0.1-1.2) 08/02/21 04:40 Direct Bilirubin < 0.2 mg/dL (0-0.2) 07/28/21 11:09 Indirect Bilirubin 0.0 mg/dL 07/28/21 11:09 AST 18 units/L (5-40) 08/02/21 04:40 ALT 37 units/L (7-56) 08/02/21 04:40 Alkaline Phosphatase 82 units/L (35-129) 08/02/21 04:40 Ammonia 49.0 umol/L (25-60) 07/28/21 11:09 Total Creatine Kinase 840 units/L (30-135) H 07/28/21 11:09 Troponin T 0.063 ng/mL (0.00-0.029) H 07/28/21 11:09 NT-Pro-B Natriuret Pep 312.4 pg/mL (0-900) 07/28/21 11:09 Total Protein 7.2 g/dL (6.3-8.2) 08/02/21 04:40 Albumin 3.6 g/dL (3.9-5) L 08/02/21 04:40 Albumin/Globulin Ratio 1.0 % 08/02/21 04:40 Triglycerides 226 mg/dL (2-149) H 07/28/21 11:09 Cholesterol 175 mg/dL (50-199) 07/28/21 11:09 LDL Cholesterol Direct 84 mg/dL (50-130) 07/28/21 11:09 HDL Cholesterol 47 mg/dL (40-59) 07/28/21 11:09 Cholesterol/HDL Ratio 3.72 % 07/28/21 11:09 Procalcitonin 41.20 ng/mL (<0.15) 07/29/21 07:44 Arterial Blood Glucose 138 mg/dL (65-95) H 08/01/21 04:04 Arterial Blood Ionized Calcium 3.8 mg/dL (4.6-5.3) L 07/28/21 18:18 Urine Color [place] (Yellow) 07/28/21 Unknown Urine Turbidity Cloudy (Clear) 07/28/21 Unknown Urine pH 5.0 (5.0-7.0) 07/28/21 Unknown Ur Specific [place] 1.017 (1.003-1.030) 07/28/21 Unknown Urine Protein 100 mg/dl mg/dL (Negative) 07/28/21 Unknown Urine Glucose (UA) 50 mg/dL (Negative) 07/28/21 Unknown Urine Ketones Neg mg/dL (Negative) 07/28/21 Unknown Urine Blood Mod (Negative) 07/28/21 Unknown Urine Nitrite Neg (Negative) 07/28/21 Unknown Urine Bilirubin Neg (Negative) 07/28/21 Unknown Urine Urobilinogen < 2.0 mg/dL (<2.0) 07/28/21 Unknown Ur Leukocyte Esterase Tr (Negative) 07/28/21 Unknown Urine WBC (Auto) 23.0 /HPF (0.0-6.0) H 07/28/21 Unknown Urine RBC (Auto) 15.0 /HPF (0.0-6.0) 07/28/21 Unknown U Epithel Cells (Auto) 2.0 /HPF (0-13.0) 07/28/21 Unknown Urine Bacteria (Auto) 1+ /HPF (Negative) 07/28/21 Unknown Hyaline Casts 1 /LPF 07/28/21 Unknown Urine Mucus 1+ /HPF 07/28/21 Unknown Urine Creatinine 173.3 mg/dL (0.1-20.0) H 07/28/21 Unknown Urine Sodium 57 mmol/L 07/28/21 Unknown Random Vancomycin 15.4 ug/mL (0-40.0) 07/30/21 Unknown Coronavirus (PCR) Negative (Negative) 07/29/21 Unknown Microbiology: Microbiology 07/28/21 11:13 Peripheral/Venous Blood Culture - Preliminary NO GROWTH AFTER 4 DAYS Diaz/IV: Voiding Method Indwelling Catheter Active Medications - Current Medications Current Medications: Generic Name Dose Route Start Last Admin Trade Name Freq PRN Reason Stop Dose Admin Acetaminophen 650 mg 07/28/21 13:00 Acetaminophen 325 Mg Tab PO Q6H PRN Pain MILD(1-3)/Fever >100.5/GARCIA Albuterol 2.5 mg 07/28/21 14:00 Albuterol 2.5 Mg/3 Ml Nebu IH Q3HRT PRN Shortness Of Breath Allopurinol 100 mg 07/29/21 22:00 08/01/21 22:44 Allopurinol 100 Mg Tab PO 100 mg QHS WIL Administration Lipase/Protease/Amylase 1 each 07/28/21 16:23 Lipase 10,500/Protease 25,000/Amylase 43,750 (Units) Dr Carmona FEEDTUBE PRN PRN For Clogged Feeding Tube Ascorbic Acid 500 mg 07/29/21 10:00 08/01/21 09:15 Ascorbic Acid 500 Mg Tab PO 500 mg QDAY WIL Administration Aspirin 81 mg 07/29/21 10:00 08/01/21 09:14 Aspirin 81 Mg Tab Chew PO 81 mg QDAY WIL Administration Atorvastatin Calcium 80 mg 07/28/21 22:00 08/01/21 22:43 Atorvastatin 40 Mg Tab PO 80 mg QHS WIL Administration Cholecalciferol 2,000 unit 07/29/21 10:00 08/01/21 09:14 Cholecalciferol (Vit D3) 1000 Unit (25 Mcg) Tab PO 2,000 unit QDAY WIL Administration Dextrose 50 ml 07/28/21 18:05 Dextrose 50% In Water (25gm) 50 Ml Syringe IV Q30MIN PRN Hypoglycemia Protocol Donepezil HCl 10 mg 07/28/21 22:00 08/01/21 22:43 Donepezil 10 Mg Tab PO 10 mg QHS WIL Administration Famotidine 10 mg 07/29/21 10:00 08/01/21 22:43 Famotidine 20 Mg/2 Ml Inj IV 10 mg BID WIL Administration Fentanyl 50 mcg 07/28/21 15:13 Fentanyl 100 Mcg/2 Ml Inj IV Q10MIN PRN ANALGESIA Hydralazine HCl 10 mg 08/01/21 18:18 08/01/21 22:58 Hydralazine 20 Mg/1 Ml Inj IV 10 mg Q4HR PRN Administration Hypertension Hydromorphone HCl 0.25 mg 07/28/21 13:00 Hydromorphone 1 Mg/1 Ml Inj IV Q4H PRN Pain, Moderate (4-6) Hydromorphone HCl 0.5 mg 07/28/21 13:00 Hydromorphone 1 Mg/1 Ml Inj IV Q23H PRN Pain , Severe (7-10) Hydrophilic Ointment 1 applic 07/28/21 11:19 Lip Therapy Vaseline TP Q2HR PRN Dry Lips Propofol 1,000 mg in 100 mls @ 4.082 mls/hr 07/28/21 12:00 08/01/21 09:55 Diprivan 10 Mg/Ml IV 0 mcg/kg/min TITR WIL 0 mls/hr Titration Protocol 5 MCG/KG/MIN NORepinephrine/NS 8 MG-250 ML 8 mg in 250 mls @ 3.75 mls/hr 07/28/21 12:00 07/31/21 11:56 Norepinephrine/Ns 8 Mg-250 Ml (Double Conc) IV 0 mcg/min TITRATE WIL 0 mls/hr Titration Protocol 2 MCG/MIN Fentanyl Citrate 2,000 mcg in 100 mls @ 6.804 mls/hr 07/28/21 16:00 08/01/21 05:03 Fentanyl Drip Premix IV 1 mcg/kg/hr TITR WIL 6.804 mls/hr Administration Protocol 1 MCG/KG/HR Vasopressin 20 unit/ Sodium 101 mls @ 9.09 mls/hr 07/28/21 17:00 07/31/21 20:30 Chloride IV 0 units/min TITR WIL 0 mls/hr Titration Protocol 0.03 UNITS/MIN Cefepime HCl 2 gm in 100 mls @ 200 mls/hr 07/29/21 10:00 08/01/21 09:43 Cefepime/Ns 2 Gm/100 Ml IV Infused Q24H WIL Infusion Protocol Insulin Glargine 10 units 07/29/21 22:00 08/01/21 22:44 Insulin Glargine 100 Units/Ml SUB-Q 10 units QHS WIL Administration Insulin Human Lispro 0 unit 07/28/21 18:07 08/02/21 00:00 Insulin Lispro 100 Unit/Ml SUB-Q Not Given Q6HR [facility] Protocol Memantine 5 mg 07/29/21 10:00 08/01/21 22:45 Memantine 5 Mg Tab PO 5 mg BID WIL Administration Multi-Ingred Cream/Lotion/Oil/Oint 1 applic 07/28/21 11:19 Mineral Oil/Petrolatum, White Ophth Oint 3.5 Gm OU Q4HR PRN Dry Eye(s) Ondansetron HCl 4 mg 08/01/21 17:53 Ondansetron 4 Mg/2 Ml Inj IV Q6H PRN Nausea And Vomiting Polyethylene Glycol 17 gm 08/02/21 10:00 Polyethylene Glycol 3350 17 Gm Powder PO QDAY WIL Quetiapine Fumarate 50 mg 07/30/21 22:00 08/01/21 22:43 Quetiapine 25 Mg Tab PO 50 mg QHS WIL Administration Senna/Docusate Sodium 1 tab 07/28/21 12:00 08/01/21 22:44 Sennosides/Docusate Sodium 8.6/50 Mg Tab FEEDTUBE 1 tab BID WIL Administration Simple Syrup 15 ml 07/28/21 16:23 Simple Syrup 15 Ml FEEDTUBE PRN PRN Hypoglycemia Sodium Bicarbonate 325 mg 07/28/21 13:00 Sodium Bicarbonate 325 Mg Tab FEEDTUBE PRN PRN For Clogged Feeding Tube Sodium Chloride 10 ml 07/28/21 22:00 08/01/21 22:45 Sodium Chloride 0.9% 10 Ml Flush Syringe IV 10 ml BID WIL Administration Sodium Chloride 10 ml 07/28/21 13:00 Sodium Chloride 0.9% 10 Ml Flush Syringe IV PRN PRN LINE FLUSH Zinc Sulfate 220 mg 07/29/21 10:00 08/01/21 09:15 Zinc Sulfate 220 Mg Cap PO 220 mg QDAY WIL Administration Nutrition/Malnutrition Assess - Dietary Evaluation Nutrition/Malnutrition Findings: Nutrition Notes Start: 07/28/21 15:57 Freq: Status: Active Protocol: Document 07/30/21 11:42 GB (Rec: 07/30/21 11:48 GB [id number]) Nutrition Notes Initial or Follow up Assessment Current Diagnosis COPD,Diabetes,Hypertension, Heart Failure Other Pertinent Diagnosis Dementia Current Diet NPO/ TF Labs/Tests 07/29: glucose 211, BUN 77, creatinine 7.6, Ca 7.6 Pertinent Medications Vit C, Vit D3, fentanyl citrate, furosemide, norepinheprin/Ns8 Mg250, propofol 12.247ml/hr (323kcal) , vassopressin/NaCl, Zn Sulfate Height 5 ft 4 in Weight 136.078 kg [place] Body Weight (kg) 54.54 BMI 51.5 Weight change and time frame 07/28: admit weight Weight Status Morbidly Obese Subjective/Other Information 07/30: TF started. Per nurse at 50ml/hr at this time by 4pm will be at goal 60ml/hr. Pt did have residuals of 50cc's this AM, TF continues. MD note 07/29: bilateral lower lobe pleural-parenchymal disease has improved Percent of energy/protein needs met: TF at goal rate will meet 75% or greater of estimated energy needs Burn Absent Trauma Absent GI Symptoms None Difficulty In Swallowing Food Allergy No Skin Integrity/Comment No skin breadown at this time Current % PO Other Minimum of two criteria No #1 Nutrition Diagnosis Swallowing difficulty Comments: Intubated Etiology SOB, COPD As Evidenced by Signs and Symptoms intubated, sedated, TF started Diagnosis Progress(for reassessment Continues documentation) Is patient on ventilator? Yes Is Patient Ambulatory and/or Out of Bed No REE-([place]-confined to bed) 2226.312 Kcal/Kg value to use for calculation 13 Approximate Energy Requirements Using 1769 kcal/Kg Calculation Used for Recommendations Kcal/kg Additional Notes Protein: up to 0.6-8g/kg @ 136k-109g Fluids: 1 ml/kcal or per MD Nutrition Intervention Change Diet Order: continue NPO Nutrition Support: Vital AF 1.2 @ 60ml/hr Flush 100ml/4hr Total fluids: Flush + TF at goal H20 = 1768ml Kcal 1,728 Protein (gm) 108 Fat (gm) 78 Fluid (mL) 1,168 Add Supplement/Snack (indicate name/kcal n/a /protein ) Goal #1 Tolerate TF Vital 1.2 @ goal 60ml/hr by f/u 07/30: TF at 50ml/hr tolerating, will advance to goal this afternoon per RN Goal #2 Extubation and diet advancement when medically feasible 07/30: intubated, sedated, TF: continues Follow-Up By: 08/03/21 Additional Comments TF tolerance, vent status
--- NOTE | 2021-08-01 18:09 | Progress Note ---
Assessment and Plan Echo reviewed - EF 50-55%, normal RVSF, RV mildly dilated, trace MR, mild-mod TR, RVSP 33mmHg. Neuro recs noted. Per ID, likely contaminated blood cx. Suspect sepsis secondary to bilateral PNA. No evidence of valvular vegetations on TTE. Low suspicion for IE according to Smith Criteria. Would not recommend KAITLYN at this time; however, may be considered later if indicated. Pt is a candidate for NOACs in reference to underlying non-valvular AF. [id number] Score: 7 points HAS-BLED Score: 4 points Gently optimize antihypertensive regimen given that pt is now outside the 48-hr window of permissive HTN. Consider addition of low-dose Metoprolol with hold parameters. Pt seen in conjunction with Dr. Kerr, who agrees with the assessment and plan of care. - Patient Problems (1) Acute CVA (cerebrovascular accident) Current Visit: Yes Status: Acute (2) Acute encephalopathy Current Visit: Yes Status: Acute (3) Acute respiratory failure with hypoxia Current Visit: Yes Status: Acute (4) Sepsis Current Visit: Yes Status: Acute Qualifiers: Severe sepsis shock status: with septic shock (5) Pneumonia Current Visit: Yes Status: Acute Qualifiers: Laterality: bilateral Lung location: lower lobe of lung (6) Cardiac arrest Current Visit: Yes Status: Acute (7) Elevated troponin Current Visit: Yes Status: Acute (8) Paroxysmal atrial fibrillation Current Visit: Yes Status: Acute (9) VIJAY (acute kidney injury) Current Visit: Yes Status: Acute (10) Chronic heart failure with preserved ejection fraction (HFpEF) Current Visit: Yes Status: Chronic (11) COPD (chronic obstructive pulmonary disease) Current Visit: Yes Status: Chronic (12) HTN (hypertension) Current Visit: Yes Status: Chronic Qualifiers: Hypertension type: primary hypertension Qualified Code(s): I10 - Essential (primary) hypertension (13) HLD (hyperlipidemia) Current Visit: Yes Status: Chronic Qualifiers: Hyperlipidemia type: mixed hyperlipidemia Qualified Code(s): E78.2 - Mixed hyperlipidemia (14) DM2 (diabetes mellitus, type 2) Current Visit: Yes Status: Chronic (15) History of COVID-19 Current Visit: Yes Status: Chronic (16) History of CVA (cerebrovascular accident) Current Visit: Yes Status: Chronic (17) Hx of aneurysm Current Visit: Yes Status: Suspected Subjective Date of service: 08/01/21 Principal diagnosis: Cardiopulmonary Arrest Interval history: No acute events overnight. BP increasingly elevated today. Objective Last Vital Signs Temp 97.8 F 07/31/21 20:00 Pulse 87 08/01/21 16:30 Resp 14 08/01/21 16:30 BP 171/85 08/01/21 16:30 Pulse Ox 94 08/01/21 17:16 - Physical Examination General: Other (intubated) HEENT: Positive: Normocephaly Neck: Negative: JVD/HJR Cardiac: Positive: Reg Rate and Rhythm, S1/S2 Lungs: Positive: Ventilated Respirations Neuro: Positive: Other (intubated) Abdomen: Positive: Soft Skin: Negative: Rash, Suspicious Lesions Musculoskeletal: No Fluid Collection Extremities: Present: lower extr. pulses. Absent: edema - Labs and Meds CBC 08/01/21 Range/Units 08:55 WBC 12.2 H (4.5-11.0) K/mm3 RBC 3.79 (3.65-5.03) M/mm3 Hgb 10.2 (10.1-14.3) gm/dl Hct 31.2 (30.3-42.9) % Plt Count 176 (140-440) K/mm3 Comprehensive Metabolic Panel 08/01/21 Range/Units 08:55 Sodium 150 H (137-145) mmol/L Potassium 4.0 (3.6-5.0) mmol/L Chloride 117.9 H (98-107) mmol/L Carbon Dioxide 21 L (22-30) mmol/L BUN 71 H (7-17) mg/dL Creatinine 2.7 H (0.6-1.2) mg/dL Glucose 174 H (65-100) mg/dL Calcium 8.3 L (8.4-10.2) mg/dL - Imaging and Cardiology EKG: report reviewed, image reviewed Echo: report reviewed - Telemetry EKG Rhythm: Sinus Rhythm - EKG Sinus rhythms and dysrhythmias: sinus rhythm - Allied health notes Allied health notes reviewed: nursing
--- NOTE | 2021-08-01 19:00 | XRay Report ---
"ABDOMEN 1 VIEW INDICATION / CLINICAL INFORMATION: Vomiting. COMPARISON: KUB from 07/28/2021 FINDINGS: TUBES / LINES: None. BOWEL GAS PATTERN: There is mild gaseous distention of the stomach without other significant abnormal ities. FREE AIR / EXTRALUMINAL GAS: None seen. ADDITIONAL FINDINGS: Generalized atherosclerosis is unchanged. The bones are unchanged. IMPRESSION: No acute findings. Signer Name: Horacio Berger MD Signed: 08/01/2021 6:55 PM Workstation Name: [id number] | [id number]"
[2021-08-01] MEDS: QUEtiapine 25 MG TAB PO SCH (22:43)
[2021-08-01] MEDS: DONEPEZIL 10 MG TAB PO SCH (22:43)
[2021-08-01] MEDS: INSULIN GLARGINE 100 UNITS/ML SUB-Q SCH ×2 (22:44)
[2021-08-01] MEDS: allopurinoL 100 MG TAB PO SCH (22:44)
[2021-08-01] MEDS: hydrALAZINE 20 MG/1 ML INJ IV PRN (22:58)
--- NOTE | 2021-08-02 03:24 | XRay Report ---
CHEST 1 VIEW 08/02/2021 1:19 AM INDICATION / CLINICAL INFORMATION: Bilateral Pneumonia. COMPARISON: 07/31/2021 FINDINGS: SUPPORT DEVICES: Status post extubation and removal of enteric tube. Stable positioning of right PICC HEART / MEDIASTINUM: No significant abnormality. LUNGS / PLEURA: Redemonstrated multifocal airspace opacities. There is a left pleural effusion. No pn eumothorax. ADDITIONAL FINDINGS: No significant additional findings. IMPRESSION: 1. Status post extubation and removal of enteric tube. Redemonstrated multifocal airspace opacities. Left pleural effusion. Signer Name: Saad Marte DO Signed: 08/02/2021 3:20 AM Workstation Name: [id number]
[2021-08-02] MEDS: FREE WATER PO SCH ×4 (03:51→10:01)
[2021-08-02 04:59] LABS: Hematocrit 32.9 % (30.3-42.9); Hemoglobin 10.9 gm/dl (10.1-14.3); Mean Corpuscular HGB Conc 33 % (30-34); Mean Corpuscular Volume 82 fl (79-97); Platelet Count 185 K/mm3 (140-440); Red Blood Count 4.03 M/mm3 (3.65-5.03); Red Cell Distribution Width 16.9 % (13.2-15.2)
[2021-08-02 05:22] LABS: Albumin 3.6 g/dL (3.9-5); Calcium 9.4 mg/dL (8.4-10.2)
[2021-08-02] MEDS: INSULIN LISPRO 100 UNIT/ML SUB-Q SCH ×4 (10:02→19:39)
--- NOTE | 2021-08-02 11:07 | Progress Note ---
Assessment and Plan Cultures: Blood culture gram-positive cocci one of 4 bottles: Coag negative Staphylococcus Urine culture no growth 07/28/2021 tracheal aspirate culture: Usual respiratory chelsea A/P: 71-year-old female past medical history COPD, hypertension, morbid obesity presented to the hospital with confusion and shortness of breath. #Acute hypoxic respiratory failure: secondary to pneumonia: improved, off the vent. #VIJAY: Renally dose medications #Pneumonia, bilateral: Covid PCR negative #Coag negative staph bacteremia: 1 out of 4 bottles so far, likely contaminant. #Acute encephalopathy Recs: -Last day of cefepime today Jose Rucker MD, FACP [facility] O: [phone] F: [phone] Subjective Date of service: 08/02/21 Principal diagnosis: Cardiopulmonary Arrest Interval history: Awake, alert, extubated. No fever. Off pressors Objective - Exam Narrative Exam: Physical Exam: Constitutional: Alert, cooperative. No acute distress Head, Ears, Nose: Normocephalic, atraumatic. External ears, nose normal Eyes: Conjunctivae/corneas clear. No icterus. No ptosis. Neck: Supple, no meningeal signs Oral: dentition fair, no thrush Cardiovascular: S1, S2 + Respiratory: Good air entry, clear to auscultation bilaterally GI: Soft, non-tender; bowel sounds normal. No peritoneal signs Musculoskeletal: No pedal edema, no cyanosis. Skin: No rash or abscess Hem/Lymphatic: No palpable cervical or supraclavicular nodes. No lymphangitis Psych: No agitation Neurological: Awake, alert, answering basic questions - Constitutional Vitals: Vital Signs Temp Pulse Resp BP Pulse Ox 98.8 F 79 16 180/91 98 08/02/21 03:41 08/02/21 10:00 08/02/21 10:00 08/02/21 10:00 08/02/21 10:00 Temperature -Last 24 Hours Temperature 98.8 F Temperature 98.0 F Temperature 97.8 F - Labs CBC & Chem 7: 08/02/21 04:40 08/02/21 04:40 Labs: Abnormal lab results 08/01/21 08/01/21 08/02/21 Range/Units 11:56 21:41 04:40 WBC 13.3 H (4.5-11.0) K/mm3 MCH 27 L (28-32) pg RDW 16.9 H (13.2-15.2) % Sodium (137-145) mmol/L Chloride (98-107) mmol/L BUN (7-17) mg/dL Creatinine (0.6-1.2) mg/dL Glucose (65-100) mg/dL POC Glucose 130 H 130 H (70-105) mg/dL Albumin (3.9-5) g/dL 08/02/21 08/02/21 Range/Units 04:40 05:34 WBC (4.5-11.0) K/mm3 MCH (28-32) pg RDW (13.2-15.2) % Sodium 154 H (137-145) mmol/L Chloride 119.2 H (98-107) mmol/L BUN 52 H (7-17) mg/dL Creatinine 1.8 H (0.6-1.2) mg/dL Glucose 132 H (65-100) mg/dL POC Glucose 120 H (70-105) mg/dL Albumin 3.6 L (3.9-5) g/dL
--- NOTE | 2021-08-02 11:40 | Progress Note ---
Assessment and Plan - Patient Problems (1) VIJAY (acute kidney injury) Current Visit: Yes Status: Acute Plan to address problem: Likely pre-renal vs ATN in the setting of cardiac arrest and sepsis, with initial blood cultures now showing gram (+) cocci in clusters. Chest Xray also concerning for possible pneumonia. Avoid nephrotoxins, maintain MAP >65mmHg. Remains non-oliguric at this time. Labs this am continues to indicate improved renal function. (2) Hypernatremia Current Visit: No Status: Acute Plan to address problem: increased free water flushes to 200cc q4h, if Na continues to rise will add D5W. (3) Acute respiratory failure with hypoxia Current Visit: Yes Status: Acute Plan to address problem: Vent management per ICU/pulmonary team (4) Cardiac arrest Current Visit: Yes Status: Acute Plan to address problem: With ROSC at this time ECHO results reviewed. Further recommendations per cardiology. (5) DM2 (diabetes mellitus, type 2) Current Visit: Yes Status: Chronic Plan to address problem: DM management per primary attending. (6) Bacteremia Current Visit: Yes Status: Acute Plan to address problem: Initial blood cultures are showing Coag negative staphylococcus. ID recommendations reviewed. (7) Bilateral pneumonia Current Visit: Yes Status: Acute Plan to address problem: Chest xray is showing improvement since admission. Please ensure that antibiotics are dosed appropriately for decreased renal function. COVID -19 test negative Subjective Date of service: 08/02/21 Principal diagnosis: Cardiopulmonary Arrest Interval history: Pt awake, alert, in no acute distress Objective - Vital Signs Vital signs: Vital Signs - 12hr 08/01/21 08/02/21 08/02/21 23:45 00:00 00:15 Temperature 98.0 F Pulse Rate 86 82 84 Pulse Rate [ 86 From Monitor] Pulse Rate [ 84 Left Radial] Respiratory 16 21 18 Rate Blood Pressure 164/88 166/82 166/82 O2 Sat by Pulse 99 98 98 Oximetry 08/02/21 08/02/21 08/02/21 00:31 00:45 01:00 Temperature Pulse Rate 82 79 88 Pulse Rate [ From Monitor] Pulse Rate [ Left Radial] Respiratory 20 16 19 Rate Blood Pressure 166/82 166/82 164/74 O2 Sat by Pulse 98 98 99 Oximetry 08/02/21 08/02/21 08/02/21 01:15 01:31 01:45 Temperature Pulse Rate 93 H 91 H 83 Pulse Rate [ From Monitor] Pulse Rate [ Left Radial] Respiratory 20 19 22 Rate Blood Pressure 164/74 164/74 164/74 O2 Sat by Pulse 99 99 99 Oximetry 08/02/21 08/02/21 08/02/21 02:00 02:15 02:31 Temperature Pulse Rate 78 81 82 Pulse Rate [ From Monitor] Pulse Rate [ Left Radial] Respiratory 19 21 19 Rate Blood Pressure 164/75 164/75 164/75 O2 Sat by Pulse 98 99 99 Oximetry 08/02/21 08/02/21 08/02/21 02:45 03:01 03:15 Temperature Pulse Rate 93 H 89 83 Pulse Rate [ From Monitor] Pulse Rate [ Left Radial] Respiratory 23 18 19 Rate Blood Pressure 164/75 164/75 164/75 O2 Sat by Pulse 99 96 100 Oximetry 08/02/21 08/02/21 08/02/21 03:31 03:41 03:45 Temperature 98.8 F Pulse Rate 84 79 Pulse Rate [ From Monitor] Pulse Rate [ Left Radial] Respiratory 21 20 Rate Blood Pressure 164/75 164/75 O2 Sat by Pulse 99 99 Oximetry 08/02/21 08/02/21 08/02/21 04:00 04:01 04:15 Temperature Pulse Rate 84 88 84 Pulse Rate [ 86 From Monitor] Pulse Rate [ 82 Left Radial] Respiratory 17 14 Rate Blood Pressure 136/54 136/54 O2 Sat by Pulse 96 96 Oximetry 08/02/21 08/02/21 08/02/21 04:31 04:45 05:00 Temperature Pulse Rate 84 93 H 79 Pulse Rate [ From Monitor] Pulse Rate [ Left Radial] Respiratory 18 22 18 Rate Blood Pressure 136/54 136/54 128/50 O2 Sat by Pulse Oximetry 08/02/21 08/02/21 08/02/21 05:15 05:31 05:45 Temperature Pulse Rate 91 H 80 83 Pulse Rate [ From Monitor] Pulse Rate [ Left Radial] Respiratory 16 20 19 Rate Blood Pressure 128/50 128/50 128/50 O2 Sat by Pulse Oximetry 08/02/21 08/02/21 08/02/21 06:00 06:15 06:31 Temperature Pulse Rate 78 83 88 Pulse Rate [ From Monitor] Pulse Rate [ Left Radial] Respiratory 19 15 20 Rate Blood Pressure 140/64 140/64 140/64 O2 Sat by Pulse Oximetry 08/02/21 08/02/21 08/02/21 06:45 07:00 07:15 Temperature Pulse Rate 86 86 75 Pulse Rate [ From Monitor] Pulse Rate [ Left Radial] Respiratory 14 14 13 Rate Blood Pressure 140/64 140/64 140/67 O2 Sat by Pulse Oximetry 08/02/21 08/02/21 08/02/21 07:31 07:45 08:01 Temperature Pulse Rate 79 79 92 H Pulse Rate [ From Monitor] Pulse Rate [ Left Radial] Respiratory 17 17 19 Rate Blood Pressure 140/67 140/67 140/67 O2 Sat by Pulse Oximetry 08/02/21 08/02/21 08/02/21 08:15 08:31 08:45 Temperature Pulse Rate 81 78 77 Pulse Rate [ From Monitor] Pulse Rate [ Left Radial] Respiratory 14 19 16 Rate Blood Pressure 140/67 140/67 140/67 O2 Sat by Pulse Oximetry 08/02/21 08/02/21 08/02/21 09:01 09:15 09:31 Temperature Pulse Rate 78 74 73 Pulse Rate [ From Monitor] Pulse Rate [ Left Radial] Respiratory 16 17 17 Rate Blood Pressure 140/67 140/67 140/67 O2 Sat by Pulse Oximetry 08/02/21 08/02/21 09:45 10:00 Temperature Pulse Rate 75 79 Pulse Rate [ From Monitor] Pulse Rate [ Left Radial] Respiratory 12 16 Rate Blood Pressure 168/84 180/91 O2 Sat by Pulse 97 98 Oximetry - General Appearance General appearance: well-developed, well-nourished, appears stated age EENT: ATNC, PERRL, mucous membranes moist Neck: no JVD Respiratory: Present: Clear to Ascultation Cardiology: regular, S1S2 Gastrointestinal: normoactive bowel sounds Integumentary: no rash Neurologic: no focal deficit, alert and oriented x3, strength 5/5, CN 3-12 intact - Lab 08/02/21 04:40 08/02/21 04:40 Most recent lab results ABG pH 7.337 (7.320-7.450) 08/01/21 04:04 ABG pCO2 28.3 mm Hg 07/30/21 13:00 ABG pO2 116.9 mm Hg (80.0-90.0) H 07/30/21 13:00 ABG HCO3 15.4 mmol/L (20.0-26.0) L 07/30/21 13:00 ABG O2 Saturation 95.1 (0-100) 08/01/21 04:04 Calcium 9.4 mg/dL (8.4-10.2) 08/02/21 04:40 Phosphorus 4.20 mg/dL (2.5-4.5) 07/31/21 08:10 Magnesium 2.30 mg/dL (1.7-2.3) 07/31/21 08:10 Urine Creatinine 173.3 mg/dL (0.1-20.0) H 07/28/21 Unknown Urine Sodium 57 mmol/L 07/28/21 Unknown Medications & Allergies - Medications Allergies/Adverse Reactions: Allergies metformin Allergy (Verified 07/29/21 09:42) Unknown lactose Adverse Reaction (Verified 07/29/21 09:42) Diarrhea Home Medications: Home Medications Medication Instructions Recorded Confirmed Last Taken Type Acetaminophen 650 mg PO Q4H PRN 01/28/20 07/28/21 Unknown History Aspirin [Aspirin BABY CHEW TAB] 81 mg PO QDAY 01/28/20 07/28/21 Unknown History Atorvastatin Calcium [Lipitor] 40 mg PO QHS 01/28/20 07/28/21 Unknown History Benazepril HCl [Lotensin] 20 mg PO DAILY 01/28/20 07/28/21 Unknown History Donepezil HCl [Donepezil HCl Odt] 10 mg PO QHS 01/28/20 07/28/21 Unknown History Furosemide [Lasix TAB] 20 mg PO QDAY 01/28/20 07/28/21 Unknown History Insulin Glargine,Hum.rec.anlog 25 unit SQ BID 01/28/20 07/28/21 Unknown History [Lantus Solostar] Linagliptin [Tradjenta] 5 mg PO QDAY 01/28/20 07/28/21 Unknown History [place]-3/Dha/Epa/Fish Oil [Fish Oil 500 mg PO DAILY 01/28/20 07/28/21 Unknown History 500 mg Softgel] Quetiapine Fumarate [SEROquel] 50 mg PO HS 01/28/20 07/28/21 Unknown History allopurinoL [Zyloprim] 100 mg PO QHS 01/28/20 07/28/21 Unknown History hydrALAZINE [Apresoline TAB] 50 mg PO BID 01/28/20 07/28/21 Unknown History ALBUTEROL NEB's [Proventil 0.083% 2.5 mg IH Q4HRT PRN nebu 02/14/20 07/28/21 Unknown Rx NEBS] Simple Syrup 15 ml FEEDTUBE PRN PRN oral.liqd 02/14/20 07/28/21 Unknown Rx Simple Syrup 30 ml FEEDTUBE PRN PRN oral.liqd 02/14/20 07/28/21 Unknown Rx Sodium Bicarbonate 325 mg FEEDTUBE PRN PRN tablet 02/14/20 07/28/21 Unknown Rx Fenofibrate 40 mg PO DAILY 07/28/21 07/28/21 Unknown History amLODIPine [Norvasc] 10 mg PO DAILY 07/28/21 07/28/21 Unknown History Active Medications: Generic Name Dose Route Start Last Admin Trade Name Freq PRN Reason Stop Dose Admin Acetaminophen 650 mg 07/28/21 13:00 Acetaminophen 325 Mg Tab PO Q6H PRN Pain MILD(1-3)/Fever >100.5/GARCIA Albuterol 2.5 mg 07/28/21 14:00 Albuterol 2.5 Mg/3 Ml Nebu IH Q3HRT PRN Shortness Of Breath Allopurinol 100 mg 07/29/21 22:00 08/01/21 22:44 Allopurinol 100 Mg Tab PO 100 mg QHS WIL Administration Amlodipine Besylate 10 mg 08/02/21 12:00 Amlodipine 10 Mg Tab PO DAILY WIL Lipase/Protease/Amylase 1 each 07/28/21 16:23 Lipase 10,500/Protease 25,000/Amylase 43,750 (Units) Dr Carmona FEEDTUBE PRN PRN For Clogged Feeding Tube Ascorbic Acid 500 mg 07/29/21 10:00 08/01/21 09:15 Ascorbic Acid 500 Mg Tab PO 500 mg QDAY [facility]IL Administration Aspirin 81 mg 07/29/21 10:00 08/01/21 09:14 Aspirin 81 Mg Tab Chew PO 81 mg QDAY [facility]IL Administration Atorvastatin Calcium 80 mg 07/28/21 22:00 08/01/21 22:43 Atorvastatin 40 Mg Tab PO 80 mg QHS WIL Administration Cholecalciferol 2,000 unit 07/29/21 10:00 08/01/21 09:14 Cholecalciferol (Vit D3) 1000 Unit (25 Mcg) Tab PO 2,000 unit QDAY [facility] Administration Dextrose 50 ml 07/28/21 18:05 Dextrose 50% In Water (25gm) 50 Ml Syringe IV Q30MIN PRN Hypoglycemia Protocol Donepezil HCl 10 mg 07/28/21 22:00 08/01/21 22:43 Donepezil 10 Mg Tab PO 10 mg QHS [facility]IL Administration Famotidine 10 mg 07/29/21 10:00 08/01/21 22:43 Famotidine 20 Mg/2 Ml Inj IV 10 mg BID WIL Administration Fish Oil 1,000 mg 08/02/21 12:00 [place]-3 Fatty Acids/Fish Oil 1 Gram Cap PO QDAY [facility] Hydralazine HCl 10 mg 08/01/21 18:18 08/01/21 22:58 Hydralazine 20 Mg/1 Ml Inj IV 10 mg Q4HR PRN Administration Hypertension Hydrophilic Ointment 1 applic 07/28/21 11:19 Lip Therapy Vaseline TP Q2HR PRN Dry Lips Cefepime HCl 2 gm in 100 mls @ 200 mls/hr 07/29/21 10:00 08/01/21 09:43 Cefepime/Ns 2 Gm/100 Ml IV Infused Q24H [facility] Infusion Protocol Insulin Glargine 10 units 07/29/21 22:00 08/01/21 22:44 Insulin Glargine 100 Units/Ml SUB-Q 10 units QHS [facility] Administration Insulin Human Lispro 0 unit 07/28/21 18:07 08/02/21 10:02 Insulin Lispro 100 Unit/Ml SUB-Q Not Given Q6HR [facility] Protocol Memantine 5 mg 07/29/21 10:00 08/01/21 22:45 Memantine 5 Mg Tab PO 5 mg BID [facility]IL Administration Multi-Ingred Cream/Lotion/Oil/Oint 1 applic 07/28/21 11:19 Mineral Oil/Petrolatum, White Ophth Oint 3.5 Gm OU Q4HR PRN Dry Eye(s) Ondansetron HCl 4 mg 08/01/21 17:53 Ondansetron 4 Mg/2 Ml Inj IV Q6H PRN Nausea And Vomiting Polyethylene Glycol 17 gm 08/02/21 10:00 Polyethylene Glycol 3350 17 Gm Powder PO QDAY [facility] Quetiapine Fumarate 50 mg 07/30/21 22:00 08/01/21 22:43 Quetiapine 25 Mg Tab PO 50 mg QHS [facility] Administration Senna/Docusate Sodium 1 tab 07/28/21 12:00 08/01/21 22:44 Sennosides/Docusate Sodium 8.6/50 Mg Tab FEEDTUBE 1 tab BID [facility]IL Administration Simple Syrup 15 ml 07/28/21 16:23 Simple Syrup 15 Ml FEEDTUBE PRN PRN Hypoglycemia Sodium Bicarbonate 325 mg 07/28/21 13:00 Sodium Bicarbonate 325 Mg Tab FEEDTUBE PRN PRN For Clogged Feeding Tube Sodium Chloride 10 ml 07/28/21 22:00 08/01/21 22:45 Sodium Chloride 0.9% 10 Ml Flush Syringe IV 10 ml BID [facility]IL Administration Sodium Chloride 10 ml 07/28/21 13:00 Sodium Chloride 0.9% 10 Ml Flush Syringe IV PRN PRN LINE FLUSH Zinc Sulfate 220 mg 07/29/21 10:00 08/01/21 09:15 Zinc Sulfate 220 Mg Cap PO 220 mg QDAY [facility]IL Administration
[2021-08-02] MEDS: SENNOSIDES/DOCUSATE SODIUM 8.6/50 MG TAB FEEDTUBE SCH ×2 (11:47→22:49)
[2021-08-02] MEDS: ASCORBIC ACID 500 MG TAB PO SCH (11:47)
[2021-08-02] MEDS: ASPIRIN 81 MG TAB CHEW PO SCH (11:47)
[2021-08-02] MEDS: CHOLECALCIFEROL (VIT D3) 1000 UNIT (25 mcg) TAB PO SCH (11:48)
[2021-08-02] MEDS: FAMOTIDINE 20 MG/2 ML INJ IV SCH ×2 (11:49→22:48)
[2021-08-02] MEDS: MEMANTINE 5 MG TAB PO SCH ×2 (11:55→22:47)
[2021-08-02] MEDS: ZINC SULFATE 220 MG CAP PO SCH (11:56)
[2021-08-02] MEDS: POLYETHYLENE GLYCOL 3350 17 GM POWDER PO SCH (12:17)
[2021-08-02] MEDS: hydrALAZINE 20 MG/1 ML INJ IV PRN (12:18)
[2021-08-02] MEDS: CEFEPIME/NS 2 GM/100 ML 2 GM/100 ML BAG IV SCH (13:15)
[2021-08-02] MEDS: amLODIPine 10 MG TAB PO SCH (13:35)
[2021-08-02] MEDS: METOPROLOL TARTRATE 25 MG TAB PO SCH ×2 (13:35→22:46)
--- NOTE | 2021-08-02 14:42 | Progress Note ---
Assessment and Plan Echo 07/29/2021 EF 50 to 55%, left ventricular systolic function is normal, right ventricular systolic function is normal, right ventricle is mildly dilated, trace mitral regurgitation, RSVP is 33 mmHg, mild to moderate tricuspid regurgitation Optimize antihypertensive regimen given that pt is now outside the 48-hr window of permissive HTN. Initiate Metoprolol 12.5mg PO BID. Pt is a candidate for NOACs in reference to underlying non-valvular AF. Per neuro notes patient should not begin anticoagulation until 08/07/2021. [id number] Score: 7 points HAS-BLED Score: 4 points Pt seen in conjunction with Dr. Kerr, who agrees with the assessment and plan of care. Will continue to follow. - Patient Problems (1) VIJAY (acute kidney injury) Current Visit: Yes Status: Acute (2) Acute respiratory failure with hypoxia Current Visit: Yes Status: Acute (3) Bilateral pneumonia Current Visit: Yes Status: Acute (4) Elevated troponin Current Visit: Yes Status: Acute (5) Paroxysmal atrial fibrillation Current Visit: Yes Status: Acute (6) Severe sepsis Current Visit: Yes Status: Acute Subjective Date of service: 08/02/21 Principal diagnosis: Cardiopulmonary Arrest Interval history: Patient resting in bed. No acute distress sinus 73 on monitor Objective Vital Signs Temp Pulse Pulse Pulse Resp BP Pulse Ox 08/02/21 14:19 74 185/98 08/02/21 13:35 78 08/02/21 12:18 78 183/92 08/02/21 10:00 79 16 180/91 98 08/02/21 09:45 75 12 168/84 97 08/02/21 09:31 73 17 140/67 08/02/21 09:15 74 17 140/67 08/02/21 09:01 78 16 140/67 08/02/21 08:45 77 16 140/67 08/02/21 08:31 78 19 140/67 08/02/21 08:15 81 14 140/67 08/02/21 08:01 92 H 19 140/67 08/02/21 07:45 79 17 140/67 08/02/21 07:31 79 17 140/67 08/02/21 07:15 75 13 140/67 08/02/21 07:00 86 14 140/64 08/02/21 06:45 86 14 140/64 08/02/21 06:31 88 20 140/64 08/02/21 06:15 83 15 140/64 08/02/21 06:00 78 19 140/64 08/02/21 05:45 83 19 128/50 08/02/21 05:31 80 20 128/50 08/02/21 05:15 91 H 16 128/50 08/02/21 05:00 79 18 128/50 08/02/21 04:45 93 H 22 136/54 08/02/21 04:31 84 18 136/54 08/02/21 04:15 84 14 136/54 08/02/21 04:01 88 17 136/54 96 08/02/21 04:00 84 86 82 96 08/02/21 03:45 79 20 164/75 99 08/02/21 03:41 98.8 F 08/02/21 03:31 84 21 164/75 99 08/02/21 03:15 83 19 164/75 100 08/02/21 03:01 89 18 164/75 96 08/02/21 02:45 93 H 23 164/75 99 08/02/21 02:31 82 19 164/75 99 08/02/21 02:15 81 21 164/75 99 08/02/21 02:00 78 19 164/75 98 08/02/21 01:45 83 22 164/74 99 08/02/21 01:31 91 H 19 164/74 99 08/02/21 01:15 93 H 20 164/74 99 08/02/21 01:00 88 19 164/74 99 08/02/21 00:45 79 16 166/82 98 08/02/21 00:31 82 20 166/82 98 08/02/21 00:15 84 18 166/82 98 08/02/21 00:00 98.0 F 82 86 84 21 166/82 98 08/01/21 23:45 86 16 164/88 99 08/01/21 23:31 91 H 16 164/88 98 08/01/21 23:21 94 H 17 164/88 99 08/01/21 23:15 92 H 19 164/88 98 08/01/21 23:10 92 H 21 164/88 98 08/01/21 23:00 81 16 164/88 08/01/21 22:58 82 181/81 08/01/21 22:45 83 19 177/86 08/01/21 22:31 72 16 177/86 08/01/21 22:15 76 15 177/86 08/01/21 22:00 76 15 177/86 08/01/21 21:45 77 14 179/87 08/01/21 21:31 82 18 185/89 08/01/21 21:15 81 18 185/89 08/01/21 21:01 81 19 185/89 08/01/21 20:45 81 20 185/89 08/01/21 20:31 89 14 185/89 08/01/21 20:15 82 19 185/89 08/01/21 20:01 81 18 185/89 08/01/21 20:00 97.8 F 86 86 86 96 08/01/21 19:45 79 16 185/89 08/01/21 19:31 80 17 185/89 08/01/21 19:15 79 16 185/89 08/01/21 19:01 80 16 185/89 08/01/21 18:45 81 18 185/89 08/01/21 18:31 185/89 97 08/01/21 18:15 84 20 185/89 97 08/01/21 18:00 91 H 14 171/90 95 08/01/21 17:45 82 14 178/88 93 08/01/21 17:30 80 13 172/81 94 08/01/21 17:16 94 08/01/21 17:15 85 16 173/84 94 08/01/21 17:00 80 14 169/85 94 08/01/21 16:45 81 14 174/86 93 08/01/21 16:30 87 14 171/85 93 08/01/21 16:15 88 15 177/80 95 08/01/21 16:00 86 16 177/81 96 08/01/21 15:54 91 H 08/01/21 15:45 86 16 164/85 96 08/01/21 15:30 83 14 177/82 93 08/01/21 15:15 93 H 14 167/92 95 08/01/21 15:00 90 16 168/81 94 08/01/21 14:45 94 H 18 152/80 93 - Physical Examination General: No Apparent Distress HEENT: Positive: Normocephaly Neck: Positive: trachea midline. Negative: JVD/HJR Cardiac: Positive: Reg Rate and Rhythm Lungs: Positive: Decreased Breath Sounds Neuro: Positive: Grossly Intact Abdomen: Positive: Soft Skin: Negative: Rash, Suspicious Lesions Musculoskeletal: No Fluid Collection Extremities: Present: lower extr. pulses. Absent: edema - Labs and Meds Cardiac Enzymes 08/02/21 Range/Units 04:40 AST 18 (5-40) units/L CBC 08/02/21 Range/Units 04:40 WBC 13.3 H (4.5-11.0) K/mm3 RBC 4.03 (3.65-5.03) M/mm3 Hgb 10.9 (10.1-14.3) gm/dl Hct 32.9 (30.3-42.9) % Plt Count 185 (140-440) K/mm3 Comprehensive Metabolic Panel 08/02/21 Range/Units 04:40 Sodium 154 H (137-145) mmol/L Potassium 4.0 (3.6-5.0) mmol/L Chloride 119.2 H (98-107) mmol/L Carbon Dioxide 22 (22-30) mmol/L BUN 52 H (7-17) mg/dL Creatinine 1.8 H (0.6-1.2) mg/dL Glucose 132 H (65-100) mg/dL Calcium 9.4 (8.4-10.2) mg/dL AST 18 (5-40) units/L ALT 37 (7-56) units/L Alkaline Phosphatase 82 (35-129) units/L Total Protein 7.2 (6.3-8.2) g/dL Albumin 3.6 L (3.9-5) g/dL - Imaging and Cardiology EKG: report reviewed, image reviewed Echo: report reviewed - Telemetry EKG Rhythm: Sinus Rhythm - EKG Sinus rhythms and dysrhythmias: sinus rhythm - Allied health notes Allied health notes reviewed: nursing
--- NOTE | 2021-08-02 16:46 | Progress Note ---
Assessment and Plan Acute hypoxemic respiratory failure s/p MVS Acute possibly on chronic toxic metabolic encephalopathy. Bilateral pneumonia. Congestive heart failure with possible acute exacerbation. Obesity. Severe sepsis with shock-resolved B.cult positive for Gram + cocci in clusters 1/2 Acute kidney injury. Oropharyngeal dysphagia. History of chronic obstructive pulmonary disease. History of congestive heart failure. Leukocytosis. Metabolic acidosis Hypernatremia -Titrate supplemental oxygen to keep SpO2 88-90% -RESEARCH INTERN for swallow evaluation, she has some coughing with bedside swallow evaluation -PT/OT to evaluate and treat -CXR, ABG as clinically indicated -VTE prophylaxis- SCDs - continue bronchodilators with pulmonary hygiene per RT - continue accuchecks with glycemic control per SSI (Target blood glucose of 140-180 mg/dL; avoid hypoglycemia) - continue to avoid benzodiazepines, reduce the possibility of delirium -Continue empiric AB to complete course- Cefepine and vancomycin. De-escalate based on culture data -Continue home meds- Aricept and memantine - continue to maintain sleep-wake cycle, avoid delirium - continue mobility protocol, off loading and frequent turning per facility protocols for pressure ulcer prevention -Influenza and pneumonia vaccination per facility protocol -Supportive transfusions as clinically indicated to keep HgB >7g/dL -Secondary stroke prophylaxis -Can transfer telemetry floor. Discussed with hospitalist service - continue other care per attending / other consultants CONDITION: FAIR PROGNOSIS: FAIR CODE STATUS: FULL CODE Subjective Date of service: 08/02/21 Principal diagnosis: Cardiopulmonary Arrest Interval history: Follow up for:Acute hypoxemic respiratory failure s/p MVS; Septic shock with PEA arresr, with ROSC; Acute encephalopathy, possibly toxic metabolic; Possible bilateral pulmonary edema;Hypertensive urgency;Acute kidney injury Seen and examined. Vitals,labs, medications, chart and imaging reviewed. Extubated yesterday and she has done well. No adverse overnight events reported. Discussed with nursing staff, respiratory staff No fevers, no diarrhea, no nausea or vomiting. Objective - Exam Narrative Exam: General appearance: Present: no acute distress, some agitation - EENT Eyes: Present: PERRL - Respiratory Respiratory effort: normal Respiratory: bilateral: diminished - Cardiovascular Rhythm: regular Heart Sounds: Present: S1 & S2 - Extremities Extremities: no ischemia, pulses intact, pulses symmetrical Extremity abnormal: edema - Peripheral Assessment Generalized Edema Type: Non-pitting Edema Degree: 1+ Capillary Refill: < 3 seconds Skin Temperature: Warm Peripheral Pulses: within normal limits - Abdominal General gastrointestinal: soft, non-tender, normal bowel sounds - Integumentary Integumentary: Present: clear, warm, dry - Psychiatric Psychiatric: other (Sedated) - Neurologic Neurologic: other - moving all extremities , obeys simple commands Vital Signs - 12hr 08/02/21 08/02/21 08/02/21 05:00 05:15 05:31 Temperature Pulse Rate 79 91 H 80 Respiratory 18 16 20 Rate Blood Pressure 128/50 128/50 128/50 O2 Sat by Pulse Oximetry 08/02/21 08/02/21 08/02/21 05:45 06:00 06:15 Temperature Pulse Rate 83 78 83 Respiratory 19 19 15 Rate Blood Pressure 128/50 140/64 140/64 O2 Sat by Pulse Oximetry 08/02/21 08/02/21 08/02/21 06:31 06:45 07:00 Temperature Pulse Rate 88 86 86 Respiratory 20 14 14 Rate Blood Pressure 140/64 140/64 140/64 O2 Sat by Pulse Oximetry 08/02/21 08/02/21 08/02/21 07:15 07:31 07:45 Temperature Pulse Rate 75 79 79 Respiratory 13 17 17 Rate Blood Pressure 140/67 140/67 140/67 O2 Sat by Pulse Oximetry 08/02/21 08/02/21 08/02/21 08:01 08:15 08:31 Temperature Pulse Rate 92 H 81 78 Respiratory 19 14 19 Rate Blood Pressure 140/67 140/67 140/67 O2 Sat by Pulse Oximetry 08/02/21 08/02/21 08/02/21 08:45 09:01 09:15 Temperature Pulse Rate 77 78 74 Respiratory 16 16 17 Rate Blood Pressure 140/67 140/67 140/67 O2 Sat by Pulse Oximetry 08/02/21 08/02/21 08/02/21 09:31 09:45 10:00 Temperature Pulse Rate 73 75 79 Respiratory 17 12 16 Rate Blood Pressure 140/67 168/84 180/91 O2 Sat by Pulse 97 98 Oximetry 08/02/21 08/02/21 08/02/21 12:18 13:35 14:19 Temperature Pulse Rate 78 78 74 Respiratory Rate Blood Pressure 183/92 185/98 O2 Sat by Pulse Oximetry 08/02/21 16:00 Temperature 98.4 F Pulse Rate Respiratory Rate Blood Pressure O2 Sat by Pulse Oximetry CBC and BMP: 08/02/21 04:40 08/02/21 04:40 ABG, PT/INR, D-dimer: ABG ABG pH 7.337 (7.320-7.450) 08/01/21 04:04 POC ABG pCO2 36.2 mmHg (32.0-48.0) 08/01/21 04:04 ABG pCO2 28.3 mm Hg 07/30/21 13:00 POC ABG pO2 79.3 mmHg (83-108) L 08/01/21 04:04 ABG pO2 116.9 mm Hg (80.0-90.0) H 07/30/21 13:00 POC ABG HCO3 19.0 08/01/21 04:04 ABG O2 Saturation 95.1 (0-100) 08/01/21 04:04 PT/INR, D-dimer PT 16.6 Sec. (12.2-14.9) H 07/28/21 11:09 INR 1.21 (0.87-1.13) H 07/28/21 11:09 Abnormal lab findings: Abnormal Labs 07/28/21 07/28/21 07/28/21 11:09 11:09 11:09 WBC 13.5 H MCH 26 L RDW 17.6 H Lymph % (Auto) 12.0 L [place] % (Auto) [place] # (Auto) 0.9 H Seg Neutrophils % 80.4 H Seg Neutrophils # 10.8 H PT 16.6 H INR 1.21 H ABG pH POC ABG pCO2 POC ABG pO2 ABG pO2 ABG HCO3 ABG Base Excess ABG Hemoglobin ABG Oxyhemoglobin ABG Sodium ABG Potassium ABG Chloride ABG Glucose Carboxyhemoglobin Sodium Chloride Carbon Dioxide 16 L BUN 78 H Creatinine 9.1 H Glucose 224 H POC Glucose Lactic Acid Calcium 7.7 L ALT Total Creatine Kinase Troponin T 0.063 H Albumin Triglycerides 226 H Arterial Blood Glucose Arterial Blood Ionized Calcium Urine WBC (Auto) Urine Creatinine 07/28/21 07/28/21 07/28/21 11:09 11:09 12:24 WBC MCH RDW Lymph % (Auto) [place] % (Auto) [place] # (Auto) Seg Neutrophils % Seg Neutrophils # PT INR ABG pH 7.049 L* POC ABG pCO2 POC ABG pO2 ABG pO2 135.4 H ABG HCO3 13.4 L ABG Base Excess -16.5 L ABG Hemoglobin 10.8 L ABG Oxyhemoglobin ABG Sodium ABG Potassium ABG Chloride ABG Glucose Carboxyhemoglobin Sodium Chloride Carbon Dioxide BUN Creatinine Glucose POC Glucose Lactic Acid 7.30 H* Calcium ALT Total Creatine Kinase 840 H Troponin T Albumin Triglycerides Arterial Blood Glucose Arterial Blood Ionized Calcium Urine WBC (Auto) Urine Creatinine 07/28/21 07/28/21 07/28/21 17:25 18:18 23:20 WBC MCH RDW Lymph % (Auto) [place] % (Auto) [place] # (Auto) Seg Neutrophils % Seg Neutrophils # PT INR ABG pH 7.118 L POC ABG pCO2 POC ABG pO2 124.3 H ABG pO2 ABG HCO3 ABG Base Excess ABG Hemoglobin ABG Oxyhemoglobin ABG Sodium ABG Potassium 5.1 H ABG Chloride ABG Glucose 406 H Carboxyhemoglobin Sodium Chloride Carbon Dioxide BUN Creatinine Glucose POC Glucose 328 H 270 H Lactic Acid Calcium ALT Total Creatine Kinase Troponin T Albumin Triglycerides Arterial Blood Glucose 406 H Arterial Blood Ionized Calcium 3.8 L Urine WBC (Auto) Urine Creatinine 07/28/21 07/28/21 07/29/21 Unknown Unknown 04:27 WBC 14.0 H MCH 26 L RDW 17.1 H Lymph % (Auto) 10.1 L [place] % (Auto) 8.1 H [place] # (Auto) 1.1 H Seg Neutrophils % 81.6 H Seg Neutrophils # 11.4 H PT INR ABG pH POC ABG pCO2 POC ABG pO2 ABG pO2 ABG HCO3 ABG Base Excess ABG Hemoglobin ABG Oxyhemoglobin ABG Sodium ABG Potassium ABG Chloride ABG Glucose Carboxyhemoglobin Sodium Chloride Carbon Dioxide BUN Creatinine Glucose POC Glucose Lactic Acid Calcium ALT Total Creatine Kinase Troponin T Albumin Triglycerides Arterial Blood Glucose Arterial Blood Ionized Calcium Urine WBC (Auto) 23.0 H Urine Creatinine 173.3 H 07/29/21 07/29/21 07/29/21 04:27 05:34 08:38 WBC MCH RDW Lymph % (Auto) [place] % (Auto) [place] # (Auto) Seg Neutrophils % Seg Neutrophils # PT INR ABG pH POC ABG pCO2 21.7 L POC ABG pO2 199.3 H ABG pO2 ABG HCO3 ABG Base Excess ABG Hemoglobin 11.8 L ABG Oxyhemoglobin 98.9 H ABG Sodium ABG Potassium ABG Chloride 113.0 H ABG Glucose 181 H Carboxyhemoglobin 0.2 L Sodium Chloride Carbon Dioxide 14 L BUN 77 H Creatinine 7.6 H Glucose 211 H POC Glucose 187 H Lactic Acid Calcium 7.6 L ALT Total Creatine Kinase Troponin T Albumin Triglycerides Arterial Blood Glucose 181 H Arterial Blood Ionized Calcium Urine WBC (Auto) Urine Creatinine 07/29/21 07/29/21 07/29/21 11:31 17:51 22:35 WBC MCH RDW Lymph % (Auto) [place] % (Auto) [place] # (Auto) Seg Neutrophils % Seg Neutrophils # PT INR ABG pH POC ABG pCO2 POC ABG pO2 ABG pO2 ABG HCO3 ABG Base Excess ABG Hemoglobin ABG Oxyhemoglobin ABG Sodium ABG Potassium ABG Chloride ABG Glucose Carboxyhemoglobin Sodium Chloride Carbon Dioxide BUN Creatinine Glucose POC Glucose 140 H 141 H 194 H Lactic Acid Calcium ALT Total Creatine Kinase Troponin T Albumin Triglycerides Arterial Blood Glucose Arterial Blood Ionized Calcium Urine WBC (Auto) Urine Creatinine 07/30/21 07/30/21 07/30/21 04:00 04:00 05:12 WBC 15.6 H MCH 26 L RDW 16.8 H Lymph % (Auto) [place] % (Auto) [place] # (Auto) Seg Neutrophils % Seg Neutrophils # PT INR ABG pH POC ABG pCO2 POC ABG pO2 ABG pO2 ABG HCO3 ABG Base Excess ABG Hemoglobin ABG Oxyhemoglobin ABG Sodium ABG Potassium ABG Chloride ABG Glucose Carboxyhemoglobin Sodium Chloride 110.5 H Carbon Dioxide 16 L BUN 86 H Creatinine 5.9 H Glucose 183 H POC Glucose 162 H Lactic Acid Calcium 8.0 L ALT 57 H Total Creatine Kinase Troponin T Albumin 3.2 L Triglycerides Arterial Blood Glucose Arterial Blood Ionized Calcium Urine WBC (Auto) Urine Creatinine 07/30/21 07/30/21 07/30/21 12:04 13:00 17:20 WBC MCH RDW Lymph % (Auto) [place] % (Auto) [place] # (Auto) Seg Neutrophils % Seg Neutrophils # PT INR ABG pH POC ABG pCO2 POC ABG pO2 ABG pO2 116.9 H ABG HCO3 15.4 L ABG Base Excess -8.9 L ABG Hemoglobin 10.2 L ABG Oxyhemoglobin ABG Sodium ABG Potassium ABG Chloride ABG Glucose Carboxyhemoglobin Sodium Chloride Carbon Dioxide BUN Creatinine Glucose POC Glucose 145 H 126 H Lactic Acid Calcium ALT Total Creatine Kinase Troponin T Albumin Triglycerides Arterial Blood Glucose Arterial Blood Ionized Calcium Urine WBC (Auto) Urine Creatinine 07/30/21 07/31/21 07/31/21 23:23 03:46 05:13 WBC MCH RDW Lymph % (Auto) [place] % (Auto) [place] # (Auto) Seg Neutrophils % Seg Neutrophils # PT INR ABG pH POC ABG pCO2 26.8 L POC ABG pO2 132.2 H ABG pO2 ABG HCO3 ABG Base Excess ABG Hemoglobin 10.2 L ABG Oxyhemoglobin ABG Sodium ABG Potassium ABG Chloride 115.0 H ABG Glucose 171 H Carboxyhemoglobin 0.3 L Sodium Chloride Carbon Dioxide BUN Creatinine Glucose POC Glucose 193 H 167 H Lactic Acid Calcium ALT Total Creatine Kinase Troponin T Albumin Triglycerides Arterial Blood Glucose 171 H Arterial Blood Ionized Calcium Urine WBC (Auto) Urine Creatinine 07/31/21 07/31/21 07/31/21 08:10 08:10 11:42 WBC 13.3 H MCH 26 L RDW 17.0 H Lymph % (Auto) [place] % (Auto) [place] # (Auto) Seg Neutrophils % Seg Neutrophils # PT INR ABG pH POC ABG pCO2 POC ABG pO2 ABG pO2 ABG HCO3 ABG Base Excess ABG Hemoglobin ABG Oxyhemoglobin ABG Sodium ABG Potassium ABG Chloride ABG Glucose Carboxyhemoglobin Sodium Chloride 111.8 H Carbon Dioxide 17 L BUN 86 H Creatinine 3.8 H Glucose 154 H POC Glucose 159 H Lactic Acid Calcium 8.3 L ALT Total Creatine Kinase Troponin T Albumin 3.3 L Triglycerides Arterial Blood Glucose Arterial Blood Ionized Calcium Urine WBC (Auto) Urine Creatinine 07/31/21 08/01/21 08/01/21 17:22 00:01 04:04 WBC MCH RDW Lymph % (Auto) [place] % (Auto) [place] # (Auto) Seg Neutrophils % Seg Neutrophils # PT INR ABG pH POC ABG pCO2 POC ABG pO2 79.3 L ABG pO2 ABG HCO3 ABG Base Excess ABG Hemoglobin 10.2 L ABG Oxyhemoglobin ABG Sodium 146.8 H ABG Potassium ABG Chloride 117.0 H ABG Glucose 138 H Carboxyhemoglobin 0.3 L Sodium Chloride Carbon Dioxide BUN Creatinine Glucose POC Glucose 115 H 123 H Lactic Acid Calcium ALT Total Creatine Kinase Troponin T Albumin Triglycerides Arterial Blood Glucose 138 H Arterial Blood Ionized Calcium Urine WBC (Auto) Urine Creatinine 08/01/21 08/01/21 08/01/21 06:00 08:55 08:55 WBC 12.2 H MCH 27 L RDW 17.0 H Lymph % (Auto) [place] % (Auto) [place] # (Auto) Seg Neutrophils % Seg Neutrophils # PT INR ABG pH POC ABG pCO2 POC ABG pO2 ABG pO2 ABG HCO3 ABG Base Excess ABG Hemoglobin ABG Oxyhemoglobin ABG Sodium ABG Potassium ABG Chloride ABG Glucose Carboxyhemoglobin Sodium 150 H Chloride 117.9 H Carbon Dioxide 21 L BUN 71 H Creatinine 2.7 H Glucose 174 H POC Glucose 118 H Lactic Acid Calcium 8.3 L ALT Total Creatine Kinase Troponin T Albumin Triglycerides Arterial Blood Glucose Arterial Blood Ionized Calcium Urine WBC (Auto) Urine Creatinine 08/01/21 08/01/21 08/02/21 11:56 21:41 04:40 WBC 13.3 H MCH 27 L RDW 16.9 H Lymph % (Auto) [place] % (Auto) [place] # (Auto) Seg Neutrophils % Seg Neutrophils # PT INR ABG pH POC ABG pCO2 POC ABG pO2 ABG pO2 ABG HCO3 ABG Base Excess ABG Hemoglobin ABG Oxyhemoglobin ABG Sodium ABG Potassium ABG Chloride ABG Glucose Carboxyhemoglobin Sodium Chloride Carbon Dioxide BUN Creatinine Glucose POC Glucose 130 H 130 H Lactic Acid Calcium ALT Total Creatine Kinase Troponin T Albumin Triglycerides Arterial Blood Glucose Arterial Blood Ionized Calcium Urine WBC (Auto) Urine Creatinine 08/02/21 08/02/21 08/02/21 04:40 05:34 12:16 WBC MCH RDW Lymph % (Auto) [place] % (Auto) [place] # (Auto) Seg Neutrophils % Seg Neutrophils # PT INR ABG pH POC ABG pCO2 POC ABG pO2 ABG pO2 ABG HCO3 ABG Base Excess ABG Hemoglobin ABG Oxyhemoglobin ABG Sodium ABG Potassium ABG Chloride ABG Glucose Carboxyhemoglobin Sodium 154 H Chloride 119.2 H Carbon Dioxide BUN 52 H Creatinine 1.8 H Glucose 132 H POC Glucose 120 H 117 H Lactic Acid Calcium ALT Total Creatine Kinase Troponin T Albumin 3.6 L Triglycerides Arterial Blood Glucose Arterial Blood Ionized Calcium Urine WBC (Auto) Urine Creatinine Allied health notes reviewed: nursing
--- NOTE | 2021-08-02 17:24 | Progress Note ---
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 -Consult Neurology for input on anticoagulation for AFib/CVA prophylaxis -MRI brain pending -Restart home meds- Aricept and memantine -Reduce the possibility of delirium, continue seroquel -Maintenance of sleep-wake cycle CV: S/p Cardiac arrest, Atrial Fibrillation, s/p Hypotension, H/o CHF -SR today -Post ROSC EKG showed Afib RVR, HR 120s -07/30 2D Echo- EF 50 to 55%, left ventricular systolic function is normal, right ventricular systolic function is normal, right ventricle is mildly dilated, trace mitral regurgitation, RSVP is 33 mmHg, mild to moderate tricuspid regurgitation -s/p Levo and Vaso -Cardiology on consult, appreciated recommendations -Per cardio no indication for KENROY to r/o endocaditis at this time Pulm: Acute Hypoxemic Respiratory Failure, Bilateral pneumonia, H/o COPD -Intubated with OETT on 07/28 and extubated 08/01 -SpO2 monitoring -Pulmanory hygiene -Supplemental oxygenation if needed GI: -Bedside swallow eval completed with excessive burping -ST eval: Findings revealed decreased laryngeal elevation and excessive burping following each bite. No evidence of aspiration was identified; however noted burping may be attributed to GERD. Recommend a Barium Swallow study to rule out an esophageal stricture, NOT an MBS. Recommend a mechanical soft diet with ground meats and regular liquids. Will follow to ensure continued safety. -Continue current BR- senokot -Continue PPI- Pepcid : Acute Kidney Injury (VIJAY) possible 2/2 sepsis shock, hypernatremia, H/o CKD -Baseline cr. is 1, cr. on admit as high as 9.1 but now down trending -Strict intake and output -Menjivar in place -remove menjivar 08/03 if renal function continues to improve -24 (+) 465 -Nephrology on consult, appreciate recommendations -Started on D5W@ 42 -Avoid nephrotoxic medications -Renally dose medications -Trend BMP ID: Sepsis Shock, Bilateral pneumonia, Lactic Acidosis- resolved -PNA on CXr -COVID PCR (-) -Abx- Cefepime -Follow culture blood data -Monitor fever and WBC curve -ID consulted, appreciate recommendations Endo: Hyperglycemia, H/o DM2 -SSI ACHS -Lantus qHS -While critically ill target blood glucose of 140-180 -Avoid hypoglycemia The high probability of a clinically significant, sudden or life threatening deterioration of the [multi] system(s) required my full and direct attention, intervention and personal management. The aggregate critical care time was [60] minutes. This time is in addition to time spent performing reported procedures but includes the following: [x] Data Review and interpretation [x] Patient assessment and monitoring of vital signs [x] Documentation [x] Medication orders and management Disposition Plan: transfer to floor Total Time Spent with Patient (Minutes): 60 History Interval history: This a 71 years-old female with PmHx of dementia, COPD, HTN, HLD, CHF, brain aneurysm, CVA, CKD, and DM2 who was brought in via EMS from a nursing due to confusion, SOB, and hypotension. Upon her arrival in the ED patient was found stuporous/obtunded and required intubation for airway protection. Subsequently after patient went into cardiac arrest, ROSC was achieved after 1 round of ACLS. Patient was then transferred to the ICU for further management. 07/29/21- Patient remains intubated and sedated on versed and fentynal, on pressors. Consult place for cardio s/p cardiac arrest, ID was consulted for sepsis, and Neuro consult for AC rec due to Afib/CVA. Basal insulin was added for blood glucose control. Will continue to monitor renal function and electrolytes, am labs ordered. 07/30/21- Patient remains intubated and sedated, on propofol and fentanyl RASS 0 to -2. Remains on low dose pressors, SB noted this am. Pending MRI brain today. 07/31/21- Patient remains intubated and sedated. RASS 0 to -2. On low vent set tings, plan for SAT and SBT today. Patient remains on low dose pressors, kidney function is improvement, high chloremia noted thoday and hemodynamics are labile, will start gentle hydration NS at 75ml/hr X1L. Will continue to monitor renal function and electrolytes. 08/01/21- Patient remains intubated and sedated on low dose sedation RASS 0 to - 1. SAT and SBT today, will extubated if tolerated. Hypernatremia noted from this am lab will start FWF at 250 Q4hrs, will reassess in the am. Per cardio no indication for Kenroy at this time. Renal function is improving responding to current treatment. Will continue to monitor renal function and electrolytes. 08/02: hypernatremia persists, Cr improved, ST eval at bedside, transfer to floor. Hospitalist Physical - Constitutional Vitals: Temp Pulse Resp BP Pulse Ox 98.4 F 74 16 185/98 98 08/02/21 16:00 08/02/21 14:19 08/02/21 10:00 08/02/21 14:19 08/02/21 10:00 General appearance: Present: no acute distress, other (Intubated and sedated) HEART Score - HEART Score Troponin: Troponin T 0.063 ng/mL (0.00-0.029) H 07/28/21 11:09 Results - Labs CBC & Chem 7: 08/02/21 04:40 08/02/21 04:40 Labs: Laboratory Last Values WBC 13.3 K/mm3 (4.5-11.0) H 08/02/21 04:40 RBC 4.03 M/mm3 (3.65-5.03) 08/02/21 04:40 Hgb 10.9 gm/dl (10.1-14.3) 08/02/21 04:40 Hct 32.9 % (30.3-42.9) 08/02/21 04:40 MCV 82 fl (79-97) 08/02/21 04:40 MCH 27 pg (28-32) L 08/02/21 04:40 MCHC 33 % (30-34) 08/02/21 04:40 RDW 16.9 % (13.2-15.2) H 08/02/21 04:40 Plt Count 185 K/mm3 (140-440) 08/02/21 04:40 Lymph % (Auto) 10.1 % (13.4-35.0) L 07/29/21 04:27 [place] % (Auto) 8.1 % (0.0-7.3) H 07/29/21 04:27 Eos % (Auto) 0.1 % (0.0-4.3) 07/29/21 04:27 Baso % (Auto) 0.1 % (0.0-1.8) 07/29/21 04:27 Lymph # (Auto) 1.4 K/mm3 (1.2-5.4) 07/29/21 04:27 [place] # (Auto) 1.1 K/mm3 (0.0-0.8) H 07/29/21 04:27 Eos # (Auto) 0.0 K/mm3 (0.0-0.4) 07/29/21 04:27 Baso # (Auto) 0.0 K/mm3 (0.0-0.1) 07/29/21 04:27 Seg Neutrophils % 81.6 % (40.0-70.0) H 07/29/21 04:27 Seg Neutrophils # 11.4 K/mm3 (1.8-7.7) H 07/29/21 04:27 PT 16.6 Sec. (12.2-14.9) H 07/28/21 11:09 INR 1.21 (0.87-1.13) H 07/28/21 11:09 APTT 25.0 Sec. (24.2-36.6) 07/28/21 11:09 ABG pH 7.337 (7.320-7.450) 08/01/21 04:04 POC ABG pCO2 36.2 mmHg (32.0-48.0) 08/01/21 04:04 ABG pCO2 28.3 mm Hg 07/30/21 13:00 POC ABG pO2 79.3 mmHg (83-108) L 08/01/21 04:04 ABG pO2 116.9 mm Hg (80.0-90.0) H 07/30/21 13:00 POC ABG HCO3 19.0 08/01/21 04:04 ABG HCO3 15.4 mmol/L (20.0-26.0) L 07/30/21 13:00 ABG O2 Saturation 95.1 (0-100) 08/01/21 04:04 ABG O2 Content 14.0 (0.0-44) 07/30/21 13:00 POC ABG Base Excess -6.2 08/01/21 04:04 ABG Base Excess -8.9 mmol/L (-2.0-3.0) L 07/30/21 13:00 ABG Hemoglobin 10.2 (12.0-17.5) L 08/01/21 04:04 ABG Oxyhemoglobin 94.5 (94-98) 08/01/21 04:04 ABG Carboxyhemoglobin 0.8 % (0.0-5.0) 07/30/21 13:00 ABG Methemoglobin 0.3 (0.0-1.5) 08/01/21 04:04 ABG Sodium 146.8 mmol/L (136.0-145.0) H 08/01/21 04:04 ABG Potassium 3.8 mmol/L (3.40-4.50) 08/01/21 04:04 ABG Chloride 117.0 mmol/L (98-107) H 08/01/21 04:04 ABG Glucose 138 mg/dL (65-95) H 08/01/21 04:04 Oxyhemoglobin 96.8 % (95.0-99.0) 07/30/21 13:00 Carboxyhemoglobin 0.3 (0.5-1.5) L 08/01/21 04:04 FiO2 50 % 07/30/21 13:00 FiO2 % 35.0 08/01/21 04:04 Sodium 154 mmol/L (137-145) H 08/02/21 04:40 Potassium 4.0 mmol/L (3.6-5.0) 08/02/21 04:40 Chloride 119.2 mmol/L (98-107) H 08/02/21 04:40 Carbon Dioxide 22 mmol/L (22-30) 08/02/21 04:40 Anion Gap 17 mmol/L 08/02/21 04:40 BUN 52 mg/dL (7-17) H 08/02/21 04:40 Creatinine 1.8 mg/dL (0.6-1.2) H 08/02/21 04:40 Estimated GFR 33 ml/min 08/02/21 04:40 BUN/Creatinine Ratio 29 % 08/02/21 04:40 Glucose 132 mg/dL (65-100) H 08/02/21 04:40 POC Glucose 117 mg/dL (70-105) H 08/02/21 12:16 Lactic Acid 1.40 mmol/L (0.7-2.0) 07/29/21 04:27 Calcium 9.4 mg/dL (8.4-10.2) 08/02/21 04:40 Phosphorus 4.20 mg/dL (2.5-4.5) 07/31/21 08:10 Magnesium 2.30 mg/dL (1.7-2.3) 07/31/21 08:10 Total Bilirubin 0.30 mg/dL (0.1-1.2) 08/02/21 04:40 Direct Bilirubin < 0.2 mg/dL (0-0.2) 07/28/21 11:09 Indirect Bilirubin 0.0 mg/dL 07/28/21 11:09 AST 18 units/L (5-40) 08/02/21 04:40 ALT 37 units/L (7-56) 08/02/21 04:40 Alkaline Phosphatase 82 units/L (35-129) 08/02/21 04:40 Ammonia 49.0 umol/L (25-60) 07/28/21 11:09 Total Creatine Kinase 840 units/L (30-135) H 07/28/21 11:09 Troponin T 0.063 ng/mL (0.00-0.029) H 07/28/21 11:09 NT-Pro-B Natriuret Pep 312.4 pg/mL (0-900) 07/28/21 11:09 Total Protein 7.2 g/dL (6.3-8.2) 08/02/21 04:40 Albumin 3.6 g/dL (3.9-5) L 08/02/21 04:40 Albumin/Globulin Ratio 1.0 % 08/02/21 04:40 Triglycerides 226 mg/dL (2-149) H 07/28/21 11:09 Cholesterol 175 mg/dL (50-199) 07/28/21 11:09 LDL Cholesterol Direct 84 mg/dL (50-130) 07/28/21 11:09 HDL Cholesterol 47 mg/dL (40-59) 07/28/21 11:09 Cholesterol/HDL Ratio 3.72 % 07/28/21 11:09 Procalcitonin 41.20 ng/mL (<0.15) 07/29/21 07:44 Arterial Blood Glucose 138 mg/dL (65-95) H 08/01/21 04:04 Arterial Blood Ionized Calcium 3.8 mg/dL (4.6-5.3) L 07/28/21 18:18 Urine Color [place]ár[place] (Yellow) 07/28/21 Unknown Urine Turbidity Cloudy (Clear) 07/28/21 Unknown Urine pH 5.0 (5.0-7.0) 07/28/21 Unknown Ur Specific [place] 1.017 (1.003-1.030) 07/28/21 Unknown Urine Protein 100 mg/dl mg/dL (Negative) 07/28/21 Unknown Urine Glucose (UA) 50 mg/dL (Negative) 07/28/21 Unknown Urine Ketones Neg mg/dL (Negative) 07/28/21 Unknown Urine Blood Mod (Negative) 07/28/21 Unknown Urine Nitrite Neg (Negative) 07/28/21 Unknown Urine Bilirubin Neg (Negative) 07/28/21 Unknown Urine Urobilinogen < 2.0 mg/dL (<2.0) 07/28/21 Unknown Ur Leukocyte Esterase Tr (Negative) 07/28/21 Unknown Urine WBC (Auto) 23.0 /HPF (0.0-6.0) H 07/28/21 Unknown Urine RBC (Auto) 15.0 /HPF (0.0-6.0) 07/28/21 Unknown U Epithel Cells (Auto) 2.0 /HPF (0-13.0) 07/28/21 Unknown Urine Bacteria (Auto) 1+ /HPF (Negative) 07/28/21 Unknown Hyaline Casts 1 /LPF 07/28/21 Unknown Urine Mucus 1+ /HPF 07/28/21 Unknown Urine Creatinine 173.3 mg/dL (0.1-20.0) H 07/28/21 Unknown Urine Sodium 57 mmol/L 07/28/21 Unknown Random Vancomycin 15.4 ug/mL (0-40.0) 07/30/21 Unknown Coronavirus (PCR) Negative (Negative) 07/29/21 Unknown Microbiology: Microbiology 07/28/21 11:13 Peripheral/Venous Blood Culture - Final NO GROWTH AFTER 5 DAYS Menjivar/IV: Voiding Method Indwelling Catheter Active Medications - Current Medications Current Medications: Generic Name Dose Route Start Last Admin Trade Name Freq PRN Reason Stop Dose Admin Acetaminophen 650 mg 07/28/21 13:00 Acetaminophen 325 Mg Tab PO Q6H PRN Pain MILD(1-3)/Fever >100.5/GARCIA Albuterol 2.5 mg 07/28/21 14:00 Albuterol 2.5 Mg/3 Ml Nebu IH Q3HRT PRN Shortness Of Breath Allopurinol 100 mg 07/29/21 22:00 08/01/21 22:44 Allopurinol 100 Mg Tab PO 100 mg QHS WIL Administration Amlodipine Besylate 10 mg 08/02/21 12:00 08/02/21 13:35 Amlodipine 10 Mg Tab PO 10 mg DAILY WIL Administration Lipase/Protease/Amylase 1 each 07/28/21 16:23 Lipase 10,500/Protease 25,000/Amylase 43,750 (Units) Dr Carmona FEEDTUBE PRN PRN For Clogged Feeding Tube Ascorbic Acid 500 mg 07/29/21 10:00 08/02/21 11:47 Ascorbic Acid 500 Mg Tab PO 500 mg QDAY WIL Administration Aspirin 81 mg 07/29/21 10:00 08/02/21 11:47 Aspirin 81 Mg Tab Chew PO 81 mg QDAY WIL Administration Atorvastatin Calcium 80 mg 07/28/21 22:00 08/01/21 22:43 Atorvastatin 40 Mg Tab PO 80 mg QHS WIL Administration Cholecalciferol 2,000 unit 07/29/21 10:00 08/02/21 11:48 Cholecalciferol (Vit D3) 1000 Unit (25 Mcg) Tab PO 2,000 unit QDAY WIL Administration Dextrose 50 ml 07/28/21 18:05 Dextrose 50% In Water (25gm) 50 Ml Syringe IV Q30MIN PRN Hypoglycemia Protocol Donepezil HCl 10 mg 07/28/21 22:00 08/01/21 22:43 Donepezil 10 Mg Tab PO 10 mg QHS WIL Administration Famotidine 10 mg 07/29/21 10:00 08/02/21 11:49 Famotidine 20 Mg/2 Ml Inj IV 10 mg BID WIL Administration Fish Oil 1,000 mg 08/02/21 12:00 [place]-3 Fatty Acids/Fish Oil 1 Gram Cap PO QDAY WIL Hydralazine HCl 10 mg 08/01/21 18:18 08/02/21 12:18 Hydralazine 20 Mg/1 Ml Inj IV 10 mg Q4HR PRN Administration Hypertension Hydrophilic Ointment 1 applic 07/28/21 11:19 Lip Therapy Vaseline TP Q2HR PRN Dry Lips Cefepime HCl 2 gm in 100 mls @ 200 mls/hr 07/29/21 10:00 08/02/21 13:15 Cefepime/Ns 2 Gm/100 Ml IV 08/02/21 23:59 200 mls/hr Q24H WIL Administration Protocol Insulin Glargine 10 units 07/29/21 22:00 08/01/21 22:44 Insulin Glargine 100 Units/Ml SUB-Q 10 units QHS WIL Administration Insulin Human Lispro 0 unit 07/28/21 18:07 08/02/21 13:36 Insulin Lispro 100 Unit/Ml SUB-Q Not Given Q6HR [facility] Protocol Labetalol HCl 10 mg 08/02/21 14:30 08/02/21 14:19 Labetalol 20 Mg/4 Ml Inj IV 08/02/21 18:30 10 mg ONCE@1430 WIL Administration Memantine 5 mg 07/29/21 10:00 08/02/21 11:55 Memantine 5 Mg Tab PO 5 mg BID WIL Administration Metoprolol Tartrate 12.5 mg 08/02/21 12:30 08/02/21 13:35 Metoprolol Tartrate 25 Mg Tab PO 12.5 mg BID WIL Administration Multi-Ingred Cream/Lotion/Oil/Oint 1 applic 07/28/21 11:19 Mineral Oil/Petrolatum, White Ophth Oint 3.5 Gm OU Q4HR PRN Dry Eye(s) Ondansetron HCl 4 mg 08/01/21 17:53 Ondansetron 4 Mg/2 Ml Inj IV Q6H PRN Nausea And Vomiting Polyethylene Glycol 17 gm 08/02/21 10:00 08/02/21 12:17 Polyethylene Glycol 3350 17 Gm Powder PO Not Given QDAY WIL Quetiapine Fumarate 50 mg 07/30/21 22:00 08/01/21 22:43 Quetiapine 25 Mg Tab PO 50 mg QHS WIL Administration Senna/Docusate Sodium 1 tab 07/28/21 12:00 08/02/21 11:47 Sennosides/Docusate Sodium 8.6/50 Mg Tab FEEDTUBE 1 tab BID WIL Administration Simple Syrup 15 ml 07/28/21 16:23 Simple Syrup 15 Ml FEEDTUBE PRN PRN Hypoglycemia Sodium Bicarbonate 325 mg 07/28/21 13:00 Sodium Bicarbonate 325 Mg Tab FEEDTUBE PRN PRN For Clogged Feeding Tube Sodium Chloride 10 ml 07/28/21 22:00 08/02/21 12:17 Sodium Chloride 0.9% 10 Ml Flush Syringe IV 10 ml BID WIL Administration Sodium Chloride 10 ml 07/28/21 13:00 Sodium Chloride 0.9% 10 Ml Flush Syringe IV PRN PRN LINE FLUSH Zinc Sulfate 220 mg 07/29/21 10:00 08/02/21 11:56 Zinc Sulfate 220 Mg Cap PO 220 mg QDAY WIL Administration Nutrition/Malnutrition Assess - Dietary Evaluation Nutrition/Malnutrition Findings: Nutrition Notes Start: 07/28/21 15:57 Freq: Status: Active Protocol: Document 07/30/21 11:42 GB (Rec: 07/30/21 11:48 GB [id number]) Nutrition Notes Initial or Follow up Assessment Current Diagnosis COPD,Diabetes,Hypertension, Heart Failure Other Pertinent Diagnosis Dementia Current Diet NPO/ TF Labs/Tests 07/29: glucose 211, BUN 77, creatinine 7.6, Ca 7.6 Pertinent Medications Vit C, Vit D3, fentanyl citrate, furosemide, norepinheprin/Ns8 Mg250, propofol 12.247ml/hr (323kcal) , vassopressin/NaCl, Zn Sulfate Height 5 ft 4 in Weight 136.078 kg [place] Body Weight (kg) 54.54 BMI 51.5 Weight change and time frame 07/28: admit weight Weight Status Morbidly Obese Subjective/Other Information 07/30: TF started. Per nurse at 50ml/hr at this time by 4pm will be at goal 60ml/hr. Pt did have residuals of 50cc's this AM, TF continues. MD note 07/29: bilateral lower lobe pleural-parenchymal disease has improved Percent of energy/protein needs met: TF at goal rate will meet 75% or greater of estimated energy needs Burn Absent Trauma Absent GI Symptoms None Difficulty In Swallowing Food Allergy No Skin Integrity/Comment No skin breadown at this time Current % PO Other Minimum of two criteria No #1 Nutrition Diagnosis Swallowing difficulty Comments: Intubated Etiology SOB, COPD As Evidenced by Signs and Symptoms intubated, sedated, TF started Diagnosis Progress(for reassessment Continues documentation) Is patient on ventilator? Yes Is Patient Ambulatory and/or Out of Bed No REE-(Stutsman-St. Jeor-confined to bed) 2226.312 Kcal/Kg value to use for calculation 13 Approximate Energy Requirements Using 1769 kcal/Kg Calculation Used for Recommendations Kcal/kg Additional Notes Protein: up to 0.6-8g/kg @ 136k-109g Fluids: 1 ml/kcal or per MD Nutrition Intervention Change Diet Order: continue NPO Nutrition Support: Vital AF 1.2 @ 60ml/hr Flush 100ml/4hr Total fluids: Flush + TF at goal H20 = 1768ml Kcal 1,728 Protein (gm) 108 Fat (gm) 78 Fluid (mL) 1,168 Add Supplement/Snack (indicate name/kcal n/a /protein ) Goal #1 Tolerate TF Vital 1.2 @ goal 60ml/hr by f/u 07/30: TF at 50ml/hr tolerating, will advance to goal this afternoon per RN Goal #2 Extubation and diet advancement when medically feasible 07/30: intubated, sedated, TF: continues Follow-Up By: 08/03/21 Additional Comments TF tolerance, vent status
[2021-08-02] MEDS ORDERED: DEXTROSE 5% IN WATER 1,000 ML IV SCH (18:00)
[2021-08-02] MEDS: OMEGA-3 FATTY ACIDS/FISH OIL 1 GRAM CAP PO SCH (19:40)
[2021-08-02] MEDS: INSULIN GLARGINE 100 UNITS/ML SUB-Q SCH (22:44)
[2021-08-02] MEDS: allopurinoL 100 MG TAB PO SCH (22:48)
[2021-08-02] MEDS: QUEtiapine 25 MG TAB PO SCH (22:48)
[2021-08-02] MEDS: DONEPEZIL 10 MG TAB PO SCH (22:49)
[2021-08-03] MEDS: INSULIN LISPRO 100 UNIT/ML SUB-Q SCH ×5 (00:30→18:45)
--- NOTE | 2021-08-03 07:50 | Progress Note ---
Assessment and Plan Assessment and plan: This a 71 year-old female with dementia, COPD, HTN, HLD, CHF, brain aneurysm, CVA, CKD, and DM2 admitted s/p cardiac arrest post intubation fro airway protection, sepsis, vijay, PNA Neuro: Acute Metabolic Encephalopathy, H/o CVA, dementia -07/28 CT head w/o showed chronic appearing left MCA [employer] watershed zone infarct -Consult Neurology for input on anticoagulation for AFib/CVA prophylaxis -MRI brain pending -Restart home meds- Aricept and memantine -Reduce the possibility of delirium, continue seroquel -Maintenance of sleep-wake cycle CV: S/p Cardiac arrest, Atrial Fibrillation, s/p Hypotension, H/o CHF -SR today -Post ROSC EKG showed Afib RVR, HR 120s -07/30 2D Echo- EF 50 to 55%, left ventricular systolic function is normal, right ventricular systolic function is normal, right ventricle is mildly dilated, trace mitral regurgitation, RSVP is 33 mmHg, mild to moderate tricuspid regurgitation -s/p Levo and Vaso -Cardiology on consult, appreciated recommendations -Per cardio no indication for KENROY to r/o endocaditis at this time Pulm: Acute Hypoxemic Respiratory Failure, Bilateral pneumonia, H/o COPD -Intubated with OETT on 07/28 and extubated 08/01 -SpO2 monitoring -Pulmanory hygiene -Supplemental oxygenation if needed GI: -Bedside swallow eval completed with excessive burping -ST eval: Findings revealed decreased laryngeal elevation and excessive burping following each bite. No evidence of aspiration was identified; however noted burping may be attributed to GERD. Recommend a Barium Swallow study to rule out an esophageal stricture, NOT an MBS. Recommend a mechanical soft diet with ground meats and regular liquids. Will follow to ensure continued safety. -Continue current BR- senokot -Continue PPI- Pepcid : Acute Kidney Injury (VIJAY) possible 2/2 sepsis shock, hypernatremia, H/o CKD -Baseline cr. is 1, cr. on admit as high as 9.1 but now down trending -Strict intake and output -Menjivar in place -remove menjivar 08/03 if renal function continues to improve -24 (+) 465 -Nephrology on consult, appreciate recommendations -Started on D5W@ 42 -Avoid nephrotoxic medications -Renally dose medications -Trend BMP ID: Sepsis Shock, Bilateral pneumonia, Lactic Acidosis- resolved -PNA on CXr -COVID PCR (-) -Abx- Cefepime -Follow culture blood data -Monitor fever and WBC curve -ID consulted, appreciate recommendations Endo: Hyperglycemia, H/o DM2 -SSI ACHS -Lantus qHS -While critically ill target blood glucose of 140-180 -Avoid hypoglycemia History Interval history: This a 71 years-old female with PmHx of dementia, COPD, HTN, HLD, CHF, brain aneurysm, CVA, CKD, and DM2 who was brought in via EMS from a nursing due to confusion, SOB, and hypotension. Upon her arrival in the ED patient was found stuporous/obtunded and required intubation for airway protection. Subsequently after patient went into cardiac arrest, ROSC was achieved after 1 round of ACLS. Patient was then transferred to the ICU for further management. 07/29/21- Patient remains intubated and sedated on versed and fentynal, on pressors. Consult place for cardio s/p cardiac arrest, ID was consulted for sepsis, and Neuro consult for AC rec due to Afib/CVA. Basal insulin was added for blood glucose control. Will continue to monitor renal function and electrolytes, am labs ordered. 07/30/21- Patient remains intubated and sedated, on propofol and fentanyl RASS 0 to -2. Remains on low dose pressors, SB noted this am. Pending MRI brain today. 07/31/21- Patient remains intubated and sedated. RASS 0 to -2. On low vent settings, plan for SAT and SBT today. Patient remains on low dose pressors, kidney function is improvement, high chloremia noted thoday and hemodynamics are labile, will start gentle hydration NS at 75ml/hr X1L. Will continue to monitor renal function and electrolytes. 08/01/21- Patient remains intubated and sedated on low dose sedation RASS 0 to - 1. SAT and SBT today, will extubated if tolerated. Hypernatremia noted from this am lab will start FWF at 250 Q4hrs, will reassess in the am. Per cardio no indication for Kenroy at this time. Renal function is improving responding to current treatment. Will continue to monitor renal function and electrolytes. 08/02/21: hypernatremia persists, Cr improved, ST eval at bedside, transfer to floor. 08/03/21: medically clear for d/c. COVID 19 PCR test ordered. Will plan for d ischarge back to [facility] tomorrow once test results negative. History Interval history: In no apparent distress. No acute complaints on encounter today. Hospitalist Physical - Physical exam Narrative exam: General appearance: Present: no acute distress - EENT Eyes: Present: PERRL - Respiratory Respiratory effort: normal Respiratory: bilateral: diminished - Cardiovascular Rhythm: regular Heart Sounds: Present: S1 & S2 - Extremities Extremities: no ischemia, pulses intact, pulses symmetrical Extremity abnormal: edema - Peripheral Assessment Generalized Edema Type: Non-pitting Edema Degree: 1+ Capillary Refill: < 3 seconds Skin Temperature: Warm Peripheral Pulses: within normal limits - Abdominal General gastrointestinal: soft, non-tender, normal bowel sounds - Integumentary Integumentary: Present: clear, warm, dry - Neurologic Neurologic: other - moving all extremities , obeys simple commands. answers yes/no questions - Constitutional Vitals: Temp Pulse Resp BP Pulse Ox 99.1 F 68 20 162/75 89 08/03/21 03:34 08/03/21 04:00 08/03/21 03:34 08/03/21 03:34 08/03/21 03:34 General appearance: Present: no acute distress, other (Intubated and sedated) HEART Score - HEART Score Troponin: Troponin T 0.063 ng/mL (0.00-0.029) H 07/28/21 11:09 Results - Labs CBC & Chem 7: 08/02/21 04:40 08/02/21 04:40 Labs: Laboratory Last Values WBC 13.3 K/mm3 (4.5-11.0) H 08/02/21 04:40 RBC 4.03 M/mm3 (3.65-5.03) 08/02/21 04:40 Hgb 10.9 gm/dl (10.1-14.3) 08/02/21 04:40 Hct 32.9 % (30.3-42.9) 08/02/21 04:40 MCV 82 fl (79-97) 08/02/21 04:40 MCH 27 pg (28-32) L 08/02/21 04:40 MCHC 33 % (30-34) 08/02/21 04:40 RDW 16.9 % (13.2-15.2) H 08/02/21 04:40 Plt Count 185 K/mm3 (140-440) 08/02/21 04:40 Lymph % (Auto) 10.1 % (13.4-35.0) L 07/29/21 04:27 [place] % (Auto) 8.1 % (0.0-7.3) H 07/29/21 04:27 Eos % (Auto) 0.1 % (0.0-4.3) 07/29/21 04:27 Baso % (Auto) 0.1 % (0.0-1.8) 07/29/21 04:27 Lymph # (Auto) 1.4 K/mm3 (1.2-5.4) 07/29/21 04:27 [place] # (Auto) 1.1 K/mm3 (0.0-0.8) H 07/29/21 04:27 Eos # (Auto) 0.0 K/mm3 (0.0-0.4) 07/29/21 04:27 Baso # (Auto) 0.0 K/mm3 (0.0-0.1) 07/29/21 04:27 Seg Neutrophils % 81.6 % (40.0-70.0) H 07/29/21 04:27 Seg Neutrophils # 11.4 K/mm3 (1.8-7.7) H 07/29/21 04:27 PT 16.6 Sec. (12.2-14.9) H 07/28/21 11:09 INR 1.21 (0.87-1.13) H 07/28/21 11:09 APTT 25.0 Sec. (24.2-36.6) 07/28/21 11:09 ABG pH 7.337 (7.320-7.450) 08/01/21 04:04 POC ABG pCO2 36.2 mmHg (32.0-48.0) 08/01/21 04:04 ABG pCO2 28.3 mm Hg 07/30/21 13:00 POC ABG pO2 79.3 mmHg (83-108) L 08/01/21 04:04 ABG pO2 116.9 mm Hg (80.0-90.0) H 07/30/21 13:00 POC ABG HCO3 19.0 08/01/21 04:04 ABG HCO3 15.4 mmol/L (20.0-26.0) L 07/30/21 13:00 ABG O2 Saturation 95.1 (0-100) 08/01/21 04:04 ABG O2 Content 14.0 (0.0-44) 07/30/21 13:00 POC ABG Base Excess -6.2 08/01/21 04:04 ABG Base Excess -8.9 mmol/L (-2.0-3.0) L 07/30/21 13:00 ABG Hemoglobin 10.2 (12.0-17.5) L 08/01/21 04:04 ABG Oxyhemoglobin 94.5 (94-98) 08/01/21 04:04 ABG Carboxyhemoglobin 0.8 % (0.0-5.0) 07/30/21 13:00 ABG Methemoglobin 0.3 (0.0-1.5) 08/01/21 04:04 ABG Sodium 146.8 mmol/L (136.0-145.0) H 08/01/21 04:04 ABG Potassium 3.8 mmol/L (3.40-4.50) 08/01/21 04:04 ABG Chloride 117.0 mmol/L (98-107) H 08/01/21 04:04 ABG Glucose 138 mg/dL (65-95) H 08/01/21 04:04 Oxyhemoglobin 96.8 % (95.0-99.0) 07/30/21 13:00 Carboxyhemoglobin 0.3 (0.5-1.5) L 08/01/21 04:04 FiO2 50 % 07/30/21 13:00 FiO2 % 35.0 08/01/21 04:04 Sodium 154 mmol/L (137-145) H 08/02/21 04:40 Potassium 4.0 mmol/L (3.6-5.0) 08/02/21 04:40 Chloride 119.2 mmol/L (98-107) H 08/02/21 04:40 Carbon Dioxide 22 mmol/L (22-30) 08/02/21 04:40 Anion Gap 17 mmol/L 08/02/21 04:40 BUN 52 mg/dL (7-17) H 08/02/21 04:40 Creatinine 1.8 mg/dL (0.6-1.2) H 08/02/21 04:40 Estimated GFR 33 ml/min 08/02/21 04:40 BUN/Creatinine Ratio 29 % 08/02/21 04:40 Glucose 132 mg/dL (65-100) H 08/02/21 04:40 POC Glucose 143 mg/dL (70-105) H 08/03/21 06:39 Lactic Acid 1.40 mmol/L (0.7-2.0) 07/29/21 04:27 Calcium 9.4 mg/dL (8.4-10.2) 08/02/21 04:40 Phosphorus 4.20 mg/dL (2.5-4.5) 07/31/21 08:10 Magnesium 2.30 mg/dL (1.7-2.3) 07/31/21 08:10 Total Bilirubin 0.30 mg/dL (0.1-1.2) 08/02/21 04:40 Direct Bilirubin < 0.2 mg/dL (0-0.2) 07/28/21 11:09 Indirect Bilirubin 0.0 mg/dL 07/28/21 11:09 AST 18 units/L (5-40) 08/02/21 04:40 ALT 37 units/L (7-56) 08/02/21 04:40 Alkaline Phosphatase 82 units/L (35-129) 08/02/21 04:40 Ammonia 49.0 umol/L (25-60) 07/28/21 11:09 Total Creatine Kinase 840 units/L (30-135) H 07/28/21 11:09 Troponin T 0.063 ng/mL (0.00-0.029) H 07/28/21 11:09 NT-Pro-B Natriuret Pep 312.4 pg/mL (0-900) 07/28/21 11:09 Total Protein 7.2 g/dL (6.3-8.2) 08/02/21 04:40 Albumin 3.6 g/dL (3.9-5) L 08/02/21 04:40 Albumin/Globulin Ratio 1.0 % 08/02/21 04:40 Triglycerides 226 mg/dL (2-149) H 07/28/21 11:09 Cholesterol 175 mg/dL (50-199) 07/28/21 11:09 LDL Cholesterol Direct 84 mg/dL (50-130) 07/28/21 11:09 HDL Cholesterol 47 mg/dL (40-59) 07/28/21 11:09 Cholesterol/HDL Ratio 3.72 % 07/28/21 11:09 Procalcitonin 41.20 ng/mL (<0.15) 07/29/21 07:44 Arterial Blood Glucose 138 mg/dL (65-95) H 08/01/21 04:04 Arterial Blood Ionized Calcium 3.8 mg/dL (4.6-5.3) L 07/28/21 18:18 Urine Color [place] (Yellow) 07/28/21 Unknown Urine Turbidity Cloudy (Clear) 07/28/21 Unknown Urine pH 5.0 (5.0-7.0) 07/28/21 Unknown Ur Specific [place] 1.017 (1.003-1.030) 07/28/21 Unknown Urine Protein 100 mg/dl mg/dL (Negative) 07/28/21 Unknown Urine Glucose (UA) 50 mg/dL (Negative) 07/28/21 Unknown Urine Ketones Neg mg/dL (Negative) 07/28/21 Unknown Urine Blood Mod (Negative) 07/28/21 Unknown Urine Nitrite Neg (Negative) 07/28/21 Unknown Urine Bilirubin Neg (Negative) 07/28/21 Unknown Urine Urobilinogen < 2.0 mg/dL (<2.0) 07/28/21 Unknown Ur Leukocyte Esterase Tr (Negative) 07/28/21 Unknown Urine WBC (Auto) 23.0 /HPF (0.0-6.0) H 07/28/21 Unknown Urine RBC (Auto) 15.0 /HPF (0.0-6.0) 07/28/21 Unknown U Epithel Cells (Auto) 2.0 /HPF (0-13.0) 07/28/21 Unknown Urine Bacteria (Auto) 1+ /HPF (Negative) 07/28/21 Unknown Hyaline Casts 1 /LPF 07/28/21 Unknown Urine Mucus 1+ /HPF 07/28/21 Unknown Urine Creatinine 173.3 mg/dL (0.1-20.0) H 07/28/21 Unknown Urine Sodium 57 mmol/L 07/28/21 Unknown Random Vancomycin 15.4 ug/mL (0-40.0) 07/30/21 Unknown Coronavirus (PCR) Negative (Negative) 07/29/21 Unknown Microbiology: Microbiology 07/28/21 11:13 Peripheral/Venous Blood Culture - Final NO GROWTH AFTER 5 DAYS Menjivar/IV: Voiding Method Indwelling Catheter Active Medications - Current Medications Current Medications: Generic Name Dose Route Start Last Admin Trade Name Freq PRN Reason Stop Dose Admin Acetaminophen 650 mg 07/28/21 13:00 Acetaminophen 325 Mg Tab PO Q6H PRN Pain MILD(1-3)/Fever >100.5/GARCIA Albuterol 2.5 mg 07/28/21 14:00 Albuterol 2.5 Mg/3 Ml Nebu IH Q3HRT PRN Shortness Of Breath Allopurinol 100 mg 07/29/21 22:00 08/02/21 22:48 Allopurinol 100 Mg Tab PO 100 mg QHS WIL Administration Amlodipine Besylate 10 mg 08/02/21 12:00 08/02/21 13:35 Amlodipine 10 Mg Tab PO 10 mg DAILY WIL Administration Lipase/Protease/Amylase 1 each 07/28/21 16:23 Lipase 10,500/Protease 25,000/Amylase 43,750 (Units) Dr Mathew PEARSONTUBE PRN PRN For Clogged Feeding Tube Ascorbic Acid 500 mg 07/29/21 10:00 08/02/21 11:47 Ascorbic Acid 500 Mg Tab PO 500 mg QDAY WIL Administration Aspirin 81 mg 07/29/21 10:00 08/02/21 11:47 Aspirin 81 Mg Tab Chew PO 81 mg QDAY WIL Administration Atorvastatin Calcium 80 mg 07/28/21 22:00 08/02/21 22:48 Atorvastatin 40 Mg Tab PO 80 mg QHS WIL Administration Cholecalciferol 2,000 unit 07/29/21 10:00 08/02/21 11:48 Cholecalciferol (Vit D3) 1000 Unit (25 Mcg) Tab PO 2,000 unit QDAY WIL Administration Dextrose 50 ml 07/28/21 18:05 Dextrose 50% In Water (25gm) 50 Ml Syringe IV Q30MIN PRN Hypoglycemia Protocol Donepezil HCl 10 mg 07/28/21 22:00 08/02/21 22:49 Donepezil 10 Mg Tab PO 10 mg QHS WIL Administration Famotidine 10 mg 07/29/21 10:00 08/02/21 22:48 Famotidine 20 Mg/2 Ml Inj IV 10 mg BID WIL Administration Fish Oil 1,000 mg 08/02/21 12:00 08/02/21 19:40 [place]-3 Fatty Acids/Fish Oil 1 Gram Cap PO Not Given QDAY WIL Hydralazine HCl 10 mg 08/01/21 18:18 08/02/21 12:18 Hydralazine 20 Mg/1 Ml Inj IV 10 mg Q4HR PRN Administration Hypertension Hydrophilic Ointment 1 applic 07/28/21 11:19 Lip Therapy Vaseline TP Q2HR PRN Dry Lips Dextrose 1,000 mls @ 42 mls/hr 08/02/21 18:00 08/02/21 19:23 D5w IV 42 mls/hr DIRECT WIL Administration Insulin Glargine 10 units 07/29/21 22:00 08/02/21 22:44 Insulin Glargine 100 Units/Ml SUB-Q 10 units QHS WIL Administration Insulin Human Lispro 0 unit 07/28/21 18:07 08/03/21 00:30 Insulin Lispro 100 Unit/Ml SUB-Q Not Given Q6HR [facility] Protocol Memantine 5 mg 07/29/21 10:00 08/02/21 22:47 Memantine 5 Mg Tab PO 5 mg BID WIL Administration Metoprolol Tartrate 12.5 mg 08/02/21 12:30 08/02/21 22:46 Metoprolol Tartrate 25 Mg Tab PO 12.5 mg BID [facility] Administration Multi-Ingred Cream/Lotion/Oil/Oint 1 applic 07/28/21 11:19 Mineral Oil/Petrolatum, White Ophth Oint 3.5 Gm OU Q4HR PRN Dry Eye(s) Ondansetron HCl 4 mg 08/01/21 17:53 Ondansetron 4 Mg/2 Ml Inj IV Q6H PRN Nausea And Vomiting Polyethylene Glycol 17 gm 08/02/21 10:00 08/02/21 12:17 Polyethylene Glycol 3350 17 Gm Powder PO Not Given QDAY [facility] Quetiapine Fumarate 50 mg 07/30/21 22:00 08/02/21 22:48 Quetiapine 25 Mg Tab PO 50 mg QHS [facility] Administration Senna/Docusate Sodium 1 tab 07/28/21 12:00 08/02/21 22:49 Sennosides/Docusate Sodium 8.6/50 Mg Tab FEEDTUBE Not Given BID WIL Simple Syrup 15 ml 07/28/21 16:23 Simple Syrup 15 Ml FEEDTUBE PRN PRN Hypoglycemia Sodium Bicarbonate 325 mg 07/28/21 13:00 Sodium Bicarbonate 325 Mg Tab FEEDTUBE PRN PRN For Clogged Feeding Tube Sodium Chloride 10 ml 07/28/21 22:00 08/02/21 22:50 Sodium Chloride 0.9% 10 Ml Flush Syringe IV 10 ml BID WIL Administration Sodium Chloride 10 ml 07/28/21 13:00 Sodium Chloride 0.9% 10 Ml Flush Syringe IV PRN PRN LINE FLUSH Zinc Sulfate 220 mg 07/29/21 10:00 08/02/21 11:56 Zinc Sulfate 220 Mg Cap PO 220 mg QDAY WIL Administration Nutrition/Malnutrition Assess - Dietary Evaluation Nutrition/Malnutrition Findings: Nutrition Notes Start: 07/28/21 15:57 Freq: Status: Active Protocol: Document 07/30/21 11:42 GB (Rec: 07/30/21 11:48 GB [id number]) Nutrition Notes Initial or Follow up Assessment Current Diagnosis COPD,Diabetes,Hypertension, Heart Failure Other Pertinent Diagnosis Dementia Current Diet NPO/ TF Labs/Tests 07/29: glucose 211, BUN 77, creatinine 7.6, Ca 7.6 Pertinent Medications Vit C, Vit D3, fentanyl citrate, furosemide, norepinheprin/Ns8 Mg250, propofol 12.247ml/hr (323kcal) , vassopressin/NaCl, Zn Sulfate Height 5 ft 4 in Weight 136.078 kg [place] Body Weight (kg) 54.54 BMI 51.5 Weight change and time frame 07/28: admit weight Weight Status Morbidly Obese Subjective/Other Information 07/30: TF started. Per nurse at 50ml/hr at this time by 4pm will be at goal 60ml/hr. Pt did have residuals of 50cc's this AM, TF continues. note 07/29: bilateral lower lobe pleural-parenchymal disease has improved Percent of energy/protein needs met: TF at goal rate will meet 75% or greater of estimated energy needs Burn Absent Trauma Absent GI Symptoms None Difficulty In Swallowing Food Allergy No Skin Integrity/Comment No skin [place] at this time Current % PO Other Minimum of two criteria No #1 Nutrition Diagnosis Swallowing difficulty Comments: Intubated Etiology SOB, COPD As Evidenced by Signs and Symptoms intubated, sedated, TF started Diagnosis Progress(for reassessment Continues documentation) Is patient on ventilator? Yes Is Patient Ambulatory and/or Out of Bed No REE-([place]-confined to bed) 2226.312 Kcal/Kg value to use for calculation 13 Approximate Energy Requirements Using 1769 kcal/Kg Calculation Used for Recommendations Kcal/kg Additional Notes Protein: up to 0.6-8g/kg @ 136k-109g Fluids: 1 ml/kcal or per MD Nutrition Intervention Change Diet Order: continue NPO Nutrition Support: Vital AF 1.2 @ 60ml/hr Flush 100ml/4hr Total fluids: Flush + TF at goal H20 = 1768ml Kcal 1,728 Protein (gm) 108 Fat (gm) 78 Fluid (mL) 1,168 Add Supplement/Snack (indicate name/kcal n/a /protein ) Goal #1 Tolerate TF Vital 1.2 @ goal 60ml/hr by f/u 07/30: TF at 50ml/hr tolerating, will advance to goal this afternoon per RN Goal #2 Extubation and diet advancement when medically feasible 07/30: intubated, sedated, TF: continues Follow-Up By: 08/03/21 Additional Comments TF tolerance, vent status
--- NOTE | 2021-08-03 09:37 | Progress Note ---
Assessment and Plan - Patient Problems (1) VIJAY (acute kidney injury) Current Visit: Yes Status: Acute Plan to address problem: Likely pre-renal vs ATN in the setting of cardiac arrest and sepsis. Labs indicate improved renal function. Avoid nephrotoxins, maintain MAP >65mmHg. Remains non-oliguric at this time. (2) Hypernatremia Current Visit: No Status: Acute Plan to address problem: increased free water intake adlib, agree with D5W if po intake is not adequate (3) Acute respiratory failure with hypoxia Current Visit: Yes Status: Acute Plan to address problem: Vent management per ICU/pulmonary team (4) Cardiac arrest Current Visit: Yes Status: Acute Plan to address problem: With ROSC at this time ECHO results reviewed. Further recommendations per cardiology. (5) DM2 (diabetes mellitus, type 2) Current Visit: Yes Status: Chronic Plan to address problem: DM management per primary attending. (6) Bacteremia Current Visit: Yes Status: Acute Plan to address problem: Initial blood cultures are showing Coag negative staphylococcus. ID recommendations reviewed. (7) Bilateral pneumonia Current Visit: Yes Status: Acute Plan to address problem: Chest xray is showing improvement since admission. Please ensure that antibiotics are dosed appropriately for decreased renal function. COVID -19 test negative Subjective Date of service: 08/03/21 Principal diagnosis: Cardiopulmonary Arrest Interval history: Pt awake, alert, in no acute distress Objective - Vital Signs Vital signs: Vital Signs - 12hr 08/02/21 08/02/21 08/03/21 22:00 23:16 00:00 Temperature 98.1 F Pulse Rate 68 71 Respiratory 16 Rate Blood Pressure 148/74 O2 Sat by Pulse 96 93 Oximetry 08/03/21 08/03/21 03:34 04:00 Temperature 99.1 F Pulse Rate 68 68 Respiratory 20 Rate Blood Pressure 162/75 O2 Sat by Pulse 89 Oximetry - General Appearance General appearance: well-developed, well-nourished, appears stated age EENT: ATNC, PERRL, mucous membranes moist Neck: no JVD Respiratory: Present: Clear to Ascultation Cardiology: regular Gastrointestinal: normal Integumentary: no rash Neurologic: no focal deficit, alert and oriented x3, strength 5/5 Psychiatric: mood/affect appropriate - Lab 08/02/21 04:40 08/02/21 04:40 Most recent lab results ABG pH 7.337 (7.320-7.450) 08/01/21 04:04 ABG pCO2 28.3 mm Hg 07/30/21 13:00 ABG pO2 116.9 mm Hg (80.0-90.0) H 07/30/21 13:00 ABG HCO3 15.4 mmol/L (20.0-26.0) L 07/30/21 13:00 ABG O2 Saturation 95.1 (0-100) 08/01/21 04:04 Calcium 9.4 mg/dL (8.4-10.2) 08/02/21 04:40 Phosphorus 4.20 mg/dL (2.5-4.5) 07/31/21 08:10 Magnesium 2.30 mg/dL (1.7-2.3) 07/31/21 08:10 Urine Creatinine 173.3 mg/dL (0.1-20.0) H 07/28/21 Unknown Urine Sodium 57 mmol/L 07/28/21 Unknown Medications & Allergies - Medications Allergies/Adverse Reactions: Allergies metformin Allergy (Verified 07/29/21 09:42) Unknown lactose Adverse Reaction (Verified 07/29/21 09:42) Diarrhea Home Medications: Home Medications Medication Instructions Recorded Confirmed Last Taken Type Acetaminophen 650 mg PO Q4H PRN 01/28/20 07/28/21 Unknown History Aspirin [Aspirin BABY CHEW TAB] 81 mg PO QDAY 01/28/20 07/28/21 Unknown History Atorvastatin Calcium [Lipitor] 40 mg PO QHS 01/28/20 07/28/21 Unknown History Benazepril HCl [Lotensin] 20 mg PO DAILY 01/28/20 07/28/21 Unknown History Donepezil HCl [Donepezil HCl Odt] 10 mg PO QHS 01/28/20 07/28/21 Unknown History Furosemide [Lasix TAB] 20 mg PO QDAY 01/28/20 07/28/21 Unknown History Insulin Glargine,Hum.rec.anlog 25 unit SQ BID 01/28/20 07/28/21 Unknown History [Lantus Solostar] Linagliptin [Tradjenta] 5 mg PO QDAY 01/28/20 07/28/21 Unknown History Aurora-3/Dha/Epa/Fish Oil [Fish Oil 500 mg PO DAILY 01/28/20 07/28/21 Unknown History 500 mg Softgel] Quetiapine Fumarate [SEROquel] 50 mg PO HS 01/28/20 07/28/21 Unknown History allopurinoL [Zyloprim] 100 mg PO QHS 01/28/20 07/28/21 Unknown History hydrALAZINE [Apresoline TAB] 50 mg PO BID 01/28/20 07/28/21 Unknown History ALBUTEROL NEB's [Proventil 0.083% 2.5 mg IH Q4HRT PRN nebu 02/14/20 07/28/21 Unknown Rx NEBS] Simple Syrup 15 ml FEEDTUBE PRN PRN oral.liqd 02/14/20 07/28/21 Unknown Rx Simple Syrup 30 ml FEEDTUBE PRN PRN oral.liqd 02/14/20 07/28/21 Unknown Rx Sodium Bicarbonate 325 mg FEEDTUBE PRN PRN tablet 02/14/20 07/28/21 Unknown Rx Fenofibrate 40 mg PO DAILY 07/28/21 07/28/21 Unknown History amLODIPine [Norvasc] 10 mg PO DAILY 07/28/21 07/28/21 Unknown History Active Medications: Generic Name Dose Route Start Last Admin Trade Name Freq PRN Reason Stop Dose Admin Acetaminophen 650 mg 07/28/21 13:00 Acetaminophen 325 Mg Tab PO Q6H PRN Pain MILD(1-3)/Fever >100.5/GARCIA Albuterol 2.5 mg 07/28/21 14:00 Albuterol 2.5 Mg/3 Ml Nebu IH Q3HRT PRN Shortness Of Breath Allopurinol 100 mg 07/29/21 22:00 08/02/21 22:48 Allopurinol 100 Mg Tab PO 100 mg QHS WIL Administration Amlodipine Besylate 10 mg 08/02/21 12:00 08/02/21 13:35 Amlodipine 10 Mg Tab PO 10 mg DAILY WIL Administration Lipase/Protease/Amylase 1 each 07/28/21 16:23 Lipase 10,500/Protease 25,000/Amylase 43,750 (Units) Dr Carmona FEEDTUBE PRN PRN For Clogged Feeding Tube Ascorbic Acid 500 mg 07/29/21 10:00 08/02/21 11:47 Ascorbic Acid 500 Mg Tab PO 500 mg QDAY WIL Administration Aspirin 81 mg 07/29/21 10:00 08/02/21 11:47 Aspirin 81 Mg Tab Chew PO 81 mg QDAY WIL Administration Atorvastatin Calcium 80 mg 07/28/21 22:00 08/02/21 22:48 Atorvastatin 40 Mg Tab PO 80 mg QHS WIL Administration Cholecalciferol 2,000 unit 07/29/21 10:00 08/02/21 11:48 Cholecalciferol (Vit D3) 1000 Unit (25 Mcg) Tab PO 2,000 unit QDAY WIL Administration Dextrose 50 ml 07/28/21 18:05 Dextrose 50% In Water (25gm) 50 Ml Syringe IV Q30MIN PRN Hypoglycemia Protocol Donepezil HCl 10 mg 07/28/21 22:00 08/02/21 22:49 Donepezil 10 Mg Tab PO 10 mg QHS WIL Administration Famotidine 10 mg 07/29/21 10:00 08/02/21 22:48 Famotidine 20 Mg/2 Ml Inj IV 10 mg BID WIL Administration Fish Oil 1,000 mg 08/02/21 12:00 08/02/21 19:40 Aurora-3 Fatty Acids/Fish Oil 1 Gram Cap PO Not Given QDAY WIL Hydralazine HCl 10 mg 08/01/21 18:18 08/02/21 12:18 Hydralazine 20 Mg/1 Ml Inj IV 10 mg Q4HR PRN Administration Hypertension Hydrophilic Ointment 1 applic 07/28/21 11:19 Lip Therapy Vaseline TP Q2HR PRN Dry Lips Dextrose 1,000 mls @ 42 mls/hr 08/02/21 18:00 08/02/21 19:23 D5w IV 42 mls/hr DIRECT WIL Administration Insulin Glargine 10 units 07/29/21 22:00 08/02/21 22:44 Insulin Glargine 100 Units/Ml SUB-Q 10 units QHS WIL Administration Insulin Human Lispro 0 unit 07/28/21 18:07 08/03/21 00:30 Insulin Lispro 100 Unit/Ml SUB-Q Not Given Q6HR [facility] Protocol Memantine 5 mg 07/29/21 10:00 08/02/21 22:47 Memantine 5 Mg Tab PO 5 mg BID WIL Administration Metoprolol Tartrate 12.5 mg 08/02/21 12:30 08/02/21 22:46 Metoprolol Tartrate 25 Mg Tab PO 12.5 mg BID WIL Administration Multi-Ingred Cream/Lotion/Oil/Oint 1 applic 07/28/21 11:19 Mineral Oil/Petrolatum, White Ophth Oint 3.5 Gm OU Q4HR PRN Dry Eye(s) Ondansetron HCl 4 mg 08/01/21 17:53 Ondansetron 4 Mg/2 Ml Inj IV Q6H PRN Nausea And Vomiting Polyethylene Glycol 17 gm 08/02/21 10:00 08/02/21 12:17 Polyethylene Glycol 3350 17 Gm Powder PO Not Given QDAY WIL Quetiapine Fumarate 50 mg 07/30/21 22:00 08/02/21 22:48 Quetiapine 25 Mg Tab PO 50 mg QHS WIL Administration Senna/Docusate Sodium 1 tab 07/28/21 12:00 08/02/21 22:49 Sennosides/Docusate Sodium 8.6/50 Mg Tab FEEDTUBE Not Given BID WIL Simple Syrup 15 ml 07/28/21 16:23 Simple Syrup 15 Ml FEEDTUBE PRN PRN Hypoglycemia Sodium Bicarbonate 325 mg 07/28/21 13:00 Sodium Bicarbonate 325 Mg Tab FEEDTUBE PRN PRN For Clogged Feeding Tube Sodium Chloride 10 ml 07/28/21 22:00 08/02/21 22:50 Sodium Chloride 0.9% 10 Ml Flush Syringe IV 10 ml BID WIL Administration Sodium Chloride 10 ml 07/28/21 13:00 Sodium Chloride 0.9% 10 Ml Flush Syringe IV PRN PRN LINE FLUSH Zinc Sulfate 220 mg 07/29/21 10:00 08/02/21 11:56 Zinc Sulfate 220 Mg Cap PO 220 mg QDAY WIL Administration
[2021-08-03] MEDS: amLODIPine 10 MG TAB PO SCH (12:40)
[2021-08-03] MEDS: ASCORBIC ACID 500 MG TAB PO SCH (12:40)
[2021-08-03] MEDS: OMEGA-3 FATTY ACIDS/FISH OIL 1 GRAM CAP PO SCH (12:40)
[2021-08-03] MEDS: CHOLECALCIFEROL (VIT D3) 1000 UNIT (25 mcg) TAB PO SCH (12:40)
[2021-08-03] MEDS: FAMOTIDINE 20 MG/2 ML INJ IV SCH ×2 (12:45→21:55)
[2021-08-03] MEDS: SENNOSIDES/DOCUSATE SODIUM 8.6/50 MG TAB FEEDTUBE SCH ×2 (12:45→21:55)
[2021-08-03] MEDS: POLYETHYLENE GLYCOL 3350 17 GM POWDER PO SCH (12:45)
[2021-08-03] MEDS: ZINC SULFATE 220 MG CAP PO SCH (12:45)
[2021-08-03] MEDS: ASPIRIN 81 MG TAB CHEW PO SCH (12:45)
--- NOTE | 2021-08-03 12:46 | Progress Note ---
Assessment and Plan Cultures: Blood culture gram-positive cocci one of 4 bottles: Coag negative Staphylococcus Urine culture no growth 07/28/2021 tracheal aspirate culture: Usual respiratory chelsea A/P: 71-year-old female past medical history COPD, hypertension, morbid obesity presented to the hospital with confusion and shortness of breath. #Acute hypoxic respiratory failure: secondary to pneumonia: improved, off the vent. #VIJAY: Renally dose medications #Pneumonia, bilateral: Covid PCR negative #Coag negative staph bacteremia: 1 out of 4 bottles so far, likely contaminant. #Acute encephalopathy Recs: -completed Cefepime. On room air now Jose Rucker MD, FACP [facility] ([facility]) O: [phone] F: [phone] Subjective Date of service: 08/03/21 Principal diagnosis: Cardiopulmonary Arrest Interval history: No complaints. Moved to regular floor. Breathing is good. On room air. Objective - Exam Narrative Exam: Physical Exam: Constitutional: Alert, cooperative. No acute distress Head, Ears, Nose: Normocephalic, atraumatic. External ears, nose normal Eyes: Conjunctivae/corneas clear. No icterus. No ptosis. Neck: Supple, no meningeal signs Cardiovascular: S1, S2 + Respiratory: Good air entry, clear to auscultation bilaterally GI: Soft, non-tender; bowel sounds normal. No peritoneal signs Musculoskeletal: No pedal edema, no cyanosis. Skin: No rash or abscess Hem/Lymphatic: No palpable cervical or supraclavicular nodes. No lymphangitis Psych: No agitation Neurological: Awake, alert, answering basic questions - Constitutional Vitals: Vital Signs Temp Pulse Resp BP Pulse Ox 99.1 F 68 20 162/75 89 08/03/21 03:34 08/03/21 04:00 08/03/21 03:34 08/03/21 03:34 08/03/21 03:34 Temperature -Last 24 Hours Temperature 99.1 F Temperature 98.1 F Temperature 98.7 F Temperature 98.4 F - Labs CBC & Chem 7: 08/02/21 04:40 08/02/21 04:40 Labs: Abnormal lab results 08/02/21 08/02/21 08/03/21 Range/Units 17:42 20:52 06:39 POC Glucose 133 H 159 H 143 H (70-105) mg/dL 08/03/21 Range/Units 12:05 POC Glucose 178 H (70-105) mg/dL
[2021-08-03] MEDS: MEMANTINE 5 MG TAB PO SCH ×2 (12:50→21:56)
--- NOTE | 2021-08-03 13:21 | Progress Note ---
Assessment and Plan Echo 07/29/2021 EF 50 to 55%, left ventricular systolic function is normal, right ventricular systolic function is normal, right ventricle is mildly dilated, trace mitral regurgitation, RSVP is 33 mmHg, mild to moderate tricuspid regurgitation Optimize antihypertensive regimen given that pt is now outside the 48-hr window of permissive HTN. Increase Metoprolol 25mg PO BID. Wll hold ALLISON/ARB due to VIJAY Pt is a candidate for NOACs in reference to underlying non-valvular AF. Per neuro notes patient should not begin anticoagulation until 08/07/2021. [id number] Score: 7 points HAS-BLED Score: 4 points Pt seen in conjunction with Dr. Kerr, who agrees with the assessment and plan of care. Will continue to follow. - Patient Problems (1) VIJAY (acute kidney injury) Current Visit: Yes Status: Acute (2) Acute respiratory failure with hypoxia Current Visit: Yes Status: Acute (3) Bilateral pneumonia Current Visit: Yes Status: Acute (4) Elevated troponin Current Visit: Yes Status: Acute (5) Paroxysmal atrial fibrillation Current Visit: Yes Status: Acute (6) Severe sepsis Current Visit: Yes Status: Acute Subjective Date of service: 08/03/21 Principal diagnosis: Cardiopulmonary Arrest Interval history: Patient resting in bed confused. No acute distress sinus 87 with 7 beat run of NSVT on monitor Objective Vital Signs Temp Pulse Pulse Resp BP Pulse Ox 08/03/21 04:00 68 08/03/21 03:34 99.1 F 68 20 162/75 89 08/03/21 00:00 71 08/02/21 23:16 98.1 F 68 16 148/74 93 08/02/21 22:00 96 08/02/21 20:34 98.7 F 70 16 154/79 90 08/02/21 20:00 71 08/02/21 19:41 165/73 99 08/02/21 19:31 73 165/73 97 08/02/21 19:24 68 21 165/73 97 08/02/21 19:21 70 21 165/73 96 08/02/21 19:11 70 23 182/88 93 08/02/21 19:00 71 20 182/88 92 08/02/21 18:45 71 13 178/97 91 08/02/21 18:30 79 18 178/97 90 08/02/21 18:15 87 19 180/91 92 08/02/21 18:00 80 17 187/102 97 08/02/21 17:45 71 14 169/84 97 08/02/21 17:30 75 18 188/104 97 08/02/21 17:15 81 159/83 92 08/02/21 17:01 78 159/83 93 08/02/21 16:45 76 169/84 92 08/02/21 16:30 74 159/83 93 08/02/21 16:15 83 170/83 95 08/02/21 16:00 98.4 F 81 170/83 94 08/02/21 15:45 81 170/91 94 08/02/21 15:30 77 194/103 98 08/02/21 15:15 82 183/95 98 08/02/21 15:00 79 15 185/101 97 08/02/21 14:45 71 20 169/90 96 08/02/21 14:30 81 15 169/90 98 08/02/21 14:19 74 185/98 08/02/21 14:15 84 22 176/111 98 08/02/21 14:00 73 17 187/91 99 08/02/21 13:45 76 20 181/96 99 08/02/21 13:35 78 08/02/21 13:31 77 23 189/149 98 - Physical Examination General: No Apparent Distress HEENT: Positive: Normocephaly Neck: Positive: trachea midline. Negative: JVD/HJR Cardiac: Positive: Reg Rate and Rhythm Lungs: Positive: Normal Breath Sounds Neuro: Positive: Grossly Intact Abdomen: Positive: Soft Skin: Negative: Rash, Suspicious Lesions Musculoskeletal: No Fluid Collection Extremities: Present: lower extr. pulses. Absent: edema - Imaging and Cardiology EKG: report reviewed, image reviewed Echo: report reviewed - Telemetry EKG Rhythm: Sinus Rhythm - EKG Sinus rhythms and dysrhythmias: sinus rhythm Ventricular dysrhythmias: non-sustained ventricular - Allied health notes Allied health notes reviewed: nursing
--- NOTE | 2021-08-03 21:15 | Progress Note ---
Assessment and Plan 71 YO Female [facility] Resident at [facility] with COPD, HTN, CHF presents to ED for evaluation. The patient is intubated anovulatory supportive time my evaluation and is unable to provide history. Patient history taken from EMS staff, ED staff. custodial facility staff report that the patient experienced increased confusion and shortness of breath today and was also found to have a systolic blood pressure in the 70s. EMS was notified and upon arrival the patient was found to be in distress and subsequently transported to [facility] for further evaluation and care. Patient seen and evaluated in the emergency department. Lab and imaging studies reviewed. Patient was found to be stuporous and not able to protect her airway. Patient intubated and placed on ventilatory support. Patient subsequently experienced cardiac arrest and was treated in accordance with ACLS protocol with return of perfusing car diac rhythm. Patient also found to have acute kidney injury. Patient admitted to ICU due to increased risk of worsening symptoms or development of multiple organ system failure. No further history is obtainable. No reports of fever, chills, chest pain, palpitation, productive cough, skin rash, trauma, or known ill contacts. Patient sleeping on room air. Suppose to be on 2 litres o2. Patient not using his O2. O2 saturation recorded 91%. BIPAP stand by in the room . No acute respiratory distress. Patient running low grade temp. Has leukocytosis. Blood pressure 152/74. Pulse 89. Chest xray done 08/02/21 reported Status post extubation and removal of enteric tube. Redemonstrated multifocal airspace opacities. Left pleural effusion. Patientient is on albuterol inhaler and famotidine. - Patient Problems (1) Acute respiratory failure with hypoxia Current Visit: Yes Status: Acute Plan to address problem: O2 2 litres via nasal canula. Proventil inhaler Famotidine. BIPAP. (2) Bilateral pneumonia Current Visit: Yes Status: Acute Plan to address problem: Patient treated with Zosyn and vancomycin. (3) Cardiopulmonary arrest Current Visit: Yes Status: Acute Plan to address problem: Resucitated with ROSC. (4) Paroxysmal atrial fibrillation Current Visit: Yes Status: Acute Plan to address problem: Management as per cardiology. (5) COPD (chronic obstructive pulmonary disease) Current Visit: Yes Status: Chronic Plan to address problem: O2 2 litres via nasal canula. Proventil inhaler Famotidine. BIPAP. Recommend Brovanna/Budesonide aerosol treatments q 12 hours. (6) Chronic heart failure with preserved ejection fraction (HFpEF) Current Visit: Yes Status: Chronic Plan to address problem: Management as per cardiology. (7) DM2 (diabetes mellitus, type 2) Current Visit: Yes Status: Chronic Plan to address problem: Management as per primary care. (8) History of COVID-19 Current Visit: Yes Status: Chronic Plan to address problem: Patients repeat COVID test is negative. (9) VIJAY (acute kidney injury) Current Visit: Yes Status: Acute Plan to address problem: Management as per nephrology. (10) Acute CVA (cerebrovascular accident) Current Visit: Yes Status: Acute Plan to address problem: Management as per neurology and primary care. (11) Acute encephalopathy Current Visit: Yes Status: Acute Plan to address problem: Management as per primary care and neurology. Subjective Date of service: 08/03/21 Principal diagnosis: Cardiopulmonary Arrest Interval history: 71 YO Female [facility] Facility Resident at [facility] with COPD, HTN, CHF presents to ED for evaluation. The patient is intubated anovulatory supportive time my evaluation and is unable to provide history. Patient history taken from EMS staff, ED staff. custodial facility staff report that the patient experienced increased confusion and shortness of breath today and was also found to have a systolic blood pressure in the 70s. EMS was notified and upon arrival the patient was found to be in distress and subsequently transported to [facility] for further evaluation and care. Patient seen and evaluated in the emergency department. Lab and imaging studies reviewed. Patient was found to be stuporous and not able to protect her airway. Patient intubated and placed on ventilatory support. Patient subsequently experienced cardiac arrest and was treated in accordance with ACLS protocol with return of perfusing cardiac rhythm. Patient also found to have acute kidney injury. Patient admitted to ICU due to increased risk of worsening symptoms or development of multiple organ system failure. No further history is obtainable. No reports of fever, chills, chest pain, palpitation, productive cough, skin rash, trauma, or known ill contacts. Patient sleeping on room air. Suppose to be on 2 litres o2. Patient not using his O2. O2 saturation recorded 91%. BIPAP stand by in the room . No acute respiratory distress. Patient running low grade temp. Has leukocytosis. Blood pressure 152/74. Pulse 89. Chest xray done 08/02/21 reported Status post extubation and removal of enteric tube. Redemonstrated multifocal airspace opacities. Left pleural effusion. Patientient is on albuterol inhaler and famotidine. Objective Vital Signs - 12hr 08/03/21 08/03/21 08/03/21 10:00 12:00 19:28 Temperature 98.7 F 99.4 F Pulse Rate 104 H 89 Respiratory 20 18 Rate Blood Pressure 153/91 152/74 O2 Sat by Pulse 98 100 91 Oximetry Constitutional: no acute distress, asleep Eyes: non-icteric ENT: oropharynx moist Neck: supple, no lymphadenopathy Effort: mildly labored Ascultation: Bilateral: diminished breath sounds Cardiovascular: regular rate and rhythm Gastrointestinal: normoactive bowel sounds, soft, non-tender Integumentary: normal Extremities: no cyanosis, no edema Neurologic: other (Patient is in deep sleep.) Psychiatric: other (Patient sleeping) CBC and BMP: 08/02/21 04:40 08/02/21 04:40 ABG, PT/INR, D-dimer: ABG ABG pH 7.337 (7.320-7.450) 08/01/21 04:04 POC ABG pCO2 36.2 mmHg (32.0-48.0) 08/01/21 04:04 ABG pCO2 28.3 mm Hg 07/30/21 13:00 POC ABG pO2 79.3 mmHg (83-108) L 08/01/21 04:04 ABG pO2 116.9 mm Hg (80.0-90.0) H 07/30/21 13:00 POC ABG HCO3 19.0 08/01/21 04:04 ABG O2 Saturation 95.1 (0-100) 08/01/21 04:04 PT/INR, D-dimer PT 16.6 Sec. (12.2-14.9) H 07/28/21 11:09 INR 1.21 (0.87-1.13) H 07/28/21 11:09 Abnormal lab findings: Abnormal Labs 07/28/21 07/28/21 07/28/21 11:09 11:09 11:09 WBC 13.5 H MCH 26 L RDW 17.6 H Lymph % (Auto) 12.0 L [place] % (Auto) [place] # (Auto) 0.9 H Seg Neutrophils % 80.4 H Seg Neutrophils # 10.8 H PT 16.6 H INR 1.21 H ABG pH POC ABG pCO2 POC ABG pO2 ABG pO2 ABG HCO3 ABG Base Excess ABG Hemoglobin ABG Oxyhemoglobin ABG Sodium ABG Potassium ABG Chloride ABG Glucose Carboxyhemoglobin Sodium Chloride Carbon Dioxide 16 L BUN 78 H Creatinine 9.1 H Glucose 224 H POC Glucose Lactic Acid Calcium 7.7 L ALT Total Creatine Kinase Troponin T 0.063 H Albumin Triglycerides 226 H Arterial Blood Glucose Arterial Blood Ionized Calcium Urine WBC (Auto) Urine Creatinine 07/28/21 07/28/21 07/28/21 11:09 11:09 12:24 WBC MCH RDW Lymph % (Auto) [place] % (Auto) [place] # (Auto) Seg Neutrophils % Seg Neutrophils # PT INR ABG pH 7.049 L* POC ABG pCO2 POC ABG pO2 ABG pO2 135.4 H ABG HCO3 13.4 L ABG Base Excess -16.5 L ABG Hemoglobin 10.8 L ABG Oxyhemoglobin ABG Sodium ABG Potassium ABG Chloride ABG Glucose Carboxyhemoglobin Sodium Chloride Carbon Dioxide BUN Creatinine Glucose POC Glucose Lactic Acid 7.30 H* Calcium ALT Total Creatine Kinase 840 H Troponin T Albumin Triglycerides Arterial Blood Glucose Arterial Blood Ionized Calcium Urine WBC (Auto) Urine Creatinine 07/28/21 07/28/21 07/28/21 17:25 18:18 23:20 WBC MCH RDW Lymph % (Auto) [place] % (Auto) [place] # (Auto) Seg Neutrophils % Seg Neutrophils # PT INR ABG pH 7.118 L POC ABG pCO2 POC ABG pO2 124.3 H ABG pO2 ABG HCO3 ABG Base Excess ABG Hemoglobin ABG Oxyhemoglobin ABG Sodium ABG Potassium 5.1 H ABG Chloride ABG Glucose 406 H Carboxyhemoglobin Sodium Chloride Carbon Dioxide BUN Creatinine Glucose POC Glucose 328 H 270 H Lactic Acid Calcium ALT Total Creatine Kinase Troponin T Albumin Triglycerides Arterial Blood Glucose 406 H Arterial Blood Ionized Calcium 3.8 L Urine WBC (Auto) Urine Creatinine 07/28/21 07/28/21 07/29/21 Unknown Unknown 04:27 WBC 14.0 H MCH 26 L RDW 17.1 H Lymph % (Auto) 10.1 L [place] % (Auto) 8.1 H [place] # (Auto) 1.1 H Seg Neutrophils % 81.6 H Seg Neutrophils # 11.4 H PT INR ABG pH POC ABG pCO2 POC ABG pO2 ABG pO2 ABG HCO3 ABG Base Excess ABG Hemoglobin ABG Oxyhemoglobin ABG Sodium ABG Potassium ABG Chloride ABG Glucose Carboxyhemoglobin Sodium Chloride Carbon Dioxide BUN Creatinine Glucose POC Glucose Lactic Acid Calcium ALT Total Creatine Kinase Troponin T Albumin Triglycerides Arterial Blood Glucose Arterial Blood Ionized Calcium Urine WBC (Auto) 23.0 H Urine Creatinine 173.3 H 07/29/21 07/29/21 07/29/21 04:27 05:34 08:38 WBC MCH RDW Lymph % (Auto) [place] % (Auto) [place] # (Auto) Seg Neutrophils % Seg Neutrophils # PT INR ABG pH POC ABG pCO2 21.7 L POC ABG pO2 199.3 H ABG pO2 ABG HCO3 ABG Base Excess ABG Hemoglobin 11.8 L ABG Oxyhemoglobin 98.9 H ABG Sodium ABG Potassium ABG Chloride 113.0 H ABG Glucose 181 H Carboxyhemoglobin 0.2 L Sodium Chloride Carbon Dioxide 14 L BUN 77 H Creatinine 7.6 H Glucose 211 H POC Glucose 187 H Lactic Acid Calcium 7.6 L ALT Total Creatine Kinase Troponin T Albumin Triglycerides Arterial Blood Glucose 181 H Arterial Blood Ionized Calcium Urine WBC (Auto) Urine Creatinine 07/29/21 07/29/21 07/29/21 11:31 17:51 22:35 WBC MCH RDW Lymph % (Auto) [place] % (Auto) [place] # (Auto) Seg Neutrophils % Seg Neutrophils # PT INR ABG pH POC ABG pCO2 POC ABG pO2 ABG pO2 ABG HCO3 ABG Base Excess ABG Hemoglobin ABG Oxyhemoglobin ABG Sodium ABG Potassium ABG Chloride ABG Glucose Carboxyhemoglobin Sodium Chloride Carbon Dioxide BUN Creatinine Glucose POC Glucose 140 H 141 H 194 H Lactic Acid Calcium ALT Total Creatine Kinase Troponin T Albumin Triglycerides Arterial Blood Glucose Arterial Blood Ionized Calcium Urine WBC (Auto) Urine Creatinine 07/30/21 07/30/21 07/30/21 04:00 04:00 05:12 WBC 15.6 H MCH 26 L RDW 16.8 H Lymph % (Auto) [place] % (Auto) [place] # (Auto) Seg Neutrophils % Seg Neutrophils # PT INR ABG pH POC ABG pCO2 POC ABG pO2 ABG pO2 ABG HCO3 ABG Base Excess ABG Hemoglobin ABG Oxyhemoglobin ABG Sodium ABG Potassium ABG Chloride ABG Glucose Carboxyhemoglobin Sodium Chloride 110.5 H Carbon Dioxide 16 L BUN 86 H Creatinine 5.9 H Glucose 183 H POC Glucose 162 H Lactic Acid Calcium 8.0 L ALT 57 H Total Creatine Kinase Troponin T Albumin 3.2 L Triglycerides Arterial Blood Glucose Arterial Blood Ionized Calcium Urine WBC (Auto) Urine Creatinine 07/30/21 07/30/21 07/30/21 12:04 13:00 17:20 WBC MCH RDW Lymph % (Auto) [place] % (Auto) [place] # (Auto) Seg Neutrophils % Seg Neutrophils # PT INR ABG pH POC ABG pCO2 POC ABG pO2 ABG pO2 116.9 H ABG HCO3 15.4 L ABG Base Excess -8.9 L ABG Hemoglobin 10.2 L ABG Oxyhemoglobin ABG Sodium ABG Potassium ABG Chloride ABG Glucose Carboxyhemoglobin Sodium Chloride Carbon Dioxide BUN Creatinine Glucose POC Glucose 145 H 126 H Lactic Acid Calcium ALT Total Creatine Kinase Troponin T Albumin Triglycerides Arterial Blood Glucose Arterial Blood Ionized Calcium Urine WBC (Auto) Urine Creatinine 07/30/21 07/31/21 07/31/21 23:23 03:46 05:13 WBC MCH RDW Lymph % (Auto) [place] % (Auto) [place] # (Auto) Seg Neutrophils % Seg Neutrophils # PT INR ABG pH POC ABG pCO2 26.8 L POC ABG pO2 132.2 H ABG pO2 ABG HCO3 ABG Base Excess ABG Hemoglobin 10.2 L ABG Oxyhemoglobin ABG Sodium ABG Potassium ABG Chloride 115.0 H ABG Glucose 171 H Carboxyhemoglobin 0.3 L Sodium Chloride Carbon Dioxide BUN Creatinine Glucose POC Glucose 193 H 167 H Lactic Acid Calcium ALT Total Creatine Kinase Troponin T Albumin Triglycerides Arterial Blood Glucose 171 H Arterial Blood Ionized Calcium Urine WBC (Auto) Urine Creatinine 07/31/21 07/31/21 07/31/21 08:10 08:10 11:42 WBC 13.3 H MCH 26 L RDW 17.0 H Lymph % (Auto) [place] % (Auto) [place] # (Auto) Seg Neutrophils % Seg Neutrophils # PT INR ABG pH POC ABG pCO2 POC ABG pO2 ABG pO2 ABG HCO3 ABG Base Excess ABG Hemoglobin ABG Oxyhemoglobin ABG Sodium ABG Potassium ABG Chloride ABG Glucose Carboxyhemoglobin Sodium Chloride 111.8 H Carbon Dioxide 17 L BUN 86 H Creatinine 3.8 H Glucose 154 H POC Glucose 159 H Lactic Acid Calcium 8.3 L ALT Total Creatine Kinase Troponin T Albumin 3.3 L Triglycerides Arterial Blood Glucose Arterial Blood Ionized Calcium Urine WBC (Auto) Urine Creatinine 07/31/21 08/01/21 08/01/21 17:22 00:01 04:04 WBC MCH RDW Lymph % (Auto) [place] % (Auto) [place] # (Auto) Seg Neutrophils % Seg Neutrophils # PT INR ABG pH POC ABG pCO2 POC ABG pO2 79.3 L ABG pO2 ABG HCO3 ABG Base Excess ABG Hemoglobin 10.2 L ABG Oxyhemoglobin ABG Sodium 146.8 H ABG Potassium ABG Chloride 117.0 H ABG Glucose 138 H Carboxyhemoglobin 0.3 L Sodium Chloride Carbon Dioxide BUN Creatinine Glucose POC Glucose 115 H 123 H Lactic Acid Calcium ALT Total Creatine Kinase Troponin T Albumin Triglycerides Arterial Blood Glucose 138 H Arterial Blood Ionized Calcium Urine WBC (Auto) Urine Creatinine 08/01/21 08/01/21 08/01/21 06:00 08:55 08:55 WBC 12.2 H MCH 27 L RDW 17.0 H Lymph % (Auto) [place] % (Auto) [place] # (Auto) Seg Neutrophils % Seg Neutrophils # PT INR ABG pH POC ABG pCO2 POC ABG pO2 ABG pO2 ABG HCO3 ABG Base Excess ABG Hemoglobin ABG Oxyhemoglobin ABG Sodium ABG Potassium ABG Chloride ABG Glucose Carboxyhemoglobin Sodium 150 H Chloride 117.9 H Carbon Dioxide 21 L BUN 71 H Creatinine 2.7 H Glucose 174 H POC Glucose 118 H Lactic Acid Calcium 8.3 L ALT Total Creatine Kinase Troponin T Albumin Triglycerides Arterial Blood Glucose Arterial Blood Ionized Calcium Urine WBC (Auto) Urine Creatinine 08/01/21 08/01/21 08/02/21 11:56 21:41 04:40 WBC 13.3 H MCH 27 L RDW 16.9 H Lymph % (Auto) [place] % (Auto) [place] # (Auto) Seg Neutrophils % Seg Neutrophils # PT INR ABG pH POC ABG pCO2 POC ABG pO2 ABG pO2 ABG HCO3 ABG Base Excess ABG Hemoglobin ABG Oxyhemoglobin ABG Sodium ABG Potassium ABG Chloride ABG Glucose Carboxyhemoglobin Sodium Chloride Carbon Dioxide BUN Creatinine Glucose POC Glucose 130 H 130 H Lactic Acid Calcium ALT Total Creatine Kinase Troponin T Albumin Triglycerides Arterial Blood Glucose Arterial Blood Ionized Calcium Urine WBC (Auto) Urine Creatinine 08/02/21 08/02/21 08/02/21 04:40 05:34 12:16 WBC MCH RDW Lymph % (Auto) [place] % (Auto) [place] # (Auto) Seg Neutrophils % Seg Neutrophils # PT INR ABG pH POC ABG pCO2 POC ABG pO2 ABG pO2 ABG HCO3 ABG Base Excess ABG Hemoglobin ABG Oxyhemoglobin ABG Sodium ABG Potassium ABG Chloride ABG Glucose Carboxyhemoglobin Sodium 154 H Chloride 119.2 H Carbon Dioxide BUN 52 H Creatinine 1.8 H Glucose 132 H POC Glucose 120 H 117 H Lactic Acid Calcium ALT Total Creatine Kinase Troponin T Albumin 3.6 L Triglycerides Arterial Blood Glucose Arterial Blood Ionized Calcium Urine WBC (Auto) Urine Creatinine 08/02/21 08/02/21 08/03/21 17:42 20:52 06:39 WBC MCH RDW Lymph % (Auto) [place] % (Auto) [place] # (Auto) Seg Neutrophils % Seg Neutrophils # PT INR ABG pH POC ABG pCO2 POC ABG pO2 ABG pO2 ABG HCO3 ABG Base Excess ABG Hemoglobin ABG Oxyhemoglobin ABG Sodium ABG Potassium ABG Chloride ABG Glucose Carboxyhemoglobin Sodium Chloride Carbon Dioxide BUN Creatinine Glucose POC Glucose 133 H 159 H 143 H Lactic Acid Calcium ALT Total Creatine Kinase Troponin T Albumin Triglycerides Arterial Blood Glucose Arterial Blood Ionized Calcium Urine WBC (Auto) Urine Creatinine 08/03/21 08/03/21 08/03/21 12:05 16:31 20:43 WBC MCH RDW Lymph % (Auto) [place] % (Auto) [place] # (Auto) Seg Neutrophils % Seg Neutrophils # PT INR ABG pH POC ABG pCO2 POC ABG pO2 ABG pO2 ABG HCO3 ABG Base Excess ABG Hemoglobin ABG Oxyhemoglobin ABG Sodium ABG Potassium ABG Chloride ABG Glucose Carboxyhemoglobin Sodium Chloride Carbon Dioxide BUN Creatinine Glucose POC Glucose 178 H 114 H 154 H Lactic Acid Calcium ALT Total Creatine Kinase Troponin T Albumin Triglycerides Arterial Blood Glucose Arterial Blood Ionized Calcium Urine WBC (Auto) Urine Creatinine Chest x-ray: report reviewed, image reviewed Additional Studies: CHEST 1 VIEW 08/02/2021 1:19 AM INDICATION / CLINICAL INFORMATION: Bilateral Pneumonia. COMPARISON: 07/31/2021 FINDINGS: SUPPORT DEVICES: Status post extubation and removal of enteric tube. Stable positioning of right PICC HEART / MEDIASTINUM: No significant abnormality. LUNGS / PLEURA: Redemonstrated multifocal airspace opacities. There is a left pleural effusion. No pneumothorax. ADDITIONAL FINDINGS: No significant additional findings. IMPRESSION: 1. Status post extubation and removal of enteric tube. Redemonstrated multifocal airspace opacities. Left pleural effusion. Allied health notes reviewed: nursing
[2021-08-03] MEDS: QUEtiapine 25 MG TAB PO SCH (21:54)
[2021-08-03] MEDS: allopurinoL 100 MG TAB PO SCH (21:55)
[2021-08-03] MEDS: METOPROLOL TARTRATE 25 MG TAB PO SCH (21:55)
[2021-08-03] MEDS: DONEPEZIL 10 MG TAB PO SCH (21:56)
[2021-08-03] MEDS: INSULIN GLARGINE 100 UNITS/ML SUB-Q SCH (21:56)
--- NOTE | 2021-08-04 07:36 | Discharge Summary ---
Providers - Providers Date of Admission: 07/28/21 12:05 Date of discharge: 08/04/21 Attending physician: ELIZABETH RIVERS MD 07/28/21 12:11 Consult to Physician [CONS] Routine Comment: Consulting Provider: OPAL MONTENEGRO Physician Instructions: Reason For Exam: resp failure on vent, sepsis 07/28/21 15:13 Consult to Dietitian/Nutrition [CONS] Routine Physician Instructions: Reason For Exam: Reason for Consult: Write/Manage Tube Feeding 07/28/21 15:23 Consult to Physician [CONS] Urgent Comment: Spoke to Anna Marie / Gladys Consulting Provider: ANA DEE Physician Instructions: Reason For Exam: VIJAY 07/29/21 10:51 Consult to Cardiology [CONS] Routine Consulting Provider: ROBIN RIVERO Reason For Exam: s/p cardiac arrest Consult to Physician [CONS] Routine Comment: Spoke to Felisha Graham Consulting Provider: ASHER ELLISON Physician Instructions: Reason For Exam: Sepsis 07/29/21 14:53 PICC Line Insertion [Consult to PICC Line RN] [CONS] Routine Reason For Exam: Sepsis Type Line:: PICC 07/29/21 16:18 Consult to Physician [CONS] Routine Comment: Left mss for Dr. Graham / Gladys Consulting Provider: ALLA GRAHAM Physician Instructions: Reason For Exam: AC recommendation due to Afib/CVA 08/02/21 11:36 Consult to Dietitian/Nutrition [CONS] Routine Physician Instructions: Assess nutrtn needs, initiate, modify, manage TF Reason For Exam: Reason for Consult: Write/Manage Tube Feeding Reason for Consult: Write/Manage Tube Feeding 08/02/21 13:49 Speech Therapy Evaluation and Treat [CONS] Routine Reason For Exam: ST eval Hospitalization Reason for admission: confusion/sob Condition: Fair Hospital course: History Interval history: This a 71 years-old female with PmHx of dementia, COPD, HTN, HLD, CHF, brain aneurysm, CVA, CKD, and DM2 who was brought in via EMS from a nursing due to confusion, SOB, and hypotension. Upon her arrival in the ED patient was found stuporous/obtunded and required intubation for airway protection. Subsequently after patient went into cardiac arrest, ROSC was achieved after 1 round of ACLS. Patient was then transferred to the ICU for further management. 07/29/21- Patient remains intubated and sedated on versed and fentynal, on pressors. Consult place for cardio s/p cardiac arrest, ID was consulted for sepsis, and Neuro consult for AC rec due to Afib/CVA. Basal insulin was added for blood glucose control. Will continue to monitor renal function and electrolytes, am labs ordered. 07/30/21- Patient remains intubated and sedated, on propofol and fentanyl RASS 0 to -2. Remains on low dose pressors, SB noted this am. Pending MRI brain today. 07/31/21- Patient remains intubated and sedated. RASS 0 to -2. On low vent settings, plan for SAT and SBT today. Patient remains on low dose pressors, kidney function is improvement, high chloremia noted thoday and hemodynamics are labile, will start gentle hydration NS at 75ml/hr X1L. Will continue to monitor renal function and electrolytes. 08/01/21- Patient remains intubated and sedated on low dose sedation RASS 0 to - 1. SAT and SBT today, will extubated if tolerated. Hypernatremia noted from this am lab will start FWF at 250 Q4hrs, will reassess in the am. Per cardio no indication for Kenroy at this time. Renal function is improving responding to current treatment. Will continue to monitor renal function and electrolytes. 08/02/21: hypernatremia persists, Cr improved, ST eval at bedside, transfer to floor. 08/03/21: medically clear for d/c. COVID 19 PCR test ordered. Will plan for discharge back to [facility] tomorrow once test results negative. 08/04/21: Awaiting covid 19 pcr test result. Can be discharged back to [facility] once completed. Will advise patient to continue home medications except for ALLISON inhibitor and furosemide due to renal function. Will increase atorvastatin from 40 mg nightly to 80 mg nightly. Neuro: Acute Metabolic Encephalopathy, H/o CVA, dementia -07/28 CT head w/o showed chronic appearing left MCA [employer] watershed zone infarct -Consult Neurology for input on anticoagulation for AFib/CVA prophylaxis -MRI brain pending -Restart home meds- Aricept and memantine -Reduce the possibility of delirium, continue seroquel -Maintenance of sleep-wake cycle CV: S/p Cardiac arrest, Atrial Fibrillation, s/p Hypotension, H/o CHF -SR today -Post ROSC EKG showed Afib RVR, HR 120s -07/30 2D Echo- EF 50 to 55%, left ventricular systolic function is normal, right ventricular systolic function is normal, right ventricle is mildly dilated, trace mitral regurgitation, RSVP is 33 mmHg, mild to moderate tricuspid regurgitation -s/p Levo and Vaso -Cardiology on consult, appreciated recommendations -Per cardio no indication for KENROY to r/o endocaditis at this time Pulm: Acute Hypoxemic Respiratory Failure, Bilateral pneumonia, H/o COPD -Intubated with OETT on 07/28 and extubated 08/01 -SpO2 monitoring -Pulmanory hygiene -Supplemental oxygenation if needed GI: -Bedside swallow eval completed with excessive burping -ST eval: Findings revealed decreased laryngeal elevation and excessive burping following each bite. No evidence of aspiration was identified; however noted burping may be attributed to GERD. Recommend a Barium Swallow study to rule out an esophageal stricture, NOT an MBS. Recommend a mechanical soft diet with ground meats and regular liquids. Will follow to ensure continued safety. -Continue current BR- senokot -Continue PPI- Pepcid : Acute Kidney Injury (VIJAY) possible 2/2 sepsis shock, hypernatremia, H/o CKD -Baseline cr. is 1, cr. on admit as high as 9.1 but now down trending -Strict intake and output -Menjivar in place -remove menjivar 08/03 if renal function continues to improve -24 (+) 465 -Nephrology on consult, appreciate recommendations -Started on D5W@ 42 (off) -Avoid nephrotoxic medications -Renally dose medications -Trend BMP ID: Sepsis Shock, Bilateral pneumonia, Lactic Acidosis- resolved -PNA on CXr -COVID PCR (-) -Abx- Cefepime (complete) -Follow culture blood data -Monitor fever and WBC curve -ID consulted, appreciate recommendations Endo: Hyperglycemia, H/o DM2 -SSI ACHS -Lantus qHS -While critically ill target blood glucose of 140-180 -Avoid hypoglycemia Disposition: HOME / SELF CARE / HOMELESS Final Discharge Diagnosis (Prints w/discharge instructions): Acute hypoxic respiratory failure Time spent for discharge: 35 - Discharge Diagnoses (1) Acute respiratory failure with hypoxia Status: Acute (2) Acute encephalopathy Status: Acute (3) Acute kidney injury (VIJAY) with acute tubular necrosis (ATN) Status: Acute Core Measure Documentation - Palliative Care Palliative Care/ Comfort Measures: Not Applicable - Core Measures Any of the following diagnoses?: none Exam - Physical Exam Narrative exam: General appearance: Present: no acute distress - EENT Eyes: Present: PERRL - Respiratory Respiratory effort: normal Respiratory: bilateral: diminished - Cardiovascular Rhythm: regular Heart Sounds: Present: S1 & S2 - Extremities Extremities: no ischemia, pulses intact, pulses symmetrical Extremity abnormal: edema - Peripheral Assessment Generalized Edema Type: Non-pitting Edema Degree: 1+ Capillary Refill: < 3 seconds Skin Temperature: Warm Peripheral Pulses: within normal limits - Abdominal General gastrointestinal: soft, non-tender, normal bowel sounds - Integumentary Integumentary: Present: clear, warm, dry - Neurologic Neurologic: other - moving all extremities , obeys simple commands. answers yes/no questions - Constitutional Vitals: Temp Pulse Resp BP Pulse Ox 98.1 F 88 18 134/68 95 08/04/21 03:33 08/04/21 03:34 08/04/21 03:33 08/04/21 03:33 08/04/21 03:34 Plan Activity: advance as tolerated Weight Bearing Status: Weight Bear as Tolerated Follow up with: PHAN LECHUGA [Other] - 3-5 Days Prescriptions: AtorvaSTATin [Lipitor] 80 mg PO QHS 30 Days #30 tablet
[2021-08-04] MEDS: INSULIN LISPRO 100 UNIT/ML SUB-Q SCH ×3 (07:48→18:15)
[2021-08-04] MEDS: amLODIPine 10 MG TAB PO SCH (10:12)
[2021-08-04] MEDS: FAMOTIDINE 20 MG/2 ML INJ IV SCH (10:13)
[2021-08-04] MEDS: OMEGA-3 FATTY ACIDS/FISH OIL 1 GRAM CAP PO SCH (10:13)
[2021-08-04] MEDS: SENNOSIDES/DOCUSATE SODIUM 8.6/50 MG TAB FEEDTUBE SCH (10:13)
[2021-08-04] MEDS: MEMANTINE 5 MG TAB PO SCH (10:14)
[2021-08-04] MEDS: ASPIRIN 81 MG TAB CHEW PO SCH (10:14)
[2021-08-04] MEDS: CHOLECALCIFEROL (VIT D3) 1000 UNIT (25 mcg) TAB PO SCH (10:14)
[2021-08-04] MEDS: POLYETHYLENE GLYCOL 3350 17 GM POWDER PO SCH (10:14)
[2021-08-04] MEDS: ASCORBIC ACID 500 MG TAB PO SCH (10:14)
[2021-08-04] MEDS: METOPROLOL TARTRATE 25 MG TAB PO SCH (10:15)
--- NOTE | 2021-08-04 12:01 | Progress Note ---
Assessment and Plan - Patient Problems (1) VIJAY (acute kidney injury) Current Visit: Yes Status: Acute Plan to address problem: Likely pre-renal vs ATN in the setting of cardiac arrest and sepsis. Labs indicate improved renal function, repeat BMP pending Avoid nephrotoxins, maintain MAP >65mmHg. Remains non-oliguric at this time. BP remains stable, ALLISON-I/diuretics can be resumed as outpatient once eGFR is in steady state. (2) Hypernatremia Current Visit: No Status: Acute Plan to address problem: increased free water intake ad maria, agree with D5W if po intake is not adequate (3) Acute respiratory failure with hypoxia Current Visit: Yes Status: Acute Plan to address problem: Vent management per ICU/pulmonary team (4) Cardiac arrest Current Visit: Yes Status: Acute Plan to address problem: With ROSC at this time ECHO results reviewed. Further recommendations per cardiology. (5) DM2 (diabetes mellitus, type 2) Current Visit: Yes Status: Chronic Plan to address problem: DM management per primary attending. (6) Bacteremia Current Visit: Yes Status: Acute Plan to address problem: Initial blood cultures are showing Coag negative staphylococcus. ID recommendations reviewed. (7) Bilateral pneumonia Current Visit: Yes Status: Acute Plan to address problem: Chest xray is showing improvement since admission. Please ensure that antibiotics are dosed appropriately for decreased renal function. COVID -19 test negative Subjective Date of service: 08/04/21 Principal diagnosis: Cardiopulmonary Arrest Interval history: Pt awake, alert, in no acute distress Objective - Vital Signs Vital signs: Vital Signs - 12hr 08/04/21 08/04/21 08/04/21 03:33 03:34 07:52 Temperature 98.1 F 97.2 F L Pulse Rate 88 88 83 Respiratory 18 16 Rate Blood Pressure 134/68 143/71 O2 Sat by Pulse 94 95 97 Oximetry 08/04/21 08/04/21 10:12 10:15 Temperature Pulse Rate 88 88 Respiratory Rate Blood Pressure 143/71 143/71 O2 Sat by Pulse Oximetry - General Appearance General appearance: well-developed, well-nourished, appears stated age, obese EENT: ATNC, PERRL, mucous membranes moist Neck: no JVD Respiratory: Present: Clear to Ascultation Cardiology: regular, S1S2 Gastrointestinal: normoactive bowel sounds Integumentary: no rash Neurologic: no focal deficit - Lab 08/02/21 04:40 08/02/21 04:40 Most recent lab results ABG pH 7.337 (7.320-7.450) 08/01/21 04:04 ABG pCO2 28.3 mm Hg 07/30/21 13:00 ABG pO2 116.9 mm Hg (80.0-90.0) H 07/30/21 13:00 ABG HCO3 15.4 mmol/L (20.0-26.0) L 07/30/21 13:00 ABG O2 Saturation 95.1 (0-100) 08/01/21 04:04 Calcium 9.4 mg/dL (8.4-10.2) 08/02/21 04:40 Phosphorus 4.20 mg/dL (2.5-4.5) 07/31/21 08:10 Magnesium 2.30 mg/dL (1.7-2.3) 07/31/21 08:10 Urine Creatinine 173.3 mg/dL (0.1-20.0) H 07/28/21 Unknown Urine Sodium 57 mmol/L 07/28/21 Unknown Medications & Allergies - Medications Allergies/Adverse Reactions: Allergies metformin Allergy (Verified 07/29/21 09:42) Unknown lactose Adverse Reaction (Verified 07/29/21 09:42) Diarrhea Home Medications: Home Medications Medication Instructions Recorded Confirmed Last Taken Type Acetaminophen 650 mg PO Q4H PRN 01/28/20 07/28/21 Unknown History Aspirin [Aspirin BABY CHEW TAB] 81 mg PO QDAY 01/28/20 07/28/21 Unknown History Donepezil HCl [Donepezil HCl Odt] 10 mg PO QHS 01/28/20 07/28/21 Unknown History Insulin Glargine,Hum.rec.anlog 25 unit SQ BID 01/28/20 07/28/21 Unknown History [Lantus Solostar] Linagliptin [Tradjenta] 5 mg PO QDAY 01/28/20 07/28/21 Unknown History Quetiapine Fumarate [SEROquel] 50 mg PO HS 01/28/20 07/28/21 Unknown History allopurinoL [Zyloprim] 100 mg PO QHS 01/28/20 07/28/21 Unknown History hydrALAZINE [Apresoline TAB] 50 mg PO BID 01/28/20 07/28/21 Unknown History ALBUTEROL NEB's [Proventil 0.083% 2.5 mg IH Q4HRT PRN nebu 02/14/20 07/28/21 Unknown Rx NEBS] Simple Syrup 15 ml FEEDTUBE PRN PRN oral.liqd 02/14/20 07/28/21 Unknown Rx Simple Syrup 30 ml FEEDTUBE PRN PRN oral.liqd 02/14/20 07/28/21 Unknown Rx Fenofibrate 40 mg PO DAILY 07/28/21 07/28/21 Unknown History amLODIPine 10 mg PO DAILY 07/28/21 07/28/21 Unknown History AtorvaSTATin [Lipitor] 80 mg PO QHS 30 Days #30 tablet 08/04/21 Unknown Rx Insulin Glargine [Lantus VIAL] 10 units SUB-Q QHS units 08/04/21 Unknown Rx Memantine 5 mg PO BID tablet 08/04/21 Unknown Rx Metoprolol [Lopressor TAB] 25 mg PO BID tablet 08/04/21 Unknown Rx QUEtiapine [SEROquel] 50 mg PO QHS tablet 08/04/21 Unknown Rx Sennosides/Docusate [Senokot S] 1 tab FEEDTUBE BID tablet 08/04/21 Unknown Rx Zinc Sulfate 220 mg PO QDAY capsule 08/04/21 Unknown Rx Active Medications: Generic Name Dose Route Start Last Admin Trade Name Freq PRN Reason Stop Dose Admin Acetaminophen 650 mg 07/28/21 13:00 08/03/21 22:18 Acetaminophen 325 Mg Tab PO 650 mg Q6H PRN Administration Pain MILD(1-3)/Fever >100.5/GARCIA Albuterol 2.5 mg 07/28/21 14:00 Albuterol 2.5 Mg/3 Ml Nebu IH Q3HRT PRN Shortness Of Breath Allopurinol 100 mg 07/29/21 22:00 08/03/21 21:55 Allopurinol 100 Mg Tab PO 100 mg QHS WIL Administration Amlodipine Besylate 10 mg 08/02/21 12:00 08/04/21 10:12 Amlodipine 10 Mg Tab PO 10 mg DAILY WIL Administration Lipase/Protease/Amylase 1 each 07/28/21 16:23 Lipase 10,500/Protease 25,000/Amylase 43,750 (Units) Dr Carmona FEEDTUBE PRN PRN For Clogged Feeding Tube Ascorbic Acid 500 mg 07/29/21 10:00 08/04/21 10:14 Ascorbic Acid 500 Mg Tab PO 500 mg QDAY WIL Administration Aspirin 81 mg 07/29/21 10:00 08/04/21 10:14 Aspirin 81 Mg Tab Chew PO 81 mg QDAY WIL Administration Atorvastatin Calcium 80 mg 07/28/21 22:00 08/03/21 21:55 Atorvastatin 40 Mg Tab PO 80 mg QHS WIL Administration Cholecalciferol 2,000 unit 07/29/21 10:00 08/04/21 10:14 Cholecalciferol (Vit D3) 1000 Unit (25 Mcg) Tab PO 2,000 unit QDAY WIL Administration Dextrose 50 ml 07/28/21 18:05 Dextrose 50% In Water (25gm) 50 Ml Syringe IV Q30MIN PRN Hypoglycemia Protocol Donepezil HCl 10 mg 07/28/21 22:00 08/03/21 21:56 Donepezil 10 Mg Tab PO 10 mg QHS WIL Administration Famotidine 10 mg 07/29/21 10:00 08/04/21 10:13 Famotidine 20 Mg/2 Ml Inj IV 10 mg BID WIL Administration Fish Oil 1,000 mg 08/02/21 12:00 08/04/21 10:13 Mcallister-3 Fatty Acids/Fish Oil 1 Gram Cap PO 1,000 mg QDAY WIL Administration Hydralazine HCl 10 mg 08/01/21 18:18 08/02/21 12:18 Hydralazine 20 Mg/1 Ml Inj IV 10 mg Q4HR PRN Administration Hypertension Hydrophilic Ointment 1 applic 07/28/21 11:19 Lip Therapy Vaseline TP Q2HR PRN Dry Lips Insulin Glargine 10 units 07/29/21 22:00 08/03/21 21:56 Insulin Glargine 100 Units/Ml SUB-Q 10 units QHS WIL Administration Insulin Human Lispro 0 unit 07/28/21 18:07 08/04/21 07:48 Insulin Lispro 100 Unit/Ml SUB-Q Not Given Q6HR [facility] Protocol Memantine 5 mg 07/29/21 10:00 08/04/21 10:14 Memantine 5 Mg Tab PO 5 mg BID WIL Administration Metoprolol Tartrate 25 mg 08/03/21 12:34 08/04/21 10:15 Metoprolol Tartrate 25 Mg Tab PO 25 mg BID WIL Administration Multi-Ingred Cream/Lotion/Oil/Oint 1 applic 07/28/21 11:19 Mineral Oil/Petrolatum, White Ophth Oint 3.5 Gm OU Q4HR PRN Dry Eye(s) Ondansetron HCl 4 mg 08/01/21 17:53 08/03/21 22:19 Ondansetron 4 Mg/2 Ml Inj IV 4 mg Q6H PRN Administration Nausea And Vomiting Polyethylene Glycol 17 gm 08/02/21 10:00 08/04/21 10:14 Polyethylene Glycol 3350 17 Gm Powder PO 17 gm QDAY WIL Administration Quetiapine Fumarate 50 mg 07/30/21 22:00 08/03/21 21:54 Quetiapine 25 Mg Tab PO 50 mg QHS WIL Administration Senna/Docusate Sodium 1 tab 07/28/21 12:00 08/04/21 10:13 Sennosides/Docusate Sodium 8.6/50 Mg Tab FEEDTUBE 1 tab BID WIL Administration Simple Syrup 15 ml 07/28/21 16:23 Simple Syrup 15 Ml FEEDTUBE PRN PRN Hypoglycemia Sodium Bicarbonate 325 mg 07/28/21 13:00 Sodium Bicarbonate 325 Mg Tab FEEDTUBE PRN PRN For Clogged Feeding Tube Sodium Chloride 10 ml 07/28/21 22:00 08/04/21 10:15 Sodium Chloride 0.9% 10 Ml Flush Syringe IV 10 ml BID WIL Administration Sodium Chloride 10 ml 07/28/21 13:00 Sodium Chloride 0.9% 10 Ml Flush Syringe IV PRN PRN LINE FLUSH Zinc Sulfate 220 mg 07/29/21 10:00 08/03/21 12:45 Zinc Sulfate 220 Mg Cap PO Not Given QDAY WIL
--- NOTE | 2021-08-04 12:50 | Progress Note ---
Assessment and Plan Cultures: Blood culture gram-positive cocci one of 4 bottles: Coag negative Staphylococcus Urine culture no growth 07/28/2021 tracheal aspirate culture: Usual respiratory chelsea A/P: 71-year-old female past medical history COPD, hypertension, morbid obesity presented to the hospital with confusion and shortness of breath. #Acute hypoxic respiratory failure: secondary to pneumonia: improved, off the vent. #VIJAY: Renally dose medications #Pneumonia, bilateral: Covid PCR negative #Coag negative staph bacteremia: 1 out of 4 bottles so far, likely contaminant. #Acute encephalopathy Recs: -completed abx, doing well ID will sign off. Please call back with questions. Jose Rucker MD, FACP [facility] ([facility] O: [phone] F: [phone] Subjective Date of service: 08/04/21 Principal diagnosis: Cardiopulmonary Arrest Interval history: No complaints. Remains on room air. Objective - Exam Narrative Exam: Physical Exam: Constitutional: Alert, cooperative. No acute distress Head, Ears, Nose: Normocephalic, atraumatic. External ears, nose normal Eyes: Conjunctivae/corneas clear. No icterus. No ptosis. Neck: Supple, no meningeal signs Cardiovascular: S1, S2 + Respiratory: Good air entry, clear to auscultation bilaterally GI: Soft, non-tender; bowel sounds normal. No peritoneal signs Musculoskeletal: No pedal edema, no cyanosis. Skin: No rash or abscess Hem/Lymphatic: No palpable cervical or supraclavicular nodes. No lymphangitis Psych: No agitation Neurological: Awake, alert, answering basic questions - Constitutional Vitals: Vital Signs Temp Pulse Resp BP Pulse Ox 97.2 F L 88 16 143/71 97 08/04/21 07:52 08/04/21 10:15 08/04/21 07:52 08/04/21 10:15 08/04/21 07:52 Temperature -Last 24 Hours Temperature 97.2 F Temperature 98.1 F Temperature 99.4 F Temperature 99.4 F - Labs CBC & Chem 7: 08/02/21 04:40 08/02/21 04:40 Labs: Abnormal lab results 08/03/21 08/03/21 08/04/21 Range/Units 16:31 20:43 07:48 POC Glucose 114 H 154 H 108 H (70-105) mg/dL 08/04/21 Range/Units 12:13 POC Glucose 164 H (70-105) mg/dL
--- NOTE | 2021-08-04 13:44 | Progress Note ---
Assessment and Plan 71 YO Female Senior Care Facility Resident at [facility] with COPD, HTN, CHF presents to ED for evaluation. The patient is intubated anovulatory supportive time my evaluation and is unable to provide history. Patient history taken from EMS staff, ED staff. snf facility staff report that the patient experienced increased confusion and shortness of breath today and was also found to have a systolic blood pressure in the 70s. EMS was notified and upon arrival the patient was found to be in distress and subsequently transported to [facility] for further evaluation and care. Patient seen and evaluated in the emergency department. Lab and imaging studies reviewed. Patient was found to be stuporous and not able to protect her airway. Patient intubated and placed on ventilatory support. Patient subsequently experienced cardiac arrest and was treated in accordance with ACLS protocol with return of perfusing car diac rhythm. Patient also found to have acute kidney injury. Patient admitted to ICU due to increased risk of worsening symptoms or development of multiple organ system failure. No further history is obtainable. No reports of fever, chills, chest pain, palpitation, productive cough, skin rash, trauma, or known ill contacts. Patient sleeping on room air. Suppose to be on 2 litres o2. Patient not using his O2. O2 saturation recorded 91%. BIPAP stand by in the room . No acute respiratory distress. Patient running low grade temp. Has leukocytosis. Blood pressure 152/74. Pulse 89. Chest xray done 08/02/21 reported Status post extubation and removal of enteric tube. Redemonstrated multifocal airspace opacities. Left pleural effusion. Patientient is on albuterol inhaler and famotidine. - Patient Problems (1) Acute respiratory failure with hypoxia Current Visit: Yes Status: Acute Plan to address problem: O2 2 litres via nasal canula. Proventil inhaler Famotidine. BIPAP. (2) Bilateral pneumonia Current Visit: Yes Status: Acute Plan to address problem: Patient treated with Zosyn and vancomycin. (3) Cardiopulmonary arrest Current Visit: Yes Status: Acute Plan to address problem: Resucitated with ROSC. (4) Paroxysmal atrial fibrillation Current Visit: Yes Status: Acute Plan to address problem: Management as per cardiology. (5) COPD (chronic obstructive pulmonary disease) Current Visit: Yes Status: Chronic Plan to address problem: O2 2 litres via nasal canula. Proventil inhaler Famotidine. BIPAP. Recommend Brovanna/Budesonide aerosol treatments q 12 hours. (6) Chronic heart failure with preserved ejection fraction (HFpEF) Current Visit: Yes Status: Chronic Plan to address problem: Management as per cardiology. (7) DM2 (diabetes mellitus, type 2) Current Visit: Yes Status: Chronic Plan to address problem: Management as per primary care. (8) History of COVID-19 Current Visit: Yes Status: Chronic Plan to address problem: Patients repeat COVID test is negative. (9) VIJAY (acute kidney injury) Current Visit: Yes Status: Acute Plan to address problem: Management as per nephrology. (10) Acute CVA (cerebrovascular accident) Current Visit: Yes Status: Acute Plan to address problem: Management as per neurology and primary care. (11) Acute encephalopathy Current Visit: Yes Status: Acute Plan to address problem: Management as per primary care and neurology. Subjective Date of service: 08/04/21 Principal diagnosis: Cardiopulmonary Arrest Interval history: 71 YO Female Senior Care Facility Resident at [facility] with COPD, HTN, CHF presents to ED for evaluation. The patient is intubated anovulatory supportive time my evaluation and is unable to provide history. Patient history taken from EMS staff, ED staff. snf facility staff report that the patient experienced increased confusion and shortness of breath today and was also found to have a systolic blood pressure in the 70s. EMS was notified and upon arrival the patient was found to be in distress and subsequently transported to [facility] for further evaluation and care. Patient seen and evaluated in the emergency department. Lab and imaging studies reviewed. Patient was found to be stuporous and not able to protect her airway. Patient intubated and placed on ventilatory support. Patient subsequently experienced cardiac arrest and was treated in accordance with ACLS protocol with return of perfusing cardiac rhythm. Patient also found to have acute kidney injury. Patient admitted to ICU due to increased risk of worsening symptoms or development of multiple organ system failure. No further history is obtainable. No reports of fever, chills, chest pain, palpitation, productive cough, skin rash, trauma, or known ill contacts. Patient sleeping on room air. Suppose to be on 2 litres o2. Patient not using his O2. O2 saturation recorded 91%. BIPAP stand by in the room . No acute respiratory distress. Patient running low grade temp. Has leukocytosis. Blood pressure 152/74. Pulse 89. Chest xray done 08/02/21 reported Status post extubation and removal of enteric tube. Redemonstrated multifocal airspace opacities. Left pleural effusion. Patientient is on albuterol inhaler and famotidine. Objective Vital Signs - 12hr 08/04/21 08/04/21 08/04/21 03:33 03:34 07:52 Temperature 98.1 F 97.2 F L Pulse Rate 88 88 83 Respiratory 18 16 Rate Blood Pressure 134/68 143/71 O2 Sat by Pulse 94 95 97 Oximetry 08/04/21 08/04/21 10:12 10:15 Temperature Pulse Rate 88 88 Respiratory Rate Blood Pressure 143/71 143/71 O2 Sat by Pulse Oximetry Constitutional: no acute distress, asleep Eyes: non-icteric ENT: oropharynx moist Neck: supple, no lymphadenopathy Effort: mildly labored Ascultation: Bilateral: diminished breath sounds Cardiovascular: regular rate and rhythm Gastrointestinal: normoactive bowel sounds, soft, non-tender Integumentary: normal Extremities: no cyanosis, no edema Neurologic: other (Patient is in deep sleep.) Psychiatric: other (Patient sleeping) CBC and BMP: 08/02/21 04:40 08/02/21 04:40 ABG, PT/INR, D-dimer: ABG ABG pH 7.337 (7.320-7.450) 08/01/21 04:04 POC ABG pCO2 36.2 mmHg (32.0-48.0) 08/01/21 04:04 ABG pCO2 28.3 mm Hg 07/30/21 13:00 POC ABG pO2 79.3 mmHg (83-108) L 08/01/21 04:04 ABG pO2 116.9 mm Hg (80.0-90.0) H 07/30/21 13:00 POC ABG HCO3 19.0 08/01/21 04:04 ABG O2 Saturation 95.1 (0-100) 08/01/21 04:04 PT/INR, D-dimer PT 16.6 Sec. (12.2-14.9) H 07/28/21 11:09 INR 1.21 (0.87-1.13) H 07/28/21 11:09 Abnormal lab findings: Abnormal Labs 07/28/21 07/28/21 07/28/21 11:09 11:09 11:09 WBC 13.5 H MCH 26 L RDW 17.6 H Lymph % (Auto) 12.0 L Hendricks % (Auto) Hendricks # (Auto) 0.9 H Seg Neutrophils % 80.4 H Seg Neutrophils # 10.8 H PT 16.6 H INR 1.21 H ABG pH POC ABG pCO2 POC ABG pO2 ABG pO2 ABG HCO3 ABG Base Excess ABG Hemoglobin ABG Oxyhemoglobin ABG Sodium ABG Potassium ABG Chloride ABG Glucose Carboxyhemoglobin Sodium Chloride Carbon Dioxide 16 L BUN 78 H Creatinine 9.1 H Glucose 224 H POC Glucose Lactic Acid Calcium 7.7 L ALT Total Creatine Kinase Troponin T 0.063 H Albumin Triglycerides 226 H Arterial Blood Glucose Arterial Blood Ionized Calcium Urine WBC (Auto) Urine Creatinine 07/28/21 07/28/21 07/28/21 11:09 11:09 12:24 WBC MCH RDW Lymph % (Auto) Hendricks % (Auto) Hendricks # (Auto) Seg Neutrophils % Seg Neutrophils # PT INR ABG pH 7.049 L* POC ABG pCO2 POC ABG pO2 ABG pO2 135.4 H ABG HCO3 13.4 L ABG Base Excess -16.5 L ABG Hemoglobin 10.8 L ABG Oxyhemoglobin ABG Sodium ABG Potassium ABG Chloride ABG Glucose Carboxyhemoglobin Sodium Chloride Carbon Dioxide BUN Creatinine Glucose POC Glucose Lactic Acid 7.30 H* Calcium ALT Total Creatine Kinase 840 H Troponin T Albumin Triglycerides Arterial Blood Glucose Arterial Blood Ionized Calcium Urine WBC (Auto) Urine Creatinine 07/28/21 07/28/21 07/28/21 17:25 18:18 23:20 WBC MCH RDW Lymph % (Auto) Hendricks % (Auto) Hendricks # (Auto) Seg Neutrophils % Seg Neutrophils # PT INR ABG pH 7.118 L POC ABG pCO2 POC ABG pO2 124.3 H ABG pO2 ABG HCO3 ABG Base Excess ABG Hemoglobin ABG Oxyhemoglobin ABG Sodium ABG Potassium 5.1 H ABG Chloride ABG Glucose 406 H Carboxyhemoglobin Sodium Chloride Carbon Dioxide BUN Creatinine Glucose POC Glucose 328 H 270 H Lactic Acid Calcium ALT Total Creatine Kinase Troponin T Albumin Triglycerides Arterial Blood Glucose 406 H Arterial Blood Ionized Calcium 3.8 L Urine WBC (Auto) Urine Creatinine 07/28/21 07/28/21 07/29/21 Unknown Unknown 04:27 WBC 14.0 H MCH 26 L RDW 17.1 H Lymph % (Auto) 10.1 L Hendricks % (Auto) 8.1 H Hendricks # (Auto) 1.1 H Seg Neutrophils % 81.6 H Seg Neutrophils # 11.4 H PT INR ABG pH POC ABG pCO2 POC ABG pO2 ABG pO2 ABG HCO3 ABG Base Excess ABG Hemoglobin ABG Oxyhemoglobin ABG Sodium ABG Potassium ABG Chloride ABG Glucose Carboxyhemoglobin Sodium Chloride Carbon Dioxide BUN Creatinine Glucose POC Glucose Lactic Acid Calcium ALT Total Creatine Kinase Troponin T Albumin Triglycerides Arterial Blood Glucose Arterial Blood Ionized Calcium Urine WBC (Auto) 23.0 H Urine Creatinine 173.3 H 07/29/21 07/29/21 07/29/21 04:27 05:34 08:38 WBC MCH RDW Lymph % (Auto) Hendricks % (Auto) Hendricks # (Auto) Seg Neutrophils % Seg Neutrophils # PT INR ABG pH POC ABG pCO2 21.7 L POC ABG pO2 199.3 H ABG pO2 ABG HCO3 ABG Base Excess ABG Hemoglobin 11.8 L ABG Oxyhemoglobin 98.9 H ABG Sodium ABG Potassium ABG Chloride 113.0 H ABG Glucose 181 H Carboxyhemoglobin 0.2 L Sodium Chloride Carbon Dioxide 14 L BUN 77 H Creatinine 7.6 H Glucose 211 H POC Glucose 187 H Lactic Acid Calcium 7.6 L ALT Total Creatine Kinase Troponin T Albumin Triglycerides Arterial Blood Glucose 181 H Arterial Blood Ionized Calcium Urine WBC (Auto) Urine Creatinine 07/29/21 07/29/21 07/29/21 11:31 17:51 22:35 WBC MCH RDW Lymph % (Auto) Hendricks % (Auto) Hendricks # (Auto) Seg Neutrophils % Seg Neutrophils # PT INR ABG pH POC ABG pCO2 POC ABG pO2 ABG pO2 ABG HCO3 ABG Base Excess ABG Hemoglobin ABG Oxyhemoglobin ABG Sodium ABG Potassium ABG Chloride ABG Glucose Carboxyhemoglobin Sodium Chloride Carbon Dioxide BUN Creatinine Glucose POC Glucose 140 H 141 H 194 H Lactic Acid Calcium ALT Total Creatine Kinase Troponin T Albumin Triglycerides Arterial Blood Glucose Arterial Blood Ionized Calcium Urine WBC (Auto) Urine Creatinine 07/30/21 07/30/21 07/30/21 04:00 04:00 05:12 WBC 15.6 H MCH 26 L RDW 16.8 H Lymph % (Auto) Hendricks % (Auto) Hendricks # (Auto) Seg Neutrophils % Seg Neutrophils # PT INR ABG pH POC ABG pCO2 POC ABG pO2 ABG pO2 ABG HCO3 ABG Base Excess ABG Hemoglobin ABG Oxyhemoglobin ABG Sodium ABG Potassium ABG Chloride ABG Glucose Carboxyhemoglobin Sodium Chloride 110.5 H Carbon Dioxide 16 L BUN 86 H Creatinine 5.9 H Glucose 183 H POC Glucose 162 H Lactic Acid Calcium 8.0 L ALT 57 H Total Creatine Kinase Troponin T Albumin 3.2 L Triglycerides Arterial Blood Glucose Arterial Blood Ionized Calcium Urine WBC (Auto) Urine Creatinine 07/30/21 07/30/21 07/30/21 12:04 13:00 17:20 WBC MCH RDW Lymph % (Auto) Hendricks % (Auto) Hendricks # (Auto) Seg Neutrophils % Seg Neutrophils # PT INR ABG pH POC ABG pCO2 POC ABG pO2 ABG pO2 116.9 H ABG HCO3 15.4 L ABG Base Excess -8.9 L ABG Hemoglobin 10.2 L ABG Oxyhemoglobin ABG Sodium ABG Potassium ABG Chloride ABG Glucose Carboxyhemoglobin Sodium Chloride Carbon Dioxide BUN Creatinine Glucose POC Glucose 145 H 126 H Lactic Acid Calcium ALT Total Creatine Kinase Troponin T Albumin Triglycerides Arterial Blood Glucose Arterial Blood Ionized Calcium Urine WBC (Auto) Urine Creatinine 07/30/21 07/31/21 07/31/21 23:23 03:46 05:13 WBC MCH RDW Lymph % (Auto) Hendricks % (Auto) Hendricks # (Auto) Seg Neutrophils % Seg Neutrophils # PT INR ABG pH POC ABG pCO2 26.8 L POC ABG pO2 132.2 H ABG pO2 ABG HCO3 ABG Base Excess ABG Hemoglobin 10.2 L ABG Oxyhemoglobin ABG Sodium ABG Potassium ABG Chloride 115.0 H ABG Glucose 171 H Carboxyhemoglobin 0.3 L Sodium Chloride Carbon Dioxide BUN Creatinine Glucose POC Glucose 193 H 167 H Lactic Acid Calcium ALT Total Creatine Kinase Troponin T Albumin Triglycerides Arterial Blood Glucose 171 H Arterial Blood Ionized Calcium Urine WBC (Auto) Urine Creatinine 07/31/21 07/31/21 07/31/21 08:10 08:10 11:42 WBC 13.3 H MCH 26 L RDW 17.0 H Lymph % (Auto) Hendricks % (Auto) Hendricks # (Auto) Seg Neutrophils % Seg Neutrophils # PT INR ABG pH POC ABG pCO2 POC ABG pO2 ABG pO2 ABG HCO3 ABG Base Excess ABG Hemoglobin ABG Oxyhemoglobin ABG Sodium ABG Potassium ABG Chloride ABG Glucose Carboxyhemoglobin Sodium Chloride 111.8 H Carbon Dioxide 17 L BUN 86 H Creatinine 3.8 H Glucose 154 H POC Glucose 159 H Lactic Acid Calcium 8.3 L ALT Total Creatine Kinase Troponin T Albumin 3.3 L Triglycerides Arterial Blood Glucose Arterial Blood Ionized Calcium Urine WBC (Auto) Urine Creatinine 07/31/21 08/01/21 08/01/21 17:22 00:01 04:04 WBC MCH RDW Lymph % (Auto) Hendricks % (Auto) Hendricks # (Auto) Seg Neutrophils % Seg Neutrophils # PT INR ABG pH POC ABG pCO2 POC ABG pO2 79.3 L ABG pO2 ABG HCO3 ABG Base Excess ABG Hemoglobin 10.2 L ABG Oxyhemoglobin ABG Sodium 146.8 H ABG Potassium ABG Chloride 117.0 H ABG Glucose 138 H Carboxyhemoglobin 0.3 L Sodium Chloride Carbon Dioxide BUN Creatinine Glucose POC Glucose 115 H 123 H Lactic Acid Calcium ALT Total Creatine Kinase Troponin T Albumin Triglycerides Arterial Blood Glucose 138 H Arterial Blood Ionized Calcium Urine WBC (Auto) Urine Creatinine 08/01/21 08/01/21 08/01/21 06:00 08:55 08:55 WBC 12.2 H MCH 27 L RDW 17.0 H Lymph % (Auto) Hendricks % (Auto) Hendricks # (Auto) Seg Neutrophils % Seg Neutrophils # PT INR ABG pH POC ABG pCO2 POC ABG pO2 ABG pO2 ABG HCO3 ABG Base Excess ABG Hemoglobin ABG Oxyhemoglobin ABG Sodium ABG Potassium ABG Chloride ABG Glucose Carboxyhemoglobin Sodium 150 H Chloride 117.9 H Carbon Dioxide 21 L BUN 71 H Creatinine 2.7 H Glucose 174 H POC Glucose 118 H Lactic Acid Calcium 8.3 L ALT Total Creatine Kinase Troponin T Albumin Triglycerides Arterial Blood Glucose Arterial Blood Ionized Calcium Urine WBC (Auto) Urine Creatinine 08/01/21 08/01/21 08/02/21 11:56 21:41 04:40 WBC 13.3 H MCH 27 L RDW 16.9 H Lymph % (Auto) Hendricks % (Auto) Hendricks # (Auto) Seg Neutrophils % Seg Neutrophils # PT INR ABG pH POC ABG pCO2 POC ABG pO2 ABG pO2 ABG HCO3 ABG Base Excess ABG Hemoglobin ABG Oxyhemoglobin ABG Sodium ABG Potassium ABG Chloride ABG Glucose Carboxyhemoglobin Sodium Chloride Carbon Dioxide BUN Creatinine Glucose POC Glucose 130 H 130 H Lactic Acid Calcium ALT Total Creatine Kinase Troponin T Albumin Triglycerides Arterial Blood Glucose Arterial Blood Ionized Calcium Urine WBC (Auto) Urine Creatinine 08/02/21 08/02/21 08/02/21 04:40 05:34 12:16 WBC MCH RDW Lymph % (Auto) Hendricks % (Auto) Hendricks # (Auto) Seg Neutrophils % Seg Neutrophils # PT INR ABG pH POC ABG pCO2 POC ABG pO2 ABG pO2 ABG HCO3 ABG Base Excess ABG Hemoglobin ABG Oxyhemoglobin ABG Sodium ABG Potassium ABG Chloride ABG Glucose Carboxyhemoglobin Sodium 154 H Chloride 119.2 H Carbon Dioxide BUN 52 H Creatinine 1.8 H Glucose 132 H POC Glucose 120 H 117 H Lactic Acid Calcium ALT Total Creatine Kinase Troponin T Albumin 3.6 L Triglycerides Arterial Blood Glucose Arterial Blood Ionized Calcium Urine WBC (Auto) Urine Creatinine 08/02/21 08/02/21 08/03/21 17:42 20:52 06:39 WBC MCH RDW Lymph % (Auto) Hendricks % (Auto) Hendricks # (Auto) Seg Neutrophils % Seg Neutrophils # PT INR ABG pH POC ABG pCO2 POC ABG pO2 ABG pO2 ABG HCO3 ABG Base Excess ABG Hemoglobin ABG Oxyhemoglobin ABG Sodium ABG Potassium ABG Chloride ABG Glucose Carboxyhemoglobin Sodium Chloride Carbon Dioxide BUN Creatinine Glucose POC Glucose 133 H 159 H 143 H Lactic Acid Calcium ALT Total Creatine Kinase Troponin T Albumin Triglycerides Arterial Blood Glucose Arterial Blood Ionized Calcium Urine WBC (Auto) Urine Creatinine 08/03/21 08/03/21 08/03/21 12:05 16:31 20:43 WBC MCH RDW Lymph % (Auto) Hendricks % (Auto) Hendricks # (Auto) Seg Neutrophils % Seg Neutrophils # PT INR ABG pH POC ABG pCO2 POC ABG pO2 ABG pO2 ABG HCO3 ABG Base Excess ABG Hemoglobin ABG Oxyhemoglobin ABG Sodium ABG Potassium ABG Chloride ABG Glucose Carboxyhemoglobin Sodium Chloride Carbon Dioxide BUN Creatinine Glucose POC Glucose 178 H 114 H 154 H Lactic Acid Calcium ALT Total Creatine Kinase Troponin T Albumin Triglycerides Arterial Blood Glucose Arterial Blood Ionized Calcium Urine WBC (Auto) Urine Creatinine 08/04/21 08/04/21 07:48 12:13 WBC MCH RDW Lymph % (Auto) Hendricks % (Auto) Hendricks # (Auto) Seg Neutrophils % Seg Neutrophils # PT INR ABG pH POC ABG pCO2 POC ABG pO2 ABG pO2 ABG HCO3 ABG Base Excess ABG Hemoglobin ABG Oxyhemoglobin ABG Sodium ABG Potassium ABG Chloride ABG Glucose Carboxyhemoglobin Sodium Chloride Carbon Dioxide BUN Creatinine Glucose POC Glucose 108 H 164 H Lactic Acid Calcium ALT Total Creatine Kinase Troponin T Albumin Triglycerides Arterial Blood Glucose Arterial Blood Ionized Calcium Urine WBC (Auto) Urine Creatinine Allied health notes reviewed: nursing
--- NOTE | 2021-08-04 13:52 | Progress Note ---
Assessment and Plan Echo 07/29/2021 EF 50 to 55%, left ventricular systolic function is normal, right ventricular systolic function is normal, right ventricle is mildly dilated, trace mitral regurgitation, RSVP is 33 mmHg, mild to moderate tricuspid regurgitation Optimize antihypertensive regimen given that pt is now outside the 48-hr window of permissive HTN. Continue Metoprolol 25mg PO BID. Continue to hold ALLISON/ARB due to VIJAY Pt is a candidate for NOACs in reference to underlying non-valvular AF. Per neuro notes patient should not begin anticoagulation until 08/07/2021 as an outpatient. [id number] Score: 7 points HAS-BLED Score: 4 points Patient is stable and may be discharged from a cardiac point of view. Pt seen in conjunction with Dr. Kerr, who agrees with the assessment and plan of care. Will continue to follow. - Patient Problems (1) VIJAY (acute kidney injury) Current Visit: Yes Status: Acute (2) Acute respiratory failure with hypoxia Current Visit: Yes Status: Acute (3) Bilateral pneumonia Current Visit: Yes Status: Acute (4) Elevated troponin Current Visit: Yes Status: Acute (5) Paroxysmal atrial fibrillation Current Visit: Yes Status: Acute (6) Severe sepsis Current Visit: Yes Status: Acute Subjective Date of service: 08/04/21 Principal diagnosis: Cardiopulmonary Arrest Interval history: Patient resting in bed confused. No acute distress sinus 92 with PVCs Objective Vital Signs Temp Pulse Resp BP Pulse Ox 08/04/21 10:15 88 143/71 08/04/21 10:12 88 143/71 08/04/21 07:52 97.2 F L 83 16 143/71 97 08/04/21 03:34 88 95 08/04/21 03:33 98.1 F 88 18 134/68 94 08/03/21 23:57 99.4 F 96 H 18 129/70 84 08/03/21 22:00 98 08/03/21 19:28 99.4 F 89 18 152/74 91 - Physical Examination General: No Apparent Distress HEENT: Positive: Normocephaly Neck: Positive: trachea midline. Negative: JVD/HJR Cardiac: Positive: Reg Rate and Rhythm Lungs: Positive: Normal Breath Sounds Neuro: Positive: Grossly Intact Abdomen: Positive: Soft Skin: Negative: Rash, Suspicious Lesions Musculoskeletal: No Fluid Collection Extremities: Present: lower extr. pulses. Absent: edema - Imaging and Cardiology EKG: report reviewed, image reviewed Echo: report reviewed - Telemetry EKG Rhythm: Sinus Rhythm - EKG Sinus rhythms and dysrhythmias: sinus rhythm Ventricular dysrhythmias: non-sustained ventricular - Allied health notes Allied health notes reviewed: nursing
--- NOTE | 2021-08-04 14:24 | Electrocardiograph Report ---
[facility] Test Date: 2021-07-28 Test Time: 12:12:31 Pat Name: ALDO SNOW Department: Room: A484 Gender: F Product Applications Engineer: MICHELLE : 1950 Requested By: CARLOTA TRINIDAD Order Number: [id number] Reading MD: Surya Salmon Measurements Intervals [place] Rate: 121 P: AK: QRS: 83 QRSD: 90 T: 254 QT: 329 QTc: 467 Interpretive Statements Atrial fibrillation Repol abnrm suggests ischemia, diffuse leads No previous ECG available for comparison Electronically Signed On 08-04-2021 14:24:35 EDT by Surya Salmon
--- NOTE | 2021-08-04 14:44 | Electrocardiograph Report ---
[facility] Test Date: 2021-07-30 Test Time: 07:19:24 Pat Name: ALDO SNOW Department: Room: A484 Gender: F Envelope Sealer: GANGA : 1950 Requested By: UBALDO PITTMAN Order Number: [id number] Reading MD: Surya Salmon Measurements Intervals [place] Rate: 47 P: 54 NV: 146 QRS: 74 QRSD: 98 T: 89 QT: 488 QTc: 434 Interpretive Statements Sinus bradycardia Compared to ECG 07/28/2021 12:12:31 Sinus bradycardia has replaced atrial fibrillation Electronically Signed On 08-04-2021 14:44:21 EDT by Surya Salmon
[2021-08-04 17:33] VITALS: BP 146/59
== END 2021-08-04 19:42 | DRG 870 ==
LOC: ED 09:34 → CC1 12:05 → 4A 08-02 21:09
PROVIDERS: ADMIT Internal Medicine; ATTEND Internal Medicine
PROC: 5A1955Z Respiratory Ventilation, Greater than 96 Consecutive Hours (ICD-10-PCS; principal; 2021-07-28)
PROC: 0BH17EZ Insertion of Endotracheal Airway into Trachea, Via Natural or Artificial Opening (ICD-10-PCS; 2021-07-28)
PROC: 06HY33Z Insertion of Infusion Device into Lower Vein, Percutaneous Approach (ICD-10-PCS; 2021-07-28)
PROC: 4A033R1 Measurement of Arterial Saturation, Peripheral, Percutaneous Approach (ICD-10-PCS; 2021-07-29)
DX: A41.89 Other specified sepsis (principal); J96.01 Acute respiratory failure with hypoxia; N17.0 Acute kidney failure with tubular necrosis; I46.9 Cardiac arrest, cause unspecified; J18.9 Pneumonia, unspecified organism; R65.21 Severe sepsis with septic shock; G93.41 Metabolic encephalopathy; I63.9 Cerebral infarction, unspecified; J44.0 Chronic obstructive pulmonary disease with (acute) lower respiratory infection; I13.0 Hypertensive heart and chronic kidney disease with heart failure and stage 1 through stage 4 chronic kidney disease, or unspecified chronic kidney disease; E87.0 Hyperosmolality and hypernatremia; I50.32 Chronic diastolic (congestive) heart failure; G81.94 Hemiplegia, unspecified affecting left nondominant side; Z20.822 Contact with and (suspected) exposure to COVID-19; N18.9 Chronic kidney disease, unspecified; F03.90 Unspecified dementia, unspecified severity, without behavioral disturbance, psychotic disturbance, mood disturbance, and anxiety; I48.0 Paroxysmal atrial fibrillation; E11.65 Type 2 diabetes mellitus with hyperglycemia; E78.5 Hyperlipidemia, unspecified; E11.22 Type 2 diabetes mellitus with diabetic chronic kidney disease; I16.0 Hypertensive urgency; R13.12 Dysphagia, oropharyngeal phase; E66.01 Morbid (severe) obesity due to excess calories; Z68.34 Body mass index [BMI] 34.0-34.9, adult; Z83.3 Family history of diabetes mellitus; Z82.49 Family history of ischemic heart disease and other diseases of the circulatory system; Z79.4 Long term (current) use of insulin; Z88.8 Allergy status to other drugs, medicaments and biological substances; Z79.82 Long term (current) use of aspirin
CPT/HCPCS: 36415; 36600; 70450; 70551; 71045; 74018; 80048; 80053; 80061; 80076; 80202; 81001; 82140; 82550; 82570; 82803; 82805; 82962; 83735; 83880; 84100; 84145; 84300; 84484; 85025; 85027; 85610; 85730; 87040; 87070; 87086; 87205; 93005; 93306; 94002; 94003; 94760; G0378; J0171; J0360; J0692; J1100; J1265; J1644; J1815; J1940; J2310; J2405; J2543; J2704; J3010; J3370; J7030; J7040; J7070; U0003